=== PATIENT | female | born 1955 | race Caucasian/White ===

== ENCOUNTER 2017-02-17 07:06 | Inpatient (IN) | payer OTHER ==
[2017-02-17] VITALS (11 sets, daily range): BP systolic 134–188; BP diastolic 59–81; PULSE 74–90; RESP 16–20; TEMP 98.1–98.6; O2SAT 95–97
[~2017-02-17] VITALS: Ht 167.6 cm; Wt 127.5 kg
[2017-02-17] MEDS ORDERED: ASPIRIN 81 MG CHEW TAB PO ONE (07:30)
[2017-02-17] MEDS ORDERED: SODIUM CHLORIDE 0.9% FLUSH 10 ML FLUSH IVF PRN (07:30)
--- NOTE | 2017-02-17 07:36 | PD ---
HPI Chief Complaint: Cardiac Complaint Time Seen by Provider: 07:29 Travel History International Travel<30 days: No Contact w/Intl Traveler<30days: No Traveled to known affect area: No History of Present Illness HPI This is a 61-year-old female with history of hypertension, hyperlipidemia, who presents today with complaints of exertional related chest tightness and numbness and tingling of her bilateral arms. The patient reports that when she was lifting her 5 gallon water bottle onto the stand, she started experiencing chest tightness. She was seen by her primary care physician, Dr. Shepard on who is in the process of referring her to cardiology. He did state that if she experienced another episode of chest tightness, she should come to the emergency department. The patient reports she's been having these symptoms on and off now for 2-1/2 weeks. The patient is symptom-free at this time. PFSH Past Medical History Autoimmune Disease: No Blood Disorders: No Anxiety: No Depression: No Cancer: No High Cholesterol: Yes Diminished Hearing: No Endocrine: No Genitourinary: No Hypertension: Yes Musculoskeletal: No Neurologic: No Psychiatric: No Tetanus Vaccination: Unknown Influenza Vaccination: Yes ?: Not Menopausal: Yes : 1 Para: 1 Tubal Ligation: Yes Past Surgical History Cholecystectomy: Yes Genitourinary Surgery: Yes (TUBAL,1994) Family History Family Myocardial Infarction: Yes (GRANDFATHER) Social History Alcohol Use: Yes (OCCASIONALLY) Tobacco Use: No Substance Use: No Allergies-Medications (Allergen,Severity, Reaction): Coded Allergies: No Known Allergies (Verified Allergy, Unknown, 04/07/05) Reported Meds & Prescriptions Reported Meds & Active Scripts Active Reported Ranitidine (Ranitidine HCl) 300 Mg Tab 300 Mg PO DAILY Lisinopril 20 Mg Tab 20 Mg PO DAILY Lisinopril-Hctz 20-25 Mg Tab 1 Tab PO DAILY Lovastatin 20 Mg Tab 20 Mg PO DAILY Review of Systems Except as stated in HPI: all other systems reviewed are Neg General / Constitutional: No: Fever, Chills HENT: No: Headaches, Neck Pain Cardiovascular: Positive: Chest Pain or Discomfort, No: Palpitations ( tightness) Respiratory: Positive: Shortness of Breath (with the chest tightness), No: Cough Gastrointestinal: No: Nausea, Abdominal Pain Genitourinary: No: Frequency, Dysuria Musculoskeletal: Positive: Other (tingling of her), No: Weakness, Pain Neurologic: Positive: Other (numbness and tingling of her arms when the tightness is present. This is bilaterally), No: Weakness Physical Exam Narrative GENERAL: Well-developed well-nourished female in no acute respiratory distress. SKIN: Focused skin assessment warm/dry. HEAD: Atraumatic. Normocephalic. EYES: No scleral icterus. No injection or drainage. ENT: No nasal bleeding or discharge. Mucous membranes pink and moist. NECK: Trachea midline. No JVD. CARDIOVASCULAR: Regular rate and rhythm. No murmur appreciated. RESPIRATORY: No accessory muscle use. Clear to auscultation. Breath sounds equal bilaterally. GASTROINTESTINAL: Abdomen soft, non-tender, nondistended. MUSCULOSKELETAL: No obvious deformities. No clubbing. No cyanosis. No edema. NEUROLOGICAL: Awake and alert. No obvious cranial nerve deficits. Motor grossly within normal limits. Normal speech. PSYCHIATRIC: Appropriate mood and affect; insight and judgment normal. Data Data Last Documented VS Vital Signs Date Time Temp Pulse Resp B/P Pulse Ox O2 Delivery O2 Flow Rate FiO2 02/17/17 07:10 98.5 90 20 172/80 97 Room Air Orders Electrocardiogram (02/17/17 ) Electrocardiogram (02/17/17 07:29) Basic Metabolic Panel (Bmp) (02/17/17 07:29) Ckmb (Isoenzyme) Profile (02/17/17 07:29) Complete Blood Count With Diff (02/17/17 07:29) Magnesium (Mg) (02/17/17 07:29) Prothrombin Time / Inr (Pt) (02/17/17 07:29) Act Partial Throm Time (Ptt) (02/17/17 07:29) Troponin I (02/17/17 07:29) Chest, Single Ap (02/17/17 07:29) Ecg Monitoring (02/17/17 07:29) Bilateral Bp Monitoring (02/17/17 07:29) Iv Access Insert/Monitor (02/17/17 07:29) Oximetry (02/17/17 07:29) Oxygen Administration (02/17/17 07:29) Aspirin Chew (Aspirin Chew) (02/17/17 07:30) Sodium Chloride 0.9% Flush (Ns Flush) (02/17/17 07:30) Labs Laboratory Tests Test 02/17/17 07:45 White Blood Count 7.2 TH/MM3 Red Blood Count 4.43 MIL/MM3 Hemoglobin 12.5 GM/DL Hematocrit 36.8 % Mean Corpuscular Volume 83.0 FL Mean Corpuscular Hemoglobin 28.1 PG Mean Corpuscular Hemoglobin 33.8 % Concent Red Cell Distribution Width 14.6 % Platelet Count 172 TH/MM3 Mean Platelet Volume 10.5 FL Neutrophils (%) (Auto) 74.0 % Lymphocytes (%) (Auto) 16.6 % Monocytes (%) (Auto) 6.9 % Eosinophils (%) (Auto) 1.6 % Basophils (%) (Auto) 0.9 % Neutrophils # (Auto) 5.4 TH/MM3 Lymphocytes # (Auto) 1.2 TH/MM3 Monocytes # (Auto) 0.5 TH/MM3 Eosinophils # (Auto) 0.1 TH/MM3 Basophils # (Auto) 0.1 TH/MM3 CBC Comment DIFF FINAL Differential Comment Prothrombin Time 10.6 SEC Prothromb Time International 1.0 RATIO Ratio Activated Partial 30.0 SEC Thromboplast Time Sodium Level 144 MEQ/L Potassium Level 3.8 MEQ/L Chloride Level 108 MEQ/L Carbon Dioxide Level 28.4 MEQ/L Anion Gap 8 MEQ/L Blood Urea Nitrogen 14 MG/DL Creatinine 0.64 MG/DL Estimat Glomerular Filtration 95 ML/MIN Rate Random Glucose 103 MG/DL Calcium Level 9.5 MG/DL Magnesium Level 2.0 MG/DL Total Creatine Kinase 43 U/L Troponin I LESS THAN 0.02 NG/ML MDM Medical Decision Making Medical Screen Exam Complete: Yes Emergency Medical Condition: Yes Differential Diagnosis ACS versus musculoskeletal etiology versus pneumonia versus CHF versus pulmonary embolus Narrative Course 7-year-old female with a history of hyperlipidemia, hypertension, presents today with complaints of exertional chest pressure and shortness of breath. The patient's cardiac enzymes and EKG are within normal limits. The patient was initially given a be admitted to the chest pain center. Dr. Phil Mcdaniels is come in to evaluate the patient and feels as though this is too much like unstable angina and requests we admit to the medicine service with a consult with Dr. Alexis Phan. He spoke with Dr. Phan personally who will likely arrange to take the patient to the Director Of Architecture. There is a call out to the medicine service for admission. Diagnosis Primary Impression: Unstable angina Additional Impressions: Hypertension Hyperlipidemia Admitting Information Admitting Physician Requests: Admit Geremias Nagel MD Feb 17, 2017 07:36
[2017-02-17 07:56] LABS: AUTOMATED NEUTROPHIL # 5.4 TH/MM3 (1.8-7.7); BASOPHIL # 0.1 TH/MM3 (0-0.2); BASOPHIL % 0.9 % (0.0-2.0); EOSINOPHIL # 0.1 TH/MM3 (0-0.4); EOSINOPHIL % 1.6 % (0.0-4.0); HEMATOCRIT 36.8 % (35.0-46.0); HEMO FLAGS DIFF FINAL; LYMPH % 16.6 % (9.0-44.0); LYMPHOCYTE # 1.2 TH/MM3 (1.0-4.8); MEAN CORPUSCULAR HEMOGLOBIN 28.1 PG (27.0-34.0); MEAN CORPUSCULAR HGB CONC 33.8 % (32.0-36.0); MONO % 6.9 % (0.0-8.0); PLATELET COUNT 172 TH/MM3 (150-450); RED BLOOD COUNT 4.43 MIL/MM3 (4.00-5.30); RED CELL DISTRIBUTION WIDTH 14.6 % (11.6-17.2); WHITE BLOOD COUNT 7.2 TH/MM3 (4.0-11.0)
[2017-02-17 08:09] LABS: PROTHROMBIN TIME - PATIENT 10.6 SEC (9.8-11.6)
--- NOTE | 2017-02-17 08:12 | RADRPT ---
EXAM DATE/TIME: 02/17/2017 07:45 [facility] COMPARISON: No previous studies available for comparison. INDICATIONS : Chest pressure, heaviness, and shortness of breath for 2 weeks. MEDICAL HISTORY : Hypertension. SURGICAL HISTORY : None. ENCOUNTER: Initial ACUITY: 2 weeks PAIN SCORE: 0/10 LOCATION: Bilateral chest FINDINGS: The heart is enlarged. The pulmonary vascular pattern is normal. The lungs are clear. Degenerative changes are noted throughout the thoracic spine. CONCLUSION: 1. Cardiomegaly. 2. Degenerative changes throughout the thoracic spine. 3. No acute focal pulmonary infiltrate. Dionisio Houston MD on February 17, 2017 at 8:06 Board Certified Radiologist. This report was verified electronically.
[2017-02-17 08:15] LABS: ANION GAP 8 MEQ/L (5-15); BICARBONATE 28.4 MEQ/L (21.0-32.0); BLOOD UREA NITROGEN 14 MG/DL (7-18); CHLORIDE 108 MEQ/L (98-107); GLOMERULAR FILTRATION RATE 95 ML/MIN (>89); POTASSIUM 3.8 MEQ/L (3.5-5.1); SODIUM (NA) 144 MEQ/L (136-145)
[2017-02-17 08:17] LABS: CREATINE KINASE 43 U/L (26-192)
[2017-02-17] MEDS ORDERED: LOVA20TA PO (08:18)
[2017-02-17] MEDS ORDERED: LISI-515 PO (08:18)
[2017-02-17] MEDS ORDERED: LISI20TA3 PO (08:18)
[2017-02-17] MEDS ORDERED: RANI300T PO (08:18)
[2017-02-17] MEDS ORDERED: NITROGLYCERIN 2% OINT 1 GM PACKET TOPICAL ONE (10:30)
[2017-02-17] MEDS ORDERED: MAGNESIUM HYDROXIDE SUSP 30 ML CUP PO PRN (11:30)
[2017-02-17] MEDS ORDERED: NALOXONE HCL 0.4 MG/ML AMP IV PRN (11:30)
[2017-02-17] MEDS ORDERED: SODIUM CHLORIDE 0.9% FLUSH 10 ML FLUSH IV FLUSH PRN (11:30)
[2017-02-17] MEDS ORDERED: SENNOSIDES 8.6 MG TAB PO PRN (11:30)
[2017-02-17] MEDS ORDERED: ONDANSETRON HCL 4 MG/2 ML VIAL IVP PRN (11:30)
[2017-02-17] MEDS ORDERED: BISACODYL 10 MG SUPP RECTAL PRN (11:30)
[2017-02-17] MEDS ORDERED: LACTULOSE SYRUP 20 GM/30 ML CUP PO PRN (11:30)
--- NOTE | 2017-02-17 11:51 | HHI.HP ---
cc: Himanshu Shepard MD [facility] Service [facility] Primary Care Physician Himanshu Shepard MD Admission Diagnosis Chest pain, htn, hyperlipidemia Diagnoses: Chief Complaint: chest pain Travel History International Travel<30 Days: No Contact w/Intl Traveler <30 Da: No Traveled to Known Affected Are: No History of Present Illness Written by Domi Grover, acting as scribe for Dr. Hobson on 02/17/17 at 11: 58. 61-year-old female with history of hypertension, hyperlipidemia, GERD, presents with a 2 week history of intermittent chest pain. The patient reports this morning she was lifting a 5lbs gallon when she started experiencing acute onset of chest pain. She locates the pain to to the central anterior chest, described as severe tightness and pressure, associated with some numbness of bilateral arms, shortness of breath, but no nausea/vomiting/diaphoresis. Over the past 2 weeks she reports multiple episodes of chest pain with any minimal exertion, just walking from her car into work, or walking around the house. The pain is relieved by rest. She denies any chest pains as long as she's not exerting herself. She recently started taking baby aspirin every day this week secondary to the chest pain. She denies any cardiac history or prior cardiac testing. She saw her PCP Dr. Shepard this week who was in the process of referring her to cardiology as outpatient however told her to come to the ER if she has any more episodes of chest pain. The patient is concerned as her grandfather from [place] at age 55. Review of Systems Except as stated in HPI: all other systems reviewed are Neg Past Family Social History Past Medical History Hypertension Hyperlipidemia GERD Past Surgical History Tubal ligation, 1995 Right Ankle fusion x2 Left Achilles tendon repair Cholecystectomy Reported Medications Ranitidine (Ranitidine HCl) 300 Mg Tab 300 Mg PO DAILY Lisinopril 20 Mg Tab 20 Mg PO DAILY Lisinopril-Hctz 20-25 Mg Tab 1 Tab PO DAILY Lovastatin 20 Mg Tab 20 Mg PO DAILY Aspirin 81mg daily Allergies: Coded Allergies: No Known Allergies (Verified Allergy, Unknown, 04/07/05) Active Ordered Medications Current Medications Medications (Trade) Dose Ordered Sig/Dalila Route Start Time Stop Time Status Last Admin (NS Flush) 2 ml UNSCH PRN IVF 02/17/17 07:30 (NS Flush) 2 ml UNSCH PRN IV FLUSH 02/17/17 11:30 UNV (NS Flush) 2 ml BID IV FLUSH 02/17/17 21:00 UNV (Zofran Inj) 4 mg Q6H PRN IVP 02/17/17 11:30 UNV (Lovenox Inj) 40 mg Q24H SQ 02/17/17 11:30 UNV (Narcan Inj) 0.4 mg UNSCH PRN IV 02/17/17 11:30 UNV (Olga-Colace) 1 tab BID PO 02/17/17 21:00 UNV (Milk Of Magnesia Liq) 30 ml Q12H PRN PO 02/17/17 11:30 UNV (Senokot) 17.2 mg Q12H PRN PO 02/17/17 11:30 UNV (Dulcolax Supp) 10 mg DAILY PRN RECTAL 02/17/17 11:30 UNV (Lactulose Liq) 30 ml DAILY PRN PO 02/17/17 11:30 UNV Family History Grandfather at age 55 with CAD/[place] Mother with diabetes, breast cancer Father with CVA in his 70s Social History Smoked tobacco from age 19 to 23, 1 PPD, no recent tobacco use Occasional alcohol use, approximately once a week Denies any illicit drug use Works at [employer] for 33 years Physical Exam Vital Signs Vital Signs Date Time Temp Pulse Resp B/P Pulse Ox O2 Delivery O2 Flow Rate FiO2 02/17/17 11:33 77 20 188/77 95 Room Air 02/17/17 07:10 98.5 90 20 172/80 97 Room Air Physical Exam GENERAL: Well-nourished, well-developed obese middle aged female patient in NAD. SKIN: Warm and dry. No rash. HEAD: Normocephalic. Atraumatic. EYES: Pupils equal and round. No scleral icterus. No injection or drainage. ENT: No nasal bleeding or discharge. Mucous membranes pink and moist. NECK: Supple. Trachea midline. CARDIOVASCULAR: Regular rate and rhythm. S1, S2 noted. No murmur appreciated. RESPIRATORY: No accessory muscle use. Clear to auscultation. Breath sounds equal bilaterally. GASTROINTESTINAL: Abdomen soft, non-tender, nondistended. Normoactive bowel sounds x4. MUSCULOSKELETAL: No obvious deformities. Extremities without clubbing, cyanosis , or edema. NEUROLOGICAL: Awake and alert. No obvious cranial nerve deficits. Motor grossly within normal limits. 5/5 muscle strength in bilateral upper and lower extremities. Normal speech. PSYCHIATRIC: Appropriate mood and affect; insight and judgment normal. Laboratory Laboratory Tests Test 02/17/17 07:45 White Blood Count 7.2 Red Blood Count 4.43 Hemoglobin 12.5 Hematocrit 36.8 Mean Corpuscular Volume 83.0 Mean Corpuscular Hemoglobin 28.1 Mean Corpuscular Hemoglobin 33.8 Concent Red Cell Distribution Width 14.6 Platelet Count 172 Mean Platelet Volume 10.5 Neutrophils (%) (Auto) 74.0 Lymphocytes (%) (Auto) 16.6 Monocytes (%) (Auto) 6.9 Eosinophils (%) (Auto) 1.6 Basophils (%) (Auto) 0.9 Neutrophils # (Auto) 5.4 Lymphocytes # (Auto) 1.2 Monocytes # (Auto) 0.5 Eosinophils # (Auto) 0.1 Basophils # (Auto) 0.1 CBC Comment DIFF FINAL Differential Comment Prothrombin Time 10.6 Prothromb Time International 1.0 Ratio Activated Partial 30.0 Thromboplast Time Sodium Level 144 Potassium Level 3.8 Chloride Level 108 Carbon Dioxide Level 28.4 Anion Gap 8 Blood Urea Nitrogen 14 Creatinine 0.64 Estimat Glomerular Filtration 95 Rate Random Glucose 103 Calcium Level 9.5 Magnesium Level 2.0 Total Creatine Kinase 43 Troponin I LESS THAN 0.02 Result Diagram: 02/17/17 0745 02/17/1745 Imaging Last Impressions Chest X-Ray 02/17/17 0729 Signed Impressions: Service Date/Time: Friday, February 17, 2017 07:45 - CONCLUSION: 1. Cardiomegaly. 2. Degenerative changes throughout the thoracic spine. 3. No acute focal pulmonary infiltrate. Dionisio Houston MD Assessment and Plan Problem List: (1) Unstable angina ICD Code: I20.0 Status: Acute (2) Hypertension ICD Code: I10 Status: Acute (3) Hyperlipidemia ICD Code: E78.5 Status: Chronic Assessment and Plan 61-year-old female with history of hypertension, hyperlipidemia, GERD, presents with a 2 week history of intermittent chest pain. Unstable Angina: Initially to be admitted to Chest Pain Center however high concern for ACS given her description, [facility] contacted bus driver/monitor chief contract officer who plans to take patient for heart catheterization today. Currently patient is chest-pain free. -S/p aspirin 324mg x1 -initial troponin negative and EKG without acute ischemic changes -continue to monitor serial cardiac enzymes and EKGs -Continue nitro paste, IV morphine prn -Check lipid panel in am, continue statin -Started beta jj -Cardiology consulted, patient going for heart catheterization today -Keep NPO for now Hypertension: with elevated BP in ER, suspect secondary to anxiety vs white coat hypertension, patient reports BP well controlled at home in the 110s-120s on her home meds -continue patient's lisinopril 40mg and HCTZ 25mg -monitor BP, adjust antihypertensives as needed -xanax 0.25mg prn anxiety -clonidine 0.1mg q6h prn SBP > 160, DBP > 90 Hyperlipidemia: chronic -continue patient's statin -check lipid panel in am GERD: chronic -continue patient's zantac DVT Prophylaxis: Lovenox This note was transcribed by scribe [Domi Grover]. I, Dr. Bill Hobson personally performed the history, physical exam, and medical decision making; and confirmed the accuracy of the information in the transcribed note. Authenticated by Dr. Bill Hobson on 02/17/17 at 16:00. Discussed Condition With Patient, ER Physician Certification 2 Midnight Certification Type: Admission for Inpatient Services Order for Inpatient Services The services are ordered in accordance with Medicare regulations or non- Medicare payer requirements, as applicable. In the case of services not specified as inpatient-only, they are appropriately provided as inpatient services in accordance with the 2-midnight benchmark. Estimated LOS (days): 3 days is the estimated time the patient will need to remain in the hospital, assuming treatment plan goals are met and no additional complications. Post-Hospital Plan: Home Domi Grover PA-C Feb 17, 2017 11:51 am Bill Hobson MD Feb 17, 2017 4:01 pm
[2017-02-17] MEDS ORDERED: ENOXAPARIN SODIUM 40 MG/0.4 ML SYRINGE SQ SCH (12:00)
[2017-02-17] MEDS ORDERED: cloNIDine HCL 0.1 MG TAB PO PRN (13:00)
[2017-02-17] MEDS ORDERED: MORPHINE SULFATE 4 MG/ML INJ IV PUSH PRN (13:45)
[2017-02-17] MEDS ORDERED: HEPARIN-NS/PF INJ 500 ML ONE (14:11)
[2017-02-17] MEDS ORDERED: MIDAZOLAM HCL 2 MG/2 ML VIAL ONE (14:12)
[2017-02-17] MEDS ORDERED: VERAPAMIL HCL 5 MG/2 ML VIAL ONE (14:12)
--- NOTE | 2017-02-17 15:27 | CATHPROC ---
AQH HIS Report Study Information Study Number Admission Scheduled Start Study Start [id number] Feb 17 2017 9:31AM 02/17/2017 Feb 17 2017 2:13PM [place] Service Cardiac Catheterization Admit Source Facility Department Emergency department [facility] - [employer] Physician and Clinical Staff Initial MD Narvaez, Alexis Mold Inspectorlester Whitfield RN, Holden Mold InspectorNicole Vasquez RN Recorder Hamida Alvarenga,TEMPORARY DATA ENTRY CLERK TECH2 Recorder Rachel Ledesma,RT(R) Scrub Carley Schafer,MAIL PROCESSING EQUIPMENT MECHANIC TECH2 Procedures Performed Procedure Location (Site) Vessel Name Coronary Angiograms LCA Left Coronary Coronary Angiograms RCA Right Coronary L Heart Cath Wire insertion Radial (right) Radial Art. Equipment Time Chuck Tender Description Size Mfg Part Number Used/Scraped TRANSDUCER, ARA [id number] 14:14 ATKINSON CAPELLAN * Used W/STOCKCOCK *[id number] *[id number] *[id number] *[id number] *[id number] 14:14 [employer] PACK, CCL CUSTOM * Used *[id number] 14:14 [employer] SUPPORT, ARTERIAL ADULT [id number] Used BAND, RADIAL COMPRESSION TR [id number] 15:09 [employer] MEDICAL 29CM Used LARGE 29 *[id number] BAND, RADIAL COMPRESSION TR [id number] 15:09 [employer] MEDICAL 29CM Used LARGE 29 *[id number] 14:14 [employer] WIRE, 3MMJ .035 180CM 180CM Used *[id number] 14:14 NAMIC MANIFOLD, 4 PORT * Used *[id number] 14:14 NYCOMED OMNIPAQUE, 350 MG, 150ML 150ML [id number] Used [id number] 14:14 [facility] BLANKET,WARM AIR CCL * Used *[id number] SHEATH, FR6 TRANSRADIAL 14:14 [employer]ging [employer] FR 6 RM*[id number] Used SLENDER 10CM History: Current Medications Medication Dosage/Unit Route Frequency Last Date/Time Taken LISINOPRIL Statins (any) History: Allergies Allergy Reaction No Known Allergies History: Risk Factors Family History of Hypertension Dyslipidemia Previous ME Previous Heart Failure Premature CAD Yes Yes No No No Prior Valve Prior PCI Prior CABG Surgery No No No Cerebrovascular Peripheral Artery Chronic Lung On Dialysis Diabetes Disease Disease Disease No No No No No History: Symptoms/Diagnosis Selection Items Chest pain SOB History: Stress Tests Stress or Imaging Studies Performed No History: Other Disease Selection Items HTN History: Other Current Smoker No Labs Hgb (g/dl) Hct (%) RBC (MIL/MM3) WBC (l/cumm) Platelets (thousands) 11.60-17.00 35.00-51.00 4.00-5.90 4.00-11.00 150.00-450.00 12.5 36.8 4.4 7.2 172 Glucose (mg/dl) BUN (mg/dl) Creatinine (mg/dl) BUN:Creatinine (1:x) 74.00-106.00 7.00-18.00 0.50-1.30 10.00-20.00 103 14 0.6 23.3 Na (meq/l) K (meq/l) Cl (meq/l) CO2 (mmol/L) Ca (mg/dl) 136.00-145.00 3.50-5.10 98.00-107.00 21.00-32.00 8.50-10.10 144 3.8 108 28.4 9.5 PT (sec) PTT (sec) INR (PTT:PT) 9.80-11.60 24.30-30.10 0.90-1.10 10.6 30 1 Troponin I (ng/ml) CPK (u/l) CPK-MB (ng/ML) 0.02-0.05 26.00-308.00 0.50-3.60 0.02 43 Not Drawn Medication Medication Total Dose (Bolus/Oral) Medication Total Dosage/Unit 1% XYLOCAINE 20 mL FENTANYL 100 mcg RADIAL COCKTAIL 5 mL (Bolus) VERSED 2 mg Medications (Bolus/Oral) Medication Time Given Dosage/Unit Administered By Reason 1% XYLOCAINE 02/17/2017 2:52:54 PM 20 mL Alexis Narvaez Patient arrived on 20 mL 1% XYLOCAINE given by Alexis Narvaez in Right Wrist via Subcutaneous. FENTANYL 02/17/2017 2:53:51 PM 50 mcg Holden Whitfield RN 50 mcg FENTANYL given in lab by Holden Whitfield RN in Right Antecubital via Peripheral IV. VERSED 02/17/2017 2:54:27 PM 2 mg Holden Whitfield RN 2 mg VERSED given in lab by Holden Whitfield RN via Peripheral IV. Ntg 200mcg Verapamil 2.5mg Heparin RADIAL COCKTAIL 02/17/2017 2:55:05 PM 5 mL (Bolus) Alexis Narvaez 2500U Patient arrived on 5 mL (Bolus) RADIAL COCKTAIL given by Alexis Narvaez in Right Radial via Radial . Using [Solution Name]. Reason: Ntg 200mcg Verapamil 2.5mg Heparin 2500U. FENTANYL 02/17/2017 3:05:49 PM 50 mcg Holden Whitfield RN 50 mcg FENTANYL given in lab by Holden Whitfield RN via Peripheral IV. Medication (Drip) Medication Time Given Dosage/Unit Concentration/Unit Diluent (ml) Solution IV Solutions 02/17/2017 2:14:20 PM 0 mL (IV) 500 NaCl .9 Patient arrived on IV Solutions in Left Forearm via Peripheral IV. Pump/Drip Flow = 20 ml/hr using Na Cl .9. Initial Case Assessment Cardiovascular HR Rhythm NIBP Chest Pain 91 sr 159/87 0 Circulatory - Right Pulses Dorsalis Pedis Femoral Radial 2 2 2 Scale (0,1,2,3,4,d) Scale (0,1,2,3,4,d) Neurological State Oriented to time-place- Alert Moves all extremities person Respiration - General Respiration Rate SpO2 (%) (B/min) 20 95 Chronological Log Time Study Chronological Log 14:10:04 Patient arrived via Bed. 14:10:05 Patient Name, D.O.B, / Armband Verified By R.N. 14:13:06 Consent signed by the physician and the patient and verified by the [employer] staff. 14:13:06 Pre-op and post- op instructions given; patient acknowledges understanding of instruction s. 14:13:08 Verbal Stimulation=2 Physical Stimulation=2 Airway=2 Respiration=2 TOTAL=8. (0=absent, 1= limited, 2=present) 14:14:10 Presedation assessment performed by [employer] RN. 14:14:12 Patient has been NPO for More than 6Hrs. 14:14:13 Skin Breakdown-none 14:14:16 Epifanio Prominences Protected 14:14:19 A # 20 IV was noted in the Forearm (left). Grade = patent 14:14:20 Patient arrived on IV Solutions in Left Forearm via Peripheral IV. Pump/Drip Flow = 20 ml/h r using NaCl .9. 14:14:21 History and physical on the chart or being dictated. Vitals capture started with the following parameters, Patient=Adult, Interval=5 min, Initial Pr akvwwm=581 mmHg, 14:17:55 Deflation Rate=5 mmHg 14:18:34 HR=91 bpm, LPLK=594/87 mmhg, Resp=20 B/min, Pain=0, Alpesh=10, Baugh=2 Assessment: Initial Case, HR=91 BPM, Rhythm=sr, UPXA=614/87 mmhg, Chest Pain=0 Right Pulses: Eddie Ped=2, Femoral=2, Radial=2 14:18:35 Neurological: State=Alert, Ox3, ROTHMAN Respiration: Resp=20 B/min, SpO2=95 % 14:19:13 Reference ECG taken 14:20:35 HR=91 bpm, JWGE=004/79 mmhg, SpO2=95 %, Resp=17 B/min, Pain=0, Alpesh=10, Baugh=2 14:22:31 HR=87 bpm, DSLU=217/91 mmhg, SpO2=96 %, Resp=21 B/min, Pain=0, Alpesh=10, Baugh=2 14:24:36 HR=91 bpm, OKVX=681/80 mmhg, SpO2=95.0 %, Resp=10 B/min, Pain=0, Alpesh=10, Baugh=2 14:25:16 Right wrist and right groin prepped with 2% chlorhexidine, and with a 3 min. waiting time. 14:26:33 HR=86 bpm, IXRU=618/103 mmhg, SpO2=94.0 %, Resp=20 B/min, Pain=0, Alpesh=10, Baugh=2 14:28:36 HR=93 bpm, LUNF=316/94 mmhg, SpO2=95.0 %, Resp=16 B/min, Pain=0, Alpesh=10, Baugh=2 14:30:37 HR=86 bpm, CHLJ=928/78 mmhg, SpO2=94.0 %, Resp=11 B/min, Pain=0, Baugh=2 14:30:49 Pressure channel 1 zeroed. 14:30:51 MD paged 14:32:40 HR=85 bpm, OHQQ=912/79 mmhg, SpO2=95 %, Resp=18 B/min, Pain=0, Alpesh=10, Baugh=3 14:34:36 HR=88 bpm, SMNW=528/85 mmhg, SpO2=94.0 %, Resp=14 B/min, Pain=0, Alpesh=10, Baugh=3 14:36:33 HR=87 bpm, HRIY=534/89 mmhg, SpO2=93.0 %, Resp=15 B/min, Pain=0, Alpesh=10, Baugh=3 14:38:34 HR=92 bpm, YWKQ=717/89 mmhg, SpO2=95.0 %, Resp=13 B/min, Pain=0, Alpesh=10, Baugh=3 14:40:31 HR=86 bpm, IZIS=943/89 mmhg, SpO2=93.0 %, Resp=13 B/min, Pain=0, Alpesh=10, Baugh=3 14:42:36 HR=87 bpm, ACQK=117/87 mmhg, SpO2=93.0 %, Resp=18 B/min, Pain=0, Alpesh=10, Baugh=3 14:44:35 HR=93 bpm, MQPG=870/83 mmhg, SpO2=93.0 %, Resp=14 B/min, Pain=0, Alpesh=10, Baugh=3 14:46:37 HR=89 bpm, AZZJ=843/81 mmhg, SpO2=92.0 %, Resp=15 B/min, Pain=0, Alpesh=10, Baugh=3 14:48:38 HR=91 bpm, UEEW=187/78 mmhg, SpO2=93.0 %, Resp=17 B/min, Pain=0, Alpesh=10, Baugh=3 14:50:39 HR=89 bpm, KUBI=813/84 mmhg, SpO2=93.0 %, Resp=15 B/min, Pain=0, Alpesh=10, Baugh=3 14:51:08 MD arrived. 14:52:30 Case Start Time Out. Correct patient, correct procedure,correct physician, ,power injector not loaded with contrast with surgical 14:52:36 team present. Time Out Concurred by MD, individual staff and COOK ICE CREAM in procedure 14:52:38 HR=95 bpm, IPCR=020/84 mmhg, SpO2=95.0 %, Resp=16 B/min, Pain=0, Alpesh=10, Baugh=3 14:52:54 Patient arrived on 20 mL 1% XYLOCAINE given by Alexis Narvaez in Right Wrist via Subcuta neous. 14:53:51 50 mcg FENTANYL given in lab by Holden Whitfield RN in Right Antecubital via Peripheral IV. 14:54:05 Access site was Radial Artery.RIGHT 14:54:18 A wire was inserted via Radial (right). 14:54:27 2 mg VERSED given in lab by Holden Whitfield RN via Peripheral IV. 14:54:37 HR=94 bpm, CCBO=834/87 mmhg, SpO2=91.0 %, Resp=26 B/min, Pain=0, Alpesh=10, Baugh=3 A SHEATH, FR6 TRANSRADIAL SLENDER 10CM FR 6 was advanced into the Radial (right) using the Perc utaneous 14:54:44 technique. Patient arrived on 5 mL (Bolus) RADIAL COCKTAIL given by Alexis Narvaez in Right Radial via Radial. Using 14:55:05 [Solution Name]. Reason: Ntg 200mcg Verapamil 2.5mg Heparin 2500U. A JR 4.0 INFINITI CATHETER FR 5 was advanced over a wire. OMNIPAQUE, 350 MG, 150ML 150ML was us ed for 14:55:42 injections. Recorded Pressure: LV, OH=229, Condition=Condition 1 14:56:02 (Left Ventricle) LV 175/7/13 Recorded Pressure: LV, Ao, UI=283, Condition=Condition 1 14:56:57 (Left Ventricle) LV 165/12/16, (Aorta) Ao 156/62/113 14:57:12 HR=98 bpm, WKNL=750/76 mmhg, SpO2=88.0 %, Resp=20 B/min, Pain=0, Alpesh=10, Baugh=3 14:57:44 The RCA was injected and visualized at various angles. OMNIPAQUE, 350 MG, 150ML 150ML used . Recorded Pressure: Ao, HR=96, Condition=Condition 1 14:58:03 (Aorta) Ao 112/36/69 14:58:27 Catheter was removed A JL 4.0 INFINITI CATHETER FR 5 was advanced over a wire. OMNIPAQUE, 350 MG, 150ML 150ML was us ed for 14:58:29 injections. 14:58:36 HR=97 bpm, HSKZ=921/81 mmhg, SpO2=89.0 %, Resp=17 B/min, Pain=0, Alpesh=10, Baugh=3 Recorded Pressure: Ao, HR=94, Condition=Condition 1 15:00:16 (Aorta) Ao 160/82/117 15:00:37 HR=94 bpm, TFHD=890/84 mmhg, SpO2=91.0 %, Resp=18 B/min, Pain=0, Alpesh=10, Baugh=3 A JL 4.0 INFINITI CATHETER FR 4 was advanced over a wire. OMNIPAQUE, 350 MG, 150ML 150ML was us ed for 15:01:08 injections. 15:02:38 HR=92 bpm, LHQR=353/91 mmhg, SpO2=91.0 %, Resp=19 B/min, Pain=0, Alpesh=10, Baugh=3 15:03:19 The LCA was injected and visualized at various angles. OMNIPAQUE, 350 MG, 150ML 150ML used . 15:04:39 HR=97 bpm, GVBY=776/93 mmhg, SpO2=92.0 %, Resp=70 B/min, Pain=0, Alpesh=10, Baugh=3 15:05:49 50 mcg FENTANYL given in lab by Holden Whitfield RN via Peripheral IV. 15:05:50 Catheter was removed 15:06:41 Case End 15:07:21 BV=916 bpm, TKQH=793/91 mmhg, SpO2=94.0 %, Resp=16 B/min, Pain=0, Alpesh=10, Baugh=3 15:08:43 HR=98 bpm, VWZJ=659/94 mmhg, SpO2=90.0 %, Resp=14 B/min, Pain=0, Alpesh=10, Baugh=3 15:10:41 ZY=015 bpm, ZRWF=898/87 mmhg, Resp=17 B/min, Pain=0, Alpesh=10, Baugh=3 15:12:02 BAND, RADIAL COMPRESSION TR LARGE 29 29CM placement in the Radial (right) 15:12:16 No case complications noted. 15:12:19 12 CC OF AIR PLACED IN TR BAND WITH A 96% SATURATION 15:12:40 HR=97 bpm, CYEG=938/92 mmhg, Pain=0, Alpesh=10, Baugh=3 15:13:13 Sterile dressing applied to site 15:13:14 No case complications noted. 15:13:14 Cine recording checked. 15:13:18 Bedside Report will be given. 15:13:19 Contrast Scanned 15:13:21 A Left Heart Cath was performed. 15:13:26 Clinical correlaton risk stratification. 15:15:37 DR MERCADO CONSULTED FOR CABG End Study - Contrast Media Used In Study Contrast Total Opened (mL) Total Used (mL) Total Wasted (mL) Omnipaque 30 30 0 End Study - Maximum Contrast Load Max Contrast Load (mL) 1000.0 End Study - Radiation Exposure Fluoro Time (minutes) 4.7 End Study - Patient Disposition Complications Transferred To Interventional Outcome No Regular Bed No attempt made
[2017-02-17] MEDS ORDERED: IOHEXOL 350 MG/ML 50 ML BTL (for Cath Lab) OTHER ONE (16:41)
[2017-02-17] MEDS: NITROGLYCERIN 2% OINT 1 GM PACKET TOPICAL SCH ×2 (18:00→23:47)
--- NOTE | 2017-02-17 18:15 | MA ---
cc: NEVESMOJGAN CORDOVA DATE OF 1955 DATE 02/17/2017 PROCEDURE PERFORMED 1. Left heart catheterization. 2. Selective right and left coronary angiography. 3. Left ventriculogram. INDICATION Unstable angina. DESCRIPTION OF PROCEDURE Consent signed. The patient was taken to the cardiac laborer general in a fasting state. The right groin and wrist were prepped and draped in sterile fashion. Using 1% lidocaine for local anesthesia and a micropuncture kit a 6-Lebanese sheath was inserted into the right radial artery. Antispasmodic cocktail given. Then selective right and left coronary angiography was performed with a JR-4 and JL-3.5 diagnostic catheters. Angiography was taken in multiple views. The JR-4 diagnostic catheter was introduced over a wire into the ventricle. This was followed by pressure recordings, left ventriculography and pullback. Of note the patient had severe ostial stenosis in the right coronary artery as well as the ostial left main with damping on engagement of both vessels. The catheter had to be downsized in the left main to a JL-4 4-Lebanese to be able to take the pictures. The right access site was closed with a TR band. RESULTS The left ventricular pressure was 165/12 and LVEDP of 16. The aortic pressure was 160/82 with a mean of 117. The left ventriculogram revealed a symmetrically river ventricle with an estimated ejection fraction of 60%. There was no gradient upon pullback from the left ventricle to the aorta. ANGIOGRAPHIC RESULTS 1. Right coronary artery. The right coronary artery is a dominant vessel. It is giving off the PDA. It has a significant ostial 99% lesion which on engagement there was significant damping of the pressures. 2. Left main is short and has a significant 80% lesion proximally. The was significant damping of the catheter when engaging at this artery as well. 3. The LAD is a transapical vessel, has minimal luminal irregularities, however , no significant obstructive coronary artery disease. It has a main diagonal vessel which bifurcates which is open with MARIAH III flow and nonobstructive coronary artery disease. 4. Left circumflex artery has an ostial 60% lesion. It is a big vessel. The rest of the vessel has no significant obstructive coronary artery disease. The vessel is composed of three OM branches. The third one being the biggest of them all. They are all patent with MARIAH III flow and nonobstructive coronary artery disease. CONCLUSION 1. Significant left main and ostial right coronary artery stenosis. 2. Preserved LV systolic function. RECOMMENDATIONS The patient will be admitted to the hospital. She will be consulted to CT surgery for CABG. In the meantime we will continue aggressive medical management for ACS/unstable angina. Start Heparin drip. Get 2 D-Echocardiogram MD GERRY Sanchez/JOCELYN /3:21 PM /6:08 PM MTDMartha
--- NOTE | 2017-02-17 19:00 | RADRPT ---
EXAM DATE/TIME: 02/16/2017 18:02 [place] COMPARISON: No previous studies available for comparison. INDICATIONS : Syncope. MEDICAL HISTORY : Hypercholesterolemia. Hypertension. Liver disease. SURGICAL HISTORY : Cholecystectomy. Tubal ligation. Achilles tendon surgery. ENCOUNTER: Initial ACUITY: 3 weeks PAIN SCORE: 0/10 LOCATION: Bilateral neck PEAK SYSTOLIC VELOCITIES (cm/sec): ICA/CCA RATIO: Right: 1.4 Left: 1.0 ICA: Right: 127.9 Left: 122.9 CCA: Right: 88.5 Left: 119.4 ECA: Right: 167.0 Left: 141.7 VERTEBRAL: Right: 102.3 antegrade Left: 71.1 antegrade Elevated flow velocities and ICA/CCA ratios have been found to correlate with increased degrees of vessel stenosis, calculated as percentage of diameter relative to a normal segment of distal ICA/CCA FINDINGS: RIGHT CAROTID: No significant stenosis is visualized. Minimal plaque is present. The waveforms are within normal marks its. LEFT CAROTID: No significant stenosis is visualized. Minimal plaque is present. The waveforms are within normal marks its. VERTEBRAL ARTERIES: Antegrade flow is seen in both vertebral arteries. MISCELLANEOUS: None. CONCLUSION: Minimal plaque with no evidence of significant stenosis. Bhavesh Alicia MD on February 17, 2017 at 18:56 Board Certified Radiologist. This report was verified electronically.
[2017-02-17] MEDS: METOPROLOL TARTRATE 25 MG TAB PO SCH (20:24)
[2017-02-17] MEDS: FAMOTIDINE 20 MG TAB PO SCH (20:25)
[2017-02-17] MEDS: SODIUM CHLORIDE 0.9% FLUSH 10 ML FLUSH IV FLUSH SCH (20:25)
[2017-02-17] MEDS: DOCUSATE SODIUM 50 MG/SENNA 8.6 MG TAB PO SCH (20:25)
--- NOTE | 2017-02-17 22:59 | EKG ---
Date Performed: 02/17/2017 Time Performed: 07:31:27 PTAGE: 61 years EKG: Sinus rhythm INFERIOR MYOCARDIAL INFARCTION ABNORMAL ECG NO PREVIOUS TRACING DOCTOR: Caterina Dos Santos Interpretating Date/Time 02/17/2017 22:58:01
[2017-02-18] VITALS (29 sets, daily range): BP systolic 145–168; BP diastolic 66–88; PULSE 66–99; RESP 16–20; TEMP 98–99.2; O2SAT 93–97
[2017-02-18] MEDS ORDERED: HEPARIN SODIUM - IV 10,000 UNITS/10 ML VIAL IV PRN (01:30)
[2017-02-18] MEDS ORDERED: HEPARIN SODIUM - IV 10,000 UNITS/10 ML VIAL IV PUSH ONE (01:30)
[2017-02-18] MEDS: HEPARIN 25,000 UNITS-D5W 250 ML - PREMIX IV SCH ×2 (01:46→19:22)
[2017-02-18] MEDS: ALPRAZolam 0.25 MG TAB PO PRN ×2 (01:46→22:58)
--- NOTE | 2017-02-18 04:20 | PD.CARD.PN ---
Subjective Subjective Remarks no CV complaints No Overnight events Objective Medications Current Medications Medications (Trade) Dose Ordered Sig/Dalila Route Start Time Stop Time Status Last Admin (NS Flush) 2 ml UNSCH PRN IV FLUSH 02/17/17 11:30 (NS Flush) 2 ml BID IV FLUSH 02/17/17 21:00 02/17/17 20:25 (Zofran Inj) 4 mg Q6H PRN IVP 02/17/17 11:30 (Narcan Inj) 0.4 mg UNSCH PRN IV 02/17/17 11:30 (Olga-Colace) 1 tab BID PO 02/17/17 21:00 (Milk Of Magnesia Liq) 30 ml Q12H PRN PO 02/17/17 11:30 (Senokot) 17.2 mg Q12H PRN PO 02/17/17 11:30 (Dulcolax Supp) 10 mg DAILY PRN RECTAL 02/17/17 11:30 (Lactulose Liq) 30 ml DAILY PRN PO 02/17/17 11:30 (Xanax) 0.25 mg Q6HR PRN PO 02/17/17 13:00 02/18/17 01:46 (Catapres) 0.1 mg Q6H PRN PO 02/17/17 13:00 (Lopressor) 25 mg Q12HR PO 02/17/17 13:45 02/17/17 20:24 (Morphine Inj) 2 mg Q3H PRN IV PUSH 02/17/17 13:45 (Pravachol) 20 mg DAILY PO 02/18/17 09:00 (Pepcid) 20 mg BID PO 02/17/17 21:00 02/17/17 20:25 (Prinivil) 40 mg DAILY PO 02/18/17 09:00 (Hydrodiuril) 25 mg DAILY PO 02/18/17 09:00 Nitroglycerin 1 inch 1 inch Q6HR TOPICAL 02/17/17 18:00 02/17/17 23:47 (Heparin-D5W Inj) 250 ml @ 0 mls/hr TITRATE IV 02/18/17 01:30 02/18/17 01:46 (Heparin Inj) 5,000 units UNSCH PRN IV 02/18/17 01:30 (Heparin Inj) 2,500 units UNSCH PRN IV 02/18/17 01:30 Vital Signs / I&O Vital Signs Date Time Temp Pulse Resp B/P Pulse Ox O2 Delivery O2 Flow Rate FiO2 02/18/17 03:04 73 02/18/17 02:00 74 02/18/17 01:04 71 02/18/17 00:18 72 02/17/17 23:18 74 02/17/17 23:00 98.1 76 16 154/76 95 02/17/17 22:00 74 02/17/17 21:00 78 02/17/17 20:00 82 02/17/17 19:20 98.6 82 18 164/81 96 02/17/17 19:19 88 02/17/17 15:32 94 Room Air 02/17/17 12:18 79 18 137/61 02/17/17 12:16 74 16 134/59 97 Room Air 02/17/17 11:33 77 20 188/77 95 Room Air 02/17/17 07:10 98.5 90 20 172/80 97 Room Air Physical Exam GENERAL: Well-nourished, well-developed patient. SKIN: Warm and dry. HEAD: Normocephalic. EYES: No scleral icterus. No injection or drainage. NECK: Supple, trachea midline. No JVD or lymphadenopathy. CARDIOVASCULAR: Regular rate and rhythm without murmurs, gallops, or rubs. RESPIRATORY: Breath sounds equal bilaterally. No accessory muscle use. GASTROINTESTINAL: Abdomen soft, non-tender, nondistended. EXTREMITIES: No cyanosis, or edema. NEUROLOGICAL: Awake, alert, and oriented x 3. Non-focal. Laboratory Laboratory Tests Test 02/17/17 02/17/17 02/17/17 07:45 12:55 19:46 White Blood Count 7.2 TH/MM3 Red Blood Count 4.43 MIL/MM3 Hemoglobin 12.5 GM/DL Hematocrit 36.8 % Mean Corpuscular Volume 83.0 FL Mean Corpuscular Hemoglobin 28.1 PG Mean Corpuscular Hemoglobin 33.8 % Concent Red Cell Distribution Width 14.6 % Platelet Count 172 TH/MM3 Mean Platelet Volume 10.5 FL Neutrophils (%) (Auto) 74.0 % Lymphocytes (%) (Auto) 16.6 % Monocytes (%) (Auto) 6.9 % Eosinophils (%) (Auto) 1.6 % Basophils (%) (Auto) 0.9 % Neutrophils # (Auto) 5.4 TH/MM3 Lymphocytes # (Auto) 1.2 TH/MM3 Monocytes # (Auto) 0.5 TH/MM3 Eosinophils # (Auto) 0.1 TH/MM3 Basophils # (Auto) 0.1 TH/MM3 CBC Comment DIFF FINAL Differential Comment Prothrombin Time 10.6 SEC Prothromb Time International 1.0 RATIO Ratio Activated Partial 30.0 SEC Thromboplast Time Sodium Level 144 MEQ/L Potassium Level 3.8 MEQ/L Chloride Level 108 MEQ/L Carbon Dioxide Level 28.4 MEQ/L Anion Gap 8 MEQ/L Blood Urea Nitrogen 14 MG/DL Creatinine 0.64 MG/DL Estimat Glomerular Filtration 95 ML/MIN Rate Random Glucose 103 MG/DL Calcium Level 9.5 MG/DL Magnesium Level 2.0 MG/DL Total Creatine Kinase 43 U/L Troponin I LESS THAN 0.02 LESS THAN 0.02 0.04 NG/ML NG/ML NG/ML Imaging Last Impressions Chest X-Ray 02/17/17 0729 Signed Impressions: Service Date/Time: Friday, February 17, 2017 07:45 - CONCLUSION: 1. Cardiomegaly. 2. Degenerative changes throughout the thoracic spine. 3. No acute focal pulmonary infiltrate. Dionisio Houston MD Carotid Artery Ultrasound 02/17/17 0000 Signed Impressions: Service Date/Time: Thursday, February 16, 2017 18:02 - CONCLUSION: Minimal plaque with no evidence of significant stenosis. Bhavesh Alicia MD Assessment and Plan Problem List: (1) Unstable angina Assessment and Plan: significant LM and RCA disease, awaiting CT surgery evaluation for CABG Recommendations: 1. ASA, BB, ACEi and statins 2. Cont Heparin drip 3. Awaiting CT surgery for CABG (2) Hyperlipidemia (3) Hypertension Alexis Narvaez MD Feb 18, 2017 04:20
[2017-02-18] MEDS: NITROGLYCERIN 2% OINT 1 GM PACKET TOPICAL SCH ×4 (06:08→23:05)
[2017-02-18 08:01] LABS: AUTOMATED NEUTROPHIL # 4.8 TH/MM3 (1.8-7.7); BASOPHIL # 0.1 TH/MM3 (0-0.2); BASOPHIL % 0.9 % (0.0-2.0); EOSINOPHIL # 0.1 TH/MM3 (0-0.4); EOSINOPHIL % 1.7 % (0.0-4.0); HEMATOCRIT 37.4 % (35.0-46.0); HEMO FLAGS DIFF FINAL; LYMPH % 21.5 % (9.0-44.0); LYMPHOCYTE # 1.5 TH/MM3 (1.0-4.8); MEAN CELL VOLUME 84.2 FL (80.0-100.0); MEAN CORPUSCULAR HEMOGLOBIN 27.6 PG (27.0-34.0); MEAN CORPUSCULAR HGB CONC 32.7 % (32.0-36.0); MONO % 7.3 % (0.0-8.0); NEUT % 68.6 % (16.0-70.0); PLATELET COUNT 169 TH/MM3 (150-450); RED BLOOD COUNT 4.44 MIL/MM3 (4.00-5.30); RED CELL DISTRIBUTION WIDTH 14.9 % (11.6-17.2)
[2017-02-18 08:27] LABS: POTASSIUM 3.5 MEQ/L (3.5-5.1)
[2017-02-18] MEDS: FAMOTIDINE 20 MG TAB PO SCH ×2 (08:29→20:43)
[2017-02-18] MEDS: PRAVASTATIN SOD 20 MG TAB PO SCH (08:29)
[2017-02-18] MEDS: DOCUSATE SODIUM 50 MG/SENNA 8.6 MG TAB PO SCH ×2 (08:29→20:44)
[2017-02-18 08:30] LABS: HDL CHOLESTEROL 40.4 MG/DL (40.0-60.0)
[2017-02-18] MEDS: SODIUM CHLORIDE 0.9% FLUSH 10 ML FLUSH IV FLUSH SCH ×3 (08:30→20:44)
[2017-02-18] MEDS: METOPROLOL TARTRATE 25 MG TAB PO SCH ×2 (08:30→20:43)
[2017-02-18 08:54] LABS: APTT (PATIENT) 36.3 SEC (24.3-30.1)
[2017-02-18] MEDS ORDERED: NON-FORMULARY DRUG (Lisinopril-Hctz 1 TAB) PO SCH (09:00)
[2017-02-18] MEDS ORDERED: HYDROCHLOROTHIAZIDE 25 MG TAB PO SCH (09:00)
[2017-02-18] MEDS ORDERED: LISINOPRIL 20 MG TAB PO SCH ×2 (09:00)
[2017-02-18] MEDS: HEPARIN SODIUM - IV 10,000 UNITS/10 ML VIAL IV PRN ×2 (10:24→17:22)
--- NOTE | 2017-02-18 10:48 | HHI.PR ---
Subjective Remarks Doing okay overnight. No complaint of chest pain or shortness of breath. Objective Vitals Vital Signs Date Time Temp Pulse Resp B/P Pulse Ox O2 Delivery O2 Flow Rate FiO2 02/18/17 06:41 72 02/18/17 05:02 71 02/18/17 04:25 82 02/18/17 03:04 73 02/18/17 03:00 98.0 76 16 153/66 96 02/18/17 02:00 74 02/18/17 01:04 71 02/18/17 00:18 72 02/17/17 23:18 74 02/17/17 23:00 98.1 76 16 154/76 95 02/17/17 22:00 74 02/17/17 21:00 78 02/17/17 20:00 82 02/17/17 19:20 98.6 82 18 164/81 96 02/17/17 19:19 88 02/17/17 15:32 94 Room Air 02/17/17 12:18 79 18 137/61 02/17/17 12:16 74 16 134/59 97 Room Air 02/17/17 11:33 77 20 188/77 95 Room Air I/O 02/17/17 02/17/17 02/17/17 02/18/17 02/18/17 02/18/17 07:00 15:00 23:00 07:00 15:00 23:00 Intake Total 1104 ml Output Total 900 ml Balance 204 ml Intake Oral 720 ml IV Total 384 ml Output Urine Total 900 ml Result Diagram: 02/18/17 0712 02/18/17 0712 Other Results LDL 98 Imaging Last Impressions Chest X-Ray 02/17/17 0729 Signed Impressions: Service Date/Time: Friday, February 17, 2017 07:45 - CONCLUSION: 1. Cardiomegaly. 2. Degenerative changes throughout the thoracic spine. 3. No acute focal pulmonary infiltrate. Dionisio Houston MD Carotid Artery Ultrasound 02/17/17 0000 Signed Impressions: Service Date/Time: Thursday, February 16, 2017 18:02 - CONCLUSION: Minimal plaque with no evidence of significant stenosis. Bhavesh Alicia MD Objective Remarks GENERAL: This is a well-nourished, obese, well-developed patient, in no apparent distress. CARDIOVASCULAR: Regular rate and rhythm RESPIRATORY: Clear to auscultation. Breath sounds equal bilaterally. No wheezes , rales, or rhonchi. GASTROINTESTINAL: Abdomen soft, non-tender, nondistended. Normal active bowel sounds MUSCULOSKELETAL: Extremities without clubbing, cyanosis, trace edema. NEURO: Alert & Oriented x4 to person, place, time, situation. Moves all ext x4 Procedures cardiac catheterization A/P Problem List: (1) Unstable angina ICD Code: I20.0 Status: Acute (2) Hypertension ICD Code: I10 Status: Acute (3) Hyperlipidemia ICD Code: E78.5 Status: Chronic Assessment and Plan 61-year-old female with history of hypertension, hyperlipidemia, GERD, presents with a 2 week history of intermittent chest pain. Unstable Angina: Status post heart catheterization with significant findings of heart disease with left main and an RCA per Dr. Phan. Cardiac enzymes are negative, continue with aspirin, statin, beta jj, heparin infusion. Cardiology is recommending a cardiovascular surgery consultation. Hypertension, essential: Overall fair control. -continue patient's lisinopril 40mg and HCTZ 25mg -monitor BP, adjust antihypertensives as needed Morbid obesity with a BMI greater than 40weight loss counseling Hyperlipidemia: chronic -continue patient's statin LDL 98 GERD: chronicPepcid. DVT Prophylaxis: Lovenox Discharge Planning Pending cardiothoracic surgery evaluation. Problem Qualifiers (1) Hypertension: Qualified Code: I10 - Essential hypertension Bonnie Bear MD Feb 18, 2017 10:48
[2017-02-18] MEDS ORDERED: POTASSIUM CHLORIDE 20 MEQ CONTROLLED RELEASE TAB PO ONE (11:00)
[2017-02-18] MEDS ORDERED: METOPROLOL TARTRATE 25 MG TAB PO SCH (13:00)
[2017-02-18] MEDS ORDERED: CEFAZOLIN INJ 3,000 MG in SODIUM CHLORIDE 0.9% INJ 100 ML IV SCH (13:00)
[2017-02-18] MEDS: MUPIROCIN 2% OINT 1 APPLIC/GM SYR EACH NARE SCH ×2 (13:00→20:42)
[2017-02-18] MEDS ORDERED: PAPAVERINE INJ 60 MG, NITROGLYCERIN INJ 100 MCG, DILTIAZEM INJ 100 MG in SODIUM CHLORID... IRRIGATION SCH (13:00)
[2017-02-18] MEDS ORDERED: INSULIN REGULAR (IV INFUSION) 100 UNITS in SODIUM CHLORIDE 0.9% INJ 100 ML IV SCH (13:00)
[2017-02-18] MEDS ORDERED: CEFAZOLIN INJ 500 MG in SODIUM CHLORIDE 0.9% IRR BTL 500 ML IRRIGATION SCH (13:00)
[2017-02-18] MEDS ORDERED: CHLORHEXIDINE GLUCONATE 4% SOLN 120 ML BTL TOPICAL SCH (13:00)
--- NOTE | 2017-02-18 13:03 | PD.CONS ---
History of Present Illness Service CT Surgery Consult Requested By Dr. Phan Reason for Consult Left main and 3 vessel CAD, unstable angina Primary Care Physician Himanshu Shepard MD Diagnoses: (1) Unstable angina (2) CAD (coronary artery disease) History of Present Illness 61 y/o female presents with crescendo angina with minimal exertion. This has become worse over the past several weeks and she was being referred to cardiology as an outpatient by her PCP. Unfortunately, she experienced severe chest tightness radiating to both arms yesterday and presented to the ED. She ruled-out for CT, but underwent LHC due to her symptoms and presentation. She was found to have left main and ostial RCA disease. She is being considered for CABG. Review of Systems Constitutional: COMPLAINS OF: Diaphoretic episodes, Fatigue, DENIES: Fever, Weight gain, Weight loss, Chills, Dizziness, Change in appetite, Night Sweats Endocrine: DENIES: Abnorml menstrual pattern, Heat/cold intolerance, Polydipsia , Polyuria, Polyphagia Eyes: DENIES: Blurred vision, Diplopia, Eye inflammation, Eye pain, Vision loss , Photosensitivity, Double Vision Ears, nose, mouth, throat: DENIES: Tinnitus, Hearing loss, Vertigo, Nasal discharge, Oral lesions, Throat pain, Hoarseness, Ear Pain, Running Nose, Epistaxis, Sinus Pain, Toothache, Odynophagia Respiratory: DENIES: Apneas, Cough, Snoring, Wheezing, Hemoptysis, Sputum production, Shortness of breath Cardiovascular: COMPLAINS OF: Chest pain, Dyspnea on Exertion, DENIES: Palpitations, Syncope, PND, Lower Extremity Edema, Orthopnea, Claudication Gastrointestinal: DENIES: Abdominal pain, Black stools, Bloody stools, Constipation, Diarrhea, Nausea, Vomiting, Difficulty Swallowing, Anorexia Genitourinary: DENIES: Abnormal vaginal bleeding, Dysmenorrhea, Dyspareunia, Sexual dysfunction, Urinary frequency, Urinary incontinence, Urgency, Hematuria , Dysuria, Nocturia, Vaginal discharge Musculoskeletal: COMPLAINS OF: Muscle aches, DENIES: Joint pain, Stiffness, Joint Swelling, Back pain, Neck pain Integumentary: DENIES: Abnormal pigmentation, Pruritus, Rash, Nail changes, Breast masses, Breast skin changes, Nipple discharge Hematologic/lymphatic: DENIES: Bruising, Lymphadenopathy Immunologic/allergic: DENIES: Eczema, Urticaria Neurologic: DENIES: Abnormal gait, Headache, Localized weakness, Paresthesias, Seizures, Speech Problems, Tremor, Poor Balance Psychiatric: DENIES: Anxiety, Confusion, Mood changes, Depression, Hallucinations, Agitation, Suicidal Ideation, Homicidal Ideation, Delusions Past Family Social History Allergies: Coded Allergies: No Known Allergies (Verified Allergy, Unknown, 04/07/05) Past Medical History Past Medical History Hypertension Hyperlipidemia GERD Past Surgical History Tubal ligation, 1995 Right Ankle fusion x2 Left Achilles tendon repair Cholecystectomy Reported Medications Ranitidine (Ranitidine HCl) 300 Mg Tab 300 Mg PO DAILY Lisinopril 20 Mg Tab 20 Mg PO DAILY Lisinopril-Hctz 20-25 Mg Tab 1 Tab PO DAILY Lovastatin 20 Mg Tab 20 Mg PO DAILY Aspirin 81mg daily Active Ordered Medications Current Medications Medications (Trade) Dose Ordered Sig/Dalila Route Start Time Stop Time Status Last Admin (NS Flush) 2 ml UNSCH PRN IV FLUSH 02/17/17 11:30 (NS Flush) 2 ml BID IV FLUSH 02/17/17 21:00 02/17/17 20:25 (Zofran Inj) 4 mg Q6H PRN IVP 02/17/17 11:30 (Narcan Inj) 0.4 mg UNSCH PRN IV 02/17/17 11:30 (Olga-Colace) 1 tab BID PO 02/17/17 21:00 02/18/17 08:29 (Milk Of Magnesia Liq) 30 ml Q12H PRN PO 02/17/17 11:30 (Senokot) 17.2 mg Q12H PRN PO 02/17/17 11:30 (Dulcolax Supp) 10 mg DAILY PRN RECTAL 02/17/17 11:30 (Lactulose Liq) 30 ml DAILY PRN PO 02/17/17 11:30 (Xanax) 0.25 mg Q6HR PRN PO 02/17/17 13:00 02/18/17 01:46 (Catapres) 0.1 mg Q6H PRN PO 02/17/17 13:00 (Lopressor) 25 mg Q12HR PO 02/17/17 13:45 02/18/17 08:30 (Morphine Inj) 2 mg Q3H PRN IV PUSH 02/17/17 13:45 (Pravachol) 20 mg DAILY PO 02/18/17 09:00 02/18/17 08:29 (Pepcid) 20 mg BID PO 02/17/17 21:00 02/18/17 08:29 (Prinivil) 40 mg DAILY PO 02/18/17 09:00 02/18/17 08:29 (Hydrodiuril) 25 mg DAILY PO 02/18/17 09:00 02/18/17 08:29 Nitroglycerin 1 inch 1 inch Q6HR TOPICAL 02/17/17 18:00 02/18/17 11:36 (Heparin-D5W Inj) 250 ml @ 0 mls/hr TITRATE IV 02/18/17 01:30 02/18/17 01:46 (Heparin Inj) 5,000 units UNSCH PRN IV 02/18/17 01:30 (Heparin Inj) 2,500 units UNSCH PRN IV 02/18/17 01:30 02/18/17 10:24 (Pneumovax-23 Inj) 25 mcg ONCE ONCE IM 02/19/17 09:00 02/19/17 09:01 Family History Grandfather at age [address] Denies DM, cancer Social History Works at [employer] x 33 yrs Remote smoking history Denies ETOH Lives by herself in [place] Physical Exam Vital Signs Vital Signs Date Time Temp Pulse Resp B/P Pulse Ox O2 Delivery O2 Flow Rate FiO2 02/18/17 12:00 82 02/18/17 11:30 98.3 71 18 149/82 97 02/18/17 11:00 73 02/18/17 10:00 66 02/18/17 09:00 74 02/18/17 08:00 74 02/18/17 07:30 98.4 72 19 168/88 96 02/18/17 07:00 73 02/18/17 06:41 72 02/18/17 05:02 71 02/18/17 04:25 82 02/18/17 03:04 73 02/18/17 03:00 98.0 76 16 153/66 96 02/18/17 02:00 74 02/18/17 01:04 71 02/18/17 00:18 72 02/17/17 23:18 74 02/17/17 23:00 98.1 76 16 154/76 95 02/17/17 22:00 74 02/17/17 21:00 78 02/17/17 20:00 82 02/17/17 19:20 98.6 82 18 164/81 96 02/17/17 19:19 88 02/17/17 15:32 94 Room Air Physical Exam GENERAL: This is a obese, well-developed patient, in no apparent distress. SKIN: No rashes, ecchymoses or lesions. Cool and dry. HEAD: Atraumatic. Normocephalic. No temporal or scalp tenderness. EYES: Pupils equal round and reactive. Extraocular motions intact. No scleral icterus. No injection or drainage. ENT: Nose without bleeding, purulent drainage or septal hematoma. Throat without erythema, tonsillar hypertrophy or exudate. Uvula midline. Airway patent. NECK: Trachea midline. No JVD or lymphadenopathy. Supple, nontender, no meningeal signs. CARDIOVASCULAR: Regular rate and rhythm without murmurs, gallops, or rubs. RESPIRATORY: Clear to auscultation. Breath sounds equal bilaterally. No wheezes , rales, or rhonchi. GASTROINTESTINAL: Abdomen soft, non-tender, nondistended. No hepato-splenomegaly , or palpable masses. No guarding. MUSCULOSKELETAL: Extremities without clubbing, cyanosis, or edema. No joint tenderness, effusion, or edema noted. No calf tenderness. Negative Homans sign bilaterally. NEUROLOGICAL: Awake and alert. Cranial nerves II through XII intact. Motor and sensory grossly within normal limits. Five out of 5 muscle strength in all muscle groups. Normal speech. Laboratory Laboratory Tests Test 02/17/17 02/17/17 02/18/17 02/18/17 12:55 19:46 07:12 08:03 Troponin I LESS THAN 0.02 0.04 White Blood Count 7.0 Red Blood Count 4.44 Hemoglobin 12.2 Hematocrit 37.4 Mean Corpuscular Volume 84.2 Mean Corpuscular Hemoglobin 27.6 Mean Corpuscular Hemoglobin 32.7 Concent Red Cell Distribution Width 14.9 Platelet Count 169 Mean Platelet Volume 10.5 Neutrophils (%) (Auto) 68.6 Lymphocytes (%) (Auto) 21.5 Monocytes (%) (Auto) 7.3 Eosinophils (%) (Auto) 1.7 Basophils (%) (Auto) 0.9 Neutrophils # (Auto) 4.8 Lymphocytes # (Auto) 1.5 Monocytes # (Auto) 0.5 Eosinophils # (Auto) 0.1 Basophils # (Auto) 0.1 CBC Comment DIFF FINAL Differential Comment Sodium Level 140 Potassium Level 3.5 Chloride Level 106 Carbon Dioxide Level 26.0 Anion Gap 8 Blood Urea Nitrogen 12 Creatinine 0.56 Estimat Glomerular Filtration 110 Rate Random Glucose 99 Calcium Level 9.3 Triglycerides Level 195 Cholesterol Level 177 LDL Cholesterol 98 HDL Cholesterol 40.4 Cholesterol/HDL Ratio 4.38 Activated Partial 36.3 Thromboplast Time Result Diagram: 02/18/1712 02/18/17711 Imaging Last Impressions Chest X-Ray 02/17/17728 Signed Impressions: Service Date/Time: Friday, February 17, 2017 07:45 - CONCLUSION: 1. Cardiomegaly. 2. Degenerative changes throughout the thoracic spine. 3. No acute focal pulmonary infiltrate. Dionisio Houston MD Carotid Artery Ultrasound 02/17/17 0000 Signed Impressions: Service Date/Time: Thursday, February 16, 2017 18:02 - CONCLUSION: Minimal plaque with no evidence of significant stenosis. Bhavesh Alicia MD Course Denies chest pain since admission. Assessment and Plan Problem List: (1) Unstable angina Status: Acute (2) Hyperlipidemia Status: Chronic Plan: chronic statin tx (3) Hypertension Status: Acute (4) CAD (coronary artery disease) Status: Acute Assessment and Plan CABG recommended. Risks and benefits discussed and she agrees to proceed. STS follows: Version 2.81 RISK SCORES About the STS Risk Calculator Procedure: CAB Only Risk of Mortality: 0.806% Morbidity or Mortality: 9.382% Long Length of Stay: 3.097% Short Length of Stay: 52.419% Permanent Stroke: 0.684% Prolonged Ventilation: 6.674% DSW Infection: 0.477% Renal Failure: 2.175% Reoperation: 2.956% Problem Qualifiers (1) CAD (coronary artery disease): Qualified Code: I25.110 - Coronary artery disease involving [place] coronary artery of [place] heart with unstable angina pectoris (2) Hyperlipidemia: Qualified Code: E78.2 - Mixed hyperlipidemia (3) Hypertension: Qualified Code: I10 - Essential hypertension Kavya Luna MD Feb 18, 2017 13:02
[2017-02-18 14:02] LABS: BACTERIA, URINE RARE /hpf; BLOOD, URINE NEG (NEG); GLUCOSE,URINE NEG (NEG); KETONE, URINE NEG (NEG); NITRITE,URINE NEG (NEG); PH, URINE 6.5 (5.0-8.5); SQUAMOUS EPITHELIAL CELL URINE <1 /hpf (0-5); URINE COLOR LIGHT-YELLOW (YELLW/STRAW)
[2017-02-18 14:04] LABS: COMMENT (UR) CULT NOT INDICATED; CULTURE IF INDICATED CULT NOT INDICATED
--- NOTE | 2017-02-18 15:11 | RADRPT ---
EXAM DATE/TIME: 02/18/2017 13:29 [facility] COMPARISON: No previous studies available for comparison. INDICATIONS : Pre cardiac surgery. MEDICAL HISTORY : Hypercholesterolemia. Hypertension. Liver disease. SURGICAL HISTORY : Cholecystectomy. Tubal ligation. Achilles tendon surgery. ENCOUNTER: Initial ACUITY: 2 day PAIN SCORE: 0/10 LOCATION: Bilateral legs. TECHNIQUE: Venous ultrasound of the left and right leg was performed from the inguinal ligament to the proximal calf. Real-time, color Doppler and spectral tracing, compression and augmentation techniques were us ed. FINDINGS: RIGHT LEG: There is normal compressibility of the deep venous system from the inguinal region to the proximal ca lf. No echogenic clot is seen in the lumen of the common femoral, femoral, popliteal, and posterior tibial veins. There is a normal response of the venous system to proximal and distal augmentation an d respiration. LEFT LEG: There is normal compressibility of the deep venous system from the inguinal region to the proximal ca lf. No echogenic clot is seen in the lumen of the common femoral, femoral, popliteal, and posterior tibial veins. There is a normal response of the venous system to proximal and distal augmentation an d respiration. CONCLUSION: No evidence of DVT. Barron Barraza MD on February 18, 2017 at 15:08 Board Certified Radiologist. This report was verified electronically.
[2017-02-18 16:37] LABS: APTT (PATIENT) 31.1 SEC (24.3-30.1); PROTHROMBIN TIME - PATIENT 10.9 SEC (9.8-11.6)
[2017-02-18 16:39] LABS: ALKALINE PHOSPHATASE 93 U/L (45-117); TOTAL BILIRUBIN ADULT 0.4 MG/DL (0.2-1.0)
[2017-02-18 16:41] LABS: AUTOMATED NEUTROPHIL # 7.9 TH/MM3 (1.8-7.7); BASOPHIL # 0.1 TH/MM3 (0-0.2); BASOPHIL % 0.7 % (0.0-2.0); EOSINOPHIL # 0.1 TH/MM3 (0-0.4); EOSINOPHIL % 1.2 % (0.0-4.0); HEMATOCRIT 40.3 % (35.0-46.0); LYMPH % 17.2 % (9.0-44.0); LYMPHOCYTE # 1.8 TH/MM3 (1.0-4.8); MEAN CELL VOLUME 85.3 FL (80.0-100.0); MEAN CORPUSCULAR HEMOGLOBIN 27.7 PG (27.0-34.0); MEAN CORPUSCULAR HGB CONC 32.5 % (32.0-36.0); MONO % 4.7 % (0.0-8.0); NEUT % 76.2 % (16.0-70.0); PLATELET COUNT 207 TH/MM3 (150-450); RED BLOOD COUNT 4.72 MIL/MM3 (4.00-5.30); RED CELL DISTRIBUTION WIDTH 14.8 % (11.6-17.2); WHITE BLOOD COUNT 10.4 TH/MM3 (4.0-11.0)
[2017-02-18 16:42] LABS: HEMO FLAGS AUTO DIFF
[2017-02-18 16:46] LABS: ALT (GPT) 36 U/L (10-53); ANION GAP 7 MEQ/L (5-15); AST (GOT) 20 U/L (15-37); BICARBONATE 26.8 MEQ/L (21.0-32.0); BLOOD UREA NITROGEN 12 MG/DL (7-18); CHLORIDE 108 MEQ/L (98-107); GLOMERULAR FILTRATION RATE 73 ML/MIN (>89); POTASSIUM 3.8 MEQ/L (3.5-5.1); SODIUM (NA) 142 MEQ/L (136-145)
--- NOTE | 2017-02-18 16:57 | RADRPT ---
EXAM DATE/TIME: 02/18/2017 13:51 [facility] COMPARISON: No previous studies available for comparison. INDICATIONS : Pre cardiac surgery. MEDICAL HISTORY : Hypercholesterolemia. Hypertension. Liver disease. SURGICAL HISTORY : Cholecystectomy. Tubal ligation. Achilles tendon surgery. ENCOUNTER: Initial ACUITY: 2 day PAIN SCORE: 0/10 LOCATION: Bilateral legs. GREATER SAPHENOUS VEIN THIGH: PROXIMAL: Right 6 mm Left 5 mm MID: Right 4 mm Left 3 mm DISTAL: Right 3 mm Left 2 mm CALF: PROXIMAL: Right 2 mm Left 3 mm MID: Right 2 mm Left 2 mm DISTAL: Right 1 mm Left 2 mm FINDINGS: The venous system of the lower extremities are patent by color Doppler imaging. Measurements of the leg veins (in mm) are listed above. CONCLUSION: Patent superficial venous structures as above Willard Zapata MD on February 18, 2017 at 16:50 Board Certified Radiologist. This report was verified electronically.
[2017-02-18 17:30] LABS: PLATELET ESTIMATE SMEAR NORMAL (NORMAL); PLATELET MORPHOLOGY NORMAL (NORMAL); SCAN/DIFF AUTO DIFF CONFIRMED
[2017-02-18 18:23] LABS: HEMOGLOBIN A1a 1.6 %; HEMOGLOBIN A1b 0.8 %; HEMOGLOBIN Ao 86.4 %; HEMOGLOBIN F 0.7 %; HEMOGLOBIN LA1C 1.6 %; HEMOGLOBIN P3 3.4 %
[2017-02-18 23:41] LABS: APTT (PATIENT) 34.9 SEC (24.3-30.1)
[2017-02-19] VITALS (20 sets, daily range): BP systolic 93–193; BP diastolic 44–68; PULSE 64–112; RESP 16–21; TEMP 97.4–99.1; O2SAT 90–98
[2017-02-19] MEDS: HEPARIN SODIUM - IV 10,000 UNITS/10 ML VIAL IV PRN (00:16)
[2017-02-19] MEDS: NITROGLYCERIN 2% OINT 1 GM PACKET TOPICAL SCH (06:17)
[2017-02-19] MEDS ORDERED: ceFAZolin 2 GM PREMIX 50 ML ONE (06:36)
[2017-02-19] MEDS ORDERED: VANCOMYCIN HCL 1000 MG VIAL ONE (06:36)
[2017-02-19] MEDS ORDERED: methylPREDNISolone SOD SUCC 125 MG/2 ML VIAL ONE (06:37)
[2017-02-19] MEDS ORDERED: HEPARIN SODIUM - SQ 10,000 UNITS/ML VIAL ONE (06:37)
[2017-02-19] MEDS ORDERED: POTASSIUM CHLORIDE 40 MEQ/20 ML VIAL ONE (06:46)
[2017-02-19] MEDS ORDERED: MANNITOL INJ 50 ML ONE (06:46)
[2017-02-19] MEDS ORDERED: CARDIOPLEGIC IRR 1,000 ML ONE (06:46)
[2017-02-19] MEDS ORDERED: ALBUMIN HUMAN 25% 12.5 GM/50 ML BAGP IV ONE (06:47)
[2017-02-19] MEDS ORDERED: HEPARIN SODIUM - IV 10,000 UNITS/10 ML VIAL ONE (06:47)
[2017-02-19] MEDS ORDERED: ceFAZolin INJ 1,000 MG VIAL ONE (07:09)
[2017-02-19] MEDS ORDERED: PNEUMOCOCCAL POLYVALENT INJ 25 MCG/0.5 ML SYR IM ONE (09:00)
[2017-02-19] MEDS: PRAVASTATIN SOD 20 MG TAB PO SCH (09:00)
[2017-02-19] MEDS: DOCUSATE SODIUM 50 MG/SENNA 8.6 MG TAB PO SCH ×2 (09:00→20:26)
[2017-02-19] MEDS: MUPIROCIN 2% OINT 1 APPLIC/GM SYR EACH NARE SCH ×2 (09:00→20:28)
[2017-02-19] MEDS ORDERED: ACETAMINOPHEN 1000 MG/100 ML VIAL IV ONE (10:16)
[2017-02-19] MEDS ORDERED: DEXMEDETOMIDINE HCL 200 MCG/2 ML VIAL ONE (10:16)
[2017-02-19] MEDS ORDERED: POTASSIUM CHLOR 40 MEQ PREMIX 100 ML ONE (10:51)
[2017-02-19] MEDS ORDERED: LACTATED RINGER'S 1000 ML INJ 500 ML IV PRN (10:59)
[2017-02-19] MEDS ORDERED: RESP: ALBUTEROL 2.5 MG/IPRATROPIUM 0.5 MG NEB (PRN) NEB (11:00)
[2017-02-19] MEDS ORDERED: POTASSIUM CHLOR 20 MEQ PREMIX 100 ML IV PRN ×2 (11:00)
[2017-02-19] MEDS ORDERED: SODIUM CHLORIDE 0.9% FLUSH 10 ML FLUSH IV FLUSH PRN (11:00)
[2017-02-19] MEDS ORDERED: ONDANSETRON HCL 4 MG/2 ML VIAL IV PUSH PRN (11:00)
[2017-02-19] MEDS ORDERED: INSULIN REGULAR (IV INFUSION) 100 UNITS in SODIUM CHLORIDE 0.9% INJ 99 ML IV SCH (11:00)
[2017-02-19] MEDS ORDERED: CLEVIDIPINE INJ 50 ML IV SCH (11:00)
[2017-02-19] MEDS ORDERED: DEXTROSE 50% IN WATER 50 ML VIAL(D50) IV PUSH PRN (11:00)
[2017-02-19] MEDS ORDERED: ACETAMINOPHEN 325 MG TAB PO PRN (11:00)
[2017-02-19] MEDS ORDERED: CALCIUM CHLORIDE 10% 1 GRAM/10 ML VIAL IV PRN (11:00)
[2017-02-19] MEDS ORDERED: MAGNESIUM SULFATE INJ 2 GM in SODIUM CHLORIDE 0.9% INJ 100 ML IV PRN ×4 (11:00)
[2017-02-19] MEDS ORDERED: ACETAMINOPHEN 650 MG SUPP RECTAL PRN (11:00)
[2017-02-19] MEDS ORDERED: hydrALAZINE HCL 20 MG/ML VIAL IV PRN (11:00)
[2017-02-19] MEDS ORDERED: RESP: RACEPINEPHRINE 2.25% 0.5 ML NEB NEB PRN ×2 (11:00→14:15)
--- NOTE | 2017-02-19 11:16 | PD.OP ---
cc: Alexis Narvaez MD; Kavya Luna MD Operative Report Date of Surgery: Feb 19, 2017 Preoperative Diagnosis: (1) Unstable angina (2) CAD (coronary artery disease) (3) Morbid obesity Postoperative Diagnosis: same Procedure: CABG x 3 SORENSON to LAD - good SVG to OM - goog SVG to RCA - good EVH Anesthesia: Dr. Maria Surgeon: Kavya Luna Grape Cutter(s): RAQUEL Poon Operation and Findings: The risks, benefits, complications, treatment options, and expected outcomes were discussed with the patient. The possibilities of reaction to medication, pulmonary aspiration, perforation of viscus, bleeding, recurrent infection, the need for additional procedures, failure to diagnose a condition, and creating a complication requiring transfusion or operation were discussed with the patient. The patient concurred with the proposed plan, giving informed consent. The site of surgery properly noted/marked. The patient was taken to Operating Room, identified as Marci Sam and the procedure verified as CABG, EVH. A Time Out was held and the above information confirmed. Standard monitoring lines and Bobo catheter were placed. General anesthesia was induced. The patient was prepped and draped in a sterile fashion. A median sternotomy was performed and electrocautery was used to obtain hemostasis. The left internal mammary artery was procured as a pedicle from the 7th rib to the 1st rib in the usual manner. Simultaneously left greater saphenous vein was procured from the left leg using a minimally invasive endoscopic technique. The vein was prepared for anastomosis and the leg wound was irrigated and closed in 2 layers. The pericardium was opened and a pericardial sling was created using interrupted 0 silk sutures. The patient was heparinized for cardiopulmonary bypass and the distal mammary pedicle was instrumented for anastomosis. The heart was instrumented for cardiopulmonary bypass in the usual manner. Antegrade blood cardioplegia was employed. The patient was placed on cardiopulmonary bypass. An aortic cross-clamp was applied and the heart was arrested using cold blood cardioplegia. Antegrade cardioplegia was administered after he each anastomosis. After adequate arrest, the distal right coronary circulation was investigated and the distal RCA was opened with a [employer] blade and found to be a 1.5 millimeter good target. Saphenous vein was approximated to the RCA artery using a running 7 0 Prolene suture. The graft was measured for length and orientation and the proximal anastomosis was constructed to the ascending aorta using a running 5 0 Prolene suture after creating an aortotomy with a 5 millimeter punch. The circumflex marginal artery was then opened with a [employer] blade and found to be a 1.5 millimeter good target. Saphenous vein was approximated to the OM artery using a running 7 0 Prolene suture. The graft was measured for length and orientation and was suspended from the pericardium. The distal LAD was opened with a [employer] blade and found to be a 1.5 millimeter good target. The left internal mammary artery was approximated to the LAD using a running 7 0 Prolene suture. The pedicle was attached to the epicardium using interrupted 5 0 silk suture. The patient was systemically rewarmed and received a hotshot dose of warm blood cardioplegia. The aorta was vented and the proximal anastomosis to the OM graft was accomplished using a running 5 0 Prolene suture after creating an aortotomy was a 5 millimeter punch. The cross -clamp was removed and all proximal and distal anastomoses were examined for hemostasis. The patient was weaned from cardiopulmonary bypass. Protamine was given. There was no adverse reaction. Decannulation was carried out without incident. Wound was checked for hemostasis which was obtained using electrocautery. A 36 Romanian mediastinal and 32 Romanian left pleural chest was were placed and secured to the skin with 0 silk suture. The sternum was closed with stainless steel wire. The fascia was closed with 1. PDS. The subcutaneous tissue was closed using a running 2-0 Vicryl suture. The skin was closed with 4- 0 Monocryl. Sterile dressings were placed. At the end of the operation, all sponge, instruments, and needle counts were correct. The patient was transferred to the CVICU in stable condition. Findings: Difficult case secondary to morbid obesity. XC: 51 min CPB: 60 min Drains: mediastinal x 1 pleural x 1 Complications: none Disposition: to CVICU in stable condition Kavya Luna MD Feb 19, 2017 11:16
[2017-02-19] MEDS ORDERED: Post-op Orders (for Pharmacy) MISC OTHER ONE (11:50)
--- NOTE | 2017-02-19 12:27 | RADRPT ---
EXAM DATE/TIME: 02/19/2017 12:09 [facility] COMPARISON: CHEST SINGLE AP, February 17, 2017, 7:45. INDICATIONS : S/P Coronary artery bypass graft. MEDICAL HISTORY : Hypercholesterolemia. Hypertension. Liver disease. SURGICAL HISTORY : Cholecystectomy. ENCOUNTER: Initial ACUITY: 1 day PAIN SCORE: Non-responsive. LOCATION: Bilateral chest FINDINGS: ET tube nasogastric tube and left chest tube in good position. Sternal wires are evident. Minimal p arenchymal changes are present about the left heart border. There is no pneumothorax. CONCLUSION: Postop chest as described above without pneumothorax. Pepe Fitzpatrick MD FACR on February 19, 2017 at 12:24 Board Certified Radiologist. This report was verified electronically.
[2017-02-19] MEDS ORDERED: NEOSTIGMINE 3 MG/3 ML SYR IV ONE (12:48)
[2017-02-19] MEDS ORDERED: AMINOCAPROIC ACID INJ 250 MG/ML 20 ML VIAL IV ONE (12:48)
[2017-02-19] MEDS: CALCIUM CHLORIDE INJ 1 GM in SODIUM CHLORIDE 0.9% INJ 100 ML IV PRN ×2 (12:49→16:20)
[2017-02-19] MEDS ORDERED: PROTAMINE SULFATE 250 MG/25 ML VIAL IV ONE (12:49)
[2017-02-19] MEDS ORDERED: NITROGLYCERIN 50 MG/DEXTROSE 5% SOLN 250 ML BTL IV ONE (12:49)
[2017-02-19] MEDS ORDERED: SODIUM CHLORIDE 0.9% INJ 100 ML IV ONE (12:50)
[2017-02-19] MEDS ORDERED: ONDANSETRON HCL 4 MG/2 ML VIAL IV PUSH ONE (12:50)
[2017-02-19] MEDS ORDERED: VECURONIUM BROMIDE 20 MG VIAL IV ONE (12:50)
[2017-02-19] MEDS ORDERED: LACTATED RINGER'S 1000 ML INJ 1,000 ML IV ONE (12:50)
[2017-02-19] MEDS ORDERED: SODIUM CHLOR 0.9% 250 ML INJ 750 ML IV ONE (12:51)
[2017-02-19] MEDS ORDERED: NORMOSOL R INJ 2,000 ML IV ONE (12:51)
[2017-02-19] MEDS ORDERED: MIDAZOLAM HCL 5 MG/5 ML VIAL ONE (12:52)
[2017-02-19] MEDS ORDERED: fentaNYL CITRATE 1000 MCG/20 ML VIAL ONE (12:53)
[2017-02-19] MEDS ORDERED: POTASSIUM CHLORIDE 20 MEQ CONTROLLED RELEASE TAB PO PRN ×2 (13:00)
--- NOTE | 2017-02-19 15:24 | HHI.PR ---
Subjective Remarks Seen after surgery in cardiac ACU. Patient intubated, opens eye, and trying to talk. No pain. Respiratory at bedside, plan for extubation later today. Family at bedside. Objective Vitals Vital Signs Date Time Temp Pulse Resp B/P Pulse Ox O2 Delivery O2 Flow Rate FiO2 02/19/17 14:19 98.6 02/19/17 14:18 50 02/19/17 12:02 98.6 02/19/17 12:00 93 60 02/19/17 11:55 97.4 112 18 111/56 90 107/44 02/19/17 11:55 70 02/19/17 06:38 71 02/19/17 05:28 67 02/19/17 04:28 75 02/19/17 03:41 73 02/19/17 03:20 98.3 76 16 149/68 97 02/19/17 02:25 75 02/19/17 01:00 70 02/19/17 00:00 72 02/18/17 23:15 98.6 75 16 145/72 97 02/18/17 23:00 78 02/18/17 22:00 70 02/18/17 21:00 80 02/18/17 20:37 77 02/18/17 19:37 99 02/18/17 19:37 99.2 90 18 154/69 93 02/18/17 18:24 86 02/18/17 17:03 87 02/18/17 16:00 90 02/18/17 15:55 98.6 92 20 148/70 97 I/O 02/18/17 02/18/17 02/18/17 02/19/17 02/19/17 02/19/17 07:00 15:00 23:00 07:00 15:00 23:00 Intake Total 1104 ml 1090 ml 607 ml Output Total 900 ml 2250 ml 850 ml Balance 204 ml -1160 ml -243 ml Intake Oral 720 ml 960 ml 480 ml IV Total 384 ml 130 ml 127 ml Output Urine Total 900 ml 2250 ml 850 ml # Bowel Movements 0 Result Diagram: 02/18/17 1608 02/18/17 1608 Imaging Last Impressions Chest X-Ray 02/19/17 0000 Signed Impressions: Service Date/Time: Sunday, February 19, 2017 12:09 - CONCLUSION: Postop chest as described above without pneumothorax. Pepe Fitzpatrick MD FACR Lower Extremity Ultrasound 02/18/17 0000 Signed Impressions: Service Date/Time: January 13:51 - CONCLUSION: Patent superficial venous structures as above Willard Zapata MD Carotid Artery Ultrasound 02/17/17 0000 Signed Impressions: Service Date/Time: Thursday, February 16, 2017 18:02 - CONCLUSION: Minimal plaque with no evidence of significant stenosis. Bhavesh Alicia MD Objective Remarks GENERAL: This is a well-nourished, obese, well-developed patient, in no apparent distress. Intubated CARDIOVASCULAR: Regular rate and rhythm. S/p CT surgery , chest tube in place with drainage. Foam dressing midchest c/d/i. RESPIRATORY: Intubated. Clear to auscultation. Breath sounds equal bilaterally. No wheezes, rales, or rhonchi. GASTROINTESTINAL: Abdomen soft, non-tender, nondistended. Normal active bowel sounds MUSCULOSKELETAL: Extremities without clubbing, cyanosis, trace edema. NEURO: Alert & Oriented. Moves all ext x4. Follows commands. Procedures cardiac catheterization A/P Problem List: (1) Unstable angina ICD Code: I20.0 Status: Acute (2) Hypertension ICD Code: I10 Status: Acute (3) Hyperlipidemia ICD Code: E78.5 Status: Chronic Assessment and Plan 61-year-old female with history of hypertension, hyperlipidemia, GERD, presents with a 2 week history of intermittent chest pain. Unstable Angina: Status post heart catheterization with significant findings of heart disease with left main and an RCA per Dr. Phan. Cardiac enzymes are negative, continue with aspirin, statin, beta jj, heparin infusion. Cardiology is recommending a cardiovascular surgery consultation. -S/P cardiac surgery by Dr Torres CTS on 02/19/17 Hypertension, essential: Overall fair control. -continue patient's lisinopril 40mg and HCTZ 25mg -monitor BP, adjust antihypertensives as needed Morbid obesity with a BMI greater than 40weight loss counseling Hyperlipidemia: chronic -continue patient's statin LDL 98 GERD: chronicPepcid. DVT Prophylaxis: Lovenox Discharge Planning Pending improvement. Problem Qualifiers (1) Hypertension: Qualified Code: I10 - Essential hypertension (2) Hyperlipidemia: Qualified Code: E78.2 - Mixed hyperlipidemia Tamica Kearney MD Feb 19, 2017 15:24
[2017-02-19] MEDS: ACETAMINOPHEN 1000 MG/100 ML VIAL IV SCH ×2 (16:56→23:00)
[2017-02-19] MEDS: SODIUM CHLORIDE 0.9% FLUSH 10 ML FLUSH IV FLUSH SCH ×2 (17:57→20:28)
[2017-02-19] MEDS: RESP: ALBUTEROL 2.5 MG/IPRATROPIUM 0.5 MG NEB (SCH) NEB ×2 (18:33→20:15)
[2017-02-19] MEDS: oxyCODONE/ACETAMINOPHEN 5 MG/325 MG TAB PO PRN ×2 (19:34→22:34)
[2017-02-19] MEDS: AMIODARONE 200 MG TAB PO SCH (20:26)
[2017-02-19] MEDS: ceFAZolin 2 GM PREMIX 50 ML IV SCH (20:28)
[2017-02-19] MEDS: METOPROLOL TARTRATE 5 MG/5 ML VIAL IV PUSH PRN ×2 (21:31→22:33)
[2017-02-19] MEDS: POTASSIUM CHLOR 20 MEQ PREMIX 100 ML IV PRN (21:37)
[2017-02-20] VITALS (14 sets, daily range): BP systolic 132–186; BP diastolic 54–73; PULSE 10–112; RESP 16–20; TEMP 97.5–99.4; O2SAT 91–98
[2017-02-20] MEDS: oxyCODONE/ACETAMINOPHEN 5 MG/325 MG TAB PO PRN ×5 (02:05→21:53)
[2017-02-20] MEDS: RESP: ALBUTEROL 2.5 MG/IPRATROPIUM 0.5 MG NEB (SCH) NEB ×4 (03:02→21:47)
[2017-02-20] MEDS: ceFAZolin 2 GM PREMIX 50 ML IV SCH ×3 (03:58→21:52)
[2017-02-20 04:49] LABS: HEMATOCRIT 34.5 % (35.0-46.0); MEAN CELL VOLUME 83.3 FL (80.0-100.0); MEAN CORPUSCULAR HEMOGLOBIN 27.4 PG (27.0-34.0); MEAN CORPUSCULAR HGB CONC 32.8 % (32.0-36.0); PLATELET COUNT 245 TH/MM3 (150-450); RED BLOOD COUNT 4.14 MIL/MM3 (4.00-5.30); RED CELL DISTRIBUTION WIDTH 14.7 % (11.6-17.2); REVIEW FLAG FINAL
[2017-02-20] MEDS: ACETAMINOPHEN 1000 MG/100 ML VIAL IV SCH ×2 (05:00→11:42)
--- NOTE | 2017-02-20 05:04 | RADRPT ---
EXAM DATE/TIME: 02/20/2017 03:49 [facility] COMPARISON: CHEST SINGLE AP, February 19, 2017, 12:09. INDICATIONS : Shortness of breath, possible pulmonary disease. MEDICAL HISTORY : Hypertension. Gastroesophageal reflux disease. Hypercholesterolemia. SURGICAL HISTORY : CABG. Tubal ligation. Cholecystectomy. ENCOUNTER: Subsequent ACUITY: 2 days PAIN SCORE: Non-responsive. LOCATION: Bilateral chest FINDINGS: A single view of the chest demonstrates the left-sided chest tube is in good position. The endotrache al tube and nasogastric tube have been removed. There are stem and intact sternal wires. Left subclav shelia [id number]-Argp in good position. Mild basilar atelectasis right lung base.. The cardiomediastinal contours are unremarkable. Osseous structures are intact. CONCLUSION: Mild bibasilar atelectasis is stable. Left chest tube in good position. Upper lungs are clear. Charles Mcnulty MD on February 20, 2017 at 5:02 Board Certified Radiologist. This report was verified electronically.
[2017-02-20 05:16] LABS: BICARBONATE 24.6 MEQ/L (21.0-32.0); MAGNESIUM 1.9 MG/DL (1.5-2.5); POTASSIUM 3.9 MEQ/L (3.5-5.1)
[2017-02-20] MEDS: PANTOPRAZOLE SOD 40 MG DELAYED RELEASE TAB PO SCH (05:31)
[2017-02-20] MEDS: POTASSIUM CHLOR 20 MEQ PREMIX 100 ML IV PRN (05:32)
--- NOTE | 2017-02-20 07:45 | HHI.PR ---
Subjective Remarks Patient is in the chair. Chest tube was just removed. She is breathing well, currently on room air. Coughing using pillow for chest support. Encouraged IS. No fever or chills./ No n/v/d/c. Eating well. Objective Vitals Vital Signs Date Time Temp Pulse Resp B/P Pulse Ox O2 Delivery O2 Flow Rate FiO2 02/20/17 07:00 96 Room Air 02/20/17 03:00 95 02/20/17 03:00 98.7 100 20 140/65 96 151/54 02/19/17 23:00 97 02/19/17 23:00 99.1 97 16 106/51 95 121/56 02/19/17 22:00 162/56 02/19/17 21:30 193/62 02/19/17 20:15 97 Nasal Cannula 3.00 02/19/17 19:00 99.0 93 16 118/54 97 121/56 02/19/17 19:00 96 Nasal Cannula 4.00 02/19/17 19:00 102 02/19/17 18:36 97 Nasal Cannula 4.00 02/19/17 17:26 18 02/19/17 16:15 98 Nasal Cannula 6 02/19/17 16:15 97 Nasal Cannula 4.00 02/19/17 16:15 98 Nasal Cannula 5.00 02/19/17 16:00 40 02/19/17 15:00 97.6 64 21 93/45 96 112/56 02/19/17 15:00 64 02/19/17 14:19 98.6 02/19/17 14:18 50 02/19/17 12:02 98.6 02/19/17 12:00 93 60 02/19/17 12:00 77 02/19/17 11:55 97.4 112 18 111/56 90 107/44 02/19/17 11:55 70 I/O 02/19/17 02/19/17 02/19/17 02/20/17 02/20/17 02/20/17 07:00 15:00 23:00 07:00 15:00 23:00 Intake Total 607 ml 2434 ml 2289 ml Output Total 850 ml 1025 ml 585 ml Balance -243 ml 1409 ml 1704 ml Intake Oral 480 ml 0 ml 1320 ml IV Total 127 ml 2434 ml 969 ml Output Urine Total 850 ml 695 ml 475 ml Gastric Drainage Total 100 ml Chest Tube Drainage Total 230 ml 110 ml # Bowel Movements 0 0 Result Diagram: 02/20/170 02/20/17 0420 Imaging Last Impressions Chest X-Ray 02/20/17 0500 Signed Impressions: Service Date/Time: Monday, February 20, 2017 03:49 - CONCLUSION: Mild bibasilar atelectasis is stable. Left chest tube in good position. Upper lungs are clear. Charles Mcnulty MD Lower Extremity Ultrasound 02/18/17 0000 Signed Impressions: Service Date/Time: January 13:51 - CONCLUSION: Patent superficial venous structures as above Willard Zapata MD Carotid Artery Ultrasound 02/17/17 0000 Signed Impressions: Service Date/Time: Thursday, February 16, 2017 18:02 - CONCLUSION: Minimal plaque with no evidence of significant stenosis. Bhavesh Alicia MD Objective Remarks GENERAL: This is a well-nourished, obese, well-developed patient, in no apparent distress, in the chair, satting well on room air. CARDIOVASCULAR: Regular rate and rhythm. S/p CT surgery , chest tube removed. Foam dressing midchest c/d/i. RESPIRATORY: Clear to auscultation. Breath sounds equal bilaterally. No wheezes , rales, or rhonchi. GASTROINTESTINAL: Abdomen soft, non-tender, nondistended. Normal active bowel sounds MUSCULOSKELETAL: Extremities without clubbing, cyanosis, trace edema. NEURO: Alert & Oriented. Moves all ext x4. Follows commands. Procedures cardiac catheterization February [address] Witt CTS CABG x 3 SORENSON to LAD SVG to OM SVG to RCA EVH A/P Problem List: (1) Unstable angina ICD Code: I20.0 Status: Acute (2) Hypertension ICD Code: I10 Status: Acute (3) Hyperlipidemia ICD Code: E78.5 Status: Chronic Assessment and Plan 61-year-old female with history of hypertension, hyperlipidemia, GERD, presents with a 2 week history of intermittent chest pain. Unstable Angina: Status post heart catheterization with significant findings of heart disease with left main and an RCA per Dr. Phan. Cardiac enzymes are negative, continue with aspirin, statin, beta jj, heparin infusion. Cardiology is recommending a cardiovascular surgery consultation. -S/P CABG x 3, SORENSON to LAD,SVG to OM, SVG to RCA, EVH by Dr Torres CTS on 02/19/17 Chest tube removed 02/20/17 Hypertension, essential: Overall fair control. -continue patient's lisinopril 40mg and HCTZ 25mg -monitor BP, adjust antihypertensives as needed Morbid obesity with a BMI greater than 40weight loss counseling Hyperlipidemia: chronic -continue patient's statin LDL 98 GERD: chronicPepcid. DVT Prophylaxis: Lovenox Discharge Planning Pending improvement and clearance by consultants. Problem Qualifiers (1) Hypertension: Qualified Code: I10 - Essential hypertension (2) Hyperlipidemia: Qualified Code: E78.2 - Mixed hyperlipidemia Tamica Kearney MD Feb 20, 2017 07:45
[2017-02-20] MEDS: DOCUSATE SODIUM 50 MG/SENNA 8.6 MG TAB PO SCH ×2 (09:00→21:00)
[2017-02-20] MEDS: MUPIROCIN 2% OINT 1 APPLIC/GM SYR EACH NARE SCH ×2 (09:00→21:00)
[2017-02-20] MEDS: PRAVASTATIN SOD 20 MG TAB PO SCH (09:06)
[2017-02-20] MEDS: ASPIRIN 81 MG CHEW TAB PO SCH (09:06)
[2017-02-20] MEDS: SODIUM CHLORIDE 0.9% FLUSH 10 ML FLUSH IV FLUSH SCH ×2 (09:06→21:00)
[2017-02-20] MEDS: AMIODARONE 200 MG TAB PO SCH ×2 (09:06→21:53)
--- NOTE | 2017-02-20 09:36 | EKG ---
Date Performed: 02/20/2017 Time Performed: 05:12:10 PTAGE: 61 years EKG: Sinus tachycardia Inferior infarct - age undetermined Possible anterior infarct - age undet ermined Low QRS voltages in precordial leads Abnormal ECG Compared to prior electrocardiogram, anteri or infarct pattern is present. Clinical correlation is suggested as this could be due to erroneous l ead placement. PREVIOUS TRACING : 02/17/2017 07.31 DOCTOR: Juan Catalan Interpretating Date/Time 02/20/2017 09:36:04
--- NOTE | 2017-02-20 11:10 | PD.CAR.PN ---
CVT Progress Note CVT: POD #: 1 Subjective/Hospital Course: No complaints. doing well. Objective: Vital Signs Date Time Temp Pulse Resp B/P Pulse Ox O2 Delivery O2 Flow Rate FiO2 02/20/17 09:21 92 21 02/20/17 09:12 16 02/20/17 07:00 98.0 10 16 134/56 96 150/54 02/20/17 07:00 96 Room Air 02/20/17 07:00 105 02/20/17 03:00 95 02/20/17 03:00 98.7 100 20 140/65 96 151/54 02/19/17 23:00 97 02/19/17 23:00 99.1 97 16 106/51 95 121/56 02/19/17 22:00 162/56 02/19/17 21:30 193/62 02/19/17 20:15 97 Nasal Cannula 3.00 02/19/17 19:00 99.0 93 16 118/54 97 121/56 02/19/17 19:00 96 Nasal Cannula 4.00 02/19/17 19:00 102 02/19/17 18:36 97 Nasal Cannula 4.00 02/19/17 17:26 18 02/19/17 16:15 98 Nasal Cannula 6 02/19/17 16:15 97 Nasal Cannula 4.00 02/19/17 16:15 98 Nasal Cannula 5.00 02/19/17 16:00 40 02/19/17 15:00 97.6 64 21 93/45 96 112/56 02/19/17 15:00 64 02/19/17 14:19 98.6 02/19/17 14:18 50 02/19/17 12:02 98.6 02/19/17 12:00 93 60 02/19/17 12:00 77 02/19/17 11:55 97.4 112 18 111/56 90 107/44 02/19/17 11:55 70 Labs: Laboratory Tests Test 02/20/17 04:20 White Blood Count 19.0 TH/MM3 (4.0-11.0) Red Blood Count 4.14 MIL/MM3 (4.00-5.30) Hemoglobin 11.3 GM/DL (11.6-15.3) Hematocrit 34.5 % (35.0-46.0) Mean Corpuscular Volume 83.3 FL (80.0-100.0) Mean Corpuscular Hemoglobin 27.4 PG (27.0-34.0) Mean Corpuscular Hemoglobin 32.8 % Concent (32.0-36.0) Red Cell Distribution Width 14.7 % (11.6-17.2) Platelet Count 245 TH/MM3 (150-450) Mean Platelet Volume 11.0 FL (7.0-11.0) Sodium Level 142 MEQ/L (136-145) Potassium Level 3.9 MEQ/L (3.5-5.1) Chloride Level 110 MEQ/L (98-107) Carbon Dioxide Level 24.6 MEQ/L (21.0-32.0) Anion Gap 7 MEQ/L (5-15) Blood Urea Nitrogen 13 MG/DL (7-18) Creatinine 0.61 MG/DL (0.50-1.00) Estimat Glomerular Filtration 100 ML/MIN Rate (>89) Random Glucose 133 MG/DL (74-106) Calcium Level 8.5 MG/DL (8.5-10.1) Magnesium Level 1.9 MG/DL (1.5-2.5) Result Diagram: 02/20/1741902/20/17419 Imaging: Last 24 hours Impressions Chest X-Ray 02/20/17 0500 Signed Impressions: Service Date/Time: Monday, February 20, 2017 03:49 - CONCLUSION: Mild bibasilar atelectasis is stable. Left chest tube in good position. Upper lungs are clear. Charles Mcnulty MD Cardiovascular: RRR, tachy Telemetry: ST Pulmonary: Decreased BS bilat GI/: NABS Incision: dry and intact CT: min output Plan: transfer to stepdown Advance diet Encourage ambulation, up to chair Beta jj Insulin and sliding scale diurese remove monzon (1) Unstable angina Plan: significant LM and RCA disease, awaiting CT surgery evaluation for CABG Recommendations: 1. ASA, BB, ACEi and statins 2. Cont Heparin drip 3. Awaiting CT surgery for CABG (2) Hyperlipidemia (3) Hypertension Problem Qualifiers (1) Hyperlipidemia: Qualified Code: E78.2 - Mixed hyperlipidemia (2) Hypertension: Qualified Code: I10 - Essential hypertension Kavya Luna MD Feb 20, 2017 11:10
[2017-02-20] MEDS ORDERED: INSULIN DETEMIR 100 UNITS/ML VIAL SQ ONE (11:15)
[2017-02-20] MEDS ORDERED: SOD PHOSPHATE/SOD BIPHOSPHATE (ADULT) ENEMA 133ML RECTAL PRN (11:15)
[2017-02-20] MEDS ORDERED: GLUCAGON 1 MG/ML VIAL OTHER PRN (11:15)
[2017-02-20] MEDS: DOCUSATE SODIUM 100 MG CAP PO SCH ×2 (11:15→21:52)
[2017-02-20] MEDS ORDERED: BISACODYL 10 MG SUPP RECTAL PRN (11:15)
[2017-02-20] MEDS ORDERED: DEXTROSE 50% IN WATER 50 ML VIAL(D50) IV PRN (11:15)
[2017-02-20] MEDS ORDERED: PILL SPLITTER OTHER PRN (11:30)
[2017-02-20] MEDS: MULTIVITAMINS/MINERALS THERAPEUTIC TAB PO SCH (11:41)
[2017-02-20] MEDS: FUROSEMIDE 40 MG/4 ML VIAL IV PUSH SCH (11:41)
[2017-02-20] MEDS: MAGNESIUM HYDROXIDE SUSP 30 ML CUP PO SCH (11:41)
[2017-02-20] MEDS: METOPROLOL TARTRATE 25 MG TAB PO SCH ×2 (11:42→21:52)
[2017-02-20] MEDS: POTASSIUM CHLORIDE 10 MEQ CONTROLLED RELEASE TAB PO SCH (11:43)
[2017-02-20] MEDS: INSULIN ASPART SUPPLEMENTAL SCALE SQ SCH ×3 (14:50→21:54)
[2017-02-20] MEDS: SENNOSIDES 8.6 MG TAB PO SCH (21:53)
[2017-02-21] VITALS (25 sets, daily range): BP systolic 123–145; BP diastolic 56–64; PULSE 83–107; RESP 16–18; TEMP 97.8–98.9; O2SAT 91–94
[2017-02-21] MEDS: INSULIN ASPART SUPPLEMENTAL SCALE SQ SCH ×5 (03:35→21:30)
[2017-02-21] MEDS: ceFAZolin 2 GM PREMIX 50 ML IV SCH (03:36)
[2017-02-21] MEDS: oxyCODONE/ACETAMINOPHEN 5 MG/325 MG TAB PO PRN ×3 (03:36→18:24)
[2017-02-21 05:13] LABS: AUTOMATED NEUTROPHIL # 11.1 TH/MM3 (1.8-7.7); BASOPHIL # 0.1 TH/MM3 (0-0.2); BASOPHIL % 0.5 % (0.0-2.0); EOSINOPHIL % 0.3 % (0.0-4.0); HEMATOCRIT 28.6 % (35.0-46.0); HEMO FLAGS DIFF FINAL; LYMPH % 11.2 % (9.0-44.0); LYMPHOCYTE # 1.6 TH/MM3 (1.0-4.8); MEAN CELL VOLUME 84.4 FL (80.0-100.0); MEAN CORPUSCULAR HEMOGLOBIN 27.4 PG (27.0-34.0); MEAN CORPUSCULAR HGB CONC 32.5 % (32.0-36.0); MONO % 9.9 % (0.0-8.0); NEUT % 78.1 % (16.0-70.0); PLATELET COUNT 186 TH/MM3 (150-450); RED BLOOD COUNT 3.39 MIL/MM3 (4.00-5.30); RED CELL DISTRIBUTION WIDTH 15.1 % (11.6-17.2); WHITE BLOOD COUNT 14.3 TH/MM3 (4.0-11.0)
[2017-02-21 05:37] LABS: BICARBONATE 28.4 MEQ/L (21.0-32.0); MAGNESIUM 1.9 MG/DL (1.5-2.5)
[2017-02-21] MEDS: PANTOPRAZOLE SOD 40 MG DELAYED RELEASE TAB PO SCH (06:16)
[2017-02-21] MEDS: RESP: ALBUTEROL 2.5 MG/IPRATROPIUM 0.5 MG NEB (SCH) NEB ×3 (07:14→20:12)
[2017-02-21] MEDS: MUPIROCIN 2% OINT 1 APPLIC/GM SYR EACH NARE SCH ×2 (07:15→21:00)
[2017-02-21] MEDS: POLYETHYLENE GLYCOL 17 GM PKG PO SCH (08:37)
[2017-02-21] MEDS: MAGNESIUM HYDROXIDE SUSP 30 ML CUP PO SCH (08:37)
[2017-02-21] MEDS: MULTIVITAMINS/MINERALS THERAPEUTIC TAB PO SCH (08:38)
[2017-02-21] MEDS: POTASSIUM CHLORIDE 10 MEQ CONTROLLED RELEASE TAB PO SCH (08:39)
[2017-02-21] MEDS: PRAVASTATIN SOD 20 MG TAB PO SCH (08:39)
[2017-02-21] MEDS: ASPIRIN 81 MG CHEW TAB PO SCH (08:39)
[2017-02-21] MEDS: METOPROLOL TARTRATE 25 MG TAB PO SCH ×2 (08:39→21:25)
[2017-02-21] MEDS: AMIODARONE 200 MG TAB PO SCH ×2 (08:39→21:25)
[2017-02-21] MEDS: DOCUSATE SODIUM 100 MG CAP PO SCH ×2 (08:39→21:00)
[2017-02-21] MEDS: FUROSEMIDE 40 MG/4 ML VIAL IV PUSH SCH (08:39)
[2017-02-21] MEDS: SODIUM CHLORIDE 0.9% FLUSH 10 ML FLUSH IV FLUSH SCH ×2 (08:40→21:25)
[2017-02-21] MEDS: DOCUSATE SODIUM 50 MG/SENNA 8.6 MG TAB PO SCH (08:41)
--- NOTE | 2017-02-21 08:47 | HHI.PR ---
Subjective Remarks In the chair, awaiting to walk with PT. Patient says she feels improving. No chest pain. Has pain when she is coughing. No sputum, fever or chills. Eating well. No n/v/d. Complaints of constipation. Objective Vitals Vital Signs Date Time Temp Pulse Resp B/P Pulse Ox O2 Delivery O2 Flow Rate FiO2 02/21/17 07:23 91 Nasal Cannula 2.50 02/21/17 06:00 99 02/21/17 05:00 98 02/21/17 04:00 93 02/21/17 03:00 98.5 101 16 140/62 93 02/21/17 03:00 92 02/21/17 02:00 95 02/21/17 01:00 92 02/21/17 00:00 98 02/20/17 23:20 99.3 99 16 153/73 94 02/20/17 23:20 94 Nasal Cannula 2.00 02/20/17 23:00 99 02/20/17 22:00 98 02/20/17 21:54 Nasal Cannula 2.00 02/20/17 21:00 102 02/20/17 20:05 94 Nasal Cannula 2.00 02/20/17 20:00 99.4 105 16 186/73 91 02/20/17 20:00 96 02/20/17 20:00 91 Room Air 02/20/17 19:00 93 02/20/17 18:00 97 02/20/17 17:00 99 02/20/17 16:00 98 02/20/17 15:00 92 02/20/17 15:00 98.1 94 16 132/54 98 Arterial Line 02/20/17 11:32 16 02/20/17 11:00 112 02/20/17 11:00 97.5 112 18 132/67 94 152/65 02/20/17 09:21 92 21 02/20/17 09:12 16 I/O 02/20/17 02/20/17 02/20/17 02/21/17 02/21/17 02/21/17 07:00 15:00 23:00 07:00 15:00 23:00 Intake Total 2289 ml 974 ml 400 ml Output Total 585 ml 625 ml 500 ml Balance 1704 ml 349 ml -100 ml Intake Oral 1320 ml 720 ml 300 ml IV Total 969 ml 254 ml 100 ml Output Urine Total 475 ml 575 ml 500 ml Chest Tube Drainage Total 110 ml 50 ml # Bowel Movements 0 0 0 Result Diagram: 02/21/17 0450 02/21/17 0450 Imaging Last Impressions Chest X-Ray 02/20/17 0500 Signed Impressions: Service Date/Time: Monday, February 20, 2017 03:49 - CONCLUSION: Mild bibasilar atelectasis is stable. Left chest tube in good position. Upper lungs are clear. Charles Mcnulty MD Lower Extremity Ultrasound 02/18/17 0000 Signed Impressions: Service Date/Time: January 13:51 - CONCLUSION: Patent superficial venous structures as above Willard Zapata MD Carotid Artery Ultrasound 02/17/17 0000 Signed Impressions: Service Date/Time: Thursday, February 16, 2017 18:02 - CONCLUSION: Minimal plaque with no evidence of significant stenosis. Bhavesh Alicia MD Objective Remarks GENERAL: This is a well-nourished, obese, well-developed patient, in no apparent distress, in the chair, satting well on room air. CARDIOVASCULAR: Regular rate and rhythm. S/p CT surgery , chest tube removed. Foam dressing midchest c/d/i. RESPIRATORY: Clear to auscultation. Breath sounds equal bilaterally. No wheezes , rales, or rhonchi. GASTROINTESTINAL: Abdomen soft, non-tender, nondistended. Normal active bowel sounds MUSCULOSKELETAL: Extremities without clubbing, cyanosis, trace edema. NEURO: Alert & Oriented. Moves all ext x4. Follows commands. Procedures cardiac catheterization February [address] Witt CTS CABG x 3 SORENSON to LAD SVG to OM SVG to RCA EVH A/P Problem List: (1) Unstable angina ICD Code: I20.0 Status: Acute (2) Hypertension ICD Code: I10 Status: Acute (3) Hyperlipidemia ICD Code: E78.5 Status: Chronic Assessment and Plan 61-year-old female with history of hypertension, hyperlipidemia, GERD, presents with a 2 week history of intermittent chest pain. Unstable Angina: Status post heart catheterization with significant findings of heart disease with left main and an RCA per Dr. Phan. Cardiac enzymes are negative, continue with aspirin, statin, beta jj, heparin infusion. Cardiology is recommending a cardiovascular surgery consultation. -S/P CABG x 3, SORENSON to LAD,SVG to OM, SVG to RCA, EVH by Dr Torres CTS on 02/19/17 Chest tube removed 02/20/17 Hypertension, essential: Overall fair control. -continue patient's lisinopril 40mg and HCTZ 25mg -monitor BP, adjust antihypertensives as needed Morbid obesity with a BMI greater than 40weight loss counseling Hyperlipidemia: chronic -continue patient's statin LDL 98 Constipation: Stool softeners, laxatives as need. GERD: chronicPepcid. DVT Prophylaxis: Lovenox Discharge Planning Pending improvement and clearance by consultants. Discussed with the patient, nurse. Problem Qualifiers (1) Hypertension: Qualified Code: I10 - Essential hypertension (2) Hyperlipidemia: Qualified Code: E78.2 - Mixed hyperlipidemia Tamica Kearney MD Feb 21, 2017 08:47
--- NOTE | 2017-02-21 11:53 | PD.CAR.PN ---
CVT Progress Note CVT: POD #: 2 Subjective/Hospital Course: No complaints. doing well. 02/21/17 No complaints today - doing well. Objective: Vital Signs Date Time Temp Pulse Resp B/P Pulse Ox O2 Delivery O2 Flow Rate FiO2 02/21/17 10:14 92 02/21/17 09:53 94 02/21/17 08:30 94 Nasal Cannula 2.00 02/21/17 08:30 98 02/21/17 08:30 98.0 107 18 145/64 94 02/21/17 07:23 91 Nasal Cannula 2.50 02/21/17 06:00 99 02/21/17 05:00 98 02/21/17 04:00 93 02/21/17 03:00 98.5 101 16 140/62 93 02/21/17 03:00 92 02/21/17 02:00 95 02/21/17 01:00 92 02/21/17 00:00 98 02/20/17 23:20 99.3 99 16 153/73 94 02/20/17 23:20 94 Nasal Cannula 2.00 02/20/17 23:00 99 02/20/17 22:00 98 02/20/17 21:54 Nasal Cannula 2.00 02/20/17 21:00 102 02/20/17 20:05 94 Nasal Cannula 2.00 02/20/17 20:00 99.4 105 16 186/73 91 02/20/17 20:00 96 02/20/17 20:00 91 Room Air 02/20/17 19:00 93 02/20/17 18:00 97 02/20/17 17:00 99 02/20/17 16:00 98 02/20/17 15:00 92 02/20/17 15:00 98.1 94 16 132/54 98 Arterial Line Labs: Laboratory Tests Test 02/21/17 04:50 White Blood Count 14.3 TH/MM3 (4.0-11.0) Red Blood Count 3.39 MIL/MM3 (4.00-5.30) Hemoglobin 9.3 GM/DL (11.6-15.3) Hematocrit 28.6 % (35.0-46.0) Mean Corpuscular Volume 84.4 FL (80.0-100.0) Mean Corpuscular Hemoglobin 27.4 PG (27.0-34.0) Mean Corpuscular Hemoglobin 32.5 % Concent (32.0-36.0) Red Cell Distribution Width 15.1 % (11.6-17.2) Platelet Count 186 TH/MM3 (150-450) Mean Platelet Volume 10.3 FL (7.0-11.0) Neutrophils (%) (Auto) 78.1 % (16.0-70.0) Lymphocytes (%) (Auto) 11.2 % (9.0-44.0) Monocytes (%) (Auto) 9.9 % (0.0-8.0) Eosinophils (%) (Auto) 0.3 % (0.0-4.0) Basophils (%) (Auto) 0.5 % (0.0-2.0) Neutrophils # (Auto) 11.1 TH/MM3 (1.8-7.7) Lymphocytes # (Auto) 1.6 TH/MM3 (1.0-4.8) Monocytes # (Auto) 1.4 TH/MM3 (0-0.9) Eosinophils # (Auto) 0.0 TH/MM3 (0-0.4) Basophils # (Auto) 0.1 TH/MM3 (0-0.2) CBC Comment DIFF FINAL Differential Comment Sodium Level 139 MEQ/L (136-145) Potassium Level 4.0 MEQ/L (3.5-5.1) Chloride Level 105 MEQ/L (98-107) Carbon Dioxide Level 28.4 MEQ/L (21.0-32.0) Anion Gap 6 MEQ/L (5-15) Blood Urea Nitrogen 14 MG/DL (7-18) Creatinine 0.57 MG/DL (0.50-1.00) Estimat Glomerular Filtration 108 ML/MIN Rate (>89) Random Glucose 124 MG/DL (74-106) Calcium Level 7.9 MG/DL (8.5-10.1) Magnesium Level 1.9 MG/DL (1.5-2.5) Result Diagram: 02/21/1744902/21/17449 Cardiovascular: RRR Telemetry: NSR Pulmonary: CTA GI/: NABS, NT Incision: dry and intact Plan: Stim BM Diurese Encourage ambulation Increase beta jj dose Probable d/c tomorrow (1) Unstable angina Plan: significant LM and RCA disease, awaiting CT surgery evaluation for CABG Recommendations: 1. ASA, BB, ACEi and statins 2. Cont Heparin drip 3. Awaiting CT surgery for CABG (2) Hyperlipidemia (3) Hypertension Problem Qualifiers (1) Hyperlipidemia: Qualified Code: E78.2 - Mixed hyperlipidemia (2) Hypertension: Qualified Code: I10 - Essential hypertension Kavya Luna MD Feb 21, 2017 11:53
[2017-02-21] MEDS: SENNOSIDES 8.6 MG TAB PO SCH (21:00)
[2017-02-22] VITALS (19 sets, daily range): BP systolic 125–175; BP diastolic 64–70; PULSE 81–103; RESP 16–20; TEMP 98.2–99; O2SAT 92–100
[2017-02-22] MEDS: oxyCODONE/ACETAMINOPHEN 5 MG/325 MG TAB PO PRN ×3 (03:53→13:12)
[2017-02-22] MEDS: INSULIN ASPART SUPPLEMENTAL SCALE SQ SCH (05:57)
[2017-02-22] MEDS: PANTOPRAZOLE SOD 40 MG DELAYED RELEASE TAB PO SCH (05:58)
[2017-02-22] MEDS: RESP: ALBUTEROL 2.5 MG/IPRATROPIUM 0.5 MG NEB (SCH) NEB (07:25)
[2017-02-22] MEDS ORDERED: METO25TA3 PO ×2 (08:08→14:04)
[2017-02-22] MEDS ORDERED: ASPI81CH25 PO ×2 (08:08→14:04)
--- NOTE | 2017-02-22 08:09 | HHI.DS ---
Discharge Summary Admission Date Feb 17, 2017 at 11:29 Admitting Diagnosis Chest pain, htn, hyperlipidemia (1) Unstable angina ICD Code: I20.0 (2) Hypertension ICD Code: I10 (3) Hyperlipidemia ICD Code: E78.5 Procedures cardiac catheterization February [address] Witt CTS CABG x 3 SORENSON to LAD SVG to OM SVG to RCA EVH Brief History - From Admission Written by Domi Grover, acting as scribe for Dr. Hobson on 02/17/17 at 11: 58. 61-year-old female with history of hypertension, hyperlipidemia, GERD, presents with a 2 week history of intermittent chest pain. The patient reports this morning she was lifting a 5lbs gallon when she started experiencing acute onset of chest pain. She locates the pain to to the central anterior chest, described as severe tightness and pressure, associated with some numbness of bilateral arms, shortness of breath, but no nausea/vomiting/diaphoresis. Over the past 2 weeks she reports multiple episodes of chest pain with any minimal exertion, just walking from her car into work, or walking around the house. The pain is relieved by rest. She denies any chest pains as long as she's not exerting herself. She recently started taking baby aspirin every day this week secondary to the chest pain. She denies any cardiac history or prior cardiac testing. She saw her PCP Dr. Shepard this week who was in the process of referring her to cardiology as outpatient however told her to come to the ER if she has any more episodes of chest pain. The patient is concerned as her grandfather from [place] at age 55. CBC/BMP: 02/21/17 0450 02/21/17 0450 Significant Findings Laboratory Tests Test 02/20/17 02/21/17 04:20 04:50 White Blood Count 19.0 TH/MM3 14.3 TH/MM3 (4.0-11.0) (4.0-11.0) Hemoglobin 11.3 GM/DL 9.3 GM/DL (11.6-15.3) (11.6-15.3) Hematocrit 34.5 % 28.6 % (35.0-46.0) (35.0-46.0) Chloride Level 110 MEQ/L (98-107) Random Glucose 133 MG/DL 124 MG/DL (74-106) (74-106) Red Blood Count 3.39 MIL/MM3 (4.00-5.30) Neutrophils (%) (Auto) 78.1 % (16.0-70.0) Monocytes (%) (Auto) 9.9 % (0.0-8.0) Neutrophils # (Auto) 11.1 TH/MM3 (1.8-7.7) Monocytes # (Auto) 1.4 TH/MM3 (0-0.9) Calcium Level 7.9 MG/DL (8.5-10.1) PE at Discharge GENERAL: This is a well-nourished, obese, well-developed patient, in no apparent distress, in the chair, satting well on room air. CARDIOVASCULAR: Regular rate and rhythm. S/p CT surgery , chest tube removed. Foam dressing midchest c/d/i. RESPIRATORY: Clear to auscultation. Breath sounds equal bilaterally. No wheezes , rales, or rhonchi. GASTROINTESTINAL: Abdomen soft, non-tender, nondistended. Normal active bowel sounds MUSCULOSKELETAL: Extremities without clubbing, cyanosis, trace edema. NEURO: Alert & Oriented. Moves all ext x4. Follows commands. Pt Condition on Discharge: Stable Discharge Disposition: Disch w/ Home Health Serv Discharge Instructions DIET: Follow Instructions for: Heart Healthy Diet Activities you can perform: Regular-No Restrictions Other Activity Instructions: See surgeon indications Additional Information PREVENA Single Use Negative Wound Therapy System Caregiver Instruction Sheet 1. A Prevena dressing system was applied to the chest incision during surgery , to promote wound healing. It works via a suction device (negative pressure wound therapy) to remove low to moderate levels of exudate (drainage) and infectious materials. We recommend that the device stay in place for up to seven days, from day of surgery. 2. Day of Surgery_02/19/17 Day of Removal ____/03/08 3. The dressing should only be removed by a health manager critical care. Please arrange removal of device to coincide with Home Health visit and or with Nursing staff at Rehab 4. If skin reddening or irritation of skin occurs, or excessive drainage, please notify the Cardiovascular Surgeons office at [phone]. 5. Light showering is permissible; however the pump should be disconnected and placed in safe location, where it will not get wet. The dressing should not be exposed to direct spray or submerged in water. No bath tub / shower only. Ensure the end of the tubing attached to the dressing is facing down so that water does not enter the top of the tube. 6. To remove Prevena dressing: press purple button to turn off device / remove the suction. Then disconnect the tubing from the pump. The fixation strips should be stretched away from the skin and the dressing lifted at one corner and peeled back until it has been fully removed. 7. After removal, it is ok to shower daily using liquid dial soap and clean wash cloth, rinse and pat dry, and leave incision open to air dry. For any concerns regarding Prevena dressing, and or wounds, please contact Nikole Taylor, patient navigator at [phone] or notify the Cardiovascular Surgeons office at [phone]. Incentive spirometry Q1 hr x 10, while awake, also use acapella device hourly whole awake Sternal Breast Bone Precautions: NO pushing or pulling, ( pt must use sternal pillow to support chest with all activities and with coughing ( takes up to 3 months breast bone to heal ) All females to wear sternal bra , launder as needed Daily incision care: ok to shower daily, no tub bath. Wash all incisions with liquid dial soap, clean wash cloth to each site, rinse and pat dry. Observe for any signs of infection, such as drainage which is dark yellow, bain, green or foul smelling. Immediately report to the surgeon any drainage from the chest incision, or legs, and for any abnormal drainage from the chest tube sites. Notify surgeon if any temp >101.5 degrees F. When specialty dressing removed/ or if you do not have one, continue to shower daily as above, then rinse and pat incision dry and paint with betadine daily x 5 days. Allow steri strips to fall off if you have any. Avoid lotions, creams, salves, oils, etc. for the first month Please see attached forms for additional instructions regarding post Open Heart specialty wound vacuum dressings. CHADD or Prevena , Dressing to be removed by Nursing staff on _02/26/[address] Luna patients , please obtain CBC, BMP, PA & Lat CXR in 2 weeks, results to Dr. Luna ( prescription will be given) ( ) (Tele: [phone]) , F/U appointment: as per DC instructions: PCP in 2 weeks, CV surgeon 2 weeks, Trainmaster 3-4 weeks For any questions regarding incisions/ dressing / meds / post op care or above Symptoms, Wednesday 8am-5pm Heart & Vascular Surgery Office ( Dr. Olivia & Dr. Luna), After Hours / Nights (5pm -8am) Weekends and Holidays Please call [facility] ([facility]) Charge Nurse Tamica Kearney MD Feb 22, 2017 08:09 Melissa Hightower Feb 22, 2017 10:52
[2017-02-22] MEDS: SODIUM CHLORIDE 0.9% FLUSH 10 ML FLUSH IV FLUSH SCH (08:42)
[2017-02-22] MEDS: FUROSEMIDE 40 MG/4 ML VIAL IV PUSH SCH (08:43)
[2017-02-22] MEDS: ASPIRIN 81 MG CHEW TAB PO SCH (08:43)
[2017-02-22] MEDS: METOPROLOL TARTRATE 25 MG TAB PO SCH (08:44)
[2017-02-22] MEDS: POTASSIUM CHLORIDE 10 MEQ CONTROLLED RELEASE TAB PO SCH (08:44)
[2017-02-22] MEDS: AMIODARONE 200 MG TAB PO SCH (08:44)
[2017-02-22] MEDS: MULTIVITAMINS/MINERALS THERAPEUTIC TAB PO SCH (08:46)
[2017-02-22] MEDS: PRAVASTATIN SOD 20 MG TAB PO SCH (08:46)
[2017-02-22] MEDS: DOCUSATE SODIUM 100 MG CAP PO SCH (08:50)
[2017-02-22] MEDS: MUPIROCIN 2% OINT 1 APPLIC/GM SYR EACH NARE SCH (08:50)
[2017-02-22] MEDS: MAGNESIUM HYDROXIDE SUSP 30 ML CUP PO SCH (08:51)
[2017-02-22] MEDS: POLYETHYLENE GLYCOL 17 GM PKG PO SCH (08:51)
--- NOTE | 2017-02-22 09:59 | RADRPT ---
EXAM DATE/TIME: 02/22/2017 08:24 [facility] COMPARISON: CHEST SINGLE AP, February 20, 2017, 3:49. INDICATIONS : Post chest tube removal. MEDICAL HISTORY : Hypertension. Gastroesophageal reflux disease. Hypercholesterolemia SURGICAL HISTORY : CABG. Tubal ligation. Cholecystectomy ENCOUNTER: Subsequent ACUITY: 3 days PAIN SCORE: 0/10 LOCATION: Bilateral chest FINDINGS: Sternal wires from previous bypass are noted. Moderate bibasilar consolidative changes are noted wit h mild interstitial edema present. Probably trace pleural effusion evident on the left. CONCLUSION: 1. There is no pneumothorax. 2. Under aerated with cardiomegaly and moderate interstitial edema. Pepe Fitzpatrick MD FACR on February 22, 2017 at 9:05 Board Certified Radiologist. This report was verified electronically.
--- NOTE | 2017-02-22 10:50 | PD.CAR.PN ---
CVT Progress Note Subjective/Hospital Course: No complaints. doing well. 02/21/17 No complaints today - doing well. 02/22 doing well + BM pain controlled, will need to continue lasix daily x 2 weeks also BB, amiodarone and statin ok to dc home today with [facility] Objective: GENERAL: SKIN: Warm and dry.prevena to chest, incision intact to leg HEAD: Normocephalic. EYES: No scleral icterus. No injection or drainage. NECK: Supple, trachea midline. No JVD or lymphadenopathy. CARDIOVASCULAR: Regular rate and rhythm without murmurs, gallops, or rubs. RESPIRATORY: Breath sounds equal bilaterally. No accessory muscle use. GASTROINTESTINAL: Abdomen soft, non-tender, nondistended. MUSCULOSKELETAL: No cyanosis, or edema. BACK: Nontender without obvious deformity. No CVA tenderness. Vital Signs Date Time Temp Pulse Resp B/P Pulse Ox O2 Delivery O2 Flow Rate FiO2 02/22/17 08:51 98.2 87 18 175/70 100 02/22/17 07:25 93 02/22/17 06:00 81 02/22/17 05:00 87 02/22/17 04:00 87 02/22/17 03:30 99.0 92 16 157/68 92 02/22/17 03:00 91 02/22/17 02:00 89 02/22/17 01:00 103 02/22/17 00:00 87 02/21/17 23:00 83 02/21/17 23:00 98.7 83 16 123/57 91 02/21/17 22:00 96 02/21/17 21:00 102 02/21/17 20:16 94 02/21/17 20:00 98 02/21/17 19:45 93 Room Air 02/21/17 19:45 97.8 102 16 144/58 93 02/21/17 19:00 104 02/21/17 18:07 98 02/21/17 17:31 101 02/21/17 16:10 103 02/21/17 15:29 101 02/21/17 15:29 98.7 100 18 131/56 91 02/21/17 14:18 18 02/21/17 14:11 100 02/21/17 13:38 101 02/21/17 12:07 92 02/21/17 12:07 98.9 91 18 140/63 94 Labs: Last Impressions Chest X-Ray 02/20/17 0500 Signed Impressions: Service Date/Time: Monday, February 20, 2017 03:49 - CONCLUSION: Mild bibasilar atelectasis is stable. Left chest tube in good position. Upper lungs are clear. Charles Mcnulty MD Lower Extremity Ultrasound 02/18/17 0000 Signed Impressions: Service Date/Time: January 13:51 - CONCLUSION: Patent superficial venous structures as above Willard Zapata MD Carotid Artery Ultrasound 02/17/17 0000 Signed Impressions: Service Date/Time: Thursday, February 16, 2017 18:02 - CONCLUSION: Minimal plaque with no evidence of significant stenosis. Bhavesh Alicia MD Result Diagram: 02/21/17 04502/21/17 045 Telemetry: NSR (1) Unstable angina Plan: significant LM and RCA disease, Recommendations: 1. ASA, BB, ACEi and statins ok for dc from CVS standpoint (2) Hyperlipidemia (3) Hypertension Problem Qualifiers (1) Hyperlipidemia: Qualified Code: E78.2 - Mixed hyperlipidemia (2) Hypertension: Qualified Code: I10 - Essential hypertension Melissa Hightower Feb 22, 2017 10:50
[2017-02-22] MEDS ORDERED: THERM PO (10:55)
[2017-02-22] MEDS ORDERED: FURO1TAB60 PO (10:55)
[2017-02-22] MEDS ORDERED: OXYC1TAB63 PO (10:55)
[2017-02-22] MEDS ORDERED: AMIO200T PO (10:55)
[2017-02-22] MEDS ORDERED: POTA-163 PO (10:55)
[2017-02-22] MEDS ORDERED: DOCU1CAP39 PO (10:55)
--- NOTE | 2017-02-22 10:58 | HHI.FF ---
Face to Face Verification Diagnosis: (1) Unstable angina (2) Hypertension (3) Hyperlipidemia (4) CAD (coronary artery disease) (5) Morbid obesity (6) S/P CABG x 3 Home Health Nursing Order: Signs/symptoms of disease process Wound care and dressing changes Nursing assessment with vital signs Instructions: Heart and Vascular Surgery patients *Special attention to sternal dressing Mandatory frequency Assess and evaluation, 4 days in a row The next week 3X week 2 times a week for 4 weeks 1 time a week for 5 weeks Schedule Heart and Vascular patients for full 60 day certification period Initial visit Review Open Heart Surgery Discharge Instructions (Sternal precautions, Activity, Elastic hose, Incision care, Driving, Incentive spirometry, Smoking, [place], Work and other) Need Betadine to paint incision Medication reconciliation Importance of follow up care/ check on appointments Make calendar record temperature daily When to call [facility] nurse, review instructions, phone list Incentive Spirometry, demonstration Visit 1- Begin discharge instruction for patient family and/ or caregiver using teach back method- Signs and symptoms of infection Disease characteristics Medicines and side effects Foods and nutrition/ appetite Infection control/ hand washing/ hygiene Visit 2- Continue teaching Discharge instructions- include additional information on smoking cessation , sternal dressing (sternal vac) Visit 3- Continue teaching- Cough and deep breathing, incision monitoring. Choose my plate Visit 4- Continue teaching- Discuss limitations Discuss how they are feeling Discuss progress toward goals Remaining visits- continue teaching and monitoring PREVENA Single Use Negative Wound Therapy System Caregiver Instruction Sheet 1. A Prevena dressing system was applied to the chest incision during surgery , to promote wound healing. It works via a suction device (negative pressure wound therapy) to remove low to moderate levels of exudate (drainage) and infectious materials. We recommend that the device stay in place for up to seven days, from day of surgery. 2. Day of Surgery__02/19/17 Day of Removal ____02/26/17 3. The dressing should only be removed by a health healthcare architect. Please arrange removal of device to coincide with Home Health visit and or with Nursing staff at Rehab 4. If skin reddening or irritation of skin occurs, or excessive drainage, please notify the Cardiovascular Surgeons office at [phone]. 5. Light showering is permissible; however the pump should be disconnected and placed in safe location, where it will not get wet. The dressing should not be exposed to direct spray or submerged in water. No bath tub / shower only. Ensure the end of the tubing attached to the dressing is facing down so that water does not enter the top of the tube. 6. To remove Prevena dressing: press purple button to turn off device / remove the suction. Then disconnect the tubing from the pump. The fixation strips should be stretched away from the skin and the dressing lifted at one corner and peeled back until it has been fully removed. 7. After removal, it is ok to shower daily using liquid dial soap and clean wash cloth, rinse and pat dry, and leave incision open to air dry. For any concerns regarding Prevena dressing, and or wounds, please contact Nikole Taylor, patient navigator at [phone] or notify the Cardiovascular Surgeons office at [phone]. Incentive spirometry Q1 hr x 10, while awake, also use acapella device hourly whole awake Sternal Breast Bone Precautions: NO pushing or pulling, ( pt must use sternal pillow to support chest with all activities and with coughing ( takes up to 3 months breast bone to heal ) All females to wear sternal bra , launder as needed Daily incision care: ok to shower daily, no tub bath. Wash all incisions with liquid dial soap, clean wash cloth to each site, rinse and pat dry. Observe for any signs of infection, such as drainage which is dark yellow, bain, green or foul smelling. Immediately report to the surgeon any drainage from the chest incision, or legs, and for any abnormal drainage from the chest tube sites. Notify surgeon if any temp >101.5 degrees F. When specialty dressing removed/ or if you do not have one, continue to shower daily as above, then rinse and pat incision dry and paint with betadine daily x 5 days. Allow steri strips to fall off if you have any. Avoid lotions, creams, salves, oils, etc. for the first month Please see attached forms for additional instructions regarding post Open Heart specialty wound vacuum dressings. CHADD or Prevena , Dressing to be removed by Nursing staff on ___02/26/17____ For Dr. Luna patients , please obtain CBC, BMP, PA & Lat CXR in 2 weeks, results to Dr. Luan ( prescription will be given) ( ) (Tele: [phone]) , F/U appointment: as per [place] instructions: PCP in 2 weeks, CV surgeon 2 weeks, Technical Sales Manager 3-4 weeks For any questions regarding incisions/ dressing / meds / post op care or above Symptoms, Wednesday 8am-5pm Heart & Vascular Surgery Office ( Dr. Olivia & Dr. Luna), After Hours / Nights (5pm -8am) Weekends and Holidays Please call [facility] Cardiac [facility] ([facility]) Charge Nurse I have seen patient Marci Sam on 02/22/17. My clinical findings support the need for the requested home health care services because: Deconditioned w/ increased weakness I certify that my clinical findings support that this patient is homebound because: Post-op weakness Melissa Hightower Feb 22, 2017 10:57
--- NOTE | 2017-02-22 11:02 | HHI.DS ---
Sarath Hightowerqueline GiulianaRoman FARRAR 02/22/17 1101: Discharge Summary Admission Date Feb 17, 2017 at 11:29 Admitting Diagnosis Chest pain, htn, hyperlipidemia (1) Unstable angina (2) Hypertension Diagnosis: Principal (3) Hyperlipidemia (4) S/P CABG x 3 Diagnosis: Secondary Procedures CABG x 3 02/19/17 SORENSON to LAD - good SVG to OM - goog SVG to RCA - good [facility] Brief History 61-year-old female with history of hypertension, hyperlipidemia, GERD, presents with a 2 week history of intermittent chest pain. The patient reports this morning she was lifting a 5lbs gallon when she started experiencing acute onset of chest pain. She locates the pain to to the central anterior chest, described as severe tightness and pressure, associated with some numbness of bilateral arms, shortness of breath, but no nausea/vomiting/diaphoresis. Over the past 2 weeks she reports multiple episodes of chest pain with any minimal exertion, just walking from her car into work, or walking around the house. The pain is relieved by rest. She denies any chest pains as long as she's not exerting herself. She recently started taking baby aspirin every day this week secondary to the chest pain. She denies any cardiac history or prior cardiac testing. She saw her PCP Dr. Shepard this week who was in the process of referring her to cardiology as outpatient however told her to come to the ER if she has any more episodes of chest pain. The patient is concerned as her grandfather from [place] at age 56. underwent cardiac cath by dr Phan left main disease and RCA stenosis CBC/BMP: 02/21/17 0450 02/21/17 0450 Significant Findings Laboratory Tests Test 02/20/17 02/21/17 04:20 04:50 White Blood Count 19.0 TH/MM3 14.3 TH/MM3 (4.0-11.0) (4.0-11.0) Hemoglobin 11.3 GM/DL 9.3 GM/DL (11.6-15.3) (11.6-15.3) Hematocrit 34.5 % 28.6 % (35.0-46.0) (35.0-46.0) Chloride Level 110 MEQ/L (98-107) Random Glucose 133 MG/DL 124 MG/DL (74-106) (74-106) Red Blood Count 3.39 MIL/MM3 (4.00-5.30) Neutrophils (%) (Auto) 78.1 % (16.0-70.0) Monocytes (%) (Auto) 9.9 % (0.0-8.0) Neutrophils # (Auto) 11.1 TH/MM3 (1.8-7.7) Monocytes # (Auto) 1.4 TH/MM3 (0-0.9) Calcium Level 7.9 MG/DL (8.5-10.1) Imaging Last Impressions Chest X-Ray 02/20/17 0500 Signed Impressions: Service Date/Time: Monday, February 20, 2017 03:49 - CONCLUSION: Mild bibasilar atelectasis is stable. Left chest tube in good position. Upper lungs are clear. Charles Mcnulty MD Lower Extremity Ultrasound 02/18/17 0000 Signed Impressions: Service Date/Time: January 13:51 - CONCLUSION: Patent superficial venous structures as above Willard Zapata MD Carotid Artery Ultrasound 02/17/17 0000 Signed Impressions: Service Date/Time: Thursday, February 16, 2017 18:02 - CONCLUSION: Minimal plaque with no evidence of significant stenosis. Bhavesh Alicia MD PE at Discharge GENERAL: SKIN: Warm and dry. prevena dressing to chest / incision intact to leg HEAD: Normocephalic. EYES: No scleral icterus. No injection or drainage. NECK: Supple, trachea midline. No JVD or lymphadenopathy. CARDIOVASCULAR: Regular rate and rhythm without murmurs, gallops, or rubs. + 1 edema lower ext RESPIRATORY: Breath sounds equal bilaterally. No accessory muscle use. GASTROINTESTINAL: Abdomen soft, non-tender, nondistended. MUSCULOSKELETAL: No cyanosis, or edema. BACK: Nontender without obvious deformity. No CVA tenderness. Hospital Course CVT: POD #: 2 Subjective/Hospital Course: No complaints. doing well. 02/21/17 No complaints today - doing well. 7/3 had BM, pain controlled, +1 edema lower ext, will dc with lasix ok to dc home Pt Condition on Discharge: Stable Discharge Disposition: Disch w/ Home Health Serv Discharge Instructions DIET: Follow Instructions for: Heart Healthy Diet Activities you can perform: Regular-No Restrictions Additional Activity Instructio: See surgeon indications Follow up Referrals: Appointment for Follow Up Appointment for Follow Up PCP Follow-up Tamica Kearney MD 02/22/17 1203: Discharge Summary CBC/BMP: 02/21/17 0450 02/21/17 0450 Discharge Instructions Follow up Referrals: Appointment for Follow Up Appointment for Follow Up PCP Follow-up Melissa Hightower Feb 22, 2017 11:01 Tamica Kearney MD Feb 22, 2017 12:03
--- NOTE | 2017-02-22 11:04 | HHI.DS ---
Discharge Summary Admission Date Feb 17, 2017 at 11:29 Admitting Diagnosis Chest pain, htn, hyperlipidemia (1) Unstable angina (2) Hypertension Diagnosis: Principal (3) Hyperlipidemia (4) S/P CABG x 3 Diagnosis: Secondary Procedures CABG x 3 02/19/17 SORENSON to LAD - good SVG to OM - goog SVG to RCA - good [facility] Brief History 61-year-old female with history of hypertension, hyperlipidemia, GERD, presents with a 2 week history of intermittent chest pain. The patient reports this morning she was lifting a 5lbs gallon when she started experiencing acute onset of chest pain. She locates the pain to to the central anterior chest, described as severe tightness and pressure, associated with some numbness of bilateral arms, shortness of breath, but no nausea/vomiting/diaphoresis. Over the past 2 weeks she reports multiple episodes of chest pain with any minimal exertion, just walking from her car into work, or walking around the house. The pain is relieved by rest. She denies any chest pains as long as she's not exerting herself. She recently started taking baby aspirin every day this week secondary to the chest pain. She denies any cardiac history or prior cardiac testing. She saw her PCP Dr. Shepard this week who was in the process of referring her to cardiology as outpatient however told her to come to the ER if she has any more episodes of chest pain. The patient is concerned as her grandfather from [place] at age 56. underwent cardiac cath by dr Phan left main disease and RCA stenosis CBC/BMP: 02/21/17 0450 02/21/17 0450 Significant Findings Laboratory Tests Test 02/20/17 02/21/17 04:20 04:50 White Blood Count 19.0 TH/MM3 14.3 TH/MM3 (4.0-11.0) (4.0-11.0) Hemoglobin 11.3 GM/DL 9.3 GM/DL (11.6-15.3) (11.6-15.3) Hematocrit 34.5 % 28.6 % (35.0-46.0) (35.0-46.0) Chloride Level 110 MEQ/L (98-107) Random Glucose 133 MG/DL 124 MG/DL (74-106) (74-106) Red Blood Count 3.39 MIL/MM3 (4.00-5.30) Neutrophils (%) (Auto) 78.1 % (16.0-70.0) Monocytes (%) (Auto) 9.9 % (0.0-8.0) Neutrophils # (Auto) 11.1 TH/MM3 (1.8-7.7) Monocytes # (Auto) 1.4 TH/MM3 (0-0.9) Calcium Level 7.9 MG/DL (8.5-10.1) PE at Discharge GENERAL: SKIN: Warm and dry. prevena dressing to chest / incision intact to leg HEAD: Normocephalic. EYES: No scleral icterus. No injection or drainage. NECK: Supple, trachea midline. No JVD or lymphadenopathy. CARDIOVASCULAR: Regular rate and rhythm without murmurs, gallops, or rubs. + 1 edema lower ext RESPIRATORY: Breath sounds equal bilaterally. No accessory muscle use. GASTROINTESTINAL: Abdomen soft, non-tender, nondistended. MUSCULOSKELETAL: No cyanosis, or edema. BACK: Nontender without obvious deformity. No CVA tenderness. Pt Condition on Discharge: Stable Discharge Disposition: Disch w/ Home Health Serv Discharge Instructions DIET: Follow Instructions for: Heart Healthy Diet Activities you can perform: Regular-No Restrictions Additional Activity Instructio: See surgeon indications Follow up Referrals: Appointment for Follow Up Appointment for Follow Up PCP Follow-up New Orders: BASIC METABOLIC PROF - 2 Weeks CBC NO DIFF - 2 Weeks X-RAY CHEST PA & LAT - 2 Weeks New Medications: Furosemide (Lasix) 40 Mg Tab 40 MG PO DAILY edema #30 Ref 0 TAB Potassium Chloride ER (Potassium Chloride ER) 20 Meq Tab 20 MEQ PO DAILY Electrolyte Replacement #30 Ref 0 TAB Amiodarone (Amiodarone) 200 Mg Tab 200 MG PO Q12HR heart rhythm #28 Ref 0 TAB Aspirin (Aspirin Low Strength) 81 Mg Chew 81 MG PO DAILY Blood Clot Prevention #30 EA Docusate Sodium (Dok) 100 Mg Cap 100 MG PO BID Constipation #60 Ref 0 CAP Metoprolol Tartrate (Metoprolol Tartrate) 25 Mg Tab 25 MG PO BID Blood Pressure Management #60 TAB Multiple Vitamins W/ Minerals (Thera M Plus) 1 Tab 1 TAB PO DAILY multi vitamin #30 Ref 2 TAB Oxycodone-Acetaminophen (Oxycodone-Acetaminophen) 5-325 mg Tab 1 TAB PO Q3H PRN PAIN SCALE 1 TO 5 #40 TAB Continued Medications: Lisinopril (Lisinopril) 20 Mg Tab 20 MG PO DAILY #30 Ref 0 TAB Lovastatin (Lovastatin) 20 Mg Tab 20 MG PO DAILY Cholesterol Management #30 Ref 0 TAB Ranitidine (Ranitidine) 300 Mg Tab 300 MG PO DAILY Heartburn Management #30 Ref 0 TAB Melissa Hightower Feb 22, 2017 11:04
[2017-02-22 11:25] LABS: HEMATOCRIT 30.5 % (35.0-46.0); MEAN CELL VOLUME 84.7 FL (80.0-100.0); MEAN CORPUSCULAR HEMOGLOBIN 27.6 PG (27.0-34.0); MEAN CORPUSCULAR HGB CONC 32.6 % (32.0-36.0); PLATELET COUNT 206 TH/MM3 (150-450); RED CELL DISTRIBUTION WIDTH 15.3 % (11.6-17.2); REVIEW FLAG FINAL; WHITE BLOOD COUNT 12.6 TH/MM3 (4.0-11.0)
[2017-02-22 11:45] LABS: BICARBONATE 29.1 MEQ/L (21.0-32.0); MAGNESIUM 2.2 MG/DL (1.5-2.5)
--- NOTE | 2017-02-22 12:05 | HHI.PR ---
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 She is in the chair. Denies chest pain, sob, n/v/d/c. Has some cough and chest pain when she is coughing. Feels comfortable to go home today. Objective Vitals Vital Signs Date Time Temp Pulse Resp B/P Pulse Ox O2 Delivery O2 Flow Rate FiO2 02/22/17 09:00 87 02/22/17 08:51 98.2 87 18 175/70 100 02/22/17 07:25 93 02/22/17 07:00 88 02/22/17 07:00 83 02/22/17 06:00 81 02/22/17 05:00 87 02/22/17 04:00 87 02/22/17 03:30 99.0 92 16 157/68 92 02/22/17 03:00 91 02/22/17 02:00 89 02/22/17 01:00 103 02/22/17 00:00 87 02/21/17 23:00 83 02/21/17 23:00 98.7 83 16 123/57 91 02/21/17 22:00 96 02/21/17 21:00 102 02/21/17 20:16 94 02/21/17 20:00 98 02/21/17 19:45 93 Room Air 02/21/17 19:45 97.8 102 16 144/58 93 02/21/17 19:00 104 02/21/17 18:07 98 02/21/17 17:31 101 02/21/17 16:10 103 02/21/17 15:29 101 02/21/17 15:29 98.7 100 18 131/56 91 02/21/17 14:18 18 02/21/17 14:11 100 02/21/17 13:38 101 02/21/17 12:07 92 02/21/17 12:07 98.9 91 18 140/63 94 I/O 02/21/17 02/21/17 02/21/17 02/22/17 02/22/17 02/22/17 07:00 15:00 23:00 07:00 15:00 23:00 Intake Total 400 ml 730 ml 350 ml Output Total 500 ml 800 ml 400 ml Balance -100 ml -70 ml -50 ml Intake Oral 300 ml 600 ml 350 ml IV Total 100 ml 130 ml 0 ml Output Urine Total 500 ml 800 ml 400 ml # Voids 4 # Bowel Movements 0 0 4 Result Diagram: 02/22/17 1107 02/22/17 1107 Imaging Last Impressions Chest X-Ray 02/20/17 0500 Signed Impressions: Service Date/Time: Monday, February 20, 2017 03:49 - CONCLUSION: Mild bibasilar atelectasis is stable. Left chest tube in good position. Upper lungs are clear. Charles Mcnulty MD Lower Extremity Ultrasound 02/18/17 0000 Signed Impressions: Service Date/Time: January 13:51 - CONCLUSION: Patent superficial venous structures as above Willard Zapata MD Carotid Artery Ultrasound 02/17/17 0000 Signed Impressions: Service Date/Time: Thursday, February 16, 2017 18:02 - CONCLUSION: Minimal plaque with no evidence of significant stenosis. Bhavesh Alicia MD Objective Remarks GENERAL: This is a well-nourished, obese, well-developed patient, in no apparent distress, in the chair, satting well on room air. CARDIOVASCULAR: Regular rate and rhythm. S/p CT surgery , chest tube removed. Foam dressing midchest c/d/i. RESPIRATORY: Clear to auscultation. Breath sounds equal bilaterally. No wheezes , rales, or rhonchi. GASTROINTESTINAL: Abdomen soft, non-tender, nondistended. Normal active bowel sounds MUSCULOSKELETAL: Extremities without clubbing, cyanosis, trace edema. NEURO: Alert & Oriented. Moves all ext x4. Follows commands. Procedures cardiac catheterization February [address] Witt CTS CABG x 3 SORENSON to LAD SVG to OM SVG to RCA EVH A/P Problem List: (1) Unstable angina ICD Code: I20.0 Status: Acute (2) Hypertension ICD Code: I10 Status: Acute (3) Hyperlipidemia ICD Code: E78.5 Status: Chronic (4) S/P CABG x 3 ICD Code: Z95.1 Status: Acute Assessment and Plan 61-year-old female with history of hypertension, hyperlipidemia, GERD, presents with a 2 week history of intermittent chest pain. Unstable Angina: Status post heart catheterization with significant findings of heart disease with left main and an RCA per Dr. Phan. Cardiac enzymes are negative, continue with aspirin, statin, beta jj, heparin infusion. Cardiology is recommending a cardiovascular surgery consultation. -S/P CABG x 3, SORENSON to LAD,SVG to OM, SVG to RCA, EVH by Dr Torres CTS on 02/19/17 Chest tube removed 02/20/17 Hypertension, essential: Overall fair control. -continue patient's lisinopril 40mg and HCTZ 25mg -monitor BP, adjust antihypertensives as needed Morbid obesity with a BMI greater than 40weight loss counseling Hyperlipidemia: chronic -continue patient's statin LDL 98 Constipation: Stool softeners, laxatives as need. GERD: chronicPepcid. DVT Prophylaxis: Lovenox Discharge Planning Plan to DC home today Discussed with the patient, nurse, CTS team. Problem Qualifiers (1) Hypertension: Qualified Code: I10 - Essential hypertension (2) Hyperlipidemia: Qualified Code: E78.2 - Mixed hyperlipidemia Tamica Kearney MD Feb 22, 2017 12:05
== END 2017-02-22 14:32 | disposition home health service (06) | DRG 234 ==
LOC: NEPC 07:06 → NEDA 09:31 → OBSVTOIN 11:29 → HCIS 17:55 → HCVR 02-19 11:55 → HCIN 02-20 15:45
PROVIDERS: ADMIT Thoracic Surgery (Cardiothoracic Vascular Surgery); ATTEND Thoracic Surgery (Cardiothoracic Vascular Surgery)
PROC: 4A023N7 Measurement of Cardiac Sampling and Pressure, Left Heart, Percutaneous Approach (ICD-10-PCS; 2017-02-17)
PROC: B2111ZZ Fluoroscopy of Multiple Coronary Arteries using Low Osmolar Contrast (ICD-10-PCS; 2017-02-17)
PROC: B2151ZZ Fluoroscopy of Left Heart using Low Osmolar Contrast (ICD-10-PCS; 2017-02-17)
PROC: 02100Z9 Bypass Coronary Artery, One Artery from Left Internal Mammary, Open Approach (ICD-10-PCS; 2017-02-19)
PROC: 06BQ4ZZ Excision of Left Saphenous Vein, Percutaneous Endoscopic Approach (ICD-10-PCS; 2017-02-19)
PROC: 5A1221Z Performance of Cardiac Output, Continuous (ICD-10-PCS; 2017-02-19)
PROC: 021109W Bypass Coronary Artery, Two Arteries from Aorta with Autologous Venous Tissue, Open Approach (ICD-10-PCS; principal; 2017-02-19 06:56)
DX: I25.110 Atherosclerotic heart disease of native coronary artery with unstable angina pectoris (principal); Z68.42 Body mass index [BMI] 45.0-49.9, adult; I11.9 Hypertensive heart disease without heart failure; E78.2 Mixed hyperlipidemia; K21.9 Gastro-esophageal reflux disease without esophagitis; E66.01 Morbid (severe) obesity due to excess calories; K59.00 Constipation, unspecified; Z82.49 Family history of ischemic heart disease and other diseases of the circulatory system; Z87.891 Personal history of nicotine dependence
CPT/HCPCS: 71010; 76937; 80048; 80053; 80061; 81001; 82550; 82948; 83036; 83735; 84484; 85025; 85027; 85610; 85730; 86850; 86900; 86901; 86920; 87641; 93005; 93318; 93458; 93880; 93970; 93998; 94002; 94010; 94150; 94640; 94664; 94667; 94668; 99285; C1769; C1893; J0131; J0360; J0690; J1644; J1815; J1817; J1940; J2150; J2250; J2405; J2440; J2710; J2720; J2930; J3010; J3370; J3475; J3480; J7050; J7120; P9047; Q9967

== ENCOUNTER 2017-05-13 09:44 | Emergency (ER) | payer OTHER ==
[~2017-05-13] VITALS: Ht 167.6 cm; Wt 120.0 kg
[2017-05-13] VITALS (9 sets, daily range): BP systolic 173–240; BP diastolic 77–112; PULSE 71–104; RESP 16–18; TEMP 98.2; O2SAT 92–98
[~2017-05-13 09:44] MED LIST: AMIO200T PO; ASPI81CH25 PO; DOCU1CAP39 PO; FURO1TAB60 PO; LISI-515 PO; LISI20TA3 PO; LOVA20TA PO; METO25TA3 PO; OXYC1TAB63 PO; POTA-163 PO; RANI300T PO; THERM PO
[2017-05-13] MEDS ORDERED: IOHEXOL 350 MG/ML 10 ML VIAL (for RAD DIAG) IVCONTRAST ONE (09:45)
--- NOTE | 2017-05-13 10:01 | PD ---
HPI Chief Complaint: Chest Pain Time Seen by Provider: 10:00 Travel History International Travel<30 days: No Contact w/Intl Traveler<30days: No Traveled to known affect area: No History of Present Illness HPI 61-year-old female came to the emergency room with history of chest pressure for past 1 week worse when she is walking. She says the pressure goes across her chest and across the back. She has to hold her breast together and prevented from hurting worse. Currently she is not in any pain but since it was worsening she decided to come to the emergency room. Patient had a CABG 12 weeks ago and this institution. She says the pain was different at that time. She is not on any blood thinners. She did not take any medication for this pain. Patient was hypertensive upon arrival. She says she did not take any of her medications this morning. No associated symptoms of shortness of breath or syncopal episode. PFSH Past Medical History Narrative Medical List of her past medical, surgical, social and family history is reviewed from the nursing note. Autoimmune Disease: No Blood Disorders: No Anxiety: No Depression: No Cancer: No Cardiovascular Problems: Yes (triple bypass 12 weeks ago) High Cholesterol: Yes Chest Pain: Yes Diminished Hearing: No Endocrine: No Genitourinary: No Hypertension: Yes Musculoskeletal: No Neurologic: No Psychiatric: No Immunizations Current: Yes Tetanus Vaccination: Unknown Influenza Vaccination: Yes ?: Not Menopausal: Yes : 1 Para: 1 Tubal Ligation: Yes Past Surgical History Cardiac Surgery: Yes (HEART CATH, triple bypass ) Cholecystectomy: Yes Genitourinary Surgery: Yes (TUBAL,1994) Social History Alcohol Use: Yes (OCCASIONALLY) Tobacco Use: No (4 pack years) Substance Use: No Allergies-Medications (Allergen,Severity, Reaction): Coded Allergies: No Known Allergies (Verified Allergy, Unknown, 04/07/05) Comments No known drug allergies. Reported Meds & Prescriptions Reported Meds & Active Scripts Active Metoprolol Tartrate 25 Mg Tab 25 Mg PO BID Aspirin Low Strength (Aspirin) 81 Mg Chew 81 Mg PO DAILY Thera M Plus (Multivitamins/Minerals Therapeutic) 1 Tab 1 Tab PO DAILY Reported Lisinopril 20 Mg Tab 20 Mg PO DAILY Lovastatin 20 Mg Tab 60 Mg PO DAILY Narrative Medication List of his home medications reviewed from the nursing note. Review of Systems Except as stated in HPI: all other systems reviewed are Neg Physical Exam Narrative GENERAL: Awake, alert, anxious, morbidly obese SKIN: Focused skin assessment warm/dry. Incision on the chest seems to have healed well. There is some scarring. HEAD: Atraumatic. Normocephalic. EYES: Pupils equal and round. No scleral icterus. No injection or drainage. ENT: No nasal bleeding or discharge. Mucous membranes pink and moist. NECK: Trachea midline. No JVD. CARDIOVASCULAR: Regular rate and rhythm. No murmur appreciated. RESPIRATORY: No accessory muscle use. Clear to auscultation. Breath sounds equal bilaterally. No chest tenderness upon palpation GASTROINTESTINAL: Abdomen soft, non-tender, nondistended. Hepatic and splenic margins not palpable. MUSCULOSKELETAL: No obvious deformities. No clubbing. No cyanosis. No edema. NEUROLOGICAL: Awake and alert. No obvious cranial nerve deficits. Motor grossly within normal limits. Normal speech. PSYCHIATRIC: Appropriate mood and affect; insight and judgment normal. Data Data Last Documented VS Vital Signs Date Time Temp Pulse Resp B/P (MAP) Pulse Ox O2 Delivery O2 Flow Rate FiO2 05/13/17 16:34 05/13/17 15:00 76 16 96 Room Air 05/13/17 09:47 98.2 Orders Orders Electrocardiogram (05/13/17 10:03) Basic Metabolic Panel (Bmp) (05/13/17 10:03) Ckmb (Isoenzyme) Profile (05/13/17 10:03) Complete Blood Count With Diff (05/13/17 10:03) Magnesium (Mg) (05/13/17 10:03) Prothrombin Time / Inr (Pt) (05/13/17 10:03) Act Partial Throm Time (Ptt) (05/13/17 10:03) Troponin I (05/13/17 10:03) Chest, Single Ap (05/13/17 10:03) Ecg Monitoring (05/13/17 10:03) Bilateral Bp Monitoring (05/13/17 10:03) Iv Access Insert/Monitor (05/13/17 10:03) Oximetry (05/13/17 10:03) Oxygen Administration (05/13/17 10:03) Sodium Chloride 0.9% Flush (Ns Flush) (05/13/17 10:15) Ct Pulmonary Angiogram (05/13/17 ) Metoprolol Tartrate (Lopressor) (05/13/17 12:00) Lisinopril (Prinivil) (05/13/17 12:00) Iohexol 350 Inj (Omnipaque 350 Inj) (05/13/17 09:45) Ct Abd/Pel W/O Iv Contrast (05/13/17 ) Clonidine (Catapres) (05/13/17 13:30) Labs Laboratory Tests Test 05/13/17 10:00 05/13/17 10:45 White Blood Count 7.5 TH/MM3 Red Blood Count 4.92 MIL/MM3 Hemoglobin 12.2 GM/DL Hematocrit 38.2 % Mean Corpuscular Volume 77.7 FL Mean Corpuscular Hemoglobin 24.8 PG Mean Corpuscular Hemoglobin Concent 31.9 % Red Cell Distribution Width 17.9 % Platelet Count 189 TH/MM3 Mean Platelet Volume 10.4 FL Neutrophils (%) (Auto) 71.4 % Lymphocytes (%) (Auto) 16.4 % Monocytes (%) (Auto) 8.6 % Eosinophils (%) (Auto) 2.4 % Basophils (%) (Auto) 1.2 % Neutrophils # (Auto) 5.3 TH/MM3 Lymphocytes # (Auto) 1.2 TH/MM3 Monocytes # (Auto) 0.6 TH/MM3 Eosinophils # (Auto) 0.2 TH/MM3 Basophils # (Auto) 0.1 TH/MM3 CBC Comment DIFF FINAL Differential Comment Prothrombin Time 10.9 SEC Prothromb Time International Ratio 1.0 RATIO Activated Partial Thromboplast Time 27.7 SEC Blood Urea Nitrogen 14 MG/DL Creatinine 0.67 MG/DL Random Glucose 88 MG/DL Calcium Level 9.2 MG/DL Magnesium Level 2.3 MG/DL Sodium Level 142 MEQ/L Potassium Level 3.8 MEQ/L Chloride Level 108 MEQ/L Carbon Dioxide Level 25.5 MEQ/L Anion Gap 9 MEQ/L Estimat Glomerular Filtration Rate 90 ML/MIN Total Creatine Kinase 34 U/L Troponin I LESS THAN 0.02 NG/ML MDM Medical Decision Making Medical Screen Exam Complete: Yes Emergency Medical Condition: Yes Medical Record Reviewed: Yes Interpretation(s) Twelve-lead EKG was reviewed by me. Normal sinus rhythm, normal axis, nonspecific ST-T wave changes. Heart rate of 96 bpm. Differential Diagnosis Nonspecific chest pain, PE, aortic dissection Narrative Course 11:47 AM CBC is back and within acceptable limits. Chest x-ray shows a small left-sided pleural effusion which could be a postoperative change secondary to the recent CABG. Awaiting for the chemistry and CT pulmonary angiogram. Patient will be getting her daily dose of lisinopril and Lopressor. Patient does not recall any of the names of her medications and the med reconciliation list has to be updated. 1:14 PM blood test results of back and within acceptable limits. CT pulmonary angiogram was negative for PE. However as per the radiologist there are multiple hilar lymphadenopathy and splenomegaly. He is recommending a CT of the abdomen and pelvis to rule out malignancy especially like lymphoma. 3:[address] abdomen and pelvis is within normal limit. At this point I will discharge the patient home. I had discussed earlier with Dr. Olivia about this patient and he was okay with the management so far and as per him if everything was negative patient in follow-up with Dr. Torres as an outpatient. 3:30 PM I discussed the case with Dr. Marin from oncology. He said he would be happy to follow up with the patient in his office. He wanted her face sheet faxed to him which was done. The office would call the patient with an appointment. I mentioned this to the patient so she is aware of it as well. Procedures EKG Prior to Arrival: No Physician Communication Physician Communication Dr. Olivia Diagnosis Primary Impression: Chest pain Qualified Codes: R07.9 - Chest pain, unspecified Additional Impressions: Hilar lymphadenopathy Hypertension Qualified Codes: I10 - Essential (primary) hypertension Referrals: Kavya Luna MD 1 week Primary Care Physician Additional Instructions: Please follow-up with your primary care. Follow-up with Dr. Torres as well. Return to the ER if the condition worsens or any other new concerns. Med/Other Pt SpecificInfo: No Change to Meds Disposition: 01 DISCHARGE HOME Condition: Stable Sarah Kam MD May 13, 2017 10:01
[2017-05-13] MEDS ORDERED: SODIUM CHLORIDE 0.9% FLUSH 10 ML FLUSH IVF PRN (10:15)
[2017-05-13 10:20] LABS: AUTOMATED NEUTROPHIL # 5.3 TH/MM3 (1.8-7.7); BASOPHIL # 0.1 TH/MM3 (0-0.2); BASOPHIL % 1.2 % (0.0-2.0); EOSINOPHIL # 0.2 TH/MM3 (0-0.4); EOSINOPHIL % 2.4 % (0.0-4.0); HEMATOCRIT 38.2 % (35.0-46.0); HEMO FLAGS DIFF FINAL; LYMPH % 16.4 % (9.0-44.0); LYMPHOCYTE # 1.2 TH/MM3 (1.0-4.8); MEAN CELL VOLUME 77.7 FL (80.0-100.0); MEAN CORPUSCULAR HEMOGLOBIN 24.8 PG (27.0-34.0); MEAN CORPUSCULAR HGB CONC 31.9 % (32.0-36.0); MONO % 8.6 % (0.0-8.0); NEUT % 71.4 % (16.0-70.0); PLATELET COUNT 189 TH/MM3 (150-450); RED BLOOD COUNT 4.92 MIL/MM3 (4.00-5.30); RED CELL DISTRIBUTION WIDTH 17.9 % (11.6-17.2); WHITE BLOOD COUNT 7.5 TH/MM3 (4.0-11.0)
--- NOTE | 2017-05-13 10:24 | RADRPT ---
EXAM DATE/TIME: 05/13/2017 10:13 [facility] COMPARISON: CHEST SINGLE AP, February 22, 2017, 8:24. INDICATIONS : Chest pain MEDICAL HISTORY : Hypertension. Gastroesophageal reflux disease. Hypercholesterolemia SURGICAL HISTORY : CABG. CABG. Tubal ligation. Cholecystectomy ENCOUNTER: Initial ACUITY: 1 week PAIN SCORE: 0/10 LOCATION: chest FINDINGS: A single view of the chest demonstrates the lungs to be symmetrically aerated with some minimal linea r atelectasis or scarring laterally in the left mid chest. Findings of failure seen previously have r esolved. There may be a small left-sided effusion with some blunting of left costophrenic angle. Hear t size is prominent but well compensated. Median sternotomy wires are intact. Degenerative spurring o f the dorsal spine. Osseous structures are otherwise intact. CONCLUSION: 1. Compensated cardiomegaly. 2. Possible small left-sided pleural effusion with minimal linear atelectasis/scarring laterally in t he left mid chest. 3. Lungs are otherwise clear. Hay Winters MD on May 13, 2017 at 10:18 Board Certified Radiologist. This report was verified electronically.
[2017-05-13 10:28] LABS: APTT (PATIENT) 27.7 SEC (24.3-30.1); PROTHROMBIN TIME - PATIENT 10.9 SEC (9.8-11.6)
[2017-05-13 11:39] LABS: ANION GAP 9 MEQ/L (5-15); BICARBONATE 25.5 MEQ/L (21.0-32.0); BLOOD UREA NITROGEN 14 MG/DL (7-18); CHLORIDE 108 MEQ/L (98-107); MAGNESIUM 2.3 MG/DL (1.5-2.5); POTASSIUM 3.8 MEQ/L (3.5-5.1); SODIUM (NA) 142 MEQ/L (136-145)
[2017-05-13 11:45] LABS: GLOMERULAR FILTRATION RATE 90 ML/MIN (>89)
[2017-05-13 11:46] LABS: CREATINE KINASE 34 U/L (26-192)
[2017-05-13] MEDS ORDERED: LISINOPRIL 20 MG TAB PO ONE (12:00)
[2017-05-13] MEDS ORDERED: METOPROLOL TARTRATE 25 MG TAB PO ONE (12:00)
--- NOTE | 2017-05-13 12:40 | RADRPT ---
EXAM DATE/TIME: 05/13/2017 12:03 [facility] COMPARISON: No previous studies available for comparison. INDICATIONS : Chest pain across back IV CONTRAST: 50 cc Omnipaque 350 (iohexol) IV RADIATION DOSE: 9.08 CTDIvol (mGy) MEDICAL HISTORY : Hypertension. Cardiovascular disease SURGICAL HISTORY : CABG Tubal ligation. ENCOUNTER: Initial ACUITY: 1 week PAIN SCALE: 4/10 LOCATION: chest TECHNIQUE: Volumetric scanning of the chest was performed using a pulmonary embolism protocol MIP images were re constructed. Using automated exposure control and adjustment of the mA and/or kV according to patien t size, radiation dose was kept as low as reasonably achievable to obtain optimal diagnostic quality images. DICOM format image data is available electronically for review and comparison. Follow-up recommendations for detected pulmonary nodules are based at a minimum on nodule size and pa tient risk factors according to Fleischner Society Guidelines. FINDINGS: PULMONARY ARTERIES: No filling defects are seen in the pulmonary arteries through the segmental level. LUNGS: There is no consolidation or pneumothorax . No concerning pulmonary nodule is visualized. PLEURAE: Left-sided pleural effusion. MEDIASTINUM: Prominent lymph nodes in the AP window, subcarinal, right paratracheal and bihilar distribution measu ring up with a 3 cm in diameter. Atherosclerotic calcification of the coronary arteries. MUSCULOSKELETAL: Within normal limits for patient age. MISCELLANEOUS: The visualized upper abdominal organs demonstrate no acute abnormality. Patient does have a small hia leticia hernia. Spleen is prominent at 14.4 cm in greatest AP dimension. Focal area of diminished attenua tion measuring 1 cm in diameter near the falciform ligament may represent focal fatty infiltration. S tatus post cholecystectomy. CONCLUSION: 1. Small left pleural effusion. 2. Prominent hilar and mediastinal lymph nodes as above. Both inflammatory and neoplastic processes s hould be considered. Skin of the abdomen and pelvis is recommended to evaluate for additional areas o f enlarged lymph nodes. 3. No acute infiltrate or pulmonary embolus. 4. Splenomegaly. In combination with the prominent hilar and mediastinal lymph nodes, which consider entities such as lymphoma. 5. Atherosclerotic calcification of the coronary arteries. Hay Winters MD on May 13, 2017 at 12:27 Board Certified Radiologist. This report was verified electronically.
[2017-05-13] MEDS ORDERED: cloNIDine HCL 0.1 MG TAB PO ONE (13:30)
--- NOTE | 2017-05-13 13:56 | EKG ---
Date Performed: 05/13/2017 Time Performed: 09:59:11 PTAGE: 61 years EKG: Sinus rhythm NONSPECIFIC T-WAVE ABNORMALITY ABNORMAL ECG PREVIOUS TRACING : 02/20/2017 05.12 Compared to the previous tracing, low voltage precorial no longer noted DOCTOR: Tuan Silva Interpretating Date/Time 05/13/2017 13:55:30
--- NOTE | 2017-05-13 15:12 | RADRPT ---
EXAM DATE/TIME: 05/13/2017 14:26 [facility] COMPARISON: No previous studies available for comparison. INDICATIONS : Evaluate lymph nodes, abnormality on chest scan ORAL CONTRAST: No oral contrast ingested. RADIATION DOSE: 17.71 CTDIvol (mGy) MEDICAL HISTORY : Cardiovascular disease. Hypertension. SURGICAL HISTORY : Cholecystectomy. CABG ENCOUNTER: Initial ACUITY: 1 day PAIN SCALE: 0/10 LOCATION: abdomen TECHNIQUE: Volumetric scanning of the abdomen and pelvis was performed. Using automated exposure control and ad justment of the mA and/or kV according to patient size, radiation dose was kept as low as reasonably achievable to obtain optimal diagnostic quality images. DICOM format image data is available electro nically for review and comparison. FINDINGS: There is a small left-sided pleural effusion. Minimal basilar atelectasis. Small hiatal hernia. No acute findings in the liver, spleen, adrenals, kidneys or pancreas. Spleen mildly enlarged at 13.4 cm. No pathologically enlarged lymph nodes identified within the abdomen and pelvis. Previous cholec ystectomy. No bowel obstruction. No free air or free fluid. No adenopathy. CONCLUSION: 1. No acute findings. No pathologically enlarged lymph nodes in the abdomen and pelvis. 2. Previous cholecystectomy. Small left effusion. Small hiatal hernia. 3. Minimal anasarca. Spleen measures 13.4 cm in length. Lucas Phan MD on May 13, 2017 at 15:06 Board Certified Radiologist. This report was verified electronically.
== END 2017-05-13 16:34 | disposition home or self-care (01) ==
LOC: NEPE 09:44
DX: R07.9 Chest pain, unspecified (principal); R59.0 Localized enlarged lymph nodes; I10 Essential (primary) hypertension; J90 Pleural effusion, not elsewhere classified; R94.31 Abnormal electrocardiogram [ECG] [EKG]; E78.00 Pure hypercholesterolemia, unspecified; Z79.899 Other long term (current) drug therapy; Z98.890 Other specified postprocedural states; Z95.1 Presence of aortocoronary bypass graft; Z86.79 Personal history of other diseases of the circulatory system
CPT/HCPCS: 71010; 71275; 74176; 80048; 82550; 83735; 84484; 85025; 85610; 85730; 93005; 99285; Q9967

== ENCOUNTER 2017-06-22 09:48 | Day surgery (SDC) | payer OTHER ==
[~2017-06-22] VITALS: Ht 167.6 cm; Wt 118.7 kg
[~2017-06-22 09:48] MED LIST changes: -AMIO200T PO; -DOCU1CAP39 PO; -FURO1TAB60 PO; -LISI20TA3 PO; -OXYC1TAB63 PO; -POTA-163 PO; -RANI300T PO
[2017-06-22] MEDS ORDERED: IOHEXOL 350 MG/ML 100 ML BTL (for Cath Lab) OTHER ONE (09:49)
[2017-06-22 10:29] VITALS: BP 188/87; PULSE 66; RESP 16; TEMP 99; O2SAT 96
[2017-06-22] MEDS ORDERED: FURO1TAB62 PO (10:29)
[2017-06-22] MEDS ORDERED: ISOS30TA3 PO (10:29)
[2017-06-22] MEDS ORDERED: RANI300T PO (10:29)
[2017-06-22] MEDS ORDERED: PLAV75TA29 PO (10:29)
[2017-06-22] MEDS ORDERED: METO50TA PO (10:30)
[2017-06-22] MEDS ORDERED: diphenhydrAMINE HCL 50 MG CAP PO SCH (10:45)
[2017-06-22] MEDS ORDERED: NS 1000P @30 MLS/HR (KVO) IV SCH (10:45)
[2017-06-22 10:58] LABS: AUTOMATED NEUTROPHIL # 5.7 TH/MM3 (1.8-7.7); BASOPHIL # 0.1 TH/MM3 (0-0.2); BASOPHIL % 1.2 % (0.0-2.0); EOSINOPHIL # 0.1 TH/MM3 (0-0.4); EOSINOPHIL % 1.9 % (0.0-4.0); HEMATOCRIT 37.7 % (35.0-46.0); HEMOGLOBIN 12.1 GM/DL (11.6-15.3); LYMPH % 17.2 % (9.0-44.0); LYMPHOCYTE # 1.4 TH/MM3 (1.0-4.8); MEAN CELL VOLUME 77.4 FL (80.0-100.0); MEAN CORPUSCULAR HEMOGLOBIN 24.9 PG (27.0-34.0); MEAN CORPUSCULAR HGB CONC 32.1 % (32.0-36.0); MEAN PLATELET VOLUME 10.9 FL (7.0-11.0); MONO % 8.2 % (0.0-8.0); MONOCYTE # 0.7 TH/MM3 (0-0.9); NEUT % 71.5 % (16.0-70.0); PLATELET COUNT 181 TH/MM3 (150-450); RED BLOOD COUNT 4.87 MIL/MM3 (4.00-5.30)
[2017-06-22 11:11] LABS: PROTHROMBIN TIME - PATIENT 10.7 SEC (9.8-11.6)
[2017-06-22 11:22] LABS: CALCIUM 8.7 MG/DL (8.5-10.1); CREATININE 0.69 MG/DL (0.50-1.00)
[2017-06-22] MEDS ORDERED: HEPARIN-NS/PF INJ 500 ML ONE (13:46)
[2017-06-22] MEDS ORDERED: MIDAZOLAM HCL 2 MG/2 ML VIAL ONE ×3 (13:57→14:59)
[2017-06-22] MEDS ORDERED: HEPARIN SODIUM - IV 10,000 UNITS/10 ML VIAL ONE (14:34)
[2017-06-22] MEDS ORDERED: NITROGLYCERIN INJ 5 ML ONE (14:39)
[2017-06-22] MEDS ORDERED: PROTAMINE SULFATE 50 MG/5 ML VIAL ONE (15:13)
[2017-06-22] MEDS ORDERED: CLOPIDOGREL 300 MG TAB ONE (15:15)
[2017-06-22] MEDS ORDERED: SODIUM CHLOR 0.9% 1000 ML INJ 1,000 ML IV SCH (15:23)
[2017-06-22] MEDS ORDERED: ACETAMINOPHEN 325 MG TAB PO PRN (15:30)
[2017-06-22] MEDS ORDERED: ONDANSETRON HCL 4 MG/2 ML VIAL IV PUSH PRN (15:30)
[2017-06-22] MEDS ORDERED: MISC INFORMATION XX ONE (15:30)
[2017-06-22] MEDS ORDERED: ATROPINE SULFATE 1 MG/ML VIAL IV PUSH PRN (15:30)
--- NOTE | 2017-06-22 15:45 | CATHPROC ---
[facility] HIS Report Study Information Study Number Admission Scheduled Start Study Start [id number] Jun 22 2017 9:48AM 06/22/2017 Jun 22 2017 1:35PM [place] Service Cardiac Catheterization Admit Source Facility Department Other [facility] - Forensic Sergeant Physician and Clinical Staff Initial Alexis Law Geochemistry Teacher Francisca Winn BSN Geochemistry Teacher Enedelia Robert,YAN Recorder Hamida Alvarenga RCIS TECH2 Scrub Reggie Bentley RCIS(BS) Procedures Performed Procedure Location (Site) Vessel Name Coronary Angiograms LCA Left Coronary Coronary Angiograms RCA Right Coronary Coronary Angiograms SORENSON-LAD Left Coronary Coronary Angiograms SVG-OM CIRC Coronary Angiograms SVG-RCA Right Coronary Drug Eluting Inflatio SVG-OM CIRC Drug Eluting Inflatio RCA Ost Right Coronary LV Gram-hand inj. LV LV Ventricle PTCA SVG-OM CIRC PTCA RCA Ost Right Coronary Wire insertion Fem Art (right) Femoral Art Equipment Time Surveying Or Spatial Science Technician Description Size Mfg Part Number Used/Scraped COPILOT VALVE, BLEEDBACK [id number] 14:37 [employer] Used CONTROL *[id number] PERCLOSE, PRO GLIDE CLOSER 15:10 [employer] FR 6 [id number] *[id number] Used DEVICE WIRE, BALANCE MIDDLEWEIGHT [id number] 14:39 [employer] 190CM Used 190CM (MORIAH) *[id number] TRANSDUCER, TRUWAVE [id number] 13:37 ATKINSON CAPELLAN * Used W/STOCKCOCK *[id number] INTRODUCER SET, 13:37 [employer] FR 5 [id number] *[id number] Used MICROPUNCTURE, STIFFENED [id number] *[id number] [id number] *[id number] [id number] *[id number] 13:37 Sajan [employer] PACK, CCL CUSTOM * Used *[id number] [id number] 14:54 MEDTRONIC BALLOON, 2.5 X 12MM EUPHORA 12MM Used *[id number] BALLOON, 4.0 X 12MM NC [id number] 14:48 [employer]TR[employer]IC 12MM Used EUPHORA *[id number] 14:58 [employer]IC STENT, 2.75 15MM DOMO 2.75 15MM Used *9065081 [id number] 14:43 [employer]TR[employer]IC STENT, 3.5 18MM DOMO 3.5 18MM Used *4302903 [id number] 14:45 [employer]ight MEDICAL 30 JAH INDEFLATOR Used *[id number] [id number] 13:37 [employer] WIRE, 3MMJ .035 180CM 180CM Used *[id number] 13:37 NAMIC MANIFOLD, 4 PORT * Used *[id number] 13:37 NYCOMED OMNIPAQUE, 350 MG, 150ML 150ML [id number] Used 15:07 NYCOMED OMNIPAQUE, 350 MG, 150ML 150ML [id number] Used [id number] 13:37 [employer],WARM AIR CCL * Used *5081349 [id number] 13:37 TERUMO MEDICAL SHEATH, FR5 TERUMO (10CM) FR 5 Used *[id number] 14:34 [employer]UM[employer] MEDICAL SHEATH, FR6 TERUMO (25CM) FR 6 Used *[id number] Equipment Model, Serial, Lot Number and Expiration Data Description Model Number Serial Number Lot Number Expiration Date STENT, 2.75 15MM DOMO [id number] 11-25-2018 STENT, 3.5 18MM DOMO [id number] 02-24-2019 History: Allergies Allergy Reaction No Known Allergies History: Risk Factors Family History of Hypertension Dyslipidemia Previous [place] Previous Heart Failure Premature CAD Yes Yes Yes No No Prior Valve Prior PCI Prior CABG Prior CABGDate Surgery No No Yes 02/19/2017 Cerebrovascular Peripheral Artery Chronic Lung On Dialysis Diabetes Disease Disease Disease No No No No No History: Symptoms/Diagnosis Selection Items Chest pain History: Stress Tests Stress or Imaging Studies Performed No History: [place]/CV Data Previous CABG Date 02/19/2017 History: Other Current Smoker Method Quit Packs a Day Years Used Pack Years No Cigarettes 38 Years Ago 1 4 4 Labs Hgb (g/dl) Hct (%) WBC (l/cumm) Platelets (thousands) 11.60-17.00 35.00-51.00 4.00-11.00 150.00-450.00 12.1 37.7 8 181 Glucose (mg/dl) BUN (mg/dl) Creatinine (mg/dl) BUN:Creatinine (1:x) 74.00-106.00 7.00-18.00 0.50-1.30 10.00-20.00 90 14 0.6 23.3 Na (meq/l) K (meq/l) 136.00-145.00 3.50-5.10 140 3.8 PT (sec) INR (PTT:PT) 9.80-11.60 0.90-1.10 10.7 1 CPK-MB (ng/ML) 0.50-3.60 Not Drawn Medication Medication Total Dose (Bolus/Oral) Medication Total Dosage/Unit 1% XYLOCAINE 20 mL FENTANYL 125 mcg HEPARIN 7000 units NTG (IC) 100 mcg OXYGEN 2 l/min PLAVIX 300 mg PROTAMINE 30 mg VERSED 4 mg Medications (Bolus/Oral) Medication Time Given Dosage/Unit Administered By Reason 1% XYLOCAINE 06/22/2017 2:20:06 PM 20 mL Alexis Narvaez 20 mL 1% XYLOCAINE given in lab by Alexis Narvaez in Right Groin via Subcutaneous. VERSED 06/22/2017 2:20:17 PM 2 mg Francisca Winn 2 mg VERSED given in lab by Francisca Winn BSN in Left Hand via Peripheral IV. Ordered by Alexis Solomon. FENTANYL 06/22/2017 2:21:08 PM 50 mcg Francisca Winn 50 mcg FENTANYL given in lab by Francisca Winn BSN in Left Hand via Peripheral IV. Ordered by Alexis Narayan. HEPARIN 06/22/2017 2:39:13 PM 5000 units Francisca Winn 5000 units HEPARIN given in lab by Francisca Winn BSN in Left Hand via Peripheral IV. Ordered b y Alexis Narvaez. NTG (IC) 06/22/2017 2:41:57 PM 100 mcg Alexis Narvaez 100 mcg NTG (IC) given in lab by Alexis Narvaez via Intra-coronary. Ordered by Alexis Narvaez. FENTANYL 06/22/2017 2:44:38 PM 25 mcg Tatum Francisca 25 mcg FENTANYL given in lab by Francisca Winn BSN in Left Hand via Peripheral IV. Ordered by Alexis Narayan. VERSED 06/22/2017 2:45:07 PM 1 mg Matuszczak, Francisca 1 mg VERSED given in lab by Francisca Winn BSN in Left Hand via Peripheral IV. Ordered by Alexis Solomon. FENTANYL 06/22/2017 2:52:09 PM 25 mcg Matuszczak, Francisca 25 mcg FENTANYL given in lab by Francisca Winn BSN in Left Hand via Peripheral IV. Ordered by Alexis Narayan. VERSED 06/22/2017 2:53:10 PM 1 mg Matuszczak, Francisca 1 mg VERSED given in lab by Francisca Winn BSN in Left Hand via Peripheral IV. Ordered by Alexis Solomon. HEPARIN 06/22/2017 2:56:16 PM 2000 units Enedelia Robert 2000 units HEPARIN given in lab by Enedelia Robert RN in Left Hand via Peripheral IV. Ordered by Alexis Denis. OXYGEN 06/22/2017 3:05:25 PM 2 l/min Enedelia Robert 2 l/min OXYGEN given in lab by Enedelia Robert RN via Nasal. Ordered by Alexis Narvaez. FENTANYL 06/22/2017 3:11:04 PM 25 mcg Enedelia Robert 25 mcg FENTANYL given in lab by Enedelia Robert RN in Left Hand via Peripheral IV. Ordered by Alexis Myers. PROTAMINE 06/22/2017 3:16:41 PM 30 mg Enedelia Robert 30 mg PROTAMINE given in lab by Enedelia Robert RN in Left Hand via Peripheral IV. Ordered by Alexis Myers. PLAVIX 06/22/2017 3:18:08 PM 300 mg Liamuszshareeak Francisca 300 mg PLAVIX given in lab by Francisca Winn BSN via Oral. Ordered by Alexis Narvaez. Medication (Drip) Medication Time Given Dosage/Unit Concentration/Unit Diluent (ml) Solution IV Solutions 06/22/2017 1:55:15 PM 0 mL (IV) 500 NaCl .9 Patient arrived on IV Solutions in Left Hand via Peripheral IV. Pump/Drip Flow = 20 ml/hr using NaCl .9. Initial Case Assessment Cardiovascular HR Rhythm NIBP Chest Pain 97 sr 167/106 0 Circulatory - Right Pulses Dorsalis Pedis Femoral 1 1 Scale (0,1,2,3,4,d) Circulatory - Left Pulses Dorsalis Pedis Femoral 1 1 Scale (0,1,2,3,4,d) Neurological State Oriented to time-place- Alert Moves all extremities person Respiration - General Respiration Rate SpO2 (%) (B/min) 15 98 Final Case Assessment Cardiovascular HR Rhythm NIBP Chest Pain 79 sr 165/90 0 Circulatory - Right Pulses Dorsalis Pedis Femoral 1 1 Scale (0,1,2,3,4,d) Circulatory - Left Pulses Dorsalis Pedis Femoral 1 1 Scale (0,1,2,3,4,d) Neurological State Oriented to time-place- Alert Moves all extremities person Respiration - General Respiration Rate SpO2 (%) (B/min) 15 94 Chronological Log Time Study Chronological Log 13:48:33 Patient arrived via Bed. 13:48:34 Patient Name, D.O.B, / Armband Verified By R.N. 13:51:47 Pre-op and post- op instructions given; patient acknowledges understanding of instructions. 13:51:50 Verbal Stimulation=2 Physical Stimulation=2 Airway=2 Respiration=2 TOTAL=8. (0=absent, 1=li mited, 2=present) 13:52:21 Presedation assessment performed by Forensic Sergeant RN. Vitals capture started with the following parameters, Patient=Adult, Interval=5 min, Initial Pr lxwgry=042 mmHg, 13:52:23 Deflation Rate=5 mmHg, Cuff placed on Right Arm 13:52:32 MD arrived. 13:53:29 MU=798 bpm, NPTQ=150/106 mmhg, SpO2=97.0 %, Resp=14 B/min, Pain=0, Baugh=2 13:53:35 Consent signed by the physician and the patient and verified by the Forensic Sergeant staff. 13:54:55 Patient has been NPO for More than 6Hrs. 13:54:56 Skin Breakdown-none 13:54:57 Epifanio Prominences Protected 13:55:00 A # 20 IV was noted in the Hand (left). Grade = patent 13:55:15 Patient arrived on IV Solutions in Left Hand via Peripheral IV. Pump/Drip Flow = 20 ml/hr u sing NaCl .9. 13:55:36 History and physical on the chart or being dictated. Assessment: Initial Case, HR=97 BPM, Rhythm=sr, YWKI=593/106 mmhg, Chest Pain=0 Right Pulses: Eddie Ped=1, Femoral=1 13:55:38 Left Pulses: Eddie Ped=1, Femoral=1 Neurological: State=Alert, Ox3, ROTHMAN Respiration: Resp=15 B/min, SpO2=98 % 13:56:11 Bilateral groins prepped with 2% chlorhexidine, and draped after a 3 minute waiting time. 13:58:53 HR=86 bpm, OGBV=411/85 mmhg, SpO2=97.0 %, Resp=18 B/min, Pain=0, Baugh=2 14:03:25 HR=86 bpm, AMOK=266/89 mmhg, SpO2=97.0 %, Resp=17 B/min 14:03:53 Pressure channel 1 zeroed. 14:04:08 Reference ECG taken 14:08:30 HR=86 bpm, KYJC=103/83 mmhg, SpO2=96.0 %, Resp=16 B/min, Pain=0, Baugh=2 14:17:41 MD arrived. Time Out. Correct patient, correct procedure, correct physician, power injector loaded, or not loaded with contrast with 14:19:59 surgical team present. Time Out Concurred by MD and individual staff in procedure. 14:20:05 Case Start 14:20:06 20 mL 1% XYLOCAINE given in lab by Alexis Narvaez in Right Groin via Subcutaneous. 14:20:17 2 mg VERSED given in lab by Francisca Winn BSN in Left Hand via Peripheral IV. Ordere d by Alexis Narvaez. 50 mcg FENTANYL given in lab by Francisca Winn BSN in Left Hand via Peripheral IV. Ordere d by Brice, 14:21:08 Alexis. Vitals capture started with the following parameters, Patient=Adult, Interval=5 min, Initial Pr cjnlwr=869 mmHg, 14:22:53 Deflation Rate=5 mmHg, Cuff placed on Right Arm 14:24:12 HR=93 bpm, PPRT=438/99 mmhg, SpO2=91.0 %, Resp=25 B/min 14:24:39 Access site was Right Femoral Artery. A INTRODUCER SET, MICROPUNCTURE, STIFFENED FR 5 was advanced into the Fem Art (right) using the 14:24:50 Percutaneous technique. A SHEATH, FR5 TERUMO (10CM) FR 5 was exchanged in the Fem Art (right). This was necessary in or alberto to 14:25:00 accomodate a larger catheter. 14:25:43 An injection in the Fem Art (right) was made through the SHEATH, FR5 TERUMO (10CM) FR 5. A JR 4.0 INFINITI CATHETER FR 5 was advanced over a wire. OMNIPAQUE, 350 MG, 150ML 150ML was us ed for 14:27:28 injections. Recorded Pressure: LV, HR=94, Condition=Condition 1 14:27:51 (Left Ventricle) LV 196/5/16 14:28:04 The LV was manually injected with 10 cc's and visualized. OMNIPAQUE, 350 MG, 150ML 150ML us ed. Recorded Pressure: LV, Ao, HR=94, Condition=Condition 1 14:28:17 (Left Ventricle) LV 199/13/20, (Aorta) Ao 200/93/140 14:28:37 HR=95 bpm, WPBS=701/106 mmhg, SpO2=90.0 %, Resp=36 B/min 14:29:05 The RCA was injected and visualized at various angles. OMNIPAQUE, 350 MG, 150ML 150ML used . 14:29:16 The SVG-OM was injected and visualized at various angles. OMNIPAQUE, 350 MG, 150ML 150ML us ed. 14:30:48 The SVG-RCA was injected and visualized at various angles. OMNIPAQUE, 350 MG, 150ML 150ML u sed. 14:32:04 The SORENSON-LAD was injected and visualized at various angles. OMNIPAQUE, 350 MG, 150ML 150ML used. 14:33:38 HR=94 bpm, QISX=727/96 mmhg, SpO2=91.0 %, Resp=34 B/min After removing the current catheter a JL 4.0 INFINITI CATHETER FR 5 was advanced over a WIRE, 3 MMJ .035 180CM 14:33:42 180CM. 14:34:35 The LCA was injected and visualized at various angles. OMNIPAQUE, 350 MG, 150ML 150ML used . 14:35:39 Catheter was removed 14:38:41 HR=93 bpm, ZMSM=964/105 mmhg, SpO2=91.0 %, Resp=20 B/min A SHEATH, FR6 TERUMO (25CM) FR 6 was exchanged in the Fem Art (right). This was necessary in or alberto to 14:38:54 accomodate a larger catheter. 5000 units HEPARIN given in lab by Francisca Winn BSN in Left Hand via Peripheral IV. Ord ered by Brice, 14:39:13 Alexis. A JR 4.0 GUIDE CATHETER FR 6 was advanced over a wire. OMNIPAQUE, 350 MG, 150ML 150ML was used for 14:40:37 injections. 14:41:36 The RCA was injected and visualized at various angles. OMNIPAQUE, 350 MG, 150ML 150ML used . 14:41:57 100 mcg NTG (IC) given in lab by Alexis Narvaez via Intra-coronary. Ordered by Alexis Rodriguez. 14:42:43 A WIRE, BALANCE MIDDLEWEIGHT 190CM (MORIAH) 190CM was inserted via Fem Art (right). 14:43:40 HR=94 bpm, BEVJ=234/99 mmhg, SpO2=91.0 %, Resp=25 B/min A STENT, 3.5 18MM DOMO 3.5 18MM was advanced through a JR 4.0 GUIDE CATHETER FR 6 over a WIRE, BALANCE 14:44:06 MIDDLEWEIGHT 190CM (MORIAH) 190CM. 25 mcg FENTANYL given in lab by Francisca Winn BSN in Left Hand via Peripheral IV. Ordere d by Brice, 14:44:38 Alexis. A STENT, 3.5 18MM DOMO 3.5 18MM was deployed using a 30 JAH INDEFLATOR at 16 atmospheres for 20 seconds in 14:44:41 the RCA Ost. 14:45:07 1 mg VERSED given in lab by Francisca Winn BSN in Left Hand via Peripheral IV. Ordere d by Alexis Narvaez. 14:46:05 Re-inflated the stent balloon in the RCA Ost to 18 JAH for 10 seconds. 14:46:42 Delivery device removed A BALLOON, 4.0 X 12MM NC EUPHORA 12MM was inserted over WIRE, BALANCE MIDDLEWEIGHT 190CM (MORIAH) 14:48:14 190CM via the RCA. A BALLOON, 4.0 X 12MM NC EUPHORA 12MM over a WIRE, BALANCE MIDDLEWEIGHT 190CM (MORIAH) 190CM in t he 14:48:35 RCA Ost was inflated using a 30 JAH INDEFLATOR at 16 jah for 15 sec. 14:48:37 HR=91 bpm, WLIS=697/97 mmhg, SpO2=89 %, Resp=23 B/min 14:50:29 Balloon Removed. 14:50:41 Wire removed 14:50:57 Activated Clotting Time Drawn 25 mcg FENTANYL given in lab by Francisca Winn BSN in Left Hand via Peripheral IV. Ordere d by Brice 14:52:09 Alexis. 14:53:10 1 mg VERSED given in lab by Francisca Winn BSN in Left Hand via Peripheral IV. Ordere d by Alexis Narvaez. 14:53:40 HR=90 bpm, WGFU=925/93 mmhg, SpO2=89.0 %, Resp=19 B/min 14:54:27 The SVG-OM was injected and visualized at various angles. OMNIPAQUE, 350 MG, 150ML 150ML us ed. 14:54:41 A WIRE, BALANCE MIDDLEWEIGHT 190CM (MORIAH) 190CM was inserted via Fem Art (right). A BALLOON, 2.5 X 12MM EUPHORA 12MM was inserted over WIRE, BALANCE MIDDLEWEIGHT 190CM (MORIAH) 19 0CM 14:54:52 via the SVG-OM. A BALLOON, 2.5 X 12MM EUPHORA 12MM over a WIRE, BALANCE MIDDLEWEIGHT 190CM (MORIAH) 190CM in the SVG- 14:55:15 OM was inflated using a 30 JAH INDEFLATOR at 8 jah for 20 sec. 14:55:43 Balloon Removed. 14:55:53 ACT (Normal Range 90-180) = 282 14:56:16 2000 units HEPARIN given in lab by Enedelia Robert, RN in Left Hand via Peripheral IV. Orde red by Alexis Narvaez. A STENT, 2.75 15MM DOMO 2.75 15MM was advanced through a JR 4.0 GUIDE CATHETER FR 6 over a WIRE , BALANCE 14:56:49 MIDDLEWEIGHT 190CM (MORIAH) 190CM. A STENT, 2.75 15MM DOMO 2.75 15MM was deployed using a 30 JAH INDEFLATOR at 12 atmospheres for 15 seconds 14:57:53 in the SVG-OM. 14:58:25 Delivery device removed 14:58:43 HR=90 bpm, NQYU=393/91 mmhg, SpO2=86.0 %, Resp=20 B/min 14:58:46 Wire removed 14:59:33 Catheter was removed 15:02:12 Activated Clotting Time Drawn 15:03:40 HR=91 bpm, TCLA=543/88 mmhg, SpO2=87.0 %, Resp=20 B/min 15:05:25 2 l/min OXYGEN given in lab by Enedelia Robert, YAN via Nasal. Ordered by Alexis Narvaez. 15:08:41 HR=89 bpm, DPWJ=863/85 mmhg, SpO2=95 %, Resp=14 B/min 15:09:30 ACT (Normal Range 90-180) = 267 15:11:04 25 mcg FENTANYL given in lab by Enedelia Robert RN in Left Hand via Peripheral IV. Ordered by Alexis Narvaez. 15:12:57 PERCLOSE, PRO GLIDE CLOSER DEVICE FR 6 placement in the Fem Art (right) 15:13:36 HR=84 bpm, PFXD=753/94 mmhg, SpO2=94.0 %, Resp=14 B/min 15:15:22 Case End 15:16:41 30 mg PROTAMINE given in lab by Enedelia Robert, YAN in Left Hand via Peripheral IV. Ordered by Alexis Narvaez. 15:18:08 300 mg PLAVIX given in lab by Francisca Winn BSN via Oral. Ordered by rGetchen Narvaez 15:18:39 HR=85 bpm, HUIE=678/92 mmhg, SpO2=93.0 %, Resp=10 B/min 15:23:36 HR=79 bpm, CMPO=802/90 mmhg, SpO2=94.0 %, Resp=15 B/min, Pain=0, Baugh=2 15:27:27 Hemostasis obtained. 15:28:37 RGGZ=935/90 mmhg 15:28:42 Vitals capture stopped. 15:28:53 Sterile dressing applied to site 15:30:13 No case complications noted. 15:30:14 Cine recording checked. 15:30:15 Bedside Report will be given. 15:30:16 Implantable Device card placed in patient's chart. Assessment: Final Case, HR=79 BPM, Rhythm=sr, KZDC=715/90 mmhg, Chest Pain=0 Right Pulses: Eddie Ped=1, Femoral=1 15:30:19 Left Pulses: Eddie Ped=1, Femoral=1 Neurological: State=Alert, Ox3, ROTHMAN Respiration: Resp=15 B/min, SpO2=94 % 15:31:28 Patient moved to bed 15:33:30 Patient transported to DOCU End Study - Contrast Media Used In Study Contrast Total Opened (mL) Total Used (mL) Total Wasted (mL) Omnipaque 175 175 0 End Study - Maximum Contrast Load Max Contrast Load (mL) 989.0 End Study - Radiation Exposure Fluoro Time (minutes) 14.1 End Study - Sheaths Sheaths Pulled By Sheath Hold Time (min) Alexsi Narvaez End Study - Patient Disposition Complications Transferred To Interventional Outcome No Telemetry Bed successful
--- NOTE | 2017-06-22 15:45 | CATHPROC ---
[employer] HIS Report Study Information Study Number Admission Scheduled Start Study Start [id number] Jun 22 2017 9:48AM 06/22/2017 Jun 22 2017 1:35PM Volin Service Cardiac Catheterization Admit Source Facility Department Other [facility] - Customs And Immigration Officer Physician and Clinical Staff Initial Alexis Law Tank Tender Francisca Winn BSN Tank Tender Enedelia Robert,YAN Recorder Hamida Alvarenga RCIS TECH2 Scrub Reggie Bentley RCIS(BS) Procedures Performed Procedure Location (Site) Vessel Name Coronary Angiograms LCA Left Coronary Coronary Angiograms RCA Right Coronary Coronary Angiograms SORENSON-LAD Left Coronary Coronary Angiograms SVG-OM CIRC Coronary Angiograms SVG-RCA Right Coronary Drug Eluting Inflatio SVG-OM CIRC Drug Eluting Inflatio RCA Ost Right Coronary LV Gram-hand inj. LV LV Ventricle PTCA SVG-OM CIRC PTCA RCA Ost Right Coronary Wire insertion Fem Art (right) Femoral Art Equipment Time Candy Cooker Helper Description Size Mfg Part Number Used/Scraped COPILOT VALVE, BLEEDBACK [id number] 14:37 [employer] Used CONTROL *[id number] PERCLOSE, PRO GLIDE CLOSER 15:10 [employer] FR 6 [id number] *[id number] Used DEVICE WIRE, BALANCE MIDDLEWEIGHT [id number] 14:39 [employer] 190CM Used 190CM (MORIAH) *[id number] TRANSDUCER, TRUWAVE [id number] 13:37 ATKINSON CAPELLAN * Used W/STOCKCOCK *[id number] INTRODUCER SET, 13:37 [employer] FR 5 [id number] *[id number] Used MICROPUNCTURE, STIFFENED [id number] *[id number] *[id number] *[id number] 13:37 [employer] INDUSTRIES PACK, CCL CUSTOM * Used *[id number] 14:54 [employer]TR[employer] BALLOON, 2.5 X 12MM EUPHORA 12MM Used *[id number] BALLOON, 4.0 X 12MM NC [id number] 14:48 [employer] 12MM Used EUPHORA *[id number] 14:58 [employer] STENT, 2.75 15MM DOMO 2.75 15MM Used *[id number] 14:43 [employer] STENT, 3.5 18MM DOMO 3.5 18MM Used *[id number] 14:45 [employer] MEDICAL 30 JAH INDEFLATOR Used *[id number] 13:37 [employer] WIRE, 3MMJ .035 180CM 180CM Used *[id number] 13:37 NAMIC MANIFOLD, 4 PORT * Used *[id number] 13:37 [employer]COMED OMNIPAQUE, 350 MG, 150ML 150ML [id number] Used 15:07 [employer]ED OMNIPAQUE, 350 MG, 150ML 150ML [id number] Used [id number] 13:37 [employer],WARM AIR CCL * Used *[id number] [id number] 13:37 TERUMO MEDICAL SHEATH, FR5 TERUMO (10CM) FR 5 Used *[id number] [id number] 14:34 [employer] MED[employer] SHEATH, FR6 TERUMO (25CM) FR 6 Used *[id number] Equipment Model, Serial, Lot Number and Expiration Data Description Model Number Serial Number Lot Number Expiration Date STENT, 2.75 15MM DOMO [id number] 11-25-2018 STENT, 3.5 18MM DOMO [id number] 02-24-2019 History: Allergies Allergy Reaction No Known Allergies History: Risk Factors Family History of Hypertension Dyslipidemia Previous MN Previous Heart Failure Premature CAD Yes Yes Yes No No Prior Valve Prior PCI Prior CABG Prior CABGDate Surgery No No Yes 02/19/2017 Cerebrovascular Peripheral Artery Chronic Lung On Dialysis Diabetes Disease Disease Disease No No No No No History: Symptoms/Diagnosis Selection Items Chest pain History: Stress Tests Stress or Imaging Studies Performed No History: MN/CV Data Previous CABG Date 02/19/2017 History: Other Current Smoker Method Quit Packs a Day Years Used Pack Years No Cigarettes 38 Years Ago 1 4 4 Labs Hgb (g/dl) Hct (%) WBC (l/cumm) Platelets (thousands) 11.60-17.00 35.00-51.00 4.00-11.00 150.00-450.00 12.1 37.7 8 181 Glucose (mg/dl) BUN (mg/dl) Creatinine (mg/dl) BUN:Creatinine (1:x) 74.00-106.00 7.00-18.00 0.50-1.30 10.00-20.00 90 14 0.6 23.3 Na (meq/l) K (meq/l) 136.00-145.00 3.50-5.10 140 3.8 PT (sec) INR (PTT:PT) 9.80-11.60 0.90-1.10 10.7 1 CPK-MB (ng/ML) 0.50-3.60 Not Drawn Medication Medication Total Dose (Bolus/Oral) Medication Total Dosage/Unit 1% XYLOCAINE 20 mL FENTANYL 125 mcg HEPARIN 7000 units NTG (IC) 100 mcg OXYGEN 2 l/min PLAVIX 300 mg PROTAMINE 30 mg VERSED 4 mg Medications (Bolus/Oral) Medication Time Given Dosage/Unit Administered By Reason 1% XYLOCAINE 06/22/2017 2:20:06 PM 20 mL Alexis Narvaez 20 mL 1% XYLOCAINE given in lab by Alexis Narvaez in Right Groin via Subcutaneous. VERSED 06/22/2017 2:20:17 PM 2 mg Francisca Winn 2 mg VERSED given in lab by Francisca Winn BSN in Left Hand via Peripheral IV. Ordered by Alexis Solomon. FENTANYL 06/22/2017 2:21:08 PM 50 mcg Francisca Winn 50 mcg FENTANYL given in lab by Francisca Winn BSN in Left Hand via Peripheral IV. Ordered by Alexis Narayan. HEPARIN 06/22/2017 2:39:13 PM 5000 units Francisca Winn 5000 units HEPARIN given in lab by Francisca Winn BSN in Left Hand via Peripheral IV. Ordered b y Alexis Narvaez. NTG (IC) 06/22/2017 2:41:57 PM 100 mcg Alexis Narvaez 100 mcg NTG (IC) given in lab by Alexis Narvaez via Intra-coronary. Ordered by Alexis Narvaez. FENTANYL 06/22/2017 2:44:38 PM 25 mcg Tatum Francisca 25 mcg FENTANYL given in lab by Francisca Winn BSN in Left Hand via Peripheral IV. Ordered by Alexis Narayan. VERSED 06/22/2017 2:45:07 PM 1 mg Matuszczak, Francisca 1 mg VERSED given in lab by Francisca Winn BSN in Left Hand via Peripheral IV. Ordered by Alexis Solomon. FENTANYL 06/22/2017 2:52:09 PM 25 mcg Matuszczak, Francisca 25 mcg FENTANYL given in lab by Francisca Winn BSN in Left Hand via Peripheral IV. Ordered by Alexis Narayan. VERSED 06/22/2017 2:53:10 PM 1 mg Matuszczak, Francisca 1 mg VERSED given in lab by Francisca Winn BSN in Left Hand via Peripheral IV. Ordered by Alexis Solomon. HEPARIN 06/22/2017 2:56:16 PM 2000 units Enedelia Robert 2000 units HEPARIN given in lab by Enedelia Robert RN in Left Hand via Peripheral IV. Ordered by Alexis Denis. OXYGEN 06/22/2017 3:05:25 PM 2 l/min Enedelia Robert 2 l/min OXYGEN given in lab by Enedelia Robert RN via Nasal. Ordered by Alexis Narvaez. FENTANYL 06/22/2017 3:11:04 PM 25 mcg Enedelia Robert 25 mcg FENTANYL given in lab by Enedelia Robert RN in Left Hand via Peripheral IV. Ordered by Alexis Myers. PROTAMINE 06/22/2017 3:16:41 PM 30 mg Enedelia Robert 30 mg PROTAMINE given in lab by Enedelia Robert RN in Left Hand via Peripheral IV. Ordered by Alexis Myers. PLAVIX 06/22/2017 3:18:08 PM 300 mg Liamuszshareeak Francisca 300 mg PLAVIX given in lab by Francisca Winn BSN via Oral. Ordered by Alexis Narvaez. Medication (Drip) Medication Time Given Dosage/Unit Concentration/Unit Diluent (ml) Solution IV Solutions 06/22/2017 1:55:15 PM 0 mL (IV) 500 NaCl .9 Patient arrived on IV Solutions in Left Hand via Peripheral IV. Pump/Drip Flow = 20 ml/hr using NaCl .9. Initial Case Assessment Cardiovascular HR Rhythm NIBP Chest Pain 97 sr 167/106 0 Circulatory - Right Pulses Dorsalis Pedis Femoral 1 1 Scale (0,1,2,3,4,d) Circulatory - Left Pulses Dorsalis Pedis Femoral 1 1 Scale (0,1,2,3,4,d) Neurological State Oriented to time-place- Alert Moves all extremities person Respiration - General Respiration Rate SpO2 (%) (B/min) 15 98 Final Case Assessment Cardiovascular HR Rhythm NIBP Chest Pain 79 sr 165/90 0 Circulatory - Right Pulses Dorsalis Pedis Femoral 1 1 Scale (0,1,2,3,4,d) Circulatory - Left Pulses Dorsalis Pedis Femoral 1 1 Scale (0,1,2,3,4,d) Neurological State Oriented to time-place- Alert Moves all extremities person Respiration - General Respiration Rate SpO2 (%) (B/min) 15 94 Chronological Log Time Study Chronological Log 13:48:33 Patient arrived via Bed. 13:48:34 Patient Name, D.O.B, / Armband Verified By R.N. 13:51:47 Pre-op and post- op instructions given; patient acknowledges understanding of instructions. 13:51:50 Verbal Stimulation=2 Physical Stimulation=2 Airway=2 Respiration=2 TOTAL=8. (0=absent, 1=li mited, 2=present) 13:52:21 Presedation assessment performed by Customs And Immigration Officer RN. Vitals capture started with the following parameters, Patient=Adult, Interval=5 min, Initial Pr ifaxyw=113 mmHg, 13:52:23 Deflation Rate=5 mmHg, Cuff placed on Right Arm 13:52:32 MD arrived. 13:53:29 TC=987 bpm, TGIX=672/106 mmhg, SpO2=97.0 %, Resp=14 B/min, Pain=0, Baugh=2 13:53:35 Consent signed by the physician and the patient and verified by the Customs And Immigration Officer staff. 13:54:55 Patient has been NPO for More than 6Hrs. 13:54:56 Skin Breakdown-none 13:54:57 Epifanio Prominences Protected 13:55:00 A # 20 IV was noted in the Hand (left). Grade = patent 13:55:15 Patient arrived on IV Solutions in Left Hand via Peripheral IV. Pump/Drip Flow = 20 ml/hr u sing NaCl .9. 13:55:36 History and physical on the chart or being dictated. Assessment: Initial Case, HR=97 BPM, Rhythm=sr, QHJQ=426/106 mmhg, Chest Pain=0 Right Pulses: Eddie Ped=1, Femoral=1 13:55:38 Left Pulses: Eddie Ped=1, Femoral=1 Neurological: State=Alert, Ox3, ROTHMAN Respiration: Resp=15 B/min, SpO2=98 % 13:56:11 Bilateral groins prepped with 2% chlorhexidine, and draped after a 3 minute waiting time. 13:58:53 HR=86 bpm, TSZQ=362/85 mmhg, SpO2=97.0 %, Resp=18 B/min, Pain=0, Baugh=2 14:03:25 HR=86 bpm, BOYM=963/89 mmhg, SpO2=97.0 %, Resp=17 B/min 14:03:53 Pressure channel 1 zeroed. 14:04:08 Reference ECG taken 14:08:30 HR=86 bpm, CSXY=736/83 mmhg, SpO2=96.0 %, Resp=16 B/min, Pain=0, Baugh=2 14:17:41 MD arrived. Time Out. Correct patient, correct procedure, correct physician, power injector loaded, or not loaded with contrast with 14:19:59 surgical team present. Time Out Concurred by MD and individual staff in procedure. 14:20:05 Case Start 14:20:06 20 mL 1% XYLOCAINE given in lab by Alexis Narvaez in Right Groin via Subcutaneous. 14:20:17 2 mg VERSED given in lab by Francisca Winn BSN in Left Hand via Peripheral IV. Ordere d by Alexis Narvaez. 50 mcg FENTANYL given in lab by Francisca Winn BSN in Left Hand via Peripheral IV. Ordere d by Brice, 14:21:08 Alexis. Vitals capture started with the following parameters, Patient=Adult, Interval=5 min, Initial Pr xzplin=573 mmHg, 14:22:53 Deflation Rate=5 mmHg, Cuff placed on Right Arm 14:24:12 HR=93 bpm, HJAJ=852/99 mmhg, SpO2=91.0 %, Resp=25 B/min 14:24:39 Access site was Right Femoral Artery. A INTRODUCER SET, MICROPUNCTURE, STIFFENED FR 5 was advanced into the Fem Art (right) using the 14:24:50 Percutaneous technique. A SHEATH, FR5 TERUMO (10CM) FR 5 was exchanged in the Fem Art (right). This was necessary in or alberto to 14:25:00 accomodate a larger catheter. 14:25:43 An injection in the Fem Art (right) was made through the SHEATH, FR5 TERUMO (10CM) FR 5. A JR 4.0 INFINITI CATHETER FR 5 was advanced over a wire. OMNIPAQUE, 350 MG, 150ML 150ML was us ed for 14:27:28 injections. Recorded Pressure: LV, HR=94, Condition=Condition 1 14:27:51 (Left Ventricle) LV 196/5/16 14:28:04 The LV was manually injected with 10 cc's and visualized. OMNIPAQUE, 350 MG, 150ML 150ML us ed. Recorded Pressure: LV, Ao, HR=94, Condition=Condition 1 14:28:17 (Left Ventricle) LV 199/13/20, (Aorta) Ao 200/93/140 14:28:37 HR=95 bpm, GHKF=554/106 mmhg, SpO2=90.0 %, Resp=36 B/min 14:29:05 The RCA was injected and visualized at various angles. OMNIPAQUE, 350 MG, 150ML 150ML used . 14:29:16 The SVG-OM was injected and visualized at various angles. OMNIPAQUE, 350 MG, 150ML 150ML us ed. 14:30:48 The SVG-RCA was injected and visualized at various angles. OMNIPAQUE, 350 MG, 150ML 150ML u sed. 14:32:04 The SORENSON-LAD was injected and visualized at various angles. OMNIPAQUE, 350 MG, 150ML 150ML used. 14:33:38 HR=94 bpm, IMMA=007/96 mmhg, SpO2=91.0 %, Resp=34 B/min After removing the current catheter a JL 4.0 INFINITI CATHETER FR 5 was advanced over a WIRE, 3 MMJ .035 180CM 14:33:42 180CM. 14:34:35 The LCA was injected and visualized at various angles. OMNIPAQUE, 350 MG, 150ML 150ML used . 14:35:39 Catheter was removed 14:38:41 HR=93 bpm, UEVW=569/105 mmhg, SpO2=91.0 %, Resp=20 B/min A SHEATH, FR6 TERUMO (25CM) FR 6 was exchanged in the Fem Art (right). This was necessary in or alberto to 14:38:54 accomodate a larger catheter. 5000 units HEPARIN given in lab by Francisca Winn BSN in Left Hand via Peripheral IV. Ord ered by Brice, 14:39:13 Alexis. A JR 4.0 GUIDE CATHETER FR 6 was advanced over a wire. OMNIPAQUE, 350 MG, 150ML 150ML was used for 14:40:37 injections. 14:41:36 The RCA was injected and visualized at various angles. OMNIPAQUE, 350 MG, 150ML 150ML used . 14:41:57 100 mcg NTG (IC) given in lab by Alexis Narvaez via Intra-coronary. Ordered by Alexis Rodriguez. 14:42:43 A WIRE, BALANCE MIDDLEWEIGHT 190CM (MORIAH) 190CM was inserted via Fem Art (right). 14:43:40 HR=94 bpm, AAGU=696/99 mmhg, SpO2=91.0 %, Resp=25 B/min A STENT, 3.5 18MM DOMO 3.5 18MM was advanced through a JR 4.0 GUIDE CATHETER FR 6 over a WIRE, BALANCE 14:44:06 MIDDLEWEIGHT 190CM (MORIAH) 190CM. 25 mcg FENTANYL given in lab by Francisca Winn BSN in Left Hand via Peripheral IV. Ordere d by Brice, 14:44:38 Alexis. A STENT, 3.5 18MM DOMO 3.5 18MM was deployed using a 30 JAH INDEFLATOR at 16 atmospheres for 20 seconds in 14:44:41 the RCA Ost. 14:45:07 1 mg VERSED given in lab by Francisca Winn BSN in Left Hand via Peripheral IV. Ordere d by Alexis Narvaez. 14:46:05 Re-inflated the stent balloon in the RCA Ost to 18 JAH for 10 seconds. 14:46:42 Delivery device removed A BALLOON, 4.0 X 12MM NC EUPHORA 12MM was inserted over WIRE, BALANCE MIDDLEWEIGHT 190CM (MORIAH) 14:48:14 190CM via the RCA. A BALLOON, 4.0 X 12MM NC EUPHORA 12MM over a WIRE, BALANCE MIDDLEWEIGHT 190CM (MORIAH) 190CM in t he 14:48:35 RCA Ost was inflated using a 30 JAH INDEFLATOR at 16 jah for 15 sec. 14:48:37 HR=91 bpm, VSDU=808/97 mmhg, SpO2=89 %, Resp=23 B/min 14:50:29 Balloon Removed. 14:50:41 Wire removed 14:50:57 Activated Clotting Time Drawn 25 mcg FENTANYL given in lab by Francisca Winn BSN in Left Hand via Peripheral IV. Ordere d by Brice 14:52:09 Alexis. 14:53:10 1 mg VERSED given in lab by Francisca Winn BSN in Left Hand via Peripheral IV. Ordere d by Alexis Narvaez. 14:53:40 HR=90 bpm, PIBQ=912/93 mmhg, SpO2=89.0 %, Resp=19 B/min 14:54:27 The SVG-OM was injected and visualized at various angles. OMNIPAQUE, 350 MG, 150ML 150ML us ed. 14:54:41 A WIRE, BALANCE MIDDLEWEIGHT 190CM (MORIAH) 190CM was inserted via Fem Art (right). A BALLOON, 2.5 X 12MM EUPHORA 12MM was inserted over WIRE, BALANCE MIDDLEWEIGHT 190CM (MORIAH) 19 0CM 14:54:52 via the SVG-OM. A BALLOON, 2.5 X 12MM EUPHORA 12MM over a WIRE, BALANCE MIDDLEWEIGHT 190CM (MORIAH) 190CM in the SVG- 14:55:15 OM was inflated using a 30 JAH INDEFLATOR at 8 jah for 20 sec. 14:55:43 Balloon Removed. 14:55:53 ACT (Normal Range 90-180) = 282 14:56:16 2000 units HEPARIN given in lab by Enedelia Robert, RN in Left Hand via Peripheral IV. Orde red by Alexis Narvaez. A STENT, 2.75 15MM DOMO 2.75 15MM was advanced through a JR 4.0 GUIDE CATHETER FR 6 over a WIRE , BALANCE 14:56:49 MIDDLEWEIGHT 190CM (MORIAH) 190CM. A STENT, 2.75 15MM DOMO 2.75 15MM was deployed using a 30 JAH INDEFLATOR at 12 atmospheres for 15 seconds 14:57:53 in the SVG-OM. 14:58:25 Delivery device removed 14:58:43 HR=90 bpm, NHOX=925/91 mmhg, SpO2=86.0 %, Resp=20 B/min 14:58:46 Wire removed 14:59:33 Catheter was removed 15:02:12 Activated Clotting Time Drawn 15:03:40 HR=91 bpm, HOJH=105/88 mmhg, SpO2=87.0 %, Resp=20 B/min 15:05:25 2 l/min OXYGEN given in lab by Enedelia Robert, YAN via Nasal. Ordered by Alexis Narvaez. 15:08:41 HR=89 bpm, VUJU=706/85 mmhg, SpO2=95 %, Resp=14 B/min 15:09:30 ACT (Normal Range 90-180) = 267 15:11:04 25 mcg FENTANYL given in lab by Enedelia Robert RN in Left Hand via Peripheral IV. Ordered by Alexis Narvaez. 15:12:57 PERCLOSE, PRO GLIDE CLOSER DEVICE FR 6 placement in the Fem Art (right) 15:13:36 HR=84 bpm, WFBQ=000/94 mmhg, SpO2=94.0 %, Resp=14 B/min 15:15:22 Case End 15:16:41 30 mg PROTAMINE given in lab by Enedelia Robert, YAN in Left Hand via Peripheral IV. Ordered by Alexis Narvaez. 15:18:08 300 mg PLAVIX given in lab by Francisca Winn BSN via Oral. Ordered by Gretchen Narvaez 15:18:39 HR=85 bpm, JIRL=941/92 mmhg, SpO2=93.0 %, Resp=10 B/min 15:23:36 HR=79 bpm, GHDV=546/90 mmhg, SpO2=94.0 %, Resp=15 B/min, Pain=0, Baugh=2 15:27:27 Hemostasis obtained. 15:28:37 CPPC=181/90 mmhg 15:28:42 Vitals capture stopped. 15:28:53 Sterile dressing applied to site 15:30:13 No case complications noted. 15:30:14 Cine recording checked. 15:30:15 Bedside Report will be given. 15:30:16 Implantable Device card placed in patient's chart. Assessment: Final Case, HR=79 BPM, Rhythm=sr, BQTY=492/90 mmhg, Chest Pain=0 Right Pulses: Eddie Ped=1, Femoral=1 15:30:19 Left Pulses: Eddie Ped=1, Femoral=1 Neurological: State=Alert, Ox3, ROTHMAN Respiration: Resp=15 B/min, SpO2=94 % 15:31:28 Patient moved to bed 15:33:30 Patient transported to DOCU End Study - Contrast Media Used In Study Contrast Total Opened (mL) Total Used (mL) Total Wasted (mL) Omnipaque 175 175 0 End Study - Maximum Contrast Load Max Contrast Load (mL) 989.0 End Study - Radiation Exposure Fluoro Time (minutes) 14.1 End Study - Sheaths Sheaths Pulled By Sheath Hold Time (min) Alexis Narvaez End Study - Patient Disposition Complications Transferred To Interventional Outcome No Telemetry Bed successful
--- NOTE | 2017-06-22 15:45 | CATHPROC ---
[employer] HIS Report Study Information Study Number Admission Scheduled Start Study Start [id number] Jun 22 2017 9:48AM 06/22/2017 Jun 22 2017 1:35PM [place] [facility] Cardiac Catheterization Admit Source Facility Department Other [facility] - [facility] Physician and Clinical Staff Initial Alexis Law Diamond Cleaner Francisca Winn BSN Diamond Cleaner Enedelia Robert,YAN Recorder Hamida Alvarenga RCIS TECH2 Scrub Reggie Bentley RCIS(BS) Procedures Performed Procedure Location (Site) Vessel Name Coronary Angiograms LCA Left Coronary Coronary Angiograms RCA Right Coronary Coronary Angiograms SORENSON-LAD Left Coronary Coronary Angiograms SVG-OM CIRC Coronary Angiograms SVG-RCA Right Coronary Drug Eluting Inflatio SVG-OM CIRC Drug Eluting Inflatio RCA Ost Right Coronary LV Gram-hand inj. LV LV Ventricle PTCA SVG-OM CIRC PTCA RCA Ost Right Coronary Wire insertion Fem Art (right) Femoral Art Equipment Time Parts Lister Description Size Mfg Part Number Used/Scraped COPILOT VALVE, BLEEDBACK [id number] 14:37 [employer] Used CONTROL *[id number] PERCLOSE, PRO GLIDE CLOSER 15:10 [employer] FR 6 [id number] *[id number] Used DEVICE WIRE, BALANCE MIDDLEWEIGHT [id number] 14:39 [employer] 190CM Used 190CM (MORIAH) *[id number] TRANSDUCER, TRUWAVE [id number] 13:37 ATKINSON CAPELLAN * Used W/STOCKCOCK *[id number] INTRODUCER SET, 13:37 [employer] FR 5 [id number] *[id number] Used MICROPUNCTURE, STIFFENED [id number] *[id number] *[id number] [id number] *[id number] 13:37 [employer] INDUSTRIES PACK, CCL CUSTOM * Used *[id number] 14:54 MEDTRONIC BALLOON, 2.5 X 12MM EUPHORA 12MM Used *[id number] BALLOON, 4.0 X 12MM NC [id number] 14:48 MEDTRONIC 12MM Used EUPHORA *[id number] [id number] 14:58 MEDTRONIC STENT, 2.75 15MM DOMO 2.75 15MM Used *5379428 [id number] 14:43 MEDTRONIC STENT, 3.5 18MM DOMO 3.5 18MM Used *[id number] 14:45 [employer]ICAL 30 JAH INDEFLATOR Used *[id number] 13:37 AnSyn WIRE, 3MMJ .035 180CM 180CM Used *[id number] [id number] 13:37 NAMIC MANIFOLD, 4 PORT * Used *[id number] 13:37 NYCOMED OMNIPAQUE, 350 MG, 150ML 150ML [id number] Used 15:07 NYCOMED OMNIPAQUE, 350 MG, 150ML 150ML [id number] Used [id number] 13:37 [employer] BLANKET,WARM AIR CCL * Used *[id number] 13:37 TERUMO MEDICAL SHEATH, FR5 TERUMO (10CM) FR 5 Used *[id number] 14:34 TERUMO MEDICAL SHEATH, FR6 TERUMO (25CM) FR 6 Used *[id number] Equipment Model, Serial, Lot Number and Expiration Data Description Model Number Serial Number Lot Number Expiration Date STENT, 2.75 15MM DOMO [id number] 11-25-2018 STENT, 3.5 18MM DOMO [id number] 02-24-2019 History: Allergies Allergy Reaction No Known Allergies History: Risk Factors Family History of Hypertension Dyslipidemia Previous MO Previous Heart Failure Premature CAD Yes Yes Yes No No Prior Valve Prior PCI Prior CABG Prior CABGDate Surgery No No Yes 02/19/2017 Cerebrovascular Peripheral Artery Chronic Lung On Dialysis Diabetes Disease Disease Disease No No No No No History: Symptoms/Diagnosis Selection Items Chest pain History: Stress Tests Stress or Imaging Studies Performed No History: MO/CV Data Previous CABG Date 02/19/2017 History: Other Current Smoker Method Quit Packs a Day Years Used Pack Years No Cigarettes 38 Years Ago 1 4 4 Labs Hgb (g/dl) Hct (%) WBC (l/cumm) Platelets (thousands) 11.60-17.00 35.00-51.00 4.00-11.00 150.00-450.00 12.1 37.7 8 181 Glucose (mg/dl) BUN (mg/dl) Creatinine (mg/dl) BUN:Creatinine (1:x) 74.00-106.00 7.00-18.00 0.50-1.30 10.00-20.00 90 14 0.6 23.3 Na (meq/l) K (meq/l) 136.00-145.00 3.50-5.10 140 3.8 PT (sec) INR (PTT:PT) 9.80-11.60 0.90-1.10 10.7 1 CPK-MB (ng/ML) 0.50-3.60 Not Drawn Medication Medication Total Dose (Bolus/Oral) Medication Total Dosage/Unit 1% XYLOCAINE 20 mL FENTANYL 125 mcg HEPARIN 7000 units NTG (IC) 100 mcg OXYGEN 2 l/min PLAVIX 300 mg PROTAMINE 30 mg VERSED 4 mg Medications (Bolus/Oral) Medication Time Given Dosage/Unit Administered By Reason 1% XYLOCAINE 06/22/2017 2:20:06 PM 20 mL Alexis Narvaez 20 mL 1% XYLOCAINE given in lab by Alexis Narvaez in Right Groin via Subcutaneous. VERSED 06/22/2017 2:20:17 PM 2 mg Francisca Winn 2 mg VERSED given in lab by Francisca Winn BSN in Left Hand via Peripheral IV. Ordered by Alexis Solomon. FENTANYL 06/22/2017 2:21:08 PM 50 mcg Francisca Winn 50 mcg FENTANYL given in lab by Francisca Winn BSN in Left Hand via Peripheral IV. Ordered by Alexis Narayan. HEPARIN 06/22/2017 2:39:13 PM 5000 units Francisca Winn 5000 units HEPARIN given in lab by Francisca Winn BSN in Left Hand via Peripheral IV. Ordered b y Alexis Narvaez. NTG (IC) 06/22/2017 2:41:57 PM 100 mcg Alexis Narvaez 100 mcg NTG (IC) given in lab by Alexis Narvaez via Intra-coronary. Ordered by Alexis Narvaez. FENTANYL 06/22/2017 2:44:38 PM 25 mcg aTtum Francisca 25 mcg FENTANYL given in lab by Francisca Winn BSN in Left Hand via Peripheral IV. Ordered by Alexis Narayan. VERSED 06/22/2017 2:45:07 PM 1 mg Matuszczak, Francisca 1 mg VERSED given in lab by Francisca Winn BSN in Left Hand via Peripheral IV. Ordered by Alexis Solomon. FENTANYL 06/22/2017 2:52:09 PM 25 mcg Matuszczak, Francisca 25 mcg FENTANYL given in lab by Francisca Winn BSN in Left Hand via Peripheral IV. Ordered by Alexis Narayan. VERSED 06/22/2017 2:53:10 PM 1 mg Matuszczak, Francisca 1 mg VERSED given in lab by Francisca Winn BSN in Left Hand via Peripheral IV. Ordered by Alexis Solomon. HEPARIN 06/22/2017 2:56:16 PM 2000 units Enedelia Robert 2000 units HEPARIN given in lab by Enedelia Robert RN in Left Hand via Peripheral IV. Ordered by Alexis Denis. OXYGEN 06/22/2017 3:05:25 PM 2 l/min Enedelia Robert 2 l/min OXYGEN given in lab by Enedelia Robert RN via Nasal. Ordered by Alexis Narvaez. FENTANYL 06/22/2017 3:11:04 PM 25 mcg Enedelia Robert 25 mcg FENTANYL given in lab by Enedelia Robert RN in Left Hand via Peripheral IV. Ordered by Alexis Myers. PROTAMINE 06/22/2017 3:16:41 PM 30 mg Enedelia Robert 30 mg PROTAMINE given in lab by Enedelia Robert RN in Left Hand via Peripheral IV. Ordered by Alexis Myers. PLAVIX 06/22/2017 3:18:08 PM 300 mg Liamuszshareeak Francisca 300 mg PLAVIX given in lab by Francisca Winn BSN via Oral. Ordered by Alexis Narvaez. Medication (Drip) Medication Time Given Dosage/Unit Concentration/Unit Diluent (ml) Solution IV Solutions 06/22/2017 1:55:15 PM 0 mL (IV) 500 NaCl .9 Patient arrived on IV Solutions in Left Hand via Peripheral IV. Pump/Drip Flow = 20 ml/hr using NaCl .9. Initial Case Assessment Cardiovascular HR Rhythm NIBP Chest Pain 97 sr 167/106 0 Circulatory - Right Pulses Dorsalis Pedis Femoral 1 1 Scale (0,1,2,3,4,d) Circulatory - Left Pulses Dorsalis Pedis Femoral 1 1 Scale (0,1,2,3,4,d) Neurological State Oriented to time-place- Alert Moves all extremities person Respiration - General Respiration Rate SpO2 (%) (B/min) 15 98 Final Case Assessment Cardiovascular HR Rhythm NIBP Chest Pain 79 sr 165/90 0 Circulatory - Right Pulses Dorsalis Pedis Femoral 1 1 Scale (0,1,2,3,4,d) Circulatory - Left Pulses Dorsalis Pedis Femoral 1 1 Scale (0,1,2,3,4,d) Neurological State Oriented to time-place- Alert Moves all extremities person Respiration - General Respiration Rate SpO2 (%) (B/min) 15 94 Chronological Log Time Study Chronological Log 13:48:33 Patient arrived via Bed. 13:48:34 Patient Name, D.O.B, / Armband Verified By R.N. 13:51:47 Pre-op and post- op instructions given; patient acknowledges understanding of instructions. 13:51:50 Verbal Stimulation=2 Physical Stimulation=2 Airway=2 Respiration=2 TOTAL=8. (0=absent, 1=li mited, 2=present) 13:52:21 Presedation assessment performed by [facility] RN. Vitals capture started with the following parameters, Patient=Adult, Interval=5 min, Initial Pr fqavrz=477 mmHg, 13:52:23 Deflation Rate=5 mmHg, Cuff placed on Right Arm 13:52:32 MD arrived. 13:53:29 HF=109 bpm, QUBO=078/106 mmhg, SpO2=97.0 %, Resp=14 B/min, Pain=0, Baugh=2 13:53:35 Consent signed by the physician and the patient and verified by the [facility] staff. 13:54:55 Patient has been NPO for More than 6Hrs. 13:54:56 Skin Breakdown-none 13:54:57 Epifanio Prominences Protected 13:55:00 A # 20 IV was noted in the Hand (left). Grade = patent 13:55:15 Patient arrived on IV Solutions in Left Hand via Peripheral IV. Pump/Drip Flow = 20 ml/hr u sing NaCl .9. 13:55:36 History and physical on the chart or being dictated. Assessment: Initial Case, HR=97 BPM, Rhythm=sr, GDMO=766/106 mmhg, Chest Pain=0 Right Pulses: Eddie Ped=1, Femoral=1 13:55:38 Left Pulses: Eddie Ped=1, Femoral=1 Neurological: State=Alert, Ox3, ROTHMAN Respiration: Resp=15 B/min, SpO2=98 % 13:56:11 Bilateral groins prepped with 2% chlorhexidine, and draped after a 3 minute waiting time. 13:58:53 HR=86 bpm, QMAZ=756/85 mmhg, SpO2=97.0 %, Resp=18 B/min, Pain=0, Baugh=2 14:03:25 HR=86 bpm, AMCM=030/89 mmhg, SpO2=97.0 %, Resp=17 B/min 14:03:53 Pressure channel 1 zeroed. 14:04:08 Reference ECG taken 14:08:30 HR=86 bpm, HSGE=685/83 mmhg, SpO2=96.0 %, Resp=16 B/min, Pain=0, Baugh=2 14:17:41 MD arrived. Time Out. Correct patient, correct procedure, correct physician, power injector loaded, or not loaded with contrast with 14:19:59 surgical team present. Time Out Concurred by MD and individual staff in procedure. 14:20:05 Case Start 14:20:06 20 mL 1% XYLOCAINE given in lab by Alexis Narvaez in Right Groin via Subcutaneous. 14:20:17 2 mg VERSED given in lab by Francisca Winn BSN in Left Hand via Peripheral IV. Ordere d by Alexis Narvaez. 50 mcg FENTANYL given in lab by Francisca Winn BSN in Left Hand via Peripheral IV. Ordere d by Brice, 14:21:08 Alexis. Vitals capture started with the following parameters, Patient=Adult, Interval=5 min, Initial Pr qhppsb=424 mmHg, 14:22:53 Deflation Rate=5 mmHg, Cuff placed on Right Arm 14:24:12 HR=93 bpm, CYVD=792/99 mmhg, SpO2=91.0 %, Resp=25 B/min 14:24:39 Access site was Right Femoral Artery. A INTRODUCER SET, MICROPUNCTURE, STIFFENED FR 5 was advanced into the Fem Art (right) using the 14:24:50 Percutaneous technique. A SHEATH, FR5 TERUMO (10CM) FR 5 was exchanged in the Fem Art (right). This was necessary in or alberto to 14:25:00 accomodate a larger catheter. 14:25:43 An injection in the Fem Art (right) was made through the SHEATH, FR5 TERUMO (10CM) FR 5. A JR 4.0 INFINITI CATHETER FR 5 was advanced over a wire. OMNIPAQUE, 350 MG, 150ML 150ML was us ed for 14:27:28 injections. Recorded Pressure: LV, HR=94, Condition=Condition 1 14:27:51 (Left Ventricle) LV 196/5/16 14:28:04 The LV was manually injected with 10 cc's and visualized. OMNIPAQUE, 350 MG, 150ML 150ML us ed. Recorded Pressure: LV, Ao, HR=94, Condition=Condition 1 14:28:17 (Left Ventricle) LV 199/13/20, (Aorta) Ao 200/93/140 14:28:37 HR=95 bpm, SOSR=386/106 mmhg, SpO2=90.0 %, Resp=36 B/min 14:29:05 The RCA was injected and visualized at various angles. OMNIPAQUE, 350 MG, 150ML 150ML used . 14:29:16 The SVG-OM was injected and visualized at various angles. OMNIPAQUE, 350 MG, 150ML 150ML us ed. 14:30:48 The SVG-RCA was injected and visualized at various angles. OMNIPAQUE, 350 MG, 150ML 150ML u sed. 14:32:04 The SORENSON-LAD was injected and visualized at various angles. OMNIPAQUE, 350 MG, 150ML 150ML used. 14:33:38 HR=94 bpm, OCBO=090/96 mmhg, SpO2=91.0 %, Resp=34 B/min After removing the current catheter a JL 4.0 INFINITI CATHETER FR 5 was advanced over a WIRE, 3 MMJ .035 180CM 14:33:42 180CM. 14:34:35 The LCA was injected and visualized at various angles. OMNIPAQUE, 350 MG, 150ML 150ML used . 14:35:39 Catheter was removed 14:38:41 HR=93 bpm, LCAE=083/105 mmhg, SpO2=91.0 %, Resp=20 B/min A SHEATH, FR6 TERUMO (25CM) FR 6 was exchanged in the Fem Art (right). This was necessary in or alberto to 14:38:54 accomodate a larger catheter. 5000 units HEPARIN given in lab by Francisca Winn BSN in Left Hand via Peripheral IV. Ord ered by Brice, 14:39:13 Alexis. A JR 4.0 GUIDE CATHETER FR 6 was advanced over a wire. OMNIPAQUE, 350 MG, 150ML 150ML was used for 14:40:37 injections. 14:41:36 The RCA was injected and visualized at various angles. OMNIPAQUE, 350 MG, 150ML 150ML used . 14:41:57 100 mcg NTG (IC) given in lab by Alexis Narvaez via Intra-coronary. Ordered by Alexis Rodriguez. 14:42:43 A WIRE, BALANCE MIDDLEWEIGHT 190CM (MORIAH) 190CM was inserted via Fem Art (right). 14:43:40 HR=94 bpm, AEAN=017/99 mmhg, SpO2=91.0 %, Resp=25 B/min A STENT, 3.5 18MM DOMO 3.5 18MM was advanced through a JR 4.0 GUIDE CATHETER FR 6 over a WIRE, BALANCE 14:44:06 MIDDLEWEIGHT 190CM (MORIAH) 190CM. 25 mcg FENTANYL given in lab by Francisca Winn BSN in Left Hand via Peripheral IV. Ordere d by Brice, 14:44:38 Alexis. A STENT, 3.5 18MM DOMO 3.5 18MM was deployed using a 30 JAH INDEFLATOR at 16 atmospheres for 20 seconds in 14:44:41 the RCA Ost. 14:45:07 1 mg VERSED given in lab by Francisca Winn BSN in Left Hand via Peripheral IV. Ordere d by Alexis Narvaez. 14:46:05 Re-inflated the stent balloon in the RCA Ost to 18 JAH for 10 seconds. 14:46:42 Delivery device removed A BALLOON, 4.0 X 12MM NC EUPHORA 12MM was inserted over WIRE, BALANCE MIDDLEWEIGHT 190CM (MORIAH) 14:48:14 190CM via the RCA. A BALLOON, 4.0 X 12MM NC EUPHORA 12MM over a WIRE, BALANCE MIDDLEWEIGHT 190CM (MORIAH) 190CM in t he 14:48:35 RCA Ost was inflated using a 30 JAH INDEFLATOR at 16 jah for 15 sec. 14:48:37 HR=91 bpm, RYIV=104/97 mmhg, SpO2=89 %, Resp=23 B/min 14:50:29 Balloon Removed. 14:50:41 Wire removed 14:50:57 Activated Clotting Time Drawn 25 mcg FENTANYL given in lab by Francisca Winn BSN in Left Hand via Peripheral IV. Ordere d by Brice 14:52:09 Alexis. 14:53:10 1 mg VERSED given in lab by Francisca Winn BSN in Left Hand via Peripheral IV. Ordere d by Alexis Narvaez. 14:53:40 HR=90 bpm, VTTC=191/93 mmhg, SpO2=89.0 %, Resp=19 B/min 14:54:27 The SVG-OM was injected and visualized at various angles. OMNIPAQUE, 350 MG, 150ML 150ML us ed. 14:54:41 A WIRE, BALANCE MIDDLEWEIGHT 190CM (MORIAH) 190CM was inserted via Fem Art (right). A BALLOON, 2.5 X 12MM EUPHORA 12MM was inserted over WIRE, BALANCE MIDDLEWEIGHT 190CM (MORIAH) 19 0CM 14:54:52 via the SVG-OM. A BALLOON, 2.5 X 12MM EUPHORA 12MM over a WIRE, BALANCE MIDDLEWEIGHT 190CM (MORIAH) 190CM in the SVG- 14:55:15 OM was inflated using a 30 JAH INDEFLATOR at 8 jah for 20 sec. 14:55:43 Balloon Removed. 14:55:53 ACT (Normal Range 90-180) = 282 14:56:16 2000 units HEPARIN given in lab by Enedelia Robert, RN in Left Hand via Peripheral IV. Orde red by Alexis Narvaez. A STENT, 2.75 15MM DOMO 2.75 15MM was advanced through a JR 4.0 GUIDE CATHETER FR 6 over a WIRE , BALANCE 14:56:49 MIDDLEWEIGHT 190CM (MORIAH) 190CM. A STENT, 2.75 15MM DOMO 2.75 15MM was deployed using a 30 JAH INDEFLATOR at 12 atmospheres for 15 seconds 14:57:53 in the SVG-OM. 14:58:25 Delivery device removed 14:58:43 HR=90 bpm, KRDV=642/91 mmhg, SpO2=86.0 %, Resp=20 B/min 14:58:46 Wire removed 14:59:33 Catheter was removed 15:02:12 Activated Clotting Time Drawn 15:03:40 HR=91 bpm, BTAZ=846/88 mmhg, SpO2=87.0 %, Resp=20 B/min 15:05:25 2 l/min OXYGEN given in lab by Enedelia Robert, YAN via Nasal. Ordered by Alexis Narvaez. 15:08:41 HR=89 bpm, BIMM=285/85 mmhg, SpO2=95 %, Resp=14 B/min 15:09:30 ACT (Normal Range 90-180) = 267 15:11:04 25 mcg FENTANYL given in lab by Enedelia Robert RN in Left Hand via Peripheral IV. Ordered by Alexis Narvaez. 15:12:57 PERCLOSE, PRO GLIDE CLOSER DEVICE FR 6 placement in the Fem Art (right) 15:13:36 HR=84 bpm, GTZM=216/94 mmhg, SpO2=94.0 %, Resp=14 B/min 15:15:22 Case End 15:16:41 30 mg PROTAMINE given in lab by Enedelia Robert, YAN in Left Hand via Peripheral IV. Ordered by Alexis Narvaez. 15:18:08 300 mg PLAVIX given in lab by Francisca Winn BSN via Oral. Ordered by Gretchen Narvaez 15:18:39 HR=85 bpm, TRSH=966/92 mmhg, SpO2=93.0 %, Resp=10 B/min 15:23:36 HR=79 bpm, OQRT=461/90 mmhg, SpO2=94.0 %, Resp=15 B/min, Pain=0, Baugh=2 15:27:27 Hemostasis obtained. 15:28:37 RQTE=290/90 mmhg 15:28:42 Vitals capture stopped. 15:28:53 Sterile dressing applied to site 15:30:13 No case complications noted. 15:30:14 Cine recording checked. 15:30:15 Bedside Report will be given. 15:30:16 Implantable Device card placed in patient's chart. Assessment: Final Case, HR=79 BPM, Rhythm=sr, JPIF=593/90 mmhg, Chest Pain=0 Right Pulses: Eddie Ped=1, Femoral=1 15:30:19 Left Pulses: Eddie Ped=1, Femoral=1 Neurological: State=Alert, Ox3, ROTHMAN Respiration: Resp=15 B/min, SpO2=94 % 15:31:28 Patient moved to bed 15:33:30 Patient transported to DOCU End Study - Contrast Media Used In Study Contrast Total Opened (mL) Total Used (mL) Total Wasted (mL) Omnipaque 175 175 0 End Study - Maximum Contrast Load Max Contrast Load (mL) 989.0 End Study - Radiation Exposure Fluoro Time (minutes) 14.1 End Study - Sheaths Sheaths Pulled By Sheath Hold Time (min) Alexis Narvaez End Study - Patient Disposition Complications Transferred To Interventional Outcome No Telemetry Bed successful
--- NOTE | 2017-06-22 21:20 | EKG ---
Date Performed: 06/22/2017 Time Performed: 10:38:48 PTAGE: 61 years EKG: Sinus rhythm . Possible inferior infarct - age undetermined Anteroseptal T wave changes are nonspecific Abnormal E CG PREVIOUS TRACING : 05/13/2017 09.59 Compared to the previous tracing rate slower DOCTOR: Caterina Dos Santos Interpretating Date/Time 06/22/2017 21:20:10
[2017-06-23] MEDS ORDERED: ASPIRIN 81 MG CHEW TAB PO SCH (09:00)
[2017-06-23] MEDS ORDERED: CLOPIDOGREL 75 MG TAB PO SCH (09:00)
--- NOTE | 2017-06-23 09:52 | MA ---
cc: MOJGAN CHAVEZ DATE: 06/22/2017 DATE OF 1955 PROCEDURE PERFORMED 1. Left heart catheterization. 2. Selective right and left coronary angiography. 3. Selective saphenous vein graft SORENSON to the LAD angiography. 4. Left ventriculogram. 5. Successful PCI/MINE to ostial right coronary artery. 6. Successful PCI/MINE to SVG to OM. 7. Selective right common femoral artery angiography. INDICATION Unstable angina. APPROACH Right transfemoral SEDATION Moderate sedation Versed and fentanyl 45 minutes. DESCRIPTION OF PROCEDURE Consent signed. The patient was brought into the cardiac cath lab radiology technician in fasting state. The right groin was prepped and draped in sterile fashion using 1% lidocaine for local anesthesia and a micropuncture kit. A 5-Micronesian sheath was inserted into the right common femoral artery. Right common femoral artery angiography was performed to confirm the position of the sheath then selective right and left coronary angiography was performed with a JR-4 and JL-4 diagnostic catheter. Angiography was taken in multiple views. The JR-4 diagnostic catheter was introduced to the ventricle over a wire followed by pressure recordings, left ventriculogram and pullback. The saphenous vein graft and the LELA graft where angiography was performed with a JR-4 and also angiography was performed in multiple views. We identified two significant lesions, one in the ostial right coronary artery which the graft going to the right coronary artery was 100% occluded and the other lesion that was inside the distal anastomosis of the SVG going to the OM. Both lesions amendable to percutaneous intervention. For this the 5-Micronesian sheath was exchanged for a long 6-Micronesian sheath. IV heparin was given for anticoagulation. Then the right coronary artery was engaged with a JR-4 guide. This was followed by wiring the vessel with a BMW wire which was anchored distally in the PDA. Then the lesion was direct stented with a 3.5 x 18 drug-eluting stent and was postdilated with a noncompliant 4.0 15 balloon to high atmospheres. Final angiographic views revealed good stent apposition and expansion with MARIAH III flow. There are no signs of dissection or perforations. Then we proceeded to fix the saphenous vein graft lesion to the OM. For this we engaged the saphenous vein graft with a JR-4 guide. We wired the vessel with a BMW wire. We anchored the wire distally in the OM and then we predilated the lesion with 2.5 x12mm balloon followed by insertion and deployment at 2.75 x 16 drug-eluting stent which was postdilated with a stent balloon. Final angiographic views revealed good stent apposition and expansion with MARIAH III flow. The patient tolerated the procedure without complications. Estimated blood loss less than 30 mL. Total contrast used 100 mL. The right groin access site was closed with Perclose. The patient should continue aspirin and Plavix. ANGIOGRAPHIC RESULTS Left ventricle. The left ventricular pressure was 199/13 with an LVEDP of 20, aortic pressure was 200/93 with a mean pressure of 140. There was no gradient upon pullback to the left ventricle to aorta. Left ventriculogram revealed a symmetrically river ventricle with an estimated ejection fraction of 60%. ANGIOGRAPHIC RESULTS 1. Right coronary artery. The right coronary artery is a dominant vessel, it is giving off the PDA. It has an ostial 99% lesion which is unchanged from previous catheterizations. 2.The left main is significantly stenosed with a 99% lesion in its distal portion. It is giving off the LAD, a ramus and the left circumflex artery. 3.The LAD has a 99% lesion ostially and it has been filling through collateral flow going from the SORENSON. The SORENSON is closed with 100% occluded proximally and it is being filled by the . The left circumflex artery has an 80% lesion ostially. It is giving off three OM branches which are patent with MARIAH III flow and nonobstructive coronary artery disease. Graft angiography: SVG to RCA is occluded. SVG to OM has a 99% lesion at its anastomosis. SORENSON to the LAD is patent. It is anastomosed in the SORENSON in its mid segment and is giving flow secondary to two diagonals. CONCLUSION 1. Successful PCI to ostial right coronary artery with a drug-eluting stent. 2. Successful PCI to SVG to OM with a drug-eluting stent. 3. Preserved systolic function. 4. Elevated LVEDP. RECOMMENDATIONS Continue dual antiplatelet agent with aspirin and Plavix as well as aggressive medical management for coronary artery risk factors. The patient should continue with JEF inhibitors, diet and long acting nitrates. She should follow with cardiology upon discharge. Lifestyle modification highly encouraged. MD GERRY Sanchez/JOCELYN /3:27 PM /9:35 AM [facility]
--- NOTE | 2017-06-23 09:52 | MA ---
cc: MOJGAN CHAVEZ DATE: 06/22/2017 DATE OF 1955 PROCEDURE PERFORMED 1. Left heart catheterization. 2. Selective right and left coronary angiography. 3. Selective saphenous vein graft SORENSON to the LAD angiography. 4. Left ventriculogram. 5. Successful PCI/MINE to ostial right coronary artery. 6. Successful PCI/MINE to SVG to OM. 7. Selective right common femoral artery angiography. INDICATION Unstable angina. APPROACH Right transfemoral SEDATION Moderate sedation Versed and fentanyl 45 minutes. DESCRIPTION OF PROCEDURE Consent signed. The patient was brought into the cardiac bottle labeler in fasting state. The right groin was prepped and draped in sterile fashion using 1% lidocaine for local anesthesia and a micropuncture kit. A 5-[place] sheath was inserted into the right common femoral artery. Right common femoral artery angiography was performed to confirm the position of the sheath then selective right and left coronary angiography was performed with a JR-4 and JL-4 diagnostic catheter. Angiography was taken in multiple views. The JR-4 diagnostic catheter was introduced to the ventricle over a wire followed by pressure recordings, left ventriculogram and pullback. The saphenous vein graft and the LELA graft where angiography was performed with a JR-4 and also angiography was performed in multiple views. We identified two significant lesions, one in the ostial right coronary artery which the graft going to the right coronary artery was 100% occluded and the other lesion that was inside the distal anastomosis of the SVG going to the OM. Both lesions amendable to percutaneous intervention. For this the 5-[place] Citizen sheath was exchanged for a long 6-[place] Citizen sheath. IV heparin was given for anticoagulation. Then the right coronary artery was engaged with a JR-4 guide. This was followed by wiring the vessel with a BMW wire which was anchored distally in the PDA. Then the lesion was direct stented with a 3.5 x 18 drug-eluting stent and was postdilated with a noncompliant 4.0 15 balloon to high atmospheres. Final angiographic views revealed good stent apposition and expansion with MARIAH III flow. There are no signs of dissection or perforations. Then we proceeded to fix the saphenous vein graft lesion to the OM. For this we engaged the saphenous vein graft with a JR-4 guide. We wired the vessel with a BMW wire. We anchored the wire distally in the OM and then we predilated the lesion with 2.5 x12mm balloon followed by insertion and deployment at 2.75 x 16 drug-eluting stent which was postdilated with a stent balloon. Final angiographic views revealed good stent apposition and expansion with MARIAH III flow. The patient tolerated the procedure without complications. Estimated blood loss less than 30 mL. Total contrast used 100 mL. The right groin access site was closed with Perclose. The patient should continue aspirin and Plavix. ANGIOGRAPHIC RESULTS Left ventricle. The left ventricular pressure was 199/13 with an LVEDP of 20, aortic pressure was 200/93 with a mean pressure of 140. There was no gradient upon pullback to the left ventricle to aorta. Left ventriculogram revealed a symmetrically river ventricle with an estimated ejection fraction of 60%. ANGIOGRAPHIC RESULTS 1. Right coronary artery. The right coronary artery is a dominant vessel, it is giving off the PDA. It has an ostial 99% lesion which is unchanged from previous catheterizations. 2.The left main is significantly stenosed with a 99% lesion in its distal portion. It is giving off the LAD, a ramus and the left circumflex artery. 3.The LAD has a 99% lesion ostially and it has been filling through collateral flow going from the SORENSON. The SORENSON is closed with 100% occluded proximally and it is being filled by the . The left circumflex artery has an 80% lesion ostially. It is giving off three OM branches which are patent with MARIAH III flow and nonobstructive coronary artery disease. Graft angiography: SVG to RCA is occluded. SVG to OM has a 99% lesion at its anastomosis. SORENSON to the LAD is patent. It is anastomosed in the SORENSON in its mid segment and is giving flow secondary to two diagonals. CONCLUSION 1. Successful PCI to ostial right coronary artery with a drug-eluting stent. 2. Successful PCI to SVG to OM with a drug-eluting stent. 3. Preserved systolic function. 4. Elevated LVEDP. RECOMMENDATIONS Continue dual antiplatelet agent with aspirin and Plavix as well as aggressive medical management for coronary artery risk factors. The patient should continue with JEF inhibitors, diet and long acting nitrates. She should follow with cardiology upon discharge. Lifestyle modification highly encouraged. MD GERRY Sanchez/JOCELYN /3:27 PM /9:35 AM [facility]
--- NOTE | 2017-06-23 09:52 | MA ---
cc: MOJGAN CHAVEZ DATE: 06/22/2017 DATE OF 1955 PROCEDURE PERFORMED 1. Left heart catheterization. 2. Selective right and left coronary angiography. 3. Selective saphenous vein graft SORENSON to the LAD angiography. 4. Left ventriculogram. 5. Successful PCI/MINE to ostial right coronary artery. 6. Successful PCI/MINE to SVG to OM. 7. Selective right common femoral artery angiography. INDICATION Unstable angina. APPROACH Right transfemoral SEDATION Moderate sedation Versed and fentanyl 45 minutes. DESCRIPTION OF PROCEDURE Consent signed. The patient was brought into the cardiac wharf laborer in fasting state. The right groin was prepped and draped in sterile fashion using 1% lidocaine for local anesthesia and a micropuncture kit. A 5-Citizen Of [place] sheath was inserted into the right common femoral artery. Right common femoral artery angiography was performed to confirm the position of the sheath then selective right and left coronary angiography was performed with a JR-4 and JL-4 diagnostic catheter. Angiography was taken in multiple views. The JR-4 diagnostic catheter was introduced to the ventricle over a wire followed by pressure recordings, left ventriculogram and pullback. The saphenous vein graft and the LELA graft where angiography was performed with a JR-4 and also angiography was performed in multiple views. We identified two significant lesions, one in the ostial right coronary artery which the graft going to the right coronary artery was 100% occluded and the other lesion that was inside the distal anastomosis of the SVG going to the OM. Both lesions amendable to percutaneous intervention. For this the 5-Citizen Of [place] sheath was exchanged for a long 6-Citizen [place] sheath. IV heparin was given for anticoagulation. Then the right coronary artery was engaged with a JR-4 guide. This was followed by wiring the vessel with a BMW wire which was anchored distally in the PDA. Then the lesion was direct stented with a 3.5 x 18 drug-eluting stent and was postdilated with a noncompliant 4.0 15 balloon to high atmospheres. Final angiographic views revealed good stent apposition and expansion with MARIAH III flow. There are no signs of dissection or perforations. Then we proceeded to fix the saphenous vein graft lesion to the OM. For this we engaged the saphenous vein graft with a JR-4 guide. We wired the vessel with a BMW wire. We anchored the wire distally in the OM and then we predilated the lesion with 2.5 x12mm balloon followed by insertion and deployment at 2.75 x 16 drug-eluting stent which was postdilated with a stent balloon. Final angiographic views revealed good stent apposition and expansion with MARIAH III flow. The patient tolerated the procedure without complications. Estimated blood loss less than 30 mL. Total contrast used 100 mL. The right groin access site was closed with Perclose. The patient should continue aspirin and Plavix. ANGIOGRAPHIC RESULTS Left ventricle. The left ventricular pressure was 199/13 with an LVEDP of 20, aortic pressure was 200/93 with a mean pressure of 140. There was no gradient upon pullback to the left ventricle to aorta. Left ventriculogram revealed a symmetrically river ventricle with an estimated ejection fraction of 60%. ANGIOGRAPHIC RESULTS 1. Right coronary artery. The right coronary artery is a dominant vessel, it is giving off the PDA. It has an ostial 99% lesion which is unchanged from previous catheterizations. 2.The left main is significantly stenosed with a 99% lesion in its distal portion. It is giving off the LAD, a ramus and the left circumflex artery. 3.The LAD has a 99% lesion ostially and it has been filling through collateral flow going from the SORENSON. The SORENSON is closed with 100% occluded proximally and it is being filled by the . The left circumflex artery has an 80% lesion ostially. It is giving off three OM branches which are patent with MARIAH III flow and nonobstructive coronary artery disease. Graft angiography: SVG to RCA is occluded. SVG to OM has a 99% lesion at its anastomosis. SORENSON to the LAD is patent. It is anastomosed in the SORENSON in its mid segment and is giving flow secondary to two diagonals. CONCLUSION 1. Successful PCI to ostial right coronary artery with a drug-eluting stent. 2. Successful PCI to SVG to OM with a drug-eluting stent. 3. Preserved systolic function. 4. Elevated LVEDP. RECOMMENDATIONS Continue dual antiplatelet agent with aspirin and Plavix as well as aggressive medical management for coronary artery risk factors. The patient should continue with JEF inhibitors, diet and long acting nitrates. She should follow with cardiology upon discharge. Lifestyle modification highly encouraged. MD GERRY Sanchez/JOCELYN /3:27 PM /9:35 AM [facility]
== END 2017-06-22 18:55 | disposition home or self-care (01) ==
LOC: HDIC 09:48 → HCAT 09:48
PROVIDERS: ATTEND Radiology Vascular & Interventional Radiology
DX: I25.110 Atherosclerotic heart disease of native coronary artery with unstable angina pectoris (principal); I11.9 Hypertensive heart disease without heart failure; E78.5 Hyperlipidemia, unspecified; K21.9 Gastro-esophageal reflux disease without esophagitis; Z95.1 Presence of aortocoronary bypass graft
CPT/HCPCS: 80048; 85002; 85025; 85610; 85730; 92928; 92929; 93005; 93459; 99152; 99153; C1725; C1760; C1769; C1874; C1887; C1893; G0269; J1644; J2250; J2720; J3010; Q0163; Q9967

== ENCOUNTER 2017-09-06 11:58 | Inpatient (IN) | payer OTHER ==
[~2017-09-06] VITALS: Ht 167.6 cm; Wt 120.2 kg
[~2017-09-06 11:58] MED LIST changes: +FURO1TAB62 PO; +ISOS30TA3 PO; -METO25TA3 PO; +METO50TA PO; +PLAV75TA29 PO; +RANI300T PO; -THERM PO
[2017-09-06 12:02] VITALS: BP 211/93; PULSE 68; RESP 16; TEMP 98.3; O2SAT 96
--- NOTE | 2017-09-06 12:32 | PD ---
HPI Chief Complaint: Chest Pain Time Seen by Provider: 12:11 Travel History International Travel<30 days: No Contact w/Intl Traveler<30days: No Traveled to known affect area: No History of Present Illness HPI 62-year-old female with a history of CABG and heart cath (2016) on Plavix presents to emergency department complaining of anterior chest pain that has been constant since Wednesday. Patient states that the pain does not radiate and is aching, mild. Patient states that ibuprofen seems to decrease her pain. Patient states that she has also been sleeping in a recliner more as this is more comfortable for her. She denies shortness of breath, cough, nausea, vomiting, diarrhea, abdominal pain, urinary symptoms. Also denies leg pain. States compliance with medications. She called her clarity developer, Dr. Phan, who recommended she come to the emergency department for evaluation. Says she had a CABG in January 2017 and a follow-up catheter in May 2017 which revealed ' clogged and blocked vessels'. PFSH Past Medical History Hx Anticoagulant Therapy: Yes (plavix) Autoimmune Disease: No Blood Disorders: No Anxiety: No Depression: No Cancer: No Cardiovascular Problems: Yes (CABG, cardiac stents, HTN, hyperlipidemia) High Cholesterol: Yes Chest Pain: Yes Diminished Hearing: No Endocrine: No Gastrointestinal Disorders: Yes (gerd) Genitourinary: No Hypertension: Yes Musculoskeletal: No Neurologic: No Psychiatric: No Immunizations Current: Yes Menopausal: Yes : 1 Para: 1 Tubal Ligation: Yes Past Surgical History Cardiac Surgery: Yes (HEART CATH, triple bypass ) Cholecystectomy: Yes Genitourinary Surgery: Yes (TUBAL,1994) Social History Alcohol Use: Yes (OCCASIONALLY) Tobacco Use: No (4 pack years) Substance Use: No Allergies-Medications (Allergen,Severity, Reaction): Coded Allergies: No Known Allergies (Verified Allergy, Unknown, 04/07/05) Reported Meds & Prescriptions Reported Meds & Active Scripts Active Aspirin Low Strength (Aspirin) 81 Mg Chew 81 Mg PO DAILY Reported Ranitidine (Ranitidine HCl) 300 Mg Tab 300 Mg PO HS Plavix (Clopidogrel Bisulfate) 75 Mg Tab 75 Mg PO DAILY Lasix (Furosemide) 20 Mg Tab 20 Mg PO DAILY Lovastatin 20 Mg Tab 60 Mg PO DAILY Review of Systems Except as stated in HPI: all other systems reviewed are Neg Physical Exam Narrative GENERAL: well-nourished in no apparent distress SKIN: Focused skin assessment warm/dry. Nondiaphoretic HEAD: Atraumatic. Normocephalic. EYES: Pupils equal and round. No scleral icterus. No injection or drainage. ENT: No nasal bleeding or discharge. Mucous membranes pink and moist. NECK: Trachea midline. No JVD. No lymphadenopathy CARDIOVASCULAR: Regular rate and rhythm. No murmur appreciated. RESPIRATORY: No accessory muscle use. Clear to auscultation. Breath sounds equal bilaterally. Chest wall nontender to palpation GASTROINTESTINAL: Abdomen soft, non-tender, nondistended. Hepatic and splenic margins not palpable. MUSCULOSKELETAL: No obvious deformities. No clubbing. No cyanosis. No edema. NEUROLOGICAL: Awake and alert. No obvious cranial nerve deficits. Motor grossly within normal limits. Normal speech. PSYCHIATRIC: Appropriate mood and affect; insight and judgment normal. Data Data Last Documented VS Vital Signs Date Time Temp Pulse Resp B/P (MAP) Pulse Ox O2 Delivery O2 Flow Rate FiO2 09/06/17 15:00 123 16 208/95 (132) 97 09/06/17 12:28 Room Air 09/06/17 12:02 98.3 Orders Orders Electrocardiogram (09/06/17 12:07) Basic Metabolic Panel (Bmp) (09/06/17 12:07) Ckmb (Isoenzyme) Profile (09/06/17 12:07) Complete Blood Count With Diff (09/06/17 12:07) Magnesium (Mg) (09/06/17 12:07) Prothrombin Time / Inr (Pt) (09/06/17 12:07) Act Partial Throm Time (Ptt) (09/06/17 12:07) Troponin I (09/06/17 12:07) Chest, Single Ap (09/06/17 ) Nitroglycerin 2% Oint (Nitroglycerin 2% (09/06/17 13:45) Aspirin Chew (Aspirin Chew) (09/07/17 09:00) Clopidogrel (Plavix) (09/07/17 09:00) Furosemide (Lasix) (09/07/17 09:00) Isosorbide Mononitrate (Imdur) (09/07/17 07:00) Lisinopril (Prinivil) (09/07/17 09:00) Pravastatin (Pravachol) (09/07/17 09:00) Metoprolol Tartrate (Lopressor) (09/06/17 21:00) Famotidine (Pepcid) (09/06/17 21:00) Admit Order (Ed Use Only) (09/06/17 16:12) Consult Cardiology (09/06/17 ) Labs Laboratory Tests Test 09/06/17 12:30 White Blood Count 7.9 TH/MM3 Red Blood Count 4.61 MIL/MM3 Hemoglobin 12.7 GM/DL Hematocrit 37.6 % Mean Corpuscular Volume 81.5 FL Mean Corpuscular Hemoglobin 27.6 PG Mean Corpuscular Hemoglobin Concent 33.8 % Red Cell Distribution Width 15.9 % Platelet Count 205 TH/MM3 Mean Platelet Volume 11.4 FL Neutrophils (%) (Auto) 69.4 % Lymphocytes (%) (Auto) 18.8 % Monocytes (%) (Auto) 9.0 % Eosinophils (%) (Auto) 1.5 % Basophils (%) (Auto) 1.3 % Neutrophils # (Auto) 5.5 TH/MM3 Lymphocytes # (Auto) 1.5 TH/MM3 Monocytes # (Auto) 0.7 TH/MM3 Eosinophils # (Auto) 0.1 TH/MM3 Basophils # (Auto) 0.1 TH/MM3 CBC Comment DIFF FINAL Differential Comment Prothrombin Time 10.1 SEC Prothromb Time International Ratio 1.0 RATIO Activated Partial Thromboplast Time 27.4 SEC Blood Urea Nitrogen 19 MG/DL Creatinine 0.66 MG/DL Random Glucose 99 MG/DL Calcium Level 8.9 MG/DL Magnesium Level 2.2 MG/DL Sodium Level 141 MEQ/L Potassium Level 4.1 MEQ/L Chloride Level 109 MEQ/L Carbon Dioxide Level 22.3 MEQ/L Anion Gap 10 MEQ/L Estimat Glomerular Filtration Rate 91 ML/MIN Total Creatine Kinase 98 U/L Troponin I 0.73 NG/ML MDM Medical Decision Making Medical Screen Exam Complete: Yes Emergency Medical Condition: Yes Differential Diagnosis Atypical chest pain, and STEMI, STEMI, angina, pericarditis Narrative Course 62-year-old female with a history of CABG and heart cath (2016) on Plavix presents to emergency department complaining of anterior chest pain that has been constant since Wednesday. Patient states that the pain does not radiate and is aching, mild (2/10). Patient states that ibuprofen seems to decrease her pain. Patient states that she has also been sleeping in a recliner more as this is more comfortable for her. She denies shortness of breath, cough, nausea , vomiting, diarrhea, abdominal pain, urinary symptoms. Also denies leg pain. States compliance with medications. She called her clarity developer, Dr. Phan, who recommended she come to the emergency department for evaluation. Says she had a CABG in January 2017 and a follow-up catheter in May 2017 which revealed ' clogged and blocked vessels'. Patient states she took 2 baby aspirins today along with 400 mg ibuprofen for her pain. Her primary care physician is Dr. Kellogg. Vital signs stable. Laboratory Tests Test 09/06/17 12:30 White Blood Count 7.9 TH/MM3 Red Blood Count 4.61 MIL/MM3 Hemoglobin 12.7 GM/DL Hematocrit 37.6 % Mean Corpuscular Volume 81.5 FL Mean Corpuscular Hemoglobin 27.6 PG Mean Corpuscular Hemoglobin Concent 33.8 % Red Cell Distribution Width 15.9 % Platelet Count 205 TH/MM3 Mean Platelet Volume 11.4 FL Neutrophils (%) (Auto) 69.4 % Lymphocytes (%) (Auto) 18.8 % Monocytes (%) (Auto) 9.0 % Eosinophils (%) (Auto) 1.5 % Basophils (%) (Auto) 1.3 % Neutrophils # (Auto) 5.5 TH/MM3 Lymphocytes # (Auto) 1.5 TH/MM3 Monocytes # (Auto) 0.7 TH/MM3 Eosinophils # (Auto) 0.1 TH/MM3 Basophils # (Auto) 0.1 TH/MM3 CBC Comment DIFF FINAL Differential Comment Prothrombin Time 10.1 SEC Prothromb Time International Ratio 1.0 RATIO Activated Partial Thromboplast Time 27.4 SEC Blood Urea Nitrogen 19 MG/DL Creatinine 0.66 MG/DL Random Glucose 99 MG/DL Calcium Level 8.9 MG/DL Magnesium Level 2.2 MG/DL Sodium Level 141 MEQ/L Potassium Level 4.1 MEQ/L Chloride Level 109 MEQ/L Carbon Dioxide Level 22.3 MEQ/L Anion Gap 10 MEQ/L Estimat Glomerular Filtration Rate 91 ML/MIN Total Creatine Kinase 98 U/L Troponin I 0.73 NG/ML Troponin elevated at 0.73. Review of the EMR shows last cardiac cath June 23 2017. 2 stents were placed. EF 60%. A call was placed to Dr. Phan for recommendations as he familiar with this patient. He does not recommend any further heparinizing agents. Patient will be admitted. Consult will be placed to Dr. Phan. Please see my attending's note as well for further information regarding this patient. Physician Communication Physician Communication Spoke with Dr. Phan, her clarity developer, who did not recommend heparin or any other recommendations. Diagnosis Primary Impression: Hypertension Qualified Codes: I10 - Essential (primary) hypertension Additional Impression: NSTEMI (non-ST elevated myocardial infarction) Admitting Information Admitting Physician Requests: Admit Scripts Lisinopril (Lisinopril) 20 Mg Tab 40 MG PO DAILY for Hypertension, #30 TAB 0 Refills Prov: Peter Lynch MD 09/07/17 Metoprolol Tartrate (Lopressor) 100 Mg Tab 100 MG PO BID for CAD, #60 TAB 0 Refills Prov: Peter Lynch MD 09/07/17 Nitroglycerin SL (Nitrostat SL) 0.4 Mg Subl 0.4 MG SL Q5M Y for ANGINA, #20 TAB 0 Refills in case of chest pain take one tablet sublingual every five minutes up to three Tablets. if no improvement call PCP, or go to Emergency Room. Prov: Peter Lynch MD 09/07/17 Isosorbide Mononitrate ER (Isosorbide Mononitrate ER) 60 Mg Tab 60 MG PO DAILY@0700 for CAD, #30 TAB 0 Refills Prov: Peter Lynch MD 09/07/17 Condition: Stable Nicole Tsai Sep 06, 2017 12:32
[2017-09-06 12:51] LABS: AUTOMATED NEUTROPHIL # 5.5 TH/MM3 (1.8-7.7); BASOPHIL # 0.1 TH/MM3 (0-0.2); BASOPHIL % 1.3 % (0.0-2.0); EOSINOPHIL # 0.1 TH/MM3 (0-0.4); EOSINOPHIL % 1.5 % (0.0-4.0); HEMATOCRIT 37.6 % (35.0-46.0); HEMOGLOBIN 12.7 GM/DL (11.6-15.3); LYMPH % 18.8 % (9.0-44.0); LYMPHOCYTE # 1.5 TH/MM3 (1.0-4.8); MEAN CELL VOLUME 81.5 FL (80.0-100.0); MEAN CORPUSCULAR HEMOGLOBIN 27.6 PG (27.0-34.0); MEAN CORPUSCULAR HGB CONC 33.8 % (32.0-36.0); MEAN PLATELET VOLUME 11.4 FL (7.0-11.0); MONOCYTE # 0.7 TH/MM3 (0-0.9); NEUT % 69.4 % (16.0-70.0); PLATELET COUNT 205 TH/MM3 (150-450); RED BLOOD COUNT 4.61 MIL/MM3 (4.00-5.30); RED CELL DISTRIBUTION WIDTH 15.9 % (11.6-17.2); WHITE BLOOD COUNT 7.9 TH/MM3 (4.0-11.0)
[2017-09-06 13:01] LABS: PROTHROMBIN TIME - PATIENT 10.1 SEC (9.8-11.6)
[2017-09-06 13:10] LABS: BICARBONATE 22.3 MEQ/L (21.0-32.0); CALCIUM 8.9 MG/DL (8.5-10.1); CREATININE 0.66 MG/DL (0.50-1.00); MAGNESIUM 2.2 MG/DL (1.5-2.5)
[2017-09-06 13:21] LABS: TROPONIN I 0.73 NG/ML (0.02-0.05)
--- NOTE | 2017-09-06 13:40 | PD ---
Physical Exam Date Seen by Provider: Sep 06, 2017 Time Seen by Provider: 13:36 Narrative The patient is a 62 year-old female was initially evaluated by the mid-level provider. Please refer to the initial history, physical, diagnostic evaluation , and treatment modality plan. Data Data Last Documented VS Vital Signs Date Time Temp Pulse Resp B/P (MAP) Pulse Ox O2 Delivery O2 Flow Rate FiO2 09/06/17 12:28 61 18 98 Room Air 09/06/17 12:02 98.3 211/93 (132) Orders Orders Electrocardiogram (09/06/17 12:07) Basic Metabolic Panel (Bmp) (09/06/17 12:07) Ckmb (Isoenzyme) Profile (09/06/17 12:07) Complete Blood Count With Diff (09/06/17 12:07) Magnesium (Mg) (09/06/17 12:07) Prothrombin Time / Inr (Pt) (09/06/17 12:07) Act Partial Throm Time (Ptt) (09/06/17 12:07) Troponin I (09/06/17 12:07) Chest, Single Ap (09/06/17 ) Nitroglycerin 2% Oint (Nitroglycerin 2% (09/06/17 13:45) Labs Laboratory Tests Test 09/06/17 12:30 White Blood Count 7.9 TH/MM3 Red Blood Count 4.61 MIL/MM3 Hemoglobin 12.7 GM/DL Hematocrit 37.6 % Mean Corpuscular Volume 81.5 FL Mean Corpuscular Hemoglobin 27.6 PG Mean Corpuscular Hemoglobin Concent 33.8 % Red Cell Distribution Width 15.9 % Platelet Count 205 TH/MM3 Mean Platelet Volume 11.4 FL Neutrophils (%) (Auto) 69.4 % Lymphocytes (%) (Auto) 18.8 % Monocytes (%) (Auto) 9.0 % Eosinophils (%) (Auto) 1.5 % Basophils (%) (Auto) 1.3 % Neutrophils # (Auto) 5.5 TH/MM3 Lymphocytes # (Auto) 1.5 TH/MM3 Monocytes # (Auto) 0.7 TH/MM3 Eosinophils # (Auto) 0.1 TH/MM3 Basophils # (Auto) 0.1 TH/MM3 CBC Comment DIFF FINAL Differential Comment Prothrombin Time 10.1 SEC Prothromb Time International Ratio 1.0 RATIO Activated Partial Thromboplast Time 27.4 SEC Blood Urea Nitrogen 19 MG/DL Creatinine 0.66 MG/DL Random Glucose 99 MG/DL Calcium Level 8.9 MG/DL Magnesium Level 2.2 MG/DL Sodium Level 141 MEQ/L Potassium Level 4.1 MEQ/L Chloride Level 109 MEQ/L Carbon Dioxide Level 22.3 MEQ/L Anion Gap 10 MEQ/L Estimat Glomerular Filtration Rate 91 ML/MIN Total Creatine Kinase 98 U/L Troponin I 0.73 NG/ML [facility] Medical Record Reviewed: Yes Supervised Visit with RAFFY: Yes Interpretation(s) EKG reveals normal sinus rhythm with a rate of 65. Q wave in lead 3 and aVF. Laboratory Tests Test 09/06/17 12:30 White Blood Count 7.9 TH/MM3 Red Blood Count 4.61 MIL/MM3 Hemoglobin 12.7 GM/DL Hematocrit 37.6 % Mean Corpuscular Volume 81.5 FL Mean Corpuscular Hemoglobin 27.6 PG Mean Corpuscular Hemoglobin Concent 33.8 % Red Cell Distribution Width 15.9 % Platelet Count 205 TH/MM3 Mean Platelet Volume 11.4 FL Neutrophils (%) (Auto) 69.4 % Lymphocytes (%) (Auto) 18.8 % Monocytes (%) (Auto) 9.0 % Eosinophils (%) (Auto) 1.5 % Basophils (%) (Auto) 1.3 % Neutrophils # (Auto) 5.5 TH/MM3 Lymphocytes # (Auto) 1.5 TH/MM3 Monocytes # (Auto) 0.7 TH/MM3 Eosinophils # (Auto) 0.1 TH/MM3 Basophils # (Auto) 0.1 TH/MM3 CBC Comment DIFF FINAL Differential Comment Prothrombin Time 10.1 SEC Prothromb Time International Ratio 1.0 RATIO Activated Partial Thromboplast Time 27.4 SEC Blood Urea Nitrogen 19 MG/DL Creatinine 0.66 MG/DL Random Glucose 99 MG/DL Calcium Level 8.9 MG/DL Magnesium Level 2.2 MG/DL Sodium Level 141 MEQ/L Potassium Level 4.1 MEQ/L Chloride Level 109 MEQ/L Carbon Dioxide Level 22.3 MEQ/L Anion Gap 10 MEQ/L Estimat Glomerular Filtration Rate 91 ML/MIN Total Creatine Kinase 98 U/L Troponin I 0.73 NG/ML Differential Diagnosis Differential diagnosis includes vasospasm, acute coronary syndrome, costochondritis, Lupe syndrome, pleural effusion, GERD, esophageal spasm. Narrative Course I, Dr. Kamara, have reviewed the advance practice practitioner's documentation and am in agreement, met with the patient face to face, made the diagnosis, and the medical decision making was done by me. *My assessment and Findings: The patient is a 62-year-old female was initially evaluated by the mid-level provider. Please refer to the initial history, physical, diagnostic evaluation, treatment modality plan. The patient has a history of CAD with previous CABG, three-vessel, and recent cardiac catheterization by her senior clinical study manager, Dr. Phan, with stent placement. The patient takes aspirin, Plavix, and Imdur daily. The patient took 2 full strength aspirin this morning prior to arrival. She complains of a 3 day history of substernal chest pain that is nonradiating, present at rest and activity. The patient states the pain has the same quality as previous chest pain, however, her previous chest pain was always exertional. She does state that taken ibuprofen helps the pain initially, however, the pain will return. The patient's initial troponin was positive at 0.73, the pain was reevaluated at 1:30 PM and was 2/10. Therefore, the patient was placed on Nitropaste and a call was placed the patient's senior clinical study manager, Dr. Phan. Physician Communication Physician Communication A call was placed to the patient's senior clinical study manager, Dr. Phan. Diagnosis Primary Impression: Hypertension Qualified Codes: I10 - Essential (primary) hypertension Additional Impression: NSTEMI (non-ST elevated myocardial infarction) Condition: Stable Jean-Paul Kamara MD Sep 06, 2017 13:40
[2017-09-06] MEDS ORDERED: NITROGLYCERIN 2% OINT 1 GM PACKET TOPICAL ONE (13:45)
--- NOTE | 2017-09-06 14:12 | RADRPT ---
EXAM DATE/TIME: 09/06/2017 12:50 [place] COMPARISON: CHEST SINGLE AP, May 13, 2017, 10:13. INDICATIONS : Patient states that she is having chest pain and has a history of CABG in january,. MEDICAL HISTORY : Hypercholesterolemia. Hypertension. Cardiovascular disease SURGICAL HISTORY : Tubal ligation. CABG. Cholecystectomy. ENCOUNTER: Initial ACUITY: 1 day PAIN SCORE: 8/10 LOCATION: mid chest FINDINGS: Examination is unchanged with evidence of prior median sternotomy cardiac surgery and compensated lef t ventricular cardiomegaly. CONCLUSION: No acute disease. No significant change has occurred. Gideon Harrison MD on September 06, 2017 at 14:08 Board Certified Radiologist. This report was verified electronically.
[2017-09-06 15:00] VITALS: BP 208/95; PULSE 123; RESP 16; O2SAT 97
[2017-09-06] MEDS ORDERED: IOHEXOL 350 MG/ML 50 ML BTL (for Cath Lab) OTHER ONE (15:52)
[2017-09-06] MEDS ORDERED: IOHEXOL 350 MG/ML 100 ML BTL (for Cath Lab) OTHER ONE (15:52)
[2017-09-06] MEDS ORDERED: SODIUM CHLORIDE 0.9% FLUSH 10 ML FLUSH IV FLUSH PRN (16:15)
[2017-09-06] MEDS ORDERED: NITROGLYCERIN 0.4 MG SL 25 TABS/BTL SL PRN (16:15)
--- NOTE | 2017-09-06 16:25 | HHI.HP ---
[facility] Service [facility] Primary Care Physician Himanshu Shepard MD Admission Diagnosis atypical chest pain, elevated troponin Diagnoses: (1) Unstable angina Diagnosis: Principal (2) CAD (coronary artery disease) Diagnosis: Principal Chief Complaint: Chest pain Travel History International Travel<30 Days: No Contact w/Intl Traveler <30 Da: No Traveled to Known Affected Are: No History of Present Illness Written by Bryan Castro, acting as scribe for Dr. Julian] on 09/06/17 at 16: 25. 62-year-old female who presents to the ED due to ongoing chest pain which originally began or Wednesday of last week. Patient has a past medical history which is significant for CAD s/p CABG, cardiac catheter 2, HTN , HLD, and GERD. Patient reports that pain began so she called her cargo mate 's office would been monitoring her for several days. Today she reports that chest pain did not resolve despite taking [id number] analgesics. She states chest pain was centrally located with no radiation, rates pain 5/10. She endorses some shortness of breath with activity and reports that for the past several days had also been sleeping in a recliner. She denies any swelling of legs or productive cough. She denies chills, fevers, nausea, vomiting, diarrhea. She reports that she is experiences pain in the past however this time pain was not resolving. She was advised by her cargo mate to come to the ED for further workup. At the moment she is resting comfortably in ED stretcher and does not appear to be in any acute distress. She reports some shortness of breath earlier today when she was walking to the bathroom, none at rest. Patient states that her cargo mate Dr. Phan has already stopped by while she has been in the ED holding area and his plans to do a cardiac catheterization either today or tomorrow. Patient will be admitted with plans of cardiac catheter by Dr. Phan. Review of Systems Respiratory: COMPLAINS OF: Shortness of breath Cardiovascular: COMPLAINS OF: Chest pain Except as stated in HPI: all other systems reviewed are Neg Past Family Social History Past Medical History CAD with CABG on 02/19/17 HTN HLD GERD Past Surgical History CABG 02/19/17 Tubal ligation, 1995 Right Ankle fusion x2 Left Achilles tendon repair Cholecystectomy Reported Medications Reported Meds & Active Scripts Active Aspirin Low Strength (Aspirin) 81 Mg Chew 81 Mg PO DAILY Reported Metoprolol Tartrate 50 Mg Tab 50 Mg PO BID Ranitidine (Ranitidine HCl) 300 Mg Tab 300 Mg PO HS Plavix (Clopidogrel Bisulfate) 75 Mg Tab 75 Mg PO DAILY Lasix (Furosemide) 20 Mg Tab 20 Mg PO DAILY Isosorbide Mononitrate ER (Isosorbide Mononitrate) 30 Mg Camille 30 Mg PO DAILY Lisinopril 20 Mg Tab 20 Mg PO DAILY Lovastatin 20 Mg Tab 60 Mg PO DAILY Allergies: Coded Allergies: No Known Allergies (Verified Allergy, Unknown, 04/07/05) Active Ordered Medications Current Medications Medications (Trade) Dose Ordered Sig/Dalila Route Start Time Stop Time Status Last Admin (Aspirin Chew) 81 mg DAILY PO 09/07/17 09:00 (Plavix) 75 mg DAILY PO 09/07/17 09:00 (Lasix) 20 mg DAILY PO 09/07/17 09:00 (Imdur) 30 mg DAILY@0700 PO 09/07/17 07:00 (Prinivil) 20 mg DAILY PO 09/07/17 09:00 (Pravachol) 60 mg DAILY PO 09/07/17 09:00 (Lopressor) 50 mg BID PO 09/06/17 21:00 (Pepcid) 20 mg BID PO 09/06/17 21:00 (NS Flush) 2 ml BID IV FLUSH 09/06/17 21:00 (NS Flush) 2 ml UNSCH PRN IV FLUSH 09/06/17 16:15 (Nitrostat Sl) 0.4 mg Q5M PRN SL 09/06/17 16:15 (Vasotec Inj) 2.5 mg Q6H PRN IV PUSH 09/06/17 16:45 (Duoneb Neb) 1 ampule Q2HR NEB PRN NEB 09/06/17 16:45 Family History Mother: Breast cancer, diabetes Grandfather: [place] Social History Tobacco: Denies Alcohol: Denies Illicit drug use: Denies Physical Exam Vital Signs Vital Signs Date Time Temp Pulse Resp B/P (MAP) Pulse Ox O2 Delivery O2 Flow Rate FiO2 09/06/17 15:00 123 16 208/95 (132) 97 09/06/17 12:28 61 18 98 Room Air 09/06/17 12:02 98.3 68 16 211/93 (132) 96 Physical Exam GENERAL: This is a well-nourished, well-developed patient, in no apparent distress. SKIN: No rashes, ecchymoses or lesions. Cool and dry. HEAD: Atraumatic. Normocephalic. No temporal or scalp tenderness. EYES: Pupils equal round and reactive. Extraocular motions intact. No scleral icterus. No injection or drainage. ENT: Nose without bleeding, purulent drainage or septal hematoma. Airway patent. NECK: Trachea midline. No JVD or lymphadenopathy. Supple, nontender. CARDIOVASCULAR: Regular rate and rhythm without murmurs, gallops, or rubs. RESPIRATORY: Clear to auscultation. Breath sounds equal bilaterally. No wheezes , rales, or rhonchi. GASTROINTESTINAL: Abdomen soft, non-tender, nondistended. No palpable masses. No guarding. MUSCULOSKELETAL: Extremities without clubbing, cyanosis, or edema. No joint tenderness, effusion, or edema noted. No calf tenderness. NEUROLOGICAL: Awake and alert. Cranial nerves II through XII intact. Motor and sensory grossly within normal limits. Five out of 5 muscle strength in all muscle groups. Normal speech, facial droop. Laboratory Laboratory Tests Test 09/06/17 12:30 White Blood Count 7.9 Red Blood Count 4.61 Hemoglobin 12.7 Hematocrit 37.6 Mean Corpuscular Volume 81.5 Mean Corpuscular Hemoglobin 27.6 Mean Corpuscular Hemoglobin Concent 33.8 Red Cell Distribution Width 15.9 Platelet Count 205 Mean Platelet Volume 11.4 Neutrophils (%) (Auto) 69.4 Lymphocytes (%) (Auto) 18.8 Monocytes (%) (Auto) 9.0 Eosinophils (%) (Auto) 1.5 Basophils (%) (Auto) 1.3 Neutrophils # (Auto) 5.5 Lymphocytes # (Auto) 1.5 Monocytes # (Auto) 0.7 Eosinophils # (Auto) 0.1 Basophils # (Auto) 0.1 CBC Comment DIFF FINAL Differential Comment Prothrombin Time 10.1 Prothromb Time International Ratio 1.0 Activated Partial Thromboplast Time 27.4 Blood Urea Nitrogen 19 Creatinine 0.66 Random Glucose 99 Calcium Level 8.9 Magnesium Level 2.2 Sodium Level 141 Potassium Level 4.1 Chloride Level 109 Carbon Dioxide Level 22.3 Anion Gap 10 Estimat Glomerular Filtration Rate 91 Total Creatine Kinase 98 Troponin I 0.73 Result Diagram: 09/06/17 1230 09/06/17 1230 Caprini VTE Risk Assessment Caprini VTE Risk Assessment: No/Low Risk (score <= 1) Caprini Risk Assessment Model Point Value = 1 Point Value = 2 Point Value = 3 Point Value = 5 Age 41-60 Minor surgery BMI > 25 kg/m2 Swollen legs Varicose veins or History of unexplained or recurrent spontaneous Oral contraceptives or hormone replacement Sepsis (< 1 month) Serious lung disease, including pneumonia (< 1 month) Abnormal pulmonary function Acute myocardial infarction Congestive heart failure (< 1 month) History of inflammatory bowel disease Medical patient at bed rest Age 61-74 Arthroscopic surgery Major open surgery (> 45 min) Laparoscopic surgery (> 45 min) Malignancy Confined to bed (> 72 hours) Immobilizing plaster cast Central venous access Age >= 75 History of VTE Family history of VTE Factor V Leiden Prothrombin [id number] Lupus anticoagulant Anticardiolipin antibodies Elevated serum homocysteine Heparin-induced thrombocytopenia Other congenital or acquired thrombophilia Stroke (< 1 month) Elective arthroplasty Hip, pelvis, or leg fracture Acute spinal cord injury (< 1 month) Prophylaxis Regimen Total Risk Factor Score Risk Level Prophylaxis Regimen 0-1 Low Early ambulation 2 Moderate Order ONE of the following: *Sequential Compression Device (SCD) *Heparin 5000 units SQ BID 3-4 Higher Order ONE of the following medications: *Heparin 5000 units SQ TID *Enoxaparin/Lovenox 40 mg SQ daily (WT < 150 kg, CrCl > 30 mL/min) *Enoxaparin/Lovenox 30 mg SQ daily (WT < 150 kg, CrCl > 10-29 mL/min) *Enoxaparin/Lovenox 30 mg SQ BID (WT < 150 kg, CrCl > 30 mL/min) AND/OR *Sequential Compression Device (SCD) 5 or more Highest Order ONE of the following medications: *Heparin 5000 units SQ TID (Preferred with Epidurals) *Enoxaparin/Lovenox 40 mg SQ daily (WT < 150 kg, CrCl > 30 mL/min) *Enoxaparin/Lovenox 30 mg SQ daily (WT < 150 kg, CrCl > 10-29 mL/min) *Enoxaparin/Lovenox 30 mg SQ BID (WT < 150 kg, CrCl > 30 mL/min) AND *Sequential Compression Device (SCD) Assessment and Plan Problem List: (1) Unstable angina ICD Code: I20.0 - Unstable angina Status: Acute Assessment and Plan 62-year-old female who presents to the ED due to ongoing chest pain which originally began or Wednesday of last week which has been ongoing and has not resolved. Patient has a past medical history which is significant for CAD s/p CABG, cardiac catheter 2, HTN, HLD, and GERD. Unstable angina - Patient following with her cargo mate who recommended patient come to the ED for further evaluation. - Troponin on presentation elevated at 0.73, EKG reviewed showing sinus rhythm, probable inferior myocardial infarction, heart rate 65 - Patient with a history of the following: Cardiac catheter on 02/17/17 due to unstable angina: Significant left main and ostial right coronary artery stenosis. Preserved LV function estimated EF 60%. CABG x3 on 02/19/[address] Luna Cardiac cath on 06/22/17 due to unstable angina: Successful PCI to ostial right coronary artery with a drug-eluting stent. Successful PCI to SVG to OM with a drug-eluting stent. preserved systolic function, Elevated LVEDP. Estimated EF 60%. - Etiology consult placed to Dr. Phan by ED physician - Continue to trend troponins along with serial EKGs - Resume patient's cardiac meds - Patient will be scheduled for heart catheterization today Hypertension HLD - Blood pressure elevated on presentation to - Will resume patient's Lasix, lisinopril, Imdur, Lopressor - Monitor BP - Resume pravastatin DVT prophylaxis-SCDs This note was transcribed by lenard Castro. I, Dr. Augustin Manzano personally performed the history, physical exam, and medical decision making; and confirmed the accuracy of the information in the transcribed note. Authenticated by Dr. Augustin Manzano on 09/06/17 at 16:25. Code Status Full code Discussed Condition With patient, ED PA Physician Certification 2 Midnight Certification Type: Admission for Inpatient Services Order for Inpatient Services The services are ordered in accordance with Medicare regulations or non- Medicare payer requirements, as applicable. In the case of services not specified as inpatient-only, they are appropriately provided as inpatient services in accordance with the 2-midnight benchmark. Estimated LOS (days): 2 days is the estimated time the patient will need to remain in the hospital, assuming treatment plan goals are met and no additional complications. Post-Hospital Plan: Bryan Taveras Sep 06, 2017 16:25 Augustin Manzano MD Sep 06, 2017 16:26
[2017-09-06] MEDS ORDERED: HEPARIN-NS/PF INJ 500 ML ONE (16:39)
[2017-09-06] MEDS ORDERED: RESP: ALBUTEROL 2.5 MG/IPRATROPIUM 0.5 MG NEB (PRN) NEB (16:45)
[2017-09-06] MEDS ORDERED: ENALAPRILAT 2.5 MG/2 ML VIAL IV PUSH PRN (16:45)
[2017-09-06] MEDS ORDERED: HEPARIN-NS/PF INJ 0 ML ONE (16:51)
[2017-09-06] MEDS ORDERED: HEPARIN SODIUM - IV 10,000 UNITS/10 ML VIAL ONE (16:55)
[2017-09-06] MEDS ORDERED: VERAPAMIL HCL 5 MG/2 ML VIAL ONE (16:55)
[2017-09-06] MEDS ORDERED: MIDAZOLAM HCL 2 MG/2 ML VIAL ONE ×2 (17:04→17:27)
[2017-09-06] MEDS ORDERED: LABETALOL HCL 100 MG/20 ML VIAL ONE (17:08)
[2017-09-06] MEDS ORDERED: hydrALAZINE HCL 20 MG/ML VIAL ONE (17:49)
--- NOTE | 2017-09-06 18:04 | CATHPROC ---
Lexity HIS Report Study Information Study Number Admission Scheduled Start Study Start [id number] Sep 06 2017 4:14PM 09/06/2017 Sep 06 2017 4:17PM Peel Service Cardiac Catheterization Admit Source Facility Department Emergency department [facility] - Sample Wrapper Physician and Clinical Staff Initial Alexis Law F[employer] Special Agent Enedelia Robert,YAN [employer] Special Agent Nacho Jensen RN Recorder Marylu Harrison,RT(R) Scrub Reggie Bentley RCIS(BS) Procedures Performed Procedure Location (Site) Vessel Name Coronary Angiograms RCA Right Coronary Coronary Angiograms SORENSON-LAD Left Coronary Coronary Angiograms SVG-OM CIRC L Heart Cath PTCA SVG-OM CIRC Wire insertion Radial (left) Radial Art. Equipment Time New Accounts Clerk Description Size Mfg Part Number Used/Scraped COPILOT VALVE, BLEEDBACK [id number] 17:30 [employer]ONSO [employer] Used CONTROL *[id number] TRANSDUCER, TRUWAVE [id number] 16:28 ATKINSON CAPELLAN * Used W/Sun AnimaticsCOCK *[id number] *[id number] 16:28 [employer] PACK, CCL CUSTOM * Used *[id number] 16:28 [employer]Time SUPPORT, ARTERIAL ADULT 80096 *[id number] Used BALLOON, 2.25 X 12MM [id number] 17:38 MEDTRONIC 12MM Used EUPHORA *[id number] 17:13 MEDTRONIC JR 4.0 DXTERITY CATHETER FR 5 [id number] Used [id number] 17:39 [email or web address] MEDICAL 30 JAH INDEFLATOR Used *[id number] BAND, RADIAL COMPRESSION TR [id number] 17:49 [email or web address] MEDICAL 29CM Used LARGE 29 *[id number] 16:28 [employer] WIRE, 3MMJ .035 180CM 180CM Used *[id number] 16:28 NAMIC MANIFOLD, 4 PORT * Used *[id number] 16:28 NYCOMED OMNIPAQUE, 350 MG, 150ML 150ML [id number] Used 17:42 NYCOMED OMNIPAQUE, 350 MG, 150ML 150ML [id number] Used 17:42 NYCOMED OMNIPAQUE, 350 MG, 150ML 150ML [id number] Used [id number] 16:28 BROWN [employer] BLANKET,WARM AIR CCL * Used *[id number] SHEATH, FR6 TRANSRADIAL [id number] 16:28 [employer] FR 6 Used SLENDER 10CM *[id number] WIRE, RUNTHROUGH NS FLOPPY [id number] 17:38 [employer] 180CM Used .014 180CM *[id number] Equipment Model, Serial, Lot Number and Expiration Data Description Model Number Serial Number Lot Number Expiration Date JR 4.0 DXTERITY CATHETER [id number] 05-19-2020 History: Current Medications Medication Dosage/Unit Route Frequency Last Date/Time Taken COZAAR PLAVIX LASIX Statins (any) LOPRESSOR LISINOPRIL History: Allergies Allergy Reaction No Known Allergies History: Risk Factors Family History of Hypertension Dyslipidemia Previous PA Previous Heart Failure Premature CAD Yes Yes Yes No No Prior Valve Prior PCI Prior PCIDate Prior CABG Prior CABGDate Surgery No Yes 06/22/2017 Yes 02/19/2017 Cerebrovascular Peripheral Artery Chronic Lung On Dialysis Diabetes Disease Disease Disease No No No No No History: Symptoms/Diagnosis Selection Items Chest pain History: Stress Tests Stress or Imaging Studies Performed No History: PA/CV Data Previous CABG Date 02/19/2017 History: Other Current Smoker Method Quit Packs a Day Years Used Pack Years No Cigarettes 38 Years Ago 1 4 4 Labs Hgb (g/dl) Hct (%) WBC (l/cumm) Platelets (thousands) 11.60-17.00 35.00-51.00 4.00-11.00 150.00-450.00 12.7 37.6 7.9 205 Glucose (mg/dl) BUN (mg/dl) Creatinine (mg/dl) BUN:Creatinine (1:x) 74.00-106.00 7.00-18.00 0.50-1.30 10.00-20.00 99 19 0.6 31.7 Na (meq/l) K (meq/l) 136.00-145.00 3.50-5.10 141 4.1 INR (PTT:PT) 0.90-1.10 1 Troponin I (ng/ml) CPK (u/l) 0.02-0.05 26.00-308.00 0.73 98 Medication Medication Total Dose (Bolus/Oral) Medication Total Dosage/Unit 1% XYLOCAINE 10 mL FENTANYL 150 mcg HEPARIN 5000 units HYDRALAZINE 20 mg LABETOLOL 20 mg OXYGEN 3 l/min RADIAL COCKTAIL 5 mL (Bolus) VERSED 3 mg Medications (Bolus/Oral) Medication Time Given Dosage/Unit Administered By Reason VERSED 09/06/2017 5:08:29 PM 2 mg Enedelia Robert 2 mg VERSED given in lab by Enedelia Robert RN in Left Hand via Peripheral IV. Ordered by Alexis Narvaez. 1% XYLOCAINE 09/06/2017 5:08:44 PM 10 mL Alexis Narvaez 10 mL 1% XYLOCAINE given in lab by Alexis Narvaez in Left Radial via Subcutaneous. Ordered by Alexis Wakefield. FENTANYL 09/06/2017 5:09:43 PM 50 mcg Enedelia Robert 50 mcg FENTANYL given in lab by Enedelia Robert RN in Left Hand via Peripheral IV. Ordered by Alexis Myers. LABETOLOL 09/06/2017 5:11:44 PM 20 mg Enedelia Robert 20 mg LABETOLOL given in lab by Enedelia Robert RN in Left Hand via Peripheral IV. Ordered by Alexis Myers. FENTANYL 09/06/2017 5:12:10 PM 25 mcg Enedelia Robert 25 mcg FENTANYL given in lab by Enedelia Robert RN in Left Hand via Peripheral IV. Ordered by Alexis Myers. Ntg 200mcg Verapamil 2.5mg Heparin RADIAL COCKTAIL 09/06/2017 5:12:25 PM 5 mL (Bolus) Alexis Narvaez 2500U 5 mL (Bolus) RADIAL COCKTAIL given in lab by Alexis Narvaez in Left Radial via Radial. Using [Solu tion Name]. Ordered by Alexis Narvaez. Reason: Ntg 200mcg Verapamil 2.5mg Heparin 2500U. HEPARIN 09/06/2017 5:28:06 PM 5000 units Enedelia Robert 5000 units HEPARIN given in lab by Enedelia Robert RN in Left Hand via Peripheral IV. Ordered by Alexis Denis. VERSED 09/06/2017 5:29:13 PM 1 mg Enedelia Robert 1 mg VERSED given in lab by Enedelia Robert RN in Left Hand via Peripheral IV. Ordered by Alexis Narvaez. FENTANYL 09/06/2017 5:30:02 PM 25 mcg Enedelia Robert 25 mcg FENTANYL given in lab by Enedelia Robert RN in Left Hand via Peripheral IV. Ordered by Alexis Myers. OXYGEN 09/06/2017 5:33:28 PM 3 l/min Enedelia Robert 3 l/min OXYGEN given in lab by Enedelia Robert RN via Nasal. Ordered by Alexis Narvaez. FENTANYL 09/06/2017 5:36:33 PM 25 mcg Enedelia Robert 25 mcg FENTANYL given in lab by Enedelia Robert RN in Left Hand via Peripheral IV. Ordered by Alexis Myers. FENTANYL 09/06/2017 5:47:36 PM 25 mcg Enedelia Robert 25 mcg FENTANYL given in lab by Enedelia Robert RN in Left Hand via Peripheral IV. Ordered by Alexis Myers. HYDRALAZINE 09/06/2017 5:52:24 PM 20 mg Enedelia Robert 20 mg HYDRALAZINE given in lab by Enedelia Robert RN in Left Hand via Peripheral IV. Ordered by Alexis Wakefield. Medication (Drip) Medication Time Given Dosage/Unit Concentration/Unit Diluent (ml) Solution IV Solutions 09/06/2017 4:53:05 PM 0 mL (IV) 90 NaCl .9 Patient arrived on IV Solutions in Left Hand via Peripheral IV. Pump/Drip Flow = 20 ml/hr using NaCl .9 with a concentration of 90 in 90 ml. Initial Case Assessment Cardiovascular HR Rhythm NIBP Chest Pain 84 SR 206/101 1 Circulatory - Right Pulses Dorsalis Pedis Femoral Radial 1 1 1 Scale (0,1,2,3,4,d) Circulatory - Left Pulses Dorsalis Pedis Femoral Radial 1 1 Scale (0,1,2,3,4,d) Neurological State Oriented to time-place- Alert Moves all extremities person Respiration - General Respiration Rate SpO2 (%) (B/min) 8 99 Chronological Log Time Study Chronological Log 16:52:00 Patient arrived via Bed. 16:52:01 Patient Name, D.O.B, / Armband Verified By R.N. 16:52:03 Consent signed by the physician and the patient and verified by the Sample Wrapper staff. 16:52:04 Pre-op and post- op instructions given; patient acknowledges understanding of instruction s. 16:52:05 Verbal Stimulation=2 Physical Stimulation=2 Airway=2 Respiration=2 TOTAL=8. (0=absent, 1= limited, 2=present) 16:52:55 Presedation assessment performed by Sample Wrapper RN. 16:52:57 Patient has been NPO for More than 6Hrs. 16:52:59 Skin Breakdown-NONE 16:53:01 Epifanio Prominences Protected 16:53:04 A # 20 IV was noted in the Hand (left). Grade = PATENT Patient arrived on IV Solutions in Left Hand via Peripheral IV. Pump/Drip Flow = 20 ml/hr usi ng NaCl .9 with a 16:53:05 concentration of 90 in 90 ml. 16:53:06 History and physical on the chart or being dictated. 16:57:54 Allens test performed on the left radial and ulnar artery. Vitals capture started with the following parameters, Patient=Adult, Interval=5 min, Initial Fhlejibl=877 mmHg, 16:58:22 Deflation Rate=5 mmHg, Cuff placed on Left Arm 16:59:37 Reference ECG taken 17:00:23 HR=86 bpm, SMIK=448/101 mmhg, SpO2=98.0 %, Resp=17 B/min, Pain=1, Alpesh=10, Baugh=2 Assessment: Initial Case, HR=84 BPM, Rhythm=SR, QVIF=757/101 mmhg, Chest Pain=1 Right Pulses: Eddie Ped=1, Femoral=1, Radial=1 17:01:53 Left Pulses: Eddie Ped=1, Femoral=1 Neurological: State=Alert, Ox3, ROTHMAN Respiration: Resp=8 B/min, SpO2=99 % 17:03:08 Right groin and left wrist prepped with 2% chlorhexidine, and draped after a 3 min. waiting time. 17:04:15 HR=85 bpm, PWLL=986/98 mmhg, SpO2=97.0 %, Resp=13 B/min 17:05:30 paged 17:07:12 MD arrived. 17:07:22 Pressure channel 1 zeroed. Time Out. Correct patient, correct procedure, correct physician, power injector not loaded with contrast with surgical 17:07:55 team present. Time Out Concurred by MD and individual staff in procedure. 17:08:29 2 mg VERSED given in lab by Enedelia Robert RN in Left Hand via Peripheral IV. Ordered by Alexis Narvaez. 17:08:41 Case Start 10 mL 1% XYLOCAINE given in lab by Alexis Narvaez in Left Radial via Subcutaneous. Ordered b y Brice, 17:08:44 Alexis. 17:09:14 HR=93 bpm, DPNL=048/106 mmhg, SpO2=98.0 %, Resp=21 B/min 17:09:43 50 mcg FENTANYL given in lab by Enedelia Robert, YAN in Left Hand via Peripheral IV. Ordered by Alexis Narvaez. 17:11:15 Access site was Radial Artery. left A SHEATH, FR6 TRANSRADIAL SLENDER 10CM FR 6 was advanced into the Radial (left) using the George araiza 17:11:28 technique. 17:11:44 20 mg LABETOLOL given in lab by Enedelia Robert RN in Left Hand via Peripheral IV. Ordered by Alexis Narvaez. 17:12:10 25 mcg FENTANYL given in lab by Enedelia Robert RN in Left Hand via Peripheral IV. Ordered by Alexis Narvaez. 5 mL (Bolus) RADIAL COCKTAIL given in lab by Alexis Narvaez in Left Radial via Radial. Using [Solution Name]. 17:12:25 Ordered by Alexis Narvaez. Reason: Ntg 200mcg Verapamil 2.5mg Heparin 2500U. A JR 4.0 DXTERITY CATHETER FR 5 was advanced over a wire. OMNIPAQUE, 350 MG, 150ML 150ML was us ed for 17:12:39 injections. 17:14:09 HR=95 bpm, GAPT=848/99 mmhg, SpO2=93.0 %, Resp=17 B/min Recorded Pressure: Ao, HR=92, Condition=Condition 1 17:15:27 (Aorta) Ao 193/94/138 17:16:20 The SORENSON-LAD was injected and visualized at various angles. OMNIPAQUE, 350 MG, 150ML 150ML used. 17:17:21 A WIRE, 3MMJ .035 180CM 180CM was inserted via Radial (left). 17:19:12 HR=92 bpm, GMIT=631/98 mmhg, SpO2=93.0 %, Resp=20 B/min 17:19:33 The RCA was injected and visualized at various angles. OMNIPAQUE, 350 MG, 150ML 150ML used . 17:20:17 The SVG-OM was injected and visualized at various angles. OMNIPAQUE, 350 MG, 150ML 150ML us ed. 17:23:40 Catheter was removed 17:24:15 HR=92 bpm, DFHX=740/101 mmhg, SpO2=93.0 %, Resp=14 B/min A JR 4.0 GUIDE CATHETER FR 6 was advanced over a wire. OMNIPAQUE, 350 MG, 150ML 150ML was used for 17:27:13 injections. 17:28:06 5000 units HEPARIN given in lab by Enedelia Robert RN in Left Hand via Peripheral IV. Orde red by Alexis Narvaez. 17:29:13 1 mg VERSED given in lab by Enedelia Robert RN in Left Hand via Peripheral IV. Ordered by Alexis Narvaez. 17:29:16 HR=89 bpm, GBNB=674/96 mmhg, SpO2=91.0 %, Resp=21 B/min 17:30:02 25 mcg FENTANYL given in lab by Enedelia Robert RN in Left Hand via Peripheral IV. Ordered by Alexis Narvaez. 17:33:28 3 l/min OXYGEN given in lab by Enedelia Robert RN via Nasal. Ordered by Alexis Narvaez. 17:34:13 HR=88 bpm, DRAM=703/103 mmhg, SpO2=93 %, Resp=22 B/min 17:36:33 25 mcg FENTANYL given in lab by Enedelia Robert RN in Left Hand via Peripheral IV. Ordered by Alexis Narvaez. 17:37:30 A WIRE, RUNTHROUGH NS FLOPPY .014 180CM 180CM was inserted via Radial (left). 17:38:52 Interventional wire has crossed the lesion A BALLOON, 2.25 X 12MM EUPHORA 12MM was inserted over WIRE, RUNTHROUGH NS FLOPPY .014 180CM 180 CM 17:38:57 via the SVG-OM. 17:39:14 HR=90 bpm, FUVD=651/101 mmhg, SpO2=93.0 %, Resp=23 B/min A BALLOON, 2.25 X 12MM EUPHORA 12MM over a WIRE, RUNTHROUGH NS FLOPPY .014 180CM 180CM in the S VG- 17:39:18 OM was inflated using a 30 JAH INDEFLATOR at 8 jah for 10 sec. A BALLOON, 2.25 X 12MM EUPHORA 12MM over a WIRE, RUNTHROUGH NS FLOPPY .014 180CM 180CM in the S VG- 17:40:11 OM was inflated using a 30 JAH INDEFLATOR at 8 jah for 15 sec. 17:40:50 Balloon Removed. 17:44:15 HR=88 bpm, HEEV=055/96 mmhg, SpO2=91.0 %, Resp=21 B/min A BALLOON, 2.25 X 12MM EUPHORA 12MM was inserted over WIRE, RUNTHROUGH NS FLOPPY .014 180CM 180 CM 17:45:01 via the Radial (left). A BALLOON, 2.25 X 12MM EUPHORA 12MM over a WIRE, RUNTHROUGH NS FLOPPY .014 180CM 180CM in the S VG- 17:45:16 OM was inflated using a 30 JAH INDEFLATOR at 12 jah for 25 sec. 17:47:14 Balloon Removed. 17:47:22 Wire removed 17:47:36 25 mcg FENTANYL given in lab by Enedelia Robert RN in Left Hand via Peripheral IV. Ordered by Alexis Narvaez. 17:47:38 Catheter was removed 17:49:03 Case End 17:49:16 HR=87 bpm, EWRX=029/91 mmhg, SpO2=94.0 %, Resp=22 B/min Radial Compression Device Used. 12 mLs of air placed in BAND, RADIAL COMPRESSION TR LARGE 29 29 CM. Affected 17:52:13 hand ~O2 SATURATION~ % O2 saturation. 17:52:24 20 mg HYDRALAZINE given in lab by Enedelia Robert RN in Left Hand via Peripheral IV. Order ed by Alexis Narvaez. 17:54:07 No case complications noted. 17:54:08 Cine recording checked. 17:54:09 Bedside Report will be given. 17:54:15 HR=85 bpm, BZCN=020/87 mmhg, SpO2=94.0 %, Resp=18 B/min 17:54:19 Contrast Scanned 17:54:20 A Left Heart Cath was performed. 18:02:30 Patient moved to stretcher 18:02:45 Vitals capture stopped. End Study - Contrast Media Used In Study Contrast Total Opened (mL) Total Used (mL) Total Wasted (mL) Omnipaque 125 125 0 End Study - Maximum Contrast Load Max Contrast Load (mL) 1003.8 End Study - Radiation Exposure Fluoro Time (minutes) 18.5 End Study - Patient Disposition Complications Transferred To Interventional Outcome No Telemetry Bed successful
--- NOTE | 2017-09-06 19:27 | MB ---
cc: MOJGAN CHAVEZ DATE OF CONSULTATION 09/06/2017 DATE OF 1955 REASON FOR CONSULTATION Chest pain, elevated troponins. HISTORY OF THE PRESENT ILLNESS 62-year-old female known to me with history of coronary artery disease status post CABG x3 in January [address] Luna and subsequent PCI to ostial right coronary artery and SVG to OM who presents to the emergency department with complaints of substernal chest pressure for two days. She reports that she has been in her usual state of health until recently when she started developing these chest pains characterized as pressure in the chest, relieved by nitroglycerin similar to prior events of chest discomfort. She denies shortness of breath, cough, nausea, vomiting, diarrhea, noncompliance with medications, fever or chills or bleeding issues. In the emergency department EKG reveals sinus rhythm without any acute ST changes. First troponin 0.73 for which cardiology has been consulted for further management and evaluation. REVIEW OF SYSTEMS Negative except for what is mentioned in HPI. PAST MEDICAL HISTORY 1. Morbid obesity. 2. Hypertension. 3. Hyperlipidemia. 4. Gastroesophageal reflux disease. PAST SURGICAL HISTORY Coronary artery bypass graft times three in 2017. PCI / MINE to SVG to left circumflex artery and ostial right coronary artery. MEDICATIONS Home medications: 1. Aspirin. 2. Plavix. 3. Lasix. 4. Imdur. 5. Lisinopril. 6. Lovastatin. 7. Metoprolol. 8. Ranitidine. FAMILY HISTORY Noncontributory. SOCIAL HISTORY She denies illicit drug use, alcohol abuse or smoking. PHYSICAL EXAMINATION VITAL SIGNS: Temperature 98.3, heart rate 61, respiratory rate 18, blood pressure 211/93. GENERAL: She is awake, alert, oriented x3 in no acute distress. NECK: No JVD, no carotid bruits. CARDIOVASCULAR: Regular rate and rhythm. No murmurs, rubs or gallops. LUNGS: Clear to auscultation bilaterally. EXTREMITIES: No cyanosis. No edema. Pulses throughout. LABORATORY DATA CBC, hemoglobin 12, hematocrit 37, platelet count 205. INR 1.0. Chemistries, sodium 141, potassium 4.1, BUN 19, creatinine 0.66. Troponin 0.73. INR 1.0. EKG no acute cardiopulmonary process. EKG normal sinus rhythm. No acute ST changes. ASSESSMENT/PLAN 62-year-old female with known CAD status post recent coronary artery bypass graft and PCI presenting with chest pains and elevated troponin concerning for acute coronary syndrome, possible instent restenosis. Currently she reports being chest pain free. Denies shortness of breath, PND, leg edema, syncope. I agree with admission to the hospital for further cardiac evaluation. The patient should be started on a heparin drip. Continue aspirin and Plavix as well as home medications for coronary artery disease and schedule for LHC +/- PCI today. Ris benefits including but not limited to bleeding, infection, neurovascular trauma, stroke, and have been explain to patient, she understands risks and is willing to proceed. Start Norvasc 5 mg p.o. daily for better BP control. Thank you for the opportunity to participate in the care of this patient. Further management to be determined. MD GERRY Sanchez/JOCELYN /4:21 PM /7:05 PM MTDMartha
[2017-09-06] MEDS ORDERED: METOPROLOL TARTRATE 50 MG TAB PO SCH (21:00)
[2017-09-06] MEDS: SODIUM CHLORIDE 0.9% FLUSH 10 ML FLUSH IV FLUSH SCH (21:39)
[2017-09-06] MEDS: FAMOTIDINE 20 MG TAB PO SCH (21:39)
--- NOTE | 2017-09-06 21:49 | MA ---
cc: MOJGAN CHAVEZ DATE: 09/06/2017 DATE OF 1955 PROCEDURE PERFORMED 1. Left heart catheterization. 2. Selective SORENSON and graft angiography. INDICATION [id number] [place], chest pain. DESCRIPTION OF PROCEDURE Consent signed. The patient was prepped and draped in sterile fashion. Using 1 % lidocaine for local anesthesia and a micropuncture kit a 6-Spanish sheath was inserted into the left radial artery. Antispasmodic cocktail given. Then selective SORENSON, right coronary artery and SVG to OM angiography was done. Angiography was taken in multiple views. We identified occlusion of the OM graft put in previously. This lesion was amendable to PCI for which we proceeded to intervene. For this the graft was engaged with a JR-4 guide. Heparin was given for IV anticoagulation. The vessel was wired with a run- through wire which was positioned distally at the OM through the saphenous vein graft. Then the previous stent was postdilated with a 2.5 12 stent several times to high atmospheres. Final angiographic views revealed good stent apposition and MARIAH III flow. The patient tolerated the procedure well without complications. Estimated blood loss is less than 10 mL. Total contrast used 125 mL. The right wrist access site was closed with a TR band. ANGIOGRAPHY -Left main is known to be occluded. -LAD is 100% occluded proximally. -Left circumflex is 100% occluded ostially. -Right coronary artery is a dominant vessel giving off the PDA and several PLB branches. It has minimal luminal irregularities throughout and a -patent stent in the ostial segment of the right coronary artery. -The SORENSON to the LAD is patent. It is anastomosed in the mid LAD. The LAD after the anastomosis is a transapical vessel and it is filling retrograde to diagonal artery. Of note there is a kink in the SORENSON which has not changed since previous angiography. -SVG to OM. The SVG to OM-2 is patent. However, after the anastomosis there is a 100% occlusion of the OM and there is MARIAH 0 flow. The SVG graft is filling retrograde to the whole body of the left circumflex artery and the AV groove, circ. CONCLUSION Successful POBA to OM1 through the saphenous vein graft in the setting of stent restenosis. Patent SORENSON to the LAD and SVG to OM artery. Patent stent in the ostial right coronary artery. Severely uncontrolled high blood pressure. RECOMMENDATIONS The patient will go to the [facility] for post cath care. She will be given IV hydration for the next 4 hours. Continue aspirin and Plavix and aggressive medical management for secondary prevention of CAD. The patient's blood pressure should be aggressively managed. MD GERRY Sanchez/JOCELYN /5:52 PM /9:35 PM MTDD
[2017-09-06 23:05] VITALS: BP 144/86; PULSE 79; RESP 18; TEMP 98.5; O2SAT 96
[2017-09-07] VITALS (8 sets, daily range): BP systolic 142–169; BP diastolic 68–86; PULSE 16–77; RESP 16–18; TEMP 97.4–98.6; O2SAT 97
[2017-09-07 01:22] LABS: TROPONIN I 2.67 NG/ML (0.02-0.05)
[2017-09-07 06:42] LABS: BICARBONATE 23.1 MEQ/L (21.0-32.0); CALCIUM 8.5 MG/DL (8.5-10.1); CREATININE 0.47 MG/DL (0.50-1.00)
[2017-09-07 06:43] LABS: AUTOMATED NEUTROPHIL # 4.3 TH/MM3 (1.8-7.7); BASOPHIL # 0.1 TH/MM3 (0-0.2); EOSINOPHIL # 0.1 TH/MM3 (0-0.4); EOSINOPHIL % 1.7 % (0.0-4.0); HEMATOCRIT 35.7 % (35.0-46.0); LYMPH % 18.7 % (9.0-44.0); LYMPHOCYTE # 1.2 TH/MM3 (1.0-4.8); MEAN CELL VOLUME 82.6 FL (80.0-100.0); MEAN CORPUSCULAR HEMOGLOBIN 27.7 PG (27.0-34.0); MEAN CORPUSCULAR HGB CONC 33.5 % (32.0-36.0); MEAN PLATELET VOLUME 10.3 FL (7.0-11.0); MONO % 10.2 % (0.0-8.0); MONOCYTE # 0.6 TH/MM3 (0-0.9); NEUT % 68.4 % (16.0-70.0); PLATELET COUNT 160 TH/MM3 (150-450); RED BLOOD COUNT 4.33 MIL/MM3 (4.00-5.30); WHITE BLOOD COUNT 6.2 TH/MM3 (4.0-11.0)
[2017-09-07] MEDS ORDERED: ISOSORBIDE MONONITRATE 30 MG TAB PO SCH (07:00)
[2017-09-07] MEDS: SODIUM CHLORIDE 0.9% FLUSH 10 ML FLUSH IV FLUSH SCH (09:00)
[2017-09-07] MEDS ORDERED: CLOPIDOGREL 75 MG TAB PO SCH (09:00)
[2017-09-07] MEDS: FAMOTIDINE 20 MG TAB PO SCH (09:00)
[2017-09-07] MEDS ORDERED: FUROSEMIDE 20 MG TAB PO SCH (09:00)
[2017-09-07] MEDS ORDERED: LISINOPRIL 20 MG TAB PO SCH (09:00)
[2017-09-07] MEDS ORDERED: PRAVASTATIN SOD 20 MG TAB PO SCH (09:00)
[2017-09-07] MEDS ORDERED: ASPIRIN 81 MG CHEW TAB PO SCH (09:00)
--- NOTE | 2017-09-07 09:10 | PD.CARD.PN ---
Subjective Subjective Remarks no overnight events chest pain free BP better controlled Objective Medications Current Medications Medications (Trade) Dose Ordered Sig/Dalila Route Start Time Stop Time Status Last Admin (Aspirin Chew) 81 mg DAILY PO 09/07/17 09:00 (Plavix) 75 mg DAILY PO 09/07/17 09:00 (Lasix) 20 mg DAILY PO 09/07/17 09:00 (Imdur) 30 mg DAILY@0700 PO 09/07/17 07:00 09/07/17 06:19 (Prinivil) 20 mg DAILY PO 09/07/17 09:00 (Pravachol) 60 mg DAILY PO 09/07/17 09:00 (Lopressor) 50 mg BID PO 09/06/17 21:00 09/06/17 21:00 (Pepcid) 20 mg BID PO 09/06/17 21:00 (NS Flush) 2 ml BID IV FLUSH 09/06/17 21:00 09/06/17 21:39 (NS Flush) 2 ml UNSCH PRN IV FLUSH 09/06/17 16:15 (Nitrostat Sl) 0.4 mg Q5M PRN SL 09/06/17 16:15 (Vasotec Inj) 2.5 mg Q6H PRN IV PUSH 09/06/17 16:45 (Duoneb Neb) 1 ampule Q2HR NEB PRN NEB 09/06/17 16:45 Vital Signs / I&O Vital Signs Date Time Temp Pulse Resp B/P (MAP) Pulse Ox O2 Delivery O2 Flow Rate FiO2 09/07/17 07:00 97.4 16 16 157/68 (97) 97 09/07/17 07:00 77 09/07/17 06:00 68 09/07/17 05:00 74 09/07/17 04:00 98.3 72 18 169/86 (113) 97 09/07/17 04:00 74 09/07/17 03:00 66 09/07/17 02:00 66 09/07/17 01:00 68 09/07/17 00:00 98.6 67 18 142/72 (95) 97 09/06/17 23:05 98.5 79 18 144/86 (105) 96 09/06/17 18:07 96 4.00 09/06/17 15:00 123 16 208/95 (132) 97 09/06/17 12:28 61 18 98 Room Air 09/06/17 12:02 98.3 68 16 211/93 (132) 96 I/O 09/06/17 09/06/17 09/06/17 09/07/17 09/07/17 09/07/17 07:00 15:00 23:00 07:00 15:00 23:00 Intake Total 480 ml Output Total 1050 ml Balance -570 ml Intake Oral 480 ml Output Urine Total 1050 ml Physical Exam GENERAL: Well-nourished, well-developed patient. SKIN: Warm and dry. HEAD: Normocephalic. EYES: No scleral icterus. No injection or drainage. NECK: Supple, trachea midline. No JVD or lymphadenopathy. CARDIOVASCULAR: Regular rate and rhythm without murmurs, gallops, or rubs. RESPIRATORY: Breath sounds equal bilaterally. No accessory muscle use. GASTROINTESTINAL: Abdomen soft, non-tender, nondistended. EXTREMITIES: No cyanosis, or edema. NEUROLOGICAL: Awake, alert, and oriented x 3. Non-focal. Laboratory Laboratory Tests Test 09/06/17 12:30 09/07/17 00:16 09/07/17 06:11 White Blood Count 7.9 TH/MM3 6.2 TH/MM3 Red Blood Count 4.61 MIL/MM3 4.33 MIL/MM3 Hemoglobin 12.7 GM/DL 12.0 GM/DL Hematocrit 37.6 % 35.7 % Mean Corpuscular Volume 81.5 FL 82.6 FL Mean Corpuscular Hemoglobin 27.6 PG 27.7 PG Mean Corpuscular Hemoglobin Concent 33.8 % 33.5 % Red Cell Distribution Width 15.9 % 16.0 % Platelet Count 205 TH/MM3 160 TH/MM3 Mean Platelet Volume 11.4 FL 10.3 FL Neutrophils (%) (Auto) 69.4 % 68.4 % Lymphocytes (%) (Auto) 18.8 % 18.7 % Monocytes (%) (Auto) 9.0 % 10.2 % Eosinophils (%) (Auto) 1.5 % 1.7 % Basophils (%) (Auto) 1.3 % 1.0 % Neutrophils # (Auto) 5.5 TH/MM3 4.3 TH/MM3 Lymphocytes # (Auto) 1.5 TH/MM3 1.2 TH/MM3 Monocytes # (Auto) 0.7 TH/MM3 0.6 TH/MM3 Eosinophils # (Auto) 0.1 TH/MM3 0.1 TH/MM3 Basophils # (Auto) 0.1 TH/MM3 0.1 TH/MM3 CBC Comment DIFF FINAL DIFF FINAL Differential Comment Prothrombin Time 10.1 SEC Prothromb Time International Ratio 1.0 RATIO Activated Partial Thromboplast Time 27.4 SEC Blood Urea Nitrogen 19 MG/DL 11 MG/DL Creatinine 0.66 MG/DL 0.47 MG/DL Random Glucose 99 MG/DL 96 MG/DL Calcium Level 8.9 MG/DL 8.5 MG/DL Magnesium Level 2.2 MG/DL Sodium Level 141 MEQ/L 141 MEQ/L Potassium Level 4.1 MEQ/L 3.5 MEQ/L Chloride Level 109 MEQ/L 109 MEQ/L Carbon Dioxide Level 22.3 MEQ/L 23.1 MEQ/L Anion Gap 10 MEQ/L 9 MEQ/L Estimat Glomerular Filtration Rate 91 ML/MIN 135 ML/MIN Total Creatine Kinase 98 U/L 106 U/L Troponin I 0.73 NG/ML 2.67 NG/ML Imaging Last Impressions Chest X-Ray 09/06/17 0000 Signed Impressions: Service Date/Time: Wednesday, September 06, 2017 12:50 - CONCLUSION: No acute disease. No significant change has occurred. Gideon Harrison MD Assessment and Plan Problem List: (1) NSTEMI (non-ST elevated myocardial infarction) ICD Codes: I21.4 - Non-ST elevation (NSTEMI) myocardial infarction Status: Acute Plan: s/p POBA to OM in the setting of stent restenosis. Afebrile, chest pain free and hemodynamically stable. BP better controlled. Recommendations: 1. ASA and Plavix 2. Imdur 60mg PO daily 3. Lopressor 100mg PO BID 4. Lisinopril 40mg PO daily 5. Stable from CV standpoint to d/c home today 6. Follow up with Cardiology upon discharge (2) Hyperlipidemia ICD Codes: E78.5 - Hyperlipidemia, unspecified Status: Chronic (3) Morbid obesity ICD Codes: E66.01 - Morbid (severe) obesity due to excess calories Status: Acute (4) Hypertension ICD Codes: I10 - Essential (primary) hypertension Status: Acute (5) CAD (coronary artery disease) ICD Codes: I25.10 - Atherosclerotic heart disease of [place] coronary artery without angina pectoris Status: Acute Problem Qualifiers (1) Hypertension: Qualified Codes: I10 - Essential (primary) hypertension Alexis Narvaez MD Sep 07, 2017 09:10
--- NOTE | 2017-09-07 09:17 | HHI.PR ---
Subjective Remarks This is a pleasant 62 y/o Female with Chest pain, she has CAD s/p CABG, cardiac catheter 2, HTN, HLD, and GERD. Seen by community education specialist Doctor Sylvester status post Cardiac Catheterization successful [place] angioplasty to OM1 through the saphenous vein graft in the setting of stent restenosis, patent SORENSON to the LAD and SVG to OM artery, patent stent in the ostial right coronary artery, Severely uncontrolled high blood pressure to continue Aspirin and Plavix. Today continue with mild uncontrol of blood pressure will adjust blood pressure medicines and will need to be followed by PCP in 2 to 3 days and by community education specialist in one week, as per Doctor Sylvester at this time recommended to continue Aspirin and Plavix and Imdur 60 mg daily Lopressor to 100 mg BID, Lisinopril 40 mg daily. Stable from community education specialist for discharge and follow with Cardiology at discharge, patient asymptomatic left radial area with mild edema. Objective Vital Signs Date Time Temp Pulse Resp B/P (MAP) Pulse Ox O2 Delivery O2 Flow Rate FiO2 09/07/17 07:00 97.4 16 16 157/68 (97) 97 09/07/17 07:00 77 09/07/17 06:00 68 09/07/17 05:00 74 09/07/17 04:00 98.3 72 18 169/86 (113) 97 09/07/17 04:00 74 09/07/17 03:00 66 09/07/17 02:00 66 09/07/17 01:00 68 09/07/17 00:00 98.6 67 18 142/72 (95) 97 09/06/17 23:05 98.5 79 18 144/86 (105) 96 09/06/17 18:07 96 4.00 09/06/17 15:00 123 16 208/95 (132) 97 09/06/17 12:28 61 18 98 Room Air 09/06/17 12:02 98.3 68 16 211/93 (132) 96 I/O 09/06/17 09/06/17 09/06/17 09/07/17 09/07/17 09/07/17 07:00 15:00 23:00 07:00 15:00 23:00 Intake Total 480 ml Output Total 1050 ml Balance -570 ml Intake Oral 480 ml Output Urine Total 1050 ml Result Diagram: 09/07/17 0611 09/07/17 0611 Imaging Last Impressions Chest X-Ray 09/06/17 0000 Signed Impressions: Service Date/Time: Wednesday, September 06, 2017 12:50 - CONCLUSION: No acute disease. No significant change has occurred. Gideon Harrison MD Procedures Status post Cardiac Catheterization successful [place] angioplasty to OM1 through the saphenous vein graft in the setting of stent restenosis, patent SORENSON to the LAD and SVG to OM artery, patent stent in the ostial right coronary artery, Severely uncontrolled high blood pressure to continue Aspirin and Plavix. 09/06/17 Other Results Laboratory Tests Test 09/06/17 12:30 09/07/17 00:16 09/07/17 06:11 Prothrombin Time 10.1 SEC Prothromb Time International Ratio 1.0 RATIO Activated Partial Thromboplast Time 27.4 SEC Blood Urea Nitrogen 19 MG/DL 11 MG/DL Creatinine 0.66 MG/DL 0.47 MG/DL Random Glucose 99 MG/DL 96 MG/DL Calcium Level 8.9 MG/DL 8.5 MG/DL Magnesium Level 2.2 MG/DL Sodium Level 141 MEQ/L 141 MEQ/L Potassium Level 4.1 MEQ/L 3.5 MEQ/L Chloride Level 109 MEQ/L 109 MEQ/L Carbon Dioxide Level 22.3 MEQ/L 23.1 MEQ/L Total Creatine Kinase 106 U/L Troponin I 2.67 NG/ML White Blood Count 6.2 TH/MM3 Red Blood Count 4.33 MIL/MM3 Hemoglobin 12.0 GM/DL Hematocrit 35.7 % Mean Corpuscular Volume 82.6 FL Mean Corpuscular Hemoglobin 27.7 PG Mean Corpuscular Hemoglobin Concent 33.5 % Red Cell Distribution Width 16.0 % Platelet Count 160 TH/MM3 Mean Platelet Volume 10.3 FL Neutrophils (%) (Auto) 68.4 % Lymphocytes (%) (Auto) 18.7 % Monocytes (%) (Auto) 10.2 % Eosinophils (%) (Auto) 1.7 % Basophils (%) (Auto) 1.0 % Neutrophils # (Auto) 4.3 TH/MM3 Lymphocytes # (Auto) 1.2 TH/MM3 Monocytes # (Auto) 0.6 TH/MM3 Eosinophils # (Auto) 0.1 TH/MM3 Basophils # (Auto) 0.1 TH/MM3 CBC Comment DIFF FINAL Differential Comment Anion Gap 9 MEQ/L Estimat Glomerular Filtration Rate 135 ML/MIN Objective Remarks GENERAL: This is a well-nourished, well-developed patient, in no apparent distress. SKIN: No rashes, ecchymoses or lesions. Cool and dry. HEAD: Atraumatic. Normocephalic. No temporal or scalp tenderness. EYES: Pupils equal round and reactive. Extraocular motions intact. No scleral icterus. No injection or drainage. ENT: Nose without bleeding, purulent drainage or septal hematoma. Airway patent. NECK: Trachea midline. No JVD or lymphadenopathy. Supple, nontender. CARDIOVASCULAR: Regular rate and rhythm without murmurs, gallops, or rubs. RESPIRATORY: Clear to auscultation. Breath sounds equal bilaterally. No wheezes , rales, or rhonchi. GASTROINTESTINAL: Abdomen soft, non-tender, nondistended. No palpable masses. No guarding. MUSCULOSKELETAL: Extremities without clubbing, cyanosis, or edema. No joint tenderness, effusion, or edema noted. No calf tenderness. NEUROLOGICAL: Awake and alert. Cranial nerves II through XII intact. Motor and sensory grossly within normal limits. Five out of 5 muscle strength in all muscle groups. Normal speech, facial droop. Medications and IVs Current Medications Medications (Trade) Dose Ordered Sig/Dalila Route Start Time Stop Time Status Last Admin (Aspirin Chew) 81 mg DAILY PO 09/07/17 09:00 (Plavix) 75 mg DAILY PO 09/07/17 09:00 (Lasix) 20 mg DAILY PO 09/07/17 09:00 (Pravachol) 60 mg DAILY PO 09/07/17 09:00 (Pepcid) 20 mg BID PO 09/06/17 21:00 (NS Flush) 2 ml BID IV FLUSH 09/06/17 21:00 09/06/17 21:39 (NS Flush) 2 ml UNSCH PRN IV FLUSH 09/06/17 16:15 (Nitrostat Sl) 0.4 mg Q5M PRN SL 09/06/17 16:15 (Vasotec Inj) 2.5 mg Q6H PRN IV PUSH 09/06/17 16:45 (Duoneb Neb) 1 ampule Q2HR NEB PRN NEB 09/06/17 16:45 (Imdur) 60 mg DAILY@0700 PO 09/08/17 07:00 (Prinivil) 40 mg DAILY PO 09/08/17 09:00 (Lopressor) 100 mg BID PO 09/07/17 21:00 A/P Assessment and Plan 1. Unstable angina - Cardiac catheter on 02/17/17 due to unstable angina: Significant left main and ostial right coronary artery stenosis. Preserved LV function estimated EF 60%. CABG x3 on 02/19/[address] Luna Cardiac cath on 06/22/17 due to unstable angina: Successful PCI to ostial right coronary artery with a drug-eluting stent. Successful PCI to SVG to OM with a drug-eluting stent. preserved systolic function, Elevated LVEDP. Estimated EF 60%. Status post Cardiac Catheterization successful [place] angioplasty to OM1 through the saphenous vein graft in the setting of stent restenosis, patent SORENSON to the LAD and SVG to OM artery, patent stent in the ostial right coronary artery, Severely uncontrolled high blood pressure to continue Aspirin and Plavix. Today continue with mild uncontrol of blood pressure will adjust blood pressure medicines and will need to be followed by PCP in 2 to 3 days and by community education specialist in one week, as per Doctor Sylvester at this time recommended to continue Aspirin and Plavix and Imdur 60 mg daily Lopressor to 100 mg BID, Lisinopril 40 mg daily. Stable from community education specialist for discharge and follow with Cardiology at discharge , patient asymptomatic left radial area with mild edema. 2. Hypertension Mild Uncontrol read #1 3. HLD continue Statins 4. Morbid Obesity strongly recommended diet and exercise, weight loss warranted. DVT prophylaxis-SCDs Code Status Full code Discharge Planning discharge Home today. Peter Lynch MD Sep 07, 2017 09:17
[2017-09-07] MEDS ORDERED: ISOS60TA PO (10:55)
[2017-09-07] MEDS ORDERED: METO-338 PO (10:55)
[2017-09-07] MEDS ORDERED: LISI-515 PO (10:55)
[2017-09-07] MEDS ORDERED: NITR0.4S SL (10:55)
--- NOTE | 2017-09-07 11:02 | HHI.DS ---
Discharge Summary Admission Date Sep 06, 2017 at 16:40 Discharge Date: Sep 07, 2017 Admitting Diagnosis atypical chest pain, elevated troponin (1) Unstable angina ICD Code: I20.0 - Unstable angina Diagnosis: Principal Status: Acute Procedures Status post Cardiac Catheterization successful [place] angioplasty to OM1 through the saphenous vein graft in the setting of stent restenosis, patent SORENSON to the LAD and SVG to OM artery, patent stent in the ostial right coronary artery, Severely uncontrolled high blood pressure to continue Aspirin and Plavix. 09/06/17 Brief History - From Admission Written by Bryan Castro, acting as scribe for Dr. Julian] on 09/06/17 at 16: 25. 62-year-old female who presents to the ED due to ongoing chest pain which originally began or Wednesday of last week. Patient has a past medical history which is significant for CAD s/p CABG, cardiac catheter 2, HTN , HLD, and GERD. Patient reports that pain began so she called her agronomy supervisor 's office would been monitoring her for several days. Today she reports that chest pain did not resolve despite taking [id number] analgesics. She states chest pain was centrally located with no radiation, rates pain 5/10. She endorses some shortness of breath with activity and reports that for the past several days had also been sleeping in a recliner. She denies any swelling of legs or productive cough. She denies chills, fevers, nausea, vomiting, diarrhea. She reports that she is experiences pain in the past however this time pain was not resolving. She was advised by her agronomy supervisor to come to the ED for further workup. At the moment she is resting comfortably in ED stretcher and does not appear to be in any acute distress. She reports some shortness of breath earlier today when she was walking to the bathroom, none at rest. Patient states that her agronomy supervisor Dr. Phan has already stopped by while she has been in the ED holding area and his plans to do a cardiac catheterization either today or tomorrow. Patient will be admitted with plans of cardiac catheter by Dr. Phan. CBC/BMP: 09/07/17 0611 09/07/17 0611 Significant Findings Laboratory Tests Test 09/06/17 12:30 09/07/17 00:16 09/07/17 06:11 Mean Platelet Volume 11.4 FL (7.0-11.0) Monocytes (%) (Auto) 9.0 % (0.0-8.0) 10.2 % (0.0-8.0) Blood Urea Nitrogen 19 MG/DL (7-18) Chloride Level 109 MEQ/L (98-107) 109 MEQ/L (98-107) Troponin I 0.73 NG/ML (0.02-0.05) 2.67 NG/ML (0.02-0.05) Creatinine 0.47 MG/DL (0.50-1.00) Imaging Current Medications Medications (Trade) Dose Ordered Sig/Dalila Route Start Time Stop Time Status Last Admin (Aspirin Chew) 81 mg DAILY PO 09/07/17 09:00 09/07/17 09:00 (Plavix) 75 mg DAILY PO 09/07/17 09:00 09/07/17 09:00 (Lasix) 20 mg DAILY PO 09/07/17 09:00 09/07/17 09:00 (Pravachol) 60 mg DAILY PO 09/07/17 09:00 09/07/17 09:53 (Pepcid) 20 mg BID PO 09/06/17 21:00 09/07/17 09:00 (NS Flush) 2 ml BID IV FLUSH 09/06/17 21:00 09/07/17 09:00 (NS Flush) 2 ml UNSCH PRN IV FLUSH 09/06/17 16:15 (Nitrostat Sl) 0.4 mg Q5M PRN SL 09/06/17 16:15 (Vasotec Inj) 2.5 mg Q6H PRN IV PUSH 09/06/17 16:45 (Duoneb Neb) 1 ampule Q2HR NEB PRN NEB 09/06/17 16:45 (Imdur) 60 mg DAILY@0700 PO 09/08/17 07:00 (Prinivil) 40 mg DAILY PO 09/08/17 09:00 (Lopressor) 100 mg BID PO 09/07/17 21:00 PE at Discharge GENERAL: Obese patient in no acute distress. SKIN: No rashes, ecchymoses or lesions. Cool and dry. HEAD: Atraumatic. Normocephalic. No temporal or scalp tenderness. EYES: Pupils equal round and reactive. Extraocular motions intact. No scleral icterus. No injection or drainage. ENT: Nose without bleeding, purulent drainage or septal hematoma. Airway patent. NECK: Trachea midline. No JVD or lymphadenopathy. Supple, nontender. CARDIOVASCULAR: Regular rate and rhythm without murmurs, gallops, or rubs. RESPIRATORY: Clear to auscultation. Breath sounds equal bilaterally. No wheezes , rales, or rhonchi. GASTROINTESTINAL: Abdomen soft, non-tender, nondistended. No palpable masses. No guarding. MUSCULOSKELETAL: Extremities without clubbing, cyanosis, or edema. No joint tenderness, effusion, or edema noted. No calf tenderness. NEUROLOGICAL: Awake and alert. Cranial nerves II through XII intact. Motor and sensory grossly within normal limits. Five out of 5 muscle strength in all muscle groups. Normal speech, facial droop. Hospital Course This is a pleasant 62 y/o Female with Chest pain, she has CAD s/p CABG, cardiac catheter 2, HTN, HLD, and GERD. Seen by casework specialist Doctor Sylvester status post Cardiac Catheterization successful [place] angioplasty to OM1 through the saphenous vein graft in the setting of stent restenosis, patent SORENSON to the LAD and SVG to OM artery, patent stent in the ostial right coronary artery, Severely uncontrolled high blood pressure to continue Aspirin and Plavix. Today continue with mild uncontrol of blood pressure will adjust blood pressure medicines and will need to be followed by PCP in 2 to 3 days and by casework specialist in one week, as per Doctor Phan at this time recommended to continue Aspirin and Plavix and Imdur 60 mg daily Lopressor to 100 mg BID, Lisinopril 40 mg daily. Stable from casework specialist for discharge and follow with Cardiology at discharge, patient asymptomatic left radial area with mild edema. Assessment and Plan 1. Unstable angina - Cardiac catheter on 02/17/17 due to unstable angina: Significant left main and ostial right coronary artery stenosis. Preserved LV function estimated EF 60%. CABG x3 on 02/19/[address] Luna Cardiac cath on 06/22/17 due to unstable angina: Successful PCI to ostial right coronary artery with a drug-eluting stent. Successful PCI to SVG to OM with a drug-eluting stent. preserved systolic function, Elevated LVEDP. Estimated EF 60%. Status post Cardiac Catheterization successful [place] angioplasty to OM1 through the saphenous vein graft in the setting of stent restenosis, patent SORENSON to the LAD and SVG to OM artery, patent stent in the ostial right coronary artery, Severely uncontrolled high blood pressure to continue Aspirin and Plavix. Today continue with mild uncontrol of blood pressure will adjust blood pressure medicines and will need to be followed by PCP in 2 to 3 days and by casework specialist in one week, as per Doctor Phan at this time recommended to continue Aspirin and Plavix and Imdur 60 mg daily Lopressor to 100 mg BID, Lisinopril 40 mg daily. Stable from casework specialist for discharge and follow with Cardiology at discharge , patient asymptomatic left radial area with mild edema. 2. Hypertension Mild Uncontrol read #1 3. HLD continue Statins 4. Morbid Obesity strongly recommended diet and exercise, weight loss warranted. DVT prophylaxis-SCDs Code Status Full code Discharge Planning discharge Home today. Pt Condition on Discharge: Good Discharge Disposition: Discharge Home Discharge Time: <= 30 minutes Discharge Instructions DIET: Follow Instructions for: Heart Healthy Diet Activities you can perform: Regular-No Restrictions Peter Lynch MD Sep 07, 2017 11:02
--- NOTE | 2017-09-07 15:07 | EKG ---
Date Performed: 09/06/2017 Time Performed: 12:27:46 PTAGE: 62 years EKG: Sinus rhythm POSSIBLE INFERIOR MYOCARDIAL INFARCTION Since previous tracing, no significant change noted ABNORMAL ECG PREVIOUS TRACING : 06/22/2017 10.38 DOCTOR: Yvette Card Interpretating Date/Time 09/07/2017 15:06:50
--- NOTE | 2017-09-07 15:08 | EKG ---
Date Performed: 09/07/2017 Time Performed: 00:42:28 PTAGE: 62 years EKG: Sinus rhythm Inferior infarct - age undetermined Since previous tracing, no significant change noted Abnormal ECG PREVIOUS TRACING : 09/06/2017 12.27 DOCTOR: Yvette Card Interpretating Date/Time 09/07/2017 15:07:12
--- NOTE | 2017-09-07 19:52 | ECHRPT ---
Indication: cp CONCLUSIONS Normal left ventricular size. Estimated ejection fraction 60-65% Mild mitral valve regurgitation. There is mild tricuspid valve regurgitation. BP: / HR: Rhythm: MEASUREMENTS (Male / Female) Normal Values Technical Quality:Very technically difficult study 2D ECHO LV Diastolic Diameter PLAX 4.4 cm 4.2 - 5.9 / 3.9 - 5.3 cm LV Systolic Diameter PLAX 3.2 cm IVS Diastolic Thickness 1.4 cm 0.6 - 1.0 / 0.6 - 0.9 cm LVPW Diastolic Thickness 1.5 cm 0.6 - 1.0 / 0.6 - 0.9 cm LV Relative Wall Thickness 0.7 RV Internal Dim ED PLAX 2.9 cm M-MODE Aortic Root Diameter MM 3.3 cm LA Systolic Diameter MM 4.2 cm LA Ao Ratio MM 1.3 AV Cusp Separation MM 2.2 cm DOPPLER Mitral E Point Velocity 59.2 cm/s Mitral A Point Velocity 74.0 cm/s Mitral E to A Ratio 0.8 LV E' Lateral Velocity 9.1 cm/s Mitral E to LV E' Lateral Ratio 6.5 LV E' Septal Velocity 4.9 cm/s Mitral E to LV E' Septal Ratio 12.2 FINDINGS LEFT VENTRICLE Normal left ventricular size. The left ventricular systolic function is normal with an estimated ejection fraction in the range of 60-65%. RIGHT VENTRICLE Normal right ventricular size and systolic function. LEFT ATRIUM The left atrial size is normal. RIGHT ATRIUM The right atrial size is normal. ATRIAL SEPTUM Normal atrial septal thickness without atrial level shunting by limited color doppler interrogation. AORTA The aortic root and proximal ascending aorta are normal in size on limited imaging. MITRAL VALVE Structurally normal mitral valve. Mild mitral valve regurgitation. AORTIC VALVE The aortic valve is not well visualized. TRICUSPID VALVE Structurally normal tricuspid valve. There is mild tricuspid valve regurgitation. The estimated pulmonary arterial pressure is __ mmHg. PULMONARY VALVE The pulmonary valve is not well visualized. VESSELS The inferior vena cava is normal in size. PERICARDIUM No pericardial effusion. Caterina Dos Santos MD, FACC (Electronically Signed) Final Date:07 September 2017 19:50
[2017-09-07] MEDS ORDERED: METOPROLOL TARTRATE 100 MG TAB PO SCH (21:00)
[2017-09-08] MEDS ORDERED: ISOSORBIDE MONONITRATE 60 MG TAB PO SCH (07:00)
[2017-09-08] MEDS ORDERED: LISINOPRIL 20 MG TAB PO SCH (09:00)
== END 2017-09-07 11:32 | disposition home or self-care (01) | DRG 251 ==
LOC: NEPC 11:58 → NEDA 16:14 → OBSVTOIN 16:40 → HDIC 16:48 → HCIS 22:58
PROVIDERS: ADMIT Internal Medicine; ATTEND Internal Medicine
PROC: 4A023N7 Measurement of Cardiac Sampling and Pressure, Left Heart, Percutaneous Approach (ICD-10-PCS; 2017-09-06)
PROC: B2121ZZ Fluoroscopy of Single Coronary Artery Bypass Graft using Low Osmolar Contrast (ICD-10-PCS; 2017-09-06)
PROC: B2181ZZ Fluoroscopy of Left Internal Mammary Bypass Graft using Low Osmolar Contrast (ICD-10-PCS; 2017-09-06)
PROC: B2111ZZ Fluoroscopy of Multiple Coronary Arteries using Low Osmolar Contrast (ICD-10-PCS; 2017-09-06)
PROC: 02703ZZ Dilation of Coronary Artery, One Artery, Percutaneous Approach (ICD-10-PCS; principal; 2017-09-06 17:15)
DX: T82.855A Stenosis of coronary artery stent, initial encounter (principal); I25.82 Chronic total occlusion of coronary artery; Z68.41 Body mass index [BMI] 40.0-44.9, adult; I25.110 Atherosclerotic heart disease of native coronary artery with unstable angina pectoris; I10 Essential (primary) hypertension; E66.01 Morbid (severe) obesity due to excess calories; E78.5 Hyperlipidemia, unspecified; K21.9 Gastro-esophageal reflux disease without esophagitis; Y83.1 Surgical operation with implant of artificial internal device as the cause of abnormal reaction of the patient, or of later complication, without mention of misadventure at the time of the procedure; Z79.82 Long term (current) use of aspirin; Z79.02 Long term (current) use of antithrombotics/antiplatelets; Z95.5 Presence of coronary angioplasty implant and graft
CPT/HCPCS: 71045; 80048; 82550; 83735; 84484; 85025; 85610; 85730; 92920; 93005; 93306; 93454; 99152; 99153; 99285; C1725; C1769; C1887; C1893; J0360; J1644; J2250; J3010; Q9967

== ENCOUNTER 2017-11-17 10:30 | Inpatient (IN) | payer OTHER ==
[~2017-11-17] VITALS: Ht 167.6 cm; Wt 119.7 kg
[2017-11-17] VITALS (20 sets, daily range): BP systolic 136–224; BP diastolic 60–94; PULSE 52–69; RESP 12–24; TEMP 98.4; O2SAT 95–98
[~2017-11-17 10:30] MED LIST changes: -ISOS30TA3 PO; +ISOS60TA PO; +METO-338 PO; -METO50TA PO; +NITR0.4S SL
--- NOTE | 2017-11-17 10:47 | PD ---
HPI Chief Complaint: Chest Pain Time Seen by Provider: 10:47 Travel History International Travel<30 days: No Contact w/Intl Traveler<30days: No Traveled to known affect area: No History of Present Illness HPI 62-year-old female came to the emergency room with history of exertional chest pain for past 3 days. Patient describes the pain as a pressure in the center of her chest radiating to her left armpit and then in her back. Pain is not there when she is resting. Currently she is pain-free. Patient has significant coronary artery disease history. She had a triple bypass surgery January 2017. Since then she blocked her graft vessels twice that needed to be stented. Each time the chest pain felt same way like it is today. Patient is not a smoker or diabetic. He is on aspirin and Plavix. Her Lasix dose was doubled and she has been compliant with these medications as per her. Patient says she took all her medications this morning but her blood pressure here is 224. His getting ready to go for camping but then because of the pain decided to come here instead. No other associated symptoms. [facility] Past Medical History Narrative Medical List of her past medical, surgical, social and family history is reviewed from the nursing note. Hx Anticoagulant Therapy: Yes (plavix) Autoimmune Disease: No Blood Disorders: No Anxiety: No Depression: No Cancer: No Cardiovascular Problems: Yes High Cholesterol: Yes Chest Pain: Yes Coronary Artery Disease: Yes Diminished Hearing: No Endocrine: No Gastrointestinal Disorders: Yes (gerd) Genitourinary: No Hypertension: Yes Musculoskeletal: No Neurologic: No Psychiatric: No Immunizations Current: Yes Menopausal: Yes : 1 Para: 1 Tubal Ligation: Yes Past Surgical History Cardiac Surgery: Yes (HEART CATH, triple bypass ) Cholecystectomy: Yes Genitourinary Surgery: Yes (TUBAL,1995) Social History Alcohol Use: Yes (OCCASIONALLY) Tobacco Use: No (4 pack years) Substance Use: No Allergies-Medications (Allergen,Severity, Reaction): Coded Allergies: No Known Allergies (Verified Allergy, Unknown, 04/07/05) Comments No known drug allergies. Reported Meds & Prescriptions Reported Meds & Active Scripts Active Nitrostat SL (Nitroglycerin) 0.4 Mg Subl 0.4 Mg SL Q5M PRN in case of chest pain take one tablet sublingual every five minutes up to three Tablets. if no improvement call PCP, or go to Emergency Room. Narrative Medication List of her home medications reviewed from the nursing note. Review of Systems Except as stated in HPI: all other systems reviewed are Neg Cardiovascular: Positive: Chest Pain or Discomfort Physical Exam Narrative GENERAL: Awake, alert, obese, anxious SKIN: Focused skin assessment warm/dry. HEAD: Atraumatic. Normocephalic. EYES: Pupils equal and round. No scleral icterus. No injection or drainage. ENT: No nasal bleeding or discharge. Mucous membranes pink and moist. NECK: Trachea midline. No JVD. CARDIOVASCULAR: Regular rate and rhythm. No murmur appreciated. RESPIRATORY: No accessory muscle use. Clear to auscultation. Breath sounds equal bilaterally. GASTROINTESTINAL: Abdomen soft, non-tender, nondistended. Hepatic and splenic margins not palpable. MUSCULOSKELETAL: No obvious deformities. No clubbing. No cyanosis. No edema. NEUROLOGICAL: Awake and alert. No obvious cranial nerve deficits. Motor grossly within normal limits. Normal speech. PSYCHIATRIC: Appropriate mood and affect; insight and judgment normal. Data Data Last Documented VS Vital Signs Date Time Temp Pulse Resp B/P (MAP) Pulse Ox O2 Delivery O2 Flow Rate FiO2 11/17/17 12:14 55 176/76 11/17/17 12:00 15 98 Room Air 11/17/17 10:56 2.00 11/17/17 10:41 98.4 Orders Orders Electrocardiogram (11/17/17 10:53) Basic Metabolic Panel (Bmp) (11/17/17 10:53) Complete Blood Count With Diff (11/17/17 10:53) Magnesium (Mg) (11/17/17 10:53) Prothrombin Time / Inr (Pt) (11/17/17 10:53) Troponin I (11/17/17 10:53) Ecg Monitoring (11/17/17 10:53) Bilateral Bp Monitoring (11/17/17 10:53) Iv Access Insert/Monitor (11/17/17 10:53) Oximetry (11/17/17 10:53) Oxygen Administration (11/17/17 10:53) Aspirin Chew (Aspirin Chew) (11/17/17 11:00) Sodium Chloride 0.9% Flush (Ns Flush) (11/17/17 11:00) Chest, Pa & Lat (11/17/17 10:53) Nicardipine Inj (Cardene Inj) (11/17/17 11:00) Heparin Inj (Heparin Inj) (11/17/17 12:30) Heparin Inj (Heparin Inj) (11/17/17 18:30) Heparin Inj (Heparin Inj) (11/17/17 18:30) Heparin-D5w 25,000 U/250 Ml (Heparin-D5w (11/17/17 14:00) Act Partial Throm Time (Ptt) (11/17/17 12:28) Cbc No Diff, Includes Plts (11/17/17 12:28) Act Partial Throm Time (Ptt) (11/17/17 19:28) Admit Order (Ed Use Only) (11/17/17 12:48) Labs Laboratory Tests Test 11/17/17 11:40 White Blood Count 7.7 TH/MM3 Red Blood Count 4.80 MIL/MM3 Hemoglobin 13.1 GM/DL Hematocrit 39.6 % Mean Corpuscular Volume 82.4 FL Mean Corpuscular Hemoglobin 27.2 PG Mean Corpuscular Hemoglobin Concent 33.0 % Red Cell Distribution Width 15.8 % Platelet Count 169 TH/MM3 Mean Platelet Volume 10.9 FL Neutrophils (%) (Auto) 67.3 % Lymphocytes (%) (Auto) 20.5 % Monocytes (%) (Auto) 9.2 % Eosinophils (%) (Auto) 1.7 % Basophils (%) (Auto) 1.3 % Neutrophils # (Auto) 5.2 TH/MM3 Lymphocytes # (Auto) 1.6 TH/MM3 Monocytes # (Auto) 0.7 TH/MM3 Eosinophils # (Auto) 0.1 TH/MM3 Basophils # (Auto) 0.1 TH/MM3 CBC Comment DIFF FINAL Differential Comment Prothrombin Time 10.3 SEC Prothromb Time International Ratio 1.0 RATIO Activated Partial Thromboplast Time 27.6 SEC Blood Urea Nitrogen 10 MG/DL Creatinine 0.67 MG/DL Random Glucose 92 MG/DL Calcium Level 9.1 MG/DL Magnesium Level 1.9 MG/DL Sodium Level 143 MEQ/L Potassium Level 4.2 MEQ/L Chloride Level 110 MEQ/L Carbon Dioxide Level 26.4 MEQ/L Anion Gap 7 MEQ/L Estimat Glomerular Filtration Rate 89 ML/MIN Troponin I 0.07 NG/ML MDM Medical Decision Making Medical Screen Exam Complete: Yes Emergency Medical Condition: Yes Medical Record Reviewed: Yes Interpretation(s) Twelve-lead EKG was reviewed by me. Normal sinus rhythm, normal axis, nonspecific ST-T wave changes, bradycardia. Heart rate of 59 bpm. Differential Diagnosis ACS, non-STEMI, nonspecific chest pain Narrative Course 10:58 AM patient is getting 2 baby aspirins and a Cardene drip for her hypertension. Awaiting for the blood test results to come back. 12:29 PM blood test results are back and troponin is mildly elevated. Given her past history of recurrent clotting of her stents I have started her on heparin at this time with bolus and drip ordered. Patient will require admission. Awaiting for the hospitalist to call back. Critical Care Narrative Aggregate critical care time was 45 minutes. Time to perform other separately billable procedures was not included in the critical care time. My time did not include minutes spent treating any other patients simultaneously or on activities that did not directly contribute to the patient's treatment. The services I provided to this patient were to treat and/or prevent clinically significant deterioration that could result in: Non-STEMI, heparin bolus and drip, hypertensive crisis, Cardene drip I provided critical care services requiring my management, as noted below: Chart data review, documentation time, medication orders and management, vital sign assessments/reviewing monitor data, ordering and reviewing lab tests, ordering and interpreting/reviewing x-rays and diagnostic studies, care of the patient and discussion of the patient with the admitting physicians. Procedures EKG Prior to Arrival: No Diagnosis Primary Impression: Non-STEMI (non-ST elevated myocardial infarction) Additional Impression: Hypertensive crisis Admitting Information Admitting Physician Requests: Admit Scripts Nifedipine (Procardia) 10 Mg Cap 10 MG PO Q8HR, #90 CAP Prov: Candace Mcdaniels MD 11/19/17 Lisinopril (Lisinopril) 20 Mg Tab 40 MG PO DAILY for Hypertension, #30 TAB 0 Refills Prov: Candace Mcdaniels MD 11/19/17 Metoprolol Tartrate (Lopressor) 100 Mg Tab 100 MG PO BID for CAD, #60 TAB 0 Refills Prov: Candace Mcdaniels MD 11/19/17 Isosorbide Mononitrate ER (Isosorbide Mononitrate ER) 60 Mg Tab 60 MG PO DAILY@0700 for CAD, #30 TAB 0 Refills Prov: Candace Mcdaniels MD 11/19/17 Ranitidine (Ranitidine) 300 Mg Tab 300 MG PO HS for Heartburn Management, #30 TAB 0 Refills Prov: Candace Mcdaniels MD 11/19/17 Clopidogrel (Plavix) 75 Mg Tab 75 MG PO DAILY for Blood Clot Prevention, #30 TAB 0 Refills Prov: Candace Mcdaniels MD 11/19/17 Furosemide (Lasix) 20 Mg Tab 20 MG PO DAILY, #30 TAB 0 Refills Prov: Candace Mcdaniels MD 11/19/17 Aspirin (Aspirin Low Strength) 81 Mg Chew 81 MG PO DAILY for Blood Clot Prevention, #30 EA 0 Refills Prov: Candace Mcdaniels MD 11/19/17 Lovastatin (Lovastatin) 20 Mg Tab 60 MG PO DAILY for Cholesterol Management, #30 TAB 0 Refills Prov: Candace Mcdaniels MD 11/19/17 Sarah Kam MD Nov 17, 2017 10:47
[2017-11-17] MEDS ORDERED: ASPIRIN 81 MG CHEW TAB PO ONE (11:00)
[2017-11-17] MEDS ORDERED: SODIUM CHLORIDE 0.9% FLUSH 10 ML FLUSH IVF PRN (11:00)
--- NOTE | 2017-11-17 11:31 | RADRPT ---
EXAM DATE/TIME: 11/17/2017 11:15 [facility] COMPARISON: CHEST SINGLE AP, September 06, 2017, 12:50. INDICATIONS : Chest pain. MEDICAL HISTORY : Hypertension. Cardiovascular disease SURGICAL HISTORY : CABG. Tubal ligation. January 2017. ENCOUNTER: Initial ACUITY: 1 day PAIN SCORE: 0/10 LOCATION: Bilateral chest FINDINGS: PA and lateral views of the chest demonstrate the lungs to be symmetrically aerated without evidence of mass, infiltrate or effusion. The heart size is enlarged but stable. There is evidence of previou s cardiothoracic surgery. The bony structures are grossly intact.. CONCLUSION: No acute disease. No significant change has occurred. Alexandre Burrows MD on November 17, 2017 at 11:29 Board Certified Radiologist. This report was verified electronically.
[2017-11-17 11:50] LABS: AUTOMATED NEUTROPHIL # 5.2 TH/MM3 (1.8-7.7); BASOPHIL # 0.1 TH/MM3 (0-0.2); BASOPHIL % 1.3 % (0.0-2.0); EOSINOPHIL # 0.1 TH/MM3 (0-0.4); EOSINOPHIL % 1.7 % (0.0-4.0); HEMATOCRIT 39.6 % (35.0-46.0); HEMOGLOBIN 13.1 GM/DL (11.6-15.3); LYMPH % 20.5 % (9.0-44.0); LYMPHOCYTE # 1.6 TH/MM3 (1.0-4.8); MEAN CELL VOLUME 82.4 FL (80.0-100.0); MEAN CORPUSCULAR HEMOGLOBIN 27.2 PG (27.0-34.0); MEAN PLATELET VOLUME 10.9 FL (7.0-11.0); MONO % 9.2 % (0.0-8.0); MONOCYTE # 0.7 TH/MM3 (0-0.9); NEUT % 67.3 % (16.0-70.0); PLATELET COUNT 169 TH/MM3 (150-450); RED CELL DISTRIBUTION WIDTH 15.8 % (11.6-17.2); WHITE BLOOD COUNT 7.7 TH/MM3 (4.0-11.0)
[2017-11-17 12:02] LABS: PROTHROMBIN TIME - PATIENT 10.3 SEC (9.8-11.6)
[2017-11-17 12:09] LABS: BICARBONATE 26.4 MEQ/L (21.0-32.0); CALCIUM 9.1 MG/DL (8.5-10.1); CREATININE 0.67 MG/DL (0.50-1.00); MAGNESIUM 1.9 MG/DL (1.5-2.5)
[2017-11-17 12:14] LABS: TROPONIN I 0.07 NG/ML (0.02-0.05)
[2017-11-17] MEDS: niCARdipine INJ 25 MG in SODIUM CHLOR 0.9% 250 ML INJ 240 ML IV PRN ×2 (12:14→16:18)
[2017-11-17] MEDS ORDERED: HEPARIN SODIUM - IV 10,000 UNITS/10 ML VIAL IV ONE (12:30)
--- NOTE | 2017-11-17 13:04 | HHI.HP ---
HPI Service Family Medicine Primary Care Physician Himanshu Shepard MD Admission Diagnosis non-STEMI, hypertensive crisis Diagnoses: International Travel<30 Days: No Contact w/Intl Traveler<30days: No Known Affected Area: No History of Present Illness 62 yo F with PMH of CAD s/p CABG in 2017, HLD, HTN, GERD presenting to ED for chest pain. Patient states she has had CP on exertion for 2 days prior to admission. Initially felt like indigestion 2 days prior to admission. Day prior to admission she had discomfort in chest throughout the day then in the evening while packing her vehicle for vacation she experienced chest tightness substernal - pressure to mid back and tingling sensation to both armpits. Lasted 10-15 minutes after rest. No chest discomfort since then. No N/V, fever/ chills, diaphoresis. Denies any illness preceding the past few days. She took her morning meds prior to admission except for her Lasix which she has not taken for 1 week. Of note, per patient she had CABG in January 2017, 10 weeks later had collapse of vessels, clotted artery and required 3 stents, 10 weeks later had clot/ narrowing of one of the stents that required angioplasty. Review of Systems Constitutional: DENIES: Fever, Weight gain, Weight loss, Chills Eyes: DENIES: Blurred vision, Diplopia Ears, nose, mouth, throat: DENIES: Throat pain, Running Nose Respiratory: DENIES: Cough, Wheezing, Shortness of breath Cardiovascular: COMPLAINS OF: Chest pain, DENIES: Palpitations, Syncope, Lower Extremity Edema Gastrointestinal: DENIES: Abdominal pain, Black stools, Bloody stools, Constipation, Diarrhea, Nausea, Vomiting Genitourinary: DENIES: Hematuria, Dysuria Integumentary: DENIES: Pruritus, Rash Hematologic/lymphatic: DENIES: Lymphadenopathy Neurologic: DENIES: Headache, Seizures Psychiatric: DENIES: Confusion Past Family Social History Past Medical History CAD with CABG january 2017 HTN HLD GERD Past Surgical History CABG 02/19/17 Tubal ligation, 1994 Right Ankle fusion x2 Left Achilles tendon repair Cholecystectomy Allergies: Coded Allergies: No Known Allergies (Verified Allergy, Unknown, 04/07/05) Family History Mother: Breast cancer, diabetes Grandfather: [place] Social History Lives at home by herself Works for the [employer] Tobacco: Denies Alcohol: A couple of times per week - last drink was yesterday (8 beers) Illicit drug use: Denies Physical Exam Vital Signs Vital Signs Date Time Temp Pulse Resp B/P (MAP) Pulse Ox O2 Delivery O2 Flow Rate FiO2 11/17/17 12:58 61 24 201/79 (119) 96 Room Air 11/17/17 12:14 55 176/76 11/17/17 11:31 58 18 192/86 (121) 95 Room Air 11/17/17 10:56 59 224/94 (137) 200/88 (125) 11/17/17 10:56 Nasal Cannula 2.00 11/17/17 10:56 98 Room Air 11/17/17 10:51 61 22 224/94 (137) 98 Room Air 11/17/17 10:41 98.4 60 16 192/81 (118) Physical Exam GENERAL: This is a well-nourished, well-developed patient, in no apparent distress. Resting comfortably and speaking in full sentences. SKIN: No rashes, ecchymoses or lesions. Cool and dry. HEAD: Atraumatic. Normocephalic. No temporal or scalp tenderness. EYES: Pupils equal round and reactive. Extraocular motions intact. No scleral icterus. No injection or drainage. ENT: Nose without bleeding, purulent drainage or septal hematoma. Throat without erythema, tonsillar hypertrophy or exudate. Uvula midline. Airway patent. NECK: Trachea midline. No JVD or lymphadenopathy. Supple, nontender, no meningeal signs. CARDIOVASCULAR: Regular rate and rhythm without murmurs, gallops, or rubs. RESPIRATORY: Clear to auscultation. Breath sounds equal bilaterally. No wheezes , rales, or rhonchi. GASTROINTESTINAL: Abdomen soft, non-tender, nondistended. No hepato-splenomegaly , or palpable masses. No guarding. MUSCULOSKELETAL: +1 pitting edema noted to level of mid scanlon. No joint tenderness, effusion, or edema noted. No calf tenderness. Negative Homans sign bilaterally. NEUROLOGICAL: Awake and alert. Cranial nerves II through XII intact. Motor and sensory grossly within normal limits. Five out of 5 muscle strength in all muscle groups. Normal speech. Laboratory Laboratory Tests Test 11/17/17 11:40 White Blood Count 7.7 Red Blood Count 4.80 Hemoglobin 13.1 Hematocrit 39.6 Mean Corpuscular Volume 82.4 Mean Corpuscular Hemoglobin 27.2 Mean Corpuscular Hemoglobin Concent 33.0 Red Cell Distribution Width 15.8 Platelet Count 169 Mean Platelet Volume 10.9 Neutrophils (%) (Auto) 67.3 Lymphocytes (%) (Auto) 20.5 Monocytes (%) (Auto) 9.2 Eosinophils (%) (Auto) 1.7 Basophils (%) (Auto) 1.3 Neutrophils # (Auto) 5.2 Lymphocytes # (Auto) 1.6 Monocytes # (Auto) 0.7 Eosinophils # (Auto) 0.1 Basophils # (Auto) 0.1 CBC Comment DIFF FINAL Differential Comment Prothrombin Time 10.3 Prothromb Time International Ratio 1.0 Blood Urea Nitrogen 10 Creatinine 0.67 Random Glucose 92 Calcium Level 9.1 Magnesium Level 1.9 Sodium Level 143 Potassium Level 4.2 Chloride Level 110 Carbon Dioxide Level 26.4 Anion Gap 7 Estimat Glomerular Filtration Rate 89 Troponin I 0.07 Result Diagram: 11/17/17 1140 11/17/17 1140 Imaging Last 24 hours Impressions Chest X-Ray 11/17/17 1053 Signed Impressions: Service Date/Time: Friday, November 17, 2017 11:15 - CONCLUSION: No acute disease. No significant change has occurred. Alexandre Burrows MD Caprini VTE Risk Assessment Caprini VTE Risk Assessment: Mod/High Risk (score >= 2) Caprini Risk Assessment Model Point Value = 1 Point Value = 2 Point Value = 3 Point Value = 5 Age 41-60 Minor surgery BMI > 25 kg/m2 Swollen legs Varicose veins or History of unexplained or recurrent spontaneous Oral contraceptives or hormone replacement Sepsis (< 1 month) Serious lung disease, including pneumonia (< 1 month) Abnormal pulmonary function Acute myocardial infarction Congestive heart failure (< 1 month) History of inflammatory bowel disease Medical patient at bed rest Age 61-74 Arthroscopic surgery Major open surgery (> 45 min) Laparoscopic surgery (> 45 min) Malignancy Confined to bed (> 72 hours) Immobilizing plaster cast Central venous access Age >= 75 History of VTE Family history of VTE Factor V Leiden Prothrombin [id number] Lupus anticoagulant Anticardiolipin antibodies Elevated serum homocysteine Heparin-induced thrombocytopenia Other congenital or acquired thrombophilia Stroke (< 1 month) Elective arthroplasty Hip, pelvis, or leg fracture Acute spinal cord injury (< 1 month) Prophylaxis Regimen Total Risk Factor Score Risk Level Prophylaxis Regimen 0-1 Low Early ambulation 2 Moderate Order ONE of the following: *Sequential Compression Device (SCD) *Heparin 5000 units SQ BID 3-4 Higher Order ONE of the following medications: *Heparin 5000 units SQ TID *Enoxaparin/Lovenox 40 mg SQ daily (WT < 150 kg, CrCl > 30 mL/min) *Enoxaparin/Lovenox 30 mg SQ daily (WT < 150 kg, CrCl > 10-29 mL/min) *Enoxaparin/Lovenox 30 mg SQ BID (WT < 150 kg, CrCl > 30 mL/min) AND/OR *Sequential Compression Device (SCD) 5 or more Highest Order ONE of the following medications: *Heparin 5000 units SQ TID (Preferred with Epidurals) *Enoxaparin/Lovenox 40 mg SQ daily (WT < 150 kg, CrCl > 30 mL/min) *Enoxaparin/Lovenox 30 mg SQ daily (WT < 150 kg, CrCl > 10-29 mL/min) *Enoxaparin/Lovenox 30 mg SQ BID (WT < 150 kg, CrCl > 30 mL/min) AND *Sequential Compression Device (SCD) Assessment and Plan Assessment and Plan 62 yo F with PMH of CAD s/p CABG in january 2017 that further required stents x2 , HLD, HTN, GERD presenting to ED with 2 day history of CP on exertion. EKG normal in ED but elevated troponin at 0.7. Also Hypertensive to 224/94 on admission. As patient has had complications in the past related to clotting off stents, patient was started on Heparin drip in ED. Also started on Nicardipine drip. Consulting Cardiology. Code Status Full code Problem List: (1) Non-STEMI (non-ST elevated myocardial infarction) ICD Codes: I21.4 - Non-ST elevation (NSTEMI) myocardial infarction Status: Acute Plan: Presenting with CP on exertion, elevated troponin at 0.7, normal EKG with no ST changes Patient had CABG in january 2017 that required stenting x2 following the procedure due to occlusion of the stents Takes Plavix, ASA at home (took morning doses prior to admission) Given ASA 162mg in ED CXR negative Consulting cardiology - previously followed by Dr. Phan but currently by Dr. Silva Trend EKG, troponin Started on Heparin drip Holding Plavix, ASA for now NPO pending possible procedure Telemetry Lipid profile pending (2) Hypertensive urgency ICD Codes: I16.0 - Hypertensive urgency Plan: Hypertensive to 224/94 on admission Takes Lisinopril 40mg daily at home Currently denying CURIEL, CP, Abdominal pain, blurry vision Elevated troponin may be 2/2 to hypertension Started on Nicardipine drip Goal BP will be 140-160's BMP reassuring on admission Vasotec 1.25mg IV PRN for BP >180/100 (3) CAD (coronary artery disease) ICD Codes: I25.10 - Atherosclerotic heart disease of [place] coronary artery without angina pectoris Status: Acute Plan: Cardiac history as above (4) Hypertension ICD Codes: I10 - Essential (primary) hypertension Status: Acute Plan: See hypertensive urgency plan above (5) Hyperlipidemia ICD Codes: E78.5 - Hyperlipidemia, unspecified Status: Chronic Plan: Continue home Pravastatin (6) GERD (gastroesophageal reflux disease) ICD Codes: K21.9 - Gastro-esophageal reflux disease without esophagitis Plan: Continue home Ranitidine (7) FEN Plan: F: no IVF for now E: within normal limits - will replete as needed N: NPO for now On heparin drip for possible NSTEMI CIWA protocol for history of regular alcohol use Physician Certification 2 Midnight Certification Type: Admission for Inpatient Services Order for Inpatient Services The services are ordered in accordance with Medicare regulations or non- Medicare payer requirements, as applicable. In the case of services not specified as inpatient-only, they are appropriately provided as inpatient services in accordance with the 2-midnight benchmark. Estimated LOS (days): 3 days is the estimated time the patient will need to remain in the hospital, assuming treatment plan goals are met and no additional complications. Post-Hospital Plan: Not yet determined Constantino Oconnell MD R1 Nov 17, 2017 13:04
[2017-11-17] MEDS ORDERED: LORazepam 2 MG TAB PO PRN (13:30)
[2017-11-17] MEDS ORDERED: NALOXONE HCL 0.4 MG/ML AMP IV PUSH PRN (13:30)
[2017-11-17] MEDS ORDERED: FLUMAZENIL 0.5 MG/5 ML VIAL IV PUSH PRN (13:30)
[2017-11-17] MEDS ORDERED: BISACODYL 10 MG SUPP RECTAL PRN (13:30)
[2017-11-17] MEDS ORDERED: ONDANSETRON HCL 4 MG/2 ML VIAL IVP PRN (13:30)
[2017-11-17] MEDS ORDERED: LACTULOSE SYRUP 20 GM/30 ML CUP PO PRN (13:30)
[2017-11-17] MEDS ORDERED: LORazepam 2 MG/ML VIAL IV PUSH PRN ×4 (13:30)
[2017-11-17] MEDS ORDERED: SENNOSIDES 8.6 MG TAB PO PRN (13:30)
[2017-11-17] MEDS ORDERED: MAGNESIUM HYDROXIDE SUSP 30 ML CUP PO PRN (13:30)
[2017-11-17] MEDS ORDERED: LORazepam 1 MG TAB PO PRN (13:30)
[2017-11-17] MEDS ORDERED: ENALAPRILAT 1.25 MG/ML VIAL IV PUSH PRN (13:45)
[2017-11-17] MEDS: HEPARIN-D5W 25,000 U/250 ML 250 ML IV PRN ×2 (15:02→15:09)
--- NOTE | 2017-11-17 16:38 | EKG ---
Date Performed: 11/17/2017 Time Performed: 10:53:41 PTAGE: 62 years EKG: SINUS BRADYCARDIA BORDERLINE ECG PREVIOUS TRACING : 09/07/2017 00.42 Since the previous tracing, no significant change noted DOCTOR: Caterina Dos Santos Interpretating Date/Time 11/17/2017 16:37:36
[2017-11-17 16:45] LABS: HEMATOCRIT 38.6 % (35.0-46.0); HEMOGLOBIN 12.8 GM/DL (11.6-15.3); MEAN CELL VOLUME 82.7 FL (80.0-100.0); MEAN CORPUSCULAR HEMOGLOBIN 27.3 PG (27.0-34.0); MEAN PLATELET VOLUME 11.1 FL (7.0-11.0); PLATELET COUNT 152 TH/MM3 (150-450); RED BLOOD COUNT 4.67 MIL/MM3 (4.00-5.30); RED CELL DISTRIBUTION WIDTH 15.9 % (11.6-17.2)
[2017-11-17] MEDS ORDERED: HEPARIN SODIUM - IV 10,000 UNITS/10 ML VIAL IV PRN ×2 (18:30)
[2017-11-17] MEDS ORDERED: niCARdipine INJ 50 MG in SODIUM CHLORID 0.9% 500 ML INJ 480 ML IV PRN (19:15)
[2017-11-17] MEDS: FAMOTIDINE 20 MG TAB PO SCH (20:41)
[2017-11-17] MEDS: DOCUSATE SODIUM 50 MG/SENNA 8.6 MG TAB PO SCH (20:42)
[2017-11-17] MEDS: METOPROLOL TARTRATE 100 MG TAB PO SCH (20:42)
[2017-11-17 22:42] LABS: CHOLESTEROL/ HDL RATIO 3.8 RATIO; HDL CHOLESTEROL 44.2 MG/DL (40.0-60.0); TROPONIN I 0.11 NG/ML (0.02-0.05)
[2017-11-18] VITALS (14 sets, daily range): BP systolic 132–145; BP diastolic 59–78; PULSE 52–68; RESP 16–18; TEMP 97.4–98.5; O2SAT 95–97
[2017-11-18 03:58] LABS: AUTOMATED NEUTROPHIL # 5.4 TH/MM3 (1.8-7.7); BASOPHIL # 0.1 TH/MM3 (0-0.2); BASOPHIL % 0.7 % (0.0-2.0); EOSINOPHIL # 0.1 TH/MM3 (0-0.4); EOSINOPHIL % 1.8 % (0.0-4.0); HEMATOCRIT 40.2 % (35.0-46.0); HEMOGLOBIN 13.5 GM/DL (11.6-15.3); LYMPH % 20.4 % (9.0-44.0); LYMPHOCYTE # 1.6 TH/MM3 (1.0-4.8); MEAN CELL VOLUME 81.8 FL (80.0-100.0); MEAN CORPUSCULAR HEMOGLOBIN 27.4 PG (27.0-34.0); MEAN CORPUSCULAR HGB CONC 33.5 % (32.0-36.0); MEAN PLATELET VOLUME 10.9 FL (7.0-11.0); MONO % 8.4 % (0.0-8.0); MONOCYTE # 0.7 TH/MM3 (0-0.9); NEUT % 68.7 % (16.0-70.0); PLATELET COUNT 165 TH/MM3 (150-450); RED BLOOD COUNT 4.92 MIL/MM3 (4.00-5.30); RED CELL DISTRIBUTION WIDTH 16.4 % (11.6-17.2); WHITE BLOOD COUNT 7.9 TH/MM3 (4.0-11.0)
[2017-11-18 04:10] LABS: ALBUMIN 3.7 GM/DL (3.4-5.0); ALT (GPT) 34 U/L (10-53); AST (GOT) 19 U/L (15-37); BICARBONATE 26.3 MEQ/L (21.0-32.0); BLOOD UREA NITROGEN 13 MG/DL (7-18); CHLORIDE 109 MEQ/L (98-107); GLOMERULAR FILTRATION RATE 85 ML/MIN (>89); GLUCOSE,RANDOM 103 MG/DL (74-106); SODIUM (NA) 144 MEQ/L (136-145)
[2017-11-18 04:13] LABS: ALKALINE PHOSPHATASE 90 U/L (45-117); TOTAL BILIRUBIN ADULT 0.6 MG/DL (0.2-1.0); TOTAL PROTEIN 7.2 GM/DL (6.4-8.2)
--- NOTE | 2017-11-18 09:15 | MB ---
cc: Tuan Silva DO DATE: 11/17/2017 REASON FOR CONSULTATION: Elevated troponin. HISTORY OF PRESENT ILLNESS: Marci Sam is a pleasant 62-year-old female who previously saw my partner, Dr. Phan, and is currently scheduled to see me in the office in the near future. She presented to [facility] Emergency Room on 11/17/2017 due to chest pain with exertion for the past 2 days. Initially it felt like indigestion and then she started noticing that she was having chest pain with any type of exertion. She also states that she has been getting more significantly short of breath with little activity. These pains seem to last 10-15 minutes. In seeing her, she is currently hemodynamically stable, without chest pain. On arrival, she was noted to have a blood pressure of 224/94. She has since been started on a Cardene drip, which has helped to control her blood pressure further. PAST MEDICAL HISTORY: 1. Coronary artery disease. 2. Hypertension. 3. Hyperlipidemia. 4. GERD. 5. Obesity, with a BMI of 43.6. PAST SURGICAL HISTORY: 1. Coronary artery bypass grafting x 3 (01/23/2017), with SORENSON to LAD, SVG to OM, SVG to RCA. 2. Cardiac catheterization (06/22/2017), with stenting of the ostial RCA with a drug-eluting stent (3.5 x 18) and stenting of the saphenous vein graft to the obtuse marginal with a drug-eluting stent (2.75 x 16). 3. Cardiac catheterization (09/06/2017) with balloon angioplasty of the stent in the SVG to the obtuse marginal. 4. Tubal ligation (1994). 5. Right ankle fusion x 2. 6. Left Achilles tendon repair. 7. Cholecystectomy. ALLERGIES: NO KNOWN DRUG ALLERGIES. MEDICATIONS: 1. Aspirin 81 mg daily. 2. Plavix 75 mg daily. 3. Lovastatin 60 mg daily. 4. Imdur 60 mg daily. 5. Nitro sublingual as needed. 6. Lopressor 100 mg b.i.d. 7. Lisinopril 40 mg daily. 8. Lasix 20 mg daily. 9. Ranitidine 300 mg every night. FAMILY HISTORY: Mother had breast cancer and diabetes. Father had a myocardial infarction. SOCIAL HISTORY: The patient denies tobacco abuse. She drinks socially a couple times per week. Denies illicit drug abuse. REVIEW OF SYSTEMS: Fourteen systems were reviewed including osteopathic, pertinent positives and negatives above, otherwise negative. PHYSICAL EXAMINATION: VITAL SIGNS: Temperature 98.4, heart rate 69, blood pressure 156/71, respirations 16, pulse oximetry 97% on room air. GENERAL: The patient appears well, in no acute distress, alert, awake and oriented x 3. HEENT: Extraocular muscles intact. Mucous membranes moist. NECK: Supple. No JVD at 45 degrees. No carotid bruits heard bilaterally. Carotid upstroke is brisk in nature. HEART: Regular rate and rhythm. Positive for and second heart sounds, with no murmurs, gallops or rubs. LUNGS: Clear to auscultation bilaterally. No wheezes, rales or rhonchi. ABDOMEN: Obese, nontender, nondistended, no organomegaly noted. EXTREMITIES: Shows no clubbing, cyanosis or edema. Femoral and distal pulses intact bilaterally. NEUROLOGIC: No focal deficits. SKIN: Warm, dry and intact. OSTEOPATHICALLY: No kyphoscoliosis, lordosis or paraspinal tender points. LABORATORY DATA: Hemoglobin 12.8, hematocrit 38.6, platelets 152, potassium 4.2, BUN 10, creatinine 0.67. Troponin 0.14. ELECTROCARDIOGRAM (11/17/2017 AT 1522): Sinus rhythm, possible inferior myocardial infarction. IMPRESSION: 1. Elevated troponin. 2. Chest pain concerning for coronary insufficiency. 3. Hypertensive urgency. 4. History of coronary artery disease as above. 5. Hypertension. 6. Hyperlipidemia. 7. Obesity, with body mass index of 43. RECOMMENDATIONS: 1. Ms. Sam presented with hypertensive urgency and elevated troponin. 2. She does have chest pain and shortness of breath which may be due to her hypertensive urgency versus changes in her coronary anatomy. 3. We discussed undergoing further ischemic evaluation with either stress testing or cardiac catheterization. Her overall concern is that she has had multiple issues with her coronary artery disease as previously stated, and she is concerned that there has been progression or change in her coronary anatomy and would like to proceed with cardiac catheterization. 4. If no change in her coronary anatomy, this is most likely due to her hypertensive urgency. 5. She will undergo cardiac catheterization in the morning. She will be n.p.o. after midnight. Risks, benefits and alternatives were explained to her and she consented to such. 6. Further recommendations will be made based on the hospital course. Thank you for allowing me to see Marcimary anne Sam. If there are any questions, please do not hesitate to call. DO CHARLEY Irvin/JOSE J , 11:13 PM , 11:42 PM
[2017-11-18] MEDS: LISINOPRIL 20 MG TAB PO SCH (09:53)
[2017-11-18] MEDS: ISOSORBIDE MONONITRATE 60 MG CR TAB (IMDUR) PO SCH (09:53)
[2017-11-18] MEDS: FAMOTIDINE 20 MG TAB PO SCH ×2 (09:53→20:42)
[2017-11-18] MEDS: METOPROLOL TARTRATE 100 MG TAB PO SCH ×2 (09:54→20:42)
[2017-11-18] MEDS: DOCUSATE SODIUM 50 MG/SENNA 8.6 MG TAB PO SCH ×2 (09:54→20:42)
[2017-11-18] MEDS: PRAVASTATIN SOD 20 MG TAB PO SCH (09:55)
[2017-11-18] MEDS: HEPARIN-D5W 25,000 U/250 ML 250 ML IV PRN (13:17)
--- NOTE | 2017-11-18 14:16 | EKG ---
Date Performed: 11/17/2017 Time Performed: 15:22:17 PTAGE: 62 years EKG: Sinus rhythm NONDIAGNOSTIC Q WAVES IN THE INFERIOR LEADS, CANNOT EXCLUDE OLD INFERIOR INFARCT PROBABLE INFERIOR M YOCARDIAL INFARCTION ABNORMAL ECG PREVIOUS TRACING : 11/17/2017 10.53 DOCTOR: Amadeo Lizama Interpretating Date/Time 11/18/2017 14:15:50
--- NOTE | 2017-11-18 14:30 | ECHRPT ---
Indication: NSTEMI CONCLUSIONS Normal left ventricular size and wall thickness. The left ventricular systolic function is normal wi th an estimated ejection fraction in the range of 60-65%. No definite wall motion abnormalities. The tricuspid valve is not well visualized. The aortic valve is not well visualized. BP: 140 / 65 HR: 59 Rhythm: Technical Quality: FINDINGS LEFT VENTRICLE Normal left ventricular size and wall thickness. The left ventricular systolic function is normal wi th an estimated ejection fraction in the range of 60-65%. No definite wall motion abnormalities. RIGHT VENTRICLE Normal right ventricular size and systolic function. LEFT ATRIUM The left atrial size is normal. RIGHT ATRIUM The right atrial size is normal. ATRIAL SEPTUM Normal atrial septal thickness without atrial level shunting by limited color doppler interrogation. AORTA The aortic root and proximal ascending aorta are normal in size on limited imaging. MITRAL VALVE Structurally normal mitral valve. No mitral valve stenosis or regurgitation. AORTIC VALVE The aortic valve is not well visualized. TRICUSPID VALVE The tricuspid valve is not well visualized. PULMONARY VALVE The pulmonary valve is not well visualized. VESSELS The inferior vena cava is normal in size. PERICARDIUM No pericardial effusion. Mane Shen MD (Electronically Signed) Final Date:18 November 2017 14:29
--- NOTE | 2017-11-18 16:30 | HHI.FPPN ---
Subjective Remarks DELAYED DOCUMENTATION. PATIENT SEEN THIS MORNING No acute events overnight. Vital signs unremarkable except for pulse in the 50s. This morning patient reports that she feels well and denies any chest pain , SOB. Patient has no acute concerns this morning. (Lilo Garduno MD, R3) Objective Vitals Vital Signs Date Time Temp Pulse Resp B/P (MAP) Pulse Ox O2 Delivery O2 Flow Rate FiO2 11/18/17 12:05 53 11/18/17 11:38 97.9 52 18 145/75 (98) 96 11/18/17 10:10 97 21 11/18/17 08:30 97.8 61 18 136/59 (84) 96 11/18/17 08:00 61 11/18/17 08:00 61 11/18/17 05:46 98.1 59 18 140/65 (90) 96 11/18/17 04:00 60 11/18/17 02:08 97.4 59 18 132/60 (84) 95 11/18/17 01:58 11/18/17 01:19 55 16 142/78 (99) 97 Room Air 11/17/17 22:17 58 16 136/60 (85) 96 Room Air 11/17/17 21:50 69 16 142/67 (92) 97 Room Air 11/17/17 20:34 69 16 140/64 (89) 97 Room Air 11/17/17 19:37 87 149/67 11/17/17 19:22 63 16 156/71 (99) 97 Room Air 11/17/17 18:30 62 17 164/81 (108) 97 Room Air 11/17/17 18:00 66 19 167/78 (107) 97 Room Air 11/17/17 17:30 60 17 162/84 (110) 98 Room Air 11/17/17 17:00 60 14 163/77 (105) 97 Room Air 11/17/17 16:30 62 20 161/78 (105) 98 Room Air 11/17/17 16:18 58 161/78 I/O 11/17/17 11/17/17 11/17/17 11/18/17 11/18/17 11/18/17 07:00 15:00 23:00 07:00 15:00 23:00 Intake Total 250 ml Balance 250 ml Intake IV Total 250 ml # Voids 1 1 (Lilo Garduno MD, R3) Result Diagram: 11/18/1732611/18/17326 Objective Remarks GEN: Well-developed, well-nourished patient. No acute distress. CV: Regular rate and rhythm without obvious murmurs LUNGS: Clear to auscultation bilaterally. Normal respiratory effort. No wheezes , rales, rhonchi. GI: Soft, nontender, nondistended. No palpable masses. EXT: No edema. No calf tenderness. NEURO/PSYCH: Awake, alert. Appropriate insight and judgment. Normal speech (Lilo Garduno MD, R3) A/P Assessment and Plan 62 yo F with PMH of CAD s/p CABG in january 2017 that further required stents x2 , HLD, HTN, GERD presenting to ED with 2 day history of CP on exertion. EKG normal in ED but elevated troponin at 0.7. Also Hypertensive to 224/94 on admission. As patient has had complications in the past related to clotting off stents, patient was started on Heparin drip in ED. Also started on Nicardipine drip. Cardiology consulted for catheterization. Discharge Planning Likely tomorrow once cleared by cardiology sdw Dr. Mcdaniels, Dr. Collier, and Dr. Oconnell (Lilo Garduno MD, R3) Attending Attestation Table rounds this morning with Dr Laws, Dr Debbie Mcdaniels, Dr Oconnell and Dr Bronson Patients admission and hospital course discussed in detail EMR reviewed Patient interviewed and examined with medical team Agree with contents of above documentation See Orders (Reji Collier MD) Problem List: (1) Non-STEMI (non-ST elevated myocardial infarction) ICD Codes: I21.4 - Non-ST elevation (NSTEMI) myocardial infarction Status: Acute Plan: Presented with chest pain in the setting of hypertensive urgency. Etiology unclear if related to coronary artery disease versus hypertension. However due to elevated troponin and clinical presentation, patient will be managed for NSTEMI. History significant for patient having CABG in january 2017 that required stenting x2 following the procedure due to occlusion of the stents. -CXR unremarkable. -Cardiology consulted: Appreciate recommendations * Etiology of elevated troponin is between coronary artery disease versus elevated blood pressure. Per patient preference, will proceed with cardiac catheterization -Troponin initially increased from 0.07 to 0.14 but then back down to 0.11 -lipid panel unremarkable -echo: EF 60-65% Medications: * Hold home plavix * Heparin Drip * continue home statin, isosorbide, metorpolol, lisinopril * Resume home aspirin after cardiac cath (2) Hypertensive urgency ICD Codes: I16.0 - Hypertensive urgency Status: Resolved Plan: Hypertensive to 224/94 on admission. Elevated troponin may be 2/2 to hypertension -NIcardipine drip discontinued -continue home medications (see above for more detail) -Vasotec 1.25mg IV PRN for BP >180/100 (3) CAD (coronary artery disease) ICD Codes: I25.10 - Atherosclerotic heart disease of [place] coronary artery without angina pectoris Status: Chronic Plan: Cardiac history as above (4) GERD (gastroesophageal reflux disease) ICD Codes: K21.9 - Gastro-esophageal reflux disease without esophagitis Plan: Continue home Ranitidine (5) FEN Plan: F: PO hydration after cardiac cath E: within normal limits - will replete as needed N: NPO for now, heart healthy after cath DVT PPX: current on heparin drip, will need to switch to lovenox once heparin drip has been discontinued [facility] protocol for history of regular alcohol use (Lilo Garduno MD, R3) Lilo Garduno MD, R3 Nov 18, 2017 16:29 Reji Collier MD Nov 18, 2017 19:42
[2017-11-18] MEDS ORDERED: HEPARIN-NS/PF FLUSH BAG 2,000 ML IV FLUSH ONE (16:33)
[2017-11-18] MEDS ORDERED: MIDAZOLAM HCL 2 MG/2 ML VIAL ONE (16:33)
[2017-11-18] MEDS ORDERED: VERAPAMIL HCL 5 MG/2 ML VIAL ONE (16:34)
[2017-11-18] MEDS ORDERED: HEPARIN SODIUM - IV 10,000 UNITS/10 ML VIAL ONE (16:34)
[2017-11-18] MEDS ORDERED: NITROGLYCERIN INJ 5 ML ONE (16:34)
[2017-11-18] MEDS ORDERED: LABETALOL HCL 100 MG/20 ML VIAL ONE (18:04)
[2017-11-18] MEDS ORDERED: MISC INFORMATION XX ONE (18:15)
[2017-11-18] MEDS: CLOPIDOGREL 75 MG TAB PO SCH (18:15)
[2017-11-18] MEDS: ASPIRIN 81 MG CHEW TAB CHEW SCH (18:15)
--- NOTE | 2017-11-18 18:15 | CATHPROC ---
[employer] Made [employer] HIS Report Study Information Study Number Admission Scheduled Start Study Start [id number] Nov 17 2017 12:49PM 11/17/2017 Nov 18 2017 4:44PM [facility] Cardiac Catheterization Admit Source Facility Department Emergency department [facility] - Ceramic Research Engineer Physician and Clinical Staff Initial Tuan Alston Clinical Lab Technologist Rachel Quinn,RN Recorder Chanelle Menezes ,RT(R) Scrub Rachel Ledesma,RT(R) Procedures Performed Procedure Location (Site) Vessel Name Coronary Angiograms LCA Left Coronary Coronary Angiograms RCA Right Coronary Coronary Angiograms SORENSON-LAD Left Coronary Coronary Angiograms SVG-OM CIRC L Heart Cath Equipment Time Supervisor Hairspring Fabrication Description Size Mfg Part Number Used/Scraped TRANSDUCER, TRUWAVE [id number] 16:56 ATKINSON CAPELLAN * Used W/STOCKCOCK *[id number] 16:56 [employer]well PACK, CCL CUSTOM * Used *[id number] 16:56 [employer] SUPPORT, ARTERIAL ADULT [id number] *[id number] Used [id number] 17:47 MEDTRONIC JL 4.0 DXTERITY CATHETER FR 5 Used *[id number] 17:27 MEDTRONIC JR 4.0 DXTERITY CATHETER FR 5 Used *[id number] BAND, RADIAL COMPRESSION TR [id number] 17:55 CoPromote MEDICAL 24CM Used SHORT 24 *[id number] 16:56 [employer]ote MEDICAL WIRE, EXCHANGE 260CM 3MMJ 260CM Used *[id number] 16:56 NAMIC MANIFOLD, 4 PORT * Used *[id number] 16:56 NYCOMED OMNIPAQUE, 350 MG, 150ML 150ML [id number] Used [id number] 16:56 BROWN MEDICAL BLANKET,WARM AIR CCL * Used *[id number] SHEATH, FR6 TRANSRADIAL [id number] 16:56 SparkWords FR 6 Used SLENDER 10CM *[id number] Equipment Model, Serial, Lot Number and Expiration Data Description Model Number Serial Number Lot Number Expiration Richy e BAND, RADIAL COMPRESSION TR [id number] 09-22-2020 SHORT 24 JL 4.0 DXTERITY CATHETER [id number] 09-01-2020 History: Current Medications Medication Dosage/Unit Route Frequency Last Date/Time Taken Statins (any) LOPRESSOR History: Allergies Allergy Reaction No Known Allergies History: Risk Factors Family History of Hypertension Dyslipidemia Previous MO Previous Heart Failure Premature CAD Yes Yes Yes No No Prior Valve Prior PCI Prior PCIDate Prior CABG Prior CABGDate Surgery No Yes 09/06/2017 Yes 02/19/2017 Cerebrovascular Peripheral Artery Chronic Lung On Dialysis Diabetes Disease Disease Disease No No No No No History: Symptoms/Diagnosis Selection Items Chest pain History: Stress Tests Stress or Imaging Studies Performed No History: Other Disease Selection Items HTN History: Other Current Smoker Method Quit Packs a Day Years Used Pack Years No Cigarettes 42 Years Ago 1 3 3 Labs Hgb (g/dl) Hct (%) WBC (l/cumm) Platelets (thousands) 11.60-17.00 35.00-51.00 4.00-11.00 150.00-450.00 13.5 40.2 7.9 165 Glucose (mg/dl) BUN (mg/dl) Creatinine (mg/dl) BUN:Creatinine (1:x) 74.00-106.00 7.00-18.00 0.50-1.30 10.00-20.00 103 13 0.7 18.6 Na (meq/l) K (meq/l) 136.00-145.00 3.50-5.10 144 3.6 INR (PTT:PT) 0.90-1.10 1 Troponin I (ng/ml) CPK-MB (ng/ML) 0.02-0.05 0.50-3.60 0.11 Not Drawn Medication Medication Total Dose (Bolus/Oral) Medication Total Dosage/Unit 1% XYLOCAINE 5 mL FENTANYL 25 mcg LABETOLOL 10 mg RADIAL COCKTAIL 5 mL (Bolus) VERSED 0.5 mg Medications (Bolus/Oral) Medication Time Given Dosage/Unit Administered By Reason VERSED 11/18/2017 5:15:51 PM 0.5 mg Rachel Quinn 0.5 mg VERSED given in lab by Rachel Quinn, RN in Left Antecubital via Peripheral IV. Ordered by Tuan Gonzalez FENTANYL 11/18/2017 5:16:58 PM 25 mcg Rachel Quinn 25 mcg FENTANYL given in lab by Rachel Quinn, RN in Left Antecubital via Peripheral IV. Ordered by Tuan Silva 1% XYLOCAINE 11/18/2017 5:17:06 PM 5 mL Tuan Silva 5 mL 1% XYLOCAINE given in lab by Tuan Silva in Left Radial via Subcutaneous. Ordered by Tuan Shaw Ntg 200mcg Verapamil 2.5mg Heparin RADIAL COCKTAIL 11/18/2017 5:24:34 PM 5 mL (Bolus) Tuan Silva 3000U 5 mL (Bolus) RADIAL COCKTAIL given in lab by Tuan Silva in Left Radial via Radial. Using [So lution Name]. Ordered by Tuan Silva Reason: Ntg 200mcg Verapamil 2.5mg Heparin 4800U. LABETOLOL 11/18/2017 6:06:04 PM 10 mg Rachel Quinn 10 mg LABETOLOL given in lab by Rachel Quinn, RN via Peripheral IV. Ordered by Tuan Silva Medication (Drip) Medication Time Given Dosage/Unit Concentration/Unit Diluent (ml) Solution IV Solutions 11/18/2017 4:52:06 PM 50 mL (IV) NaCl .9 IV Solutions given in lab by Rachel Quinn, RN in Right Antecubital via Peripheral IV. Pump/Drip Alhaji w using NaCl .9. Ordered by Tuan Silva Initial Case Assessment Cardiovascular HR Rhythm NIBP 70 sr 181/94 Edema Present Skin color Skin Mild Normal Warm Dry Circulatory - Right Pulses Dorsalis Pedis 2 Scale (0,1,2,3,4,d) Circulatory - Left Pulses Dorsalis Pedis 3 Scale (0,1,2,3,4,d) Neurological State Oriented to time-place- Alert Moves all extremities person Respiration - General Respiration Rate SpO2 (%) (B/min) 20 98 Final Case Assessment Cardiovascular HR Rhythm NIBP 70 sr 181/94 Edema Present Skin color Skin Mild Normal Warm Dry Circulatory - Right Pulses Dorsalis Pedis 2 Scale (0,1,2,3,4,d) Circulatory - Left Pulses Dorsalis Pedis 3 Scale (0,1,2,3,4,d) Neurological State Oriented to time-place- Alert Moves all extremities person Respiration - General Respiration Rate SpO2 (%) (B/min) 20 98 Chronological Log Time Study Chronological Log 16:46:16 Patient arrived via Bed. 16:46:16 Patient Name, D.O.B, / Armband Verified By R.N. 16:51:47 Consent signed by the physician and the patient and verified by the Ceramic Research Engineer staff. 16:51:48 Pre-op and post- op instructions given; patient acknowledges understanding of instructions. 16:51:50 Verbal Stimulation=2 Physical Stimulation=2 Airway=2 Respiration=2 TOTAL=8. (0=absent, 1=li mited, 2=present) 16:51:54 Allens test performed on the right radial and ulnar artery. 16:51:55 Allens test performed on the left radial and ulnar artery. positive 16:51:59 Patient has been NPO for Less than 6Hrs. 16:51:59 Skin Breakdown- none per patient 16:52:00 Patient Warmer Placed on the Table. 16:52:02 Epifanio Prominences Protected 16:52:05 A # 20 IV was noted in the Antecubital (right). Grade = 0 IV Solutions given in lab by Rachel Quinn, YAN in Right Antecubital via Peripheral IV. Pump/Dr ip Flow using NaCl .9. 16:52:06 Ordered by Tuan Silva 16:52:07 History and physical on the chart or being dictated. Assessment: Initial Case, HR=70 BPM, Rhythm=sr, ACYH=668/94 mmhg, Edema=Mild, Color=Normal, Ski n = Warm, Dry Right Pulses: Eddie Ped=2 16:52:09 Left Pulses: Eddie Ped=3 Neurological: State=Alert, Ox3, ROTHMAN Respiration: Resp=20 B/min, SpO2=98 % Vitals capture started with the following parameters, Patient=Adult, Interval=5 min, Initial Pr ftlbwn=461 mmHg, 16:54:01 Deflation Rate=5 mmHg, Cuff placed on Left Arm Vitals capture started with the following parameters, Patient=Adult, Interval=5 min, Initial Pr wrronj=883 mmHg, 16:55:31 Deflation Rate=5 mmHg, Cuff placed on Left Arm 16:56:15 HR=72 bpm, QTRH=964/94 mmhg, SpO2=98.0 %, Resp=13 B/min, Pain=0, Alepsh=10, Baugh=2 17:00:00 MD arrived. 17:01:12 HR=69 bpm, EKDG=410/108 mmhg, SpO2=97.0 %, Resp=20 B/min, Pain=0, Alpesh=10, Baugh=2 17:06:15 HR=68 bpm, ZUHG=183/82 mmhg, SpO2=98.0 %, Resp=15 B/min, Pain=0, Alpesh=10, Baugh=2 17:11:56 Left radial and groin(s) prepped with 2% chlorhexidine, and draped after a 3 min. waiting t dary. 17:11:57 HR=70 bpm, JJUF=475/87 mmhg, SpO2=97.0 %, Resp=25 B/min, Pain=0, Alpesh=10, Baugh=2 17:12:52 Pressure channel 1 zeroed. 0.5 mg VERSED given in lab by Rachel Quinn, RN in Left Antecubital via Peripheral IV. Ordered by Tuan Silva 17:15:51 G. Time Out. Correct patient, correct procedure, correct physician, power injector not loaded with contrast with surgical 17:15:51 team present. Time Out Concurred by MD and individual staff in procedure. 17:16:06 Case Start 17:16:17 HR=73 bpm, QEFO=073/90 mmhg, SpO2=96.0 %, Resp=25 B/min, Pain=0, Alpesh=10, Baugh=2 25 mcg FENTANYL given in lab by Rachel Quinn, RN in Left Antecubital via Peripheral IV. Order ed by Ricardo 17:16:58 Tuan Narayanan. 5 mL 1% XYLOCAINE given in lab by Tuan Silva in Left Radial via Subcutaneous. Ordered by Tuan Silva 17:17:06 G. 17:18:24 Reference ECG taken 17:21:18 HR=72 bpm, YGTU=515/90 mmhg, SpO2=93.0 %, Resp=25 B/min, Pain=0, Alpesh=10, Baugh=2 17:23:43 Access site was Left Radial Artery. A SHEATH, FR6 TRANSRADIAL SLENDER 10CM FR 6 was advanced into the Radial (left) using the George araiza 17:24:09 technique. 5 mL (Bolus) RADIAL COCKTAIL given in lab by Tuan Silva in Left Radial via Radial. Usi ng [Solution Name]. 17:24:34 Ordered by Tuan Silva. Reason: Ntg 200mcg Verapamil 2.5mg Heparin 4800U. 17:26:17 HR=85 bpm, QRZK=097/87 mmhg, SpO2=95.0 %, Resp=17 B/min, Pain=0, Alpesh=10, Baugh=2 A JR 4.0 DXTERITY CATHETER FR 5 was advanced over a wire. OMNIPAQUE, 350 MG, 150ML 150ML was us ed for 17:26:40 injections. 17:31:14 HR=75 bpm, IWTA=063/90 mmhg, SpO2=91.0 %, Resp=35 B/min, Pain=0, Alpesh=10, Baugh=2 17:32:10 The SORENSON-LAD was injected and visualized at various angles. OMNIPAQUE, 350 MG, 150ML 150ML used. Recorded Pressure: LV, HR=76, Condition=Condition 1 17:34:32 (Left Ventricle) LV 203/11/24 Recorded Pressure: LV, Ao, HR=75, Condition=Condition 1 17:34:43 (Left Ventricle) LV 204/12/25, (Aorta) Ao 215/89/143 17:36:15 HR=77 bpm, BFWB=768/95 mmhg, SpO2=94.0 %, Resp=20 B/min, Pain=0, Alpesh=10, Baugh=2 17:36:23 The RCA was injected and visualized at various angles. OMNIPAQUE, 350 MG, 150ML 150ML used . 17:40:42 The SVG-OM was injected and visualized at various angles. OMNIPAQUE, 350 MG, 150ML 150ML us ed. 17:41:20 HR=76 bpm, HFBC=847/102 mmhg, SpO2=92.0 %, Resp=23 B/min, Pain=0, Alpesh=10, Baugh=2 17:46:22 HR=80 bpm, WJQS=441/98 mmhg, SpO2=93.0 %, Resp=22 B/min, Pain=0, Alpesh=10, Baugh=2 After removing the current catheter a JL 4.0 DXTERITY CATHETER FR 5 was advanced over a WIRE, E XCHANGE 260CM 17:46:36 3MMJ 260CM. 17:51:21 HR=81 bpm, ZHJP=432/98 mmhg, SpO2=92.0 %, Resp=29 B/min, Pain=0, Alpesh=10, Baugh=2 17:51:32 The LCA was injected and visualized at various angles. OMNIPAQUE, 350 MG, 150ML 150ML use d. 17:52:39 Catheter was removed 17:53:36 Case End Assessment: Final Case, HR=70 BPM, Rhythm=sr, TMRP=224/94 mmhg, Edema=Mild, Color=Normal, Skin = Warm, Dry Right Pulses: Eddie Ped=2 17:54:08 Left Pulses: Eddie Ped=3 Neurological: State=Alert, Ox3, ROTHMAN Respiration: Resp=20 B/min, SpO2=98 % Radial Compression Device Used. 20 mLs of air placed in BAND, RADIAL COMPRESSION TR SHORT 24 2 4CM. Affected 17:54:19 hand 93 % O2 saturation. 17:54:30 No case complications noted. 17:54:34 Cine recording checked. 17:54:35 Bedside Report will be given. 17:54:49 A Left Heart Cath was performed. 17:56:24 HR=78 bpm, RDMU=155/100 mmhg, SpO2=93.0 %, Resp=26 B/min, Pain=0, Alpesh=10, Baugh=2 18:01:21 HR=72 bpm, CHJD=506/98 mmhg, Resp=16 B/min, Pain=0, Alpesh=10, Baugh=2 18:02:08 Vitals capture stopped. 18:06:04 10 mg LABETOLOL given in lab by Rachel Quinn, RN via Peripheral IV. Ordered by Tuan Silva Vitals capture started with the following parameters, Patient=Adult, Interval=5 min, Initial P tawbxtk=617 mmHg, 18:08:09 Deflation Rate=5 mmHg, Cuff placed on Left Arm 18:08:57 OJBU=179/72 mmhg, Pain=0, Alpesh=10, Baugh=2 18:09:21 Vitals capture stopped. End Study - Contrast Media Used In Study Contrast Total Opened (mL) Total Used (mL) Total Wasted (mL) Omnipaque 110 110 0 End Study - Maximum Contrast Load Max Contrast Load (mL) 876.6 End Study - Radiation Exposure Fluoro Time (minutes) 10.5 End Study - Sheaths Sheaths Pulled By Sheath Hold Time (min) Rachel Ledesma End Study - Patient Disposition Complications Transferred To Interventional Outcome No Telemetry Bed No attempt made
[2017-11-18] MEDS: NIFEdipine 10 MG CAP PO SCH (20:42)
--- NOTE | 2017-11-18 23:38 | PD.CARD.PN ---
Subjective Subjective Remarks Patient was seen earlier today post-cath Doing well overall, no chest pain/SOB Objective Medications Current Medications Medications (Trade) Dose Ordered Sig/Dalila Route Start Time Stop Time Status Last Admin (NS Flush) 2 ml UNSCH PRN IVF 11/17/17 11:00 (Imdur) 60 mg DAILY@0700 PO 11/18/17 07:00 11/18/17 09:53 (Prinivil) 40 mg DAILY PO 11/18/17 09:00 11/18/17 09:53 (Pravachol) 60 mg DAILY PO 11/18/17 09:00 11/18/17 09:55 (Lopressor) 100 mg BID PO 11/17/17 21:00 11/18/17 20:42 (Pepcid) 20 mg BID PO 11/17/17 21:00 11/18/17 20:42 (Zofran Inj) 4 mg Q6H PRN IVP 11/17/17 13:30 (Narcan Inj) 0.4 mg UNSCH PRN IV PUSH 11/17/17 13:30 (Olga-Colace) 1 tab BID PO 11/17/17 21:00 11/18/17 09:54 (Milk Of Magnesia Liq) 30 ml Q12H PRN PO 11/17/17 13:30 (Senokot) 17.2 mg Q12H PRN PO 11/17/17 13:30 (Dulcolax Supp) 10 mg DAILY PRN RECTAL 11/17/17 13:30 (Lactulose Liq) 30 ml DAILY PRN PO 11/17/17 13:30 (Romazicon Inj) 0.2 mg Q1M PRN IV PUSH 11/17/17 13:30 (Ativan) 1 mg Q4H PRN PO 11/17/17 13:30 (Ativan Inj) 1 mg Q4H PRN IV PUSH 11/17/17 13:30 (Ativan) 2 mg Q2H PRN PO 11/17/17 13:30 (Ativan Inj) 2 mg Q2H PRN IV PUSH 11/17/17 13:30 (Ativan Inj) 2 mg Q1H PRN IV PUSH 11/17/17 13:30 (Ativan Inj) 2 mg Q15M PRN IV PUSH 11/17/17 13:30 (Vasotec Inj) 1.25 mg Q6H PRN IV PUSH 11/17/17 13:45 (Procardia) 10 mg Q8HR PO 11/18/17 22:00 11/18/17 20:42 (Plavix) 75 mg DAILY PO 11/18/17 18:15 (Aspirin Chew) 81 mg DAILY CHEW 11/18/17 18:15 Vital Signs / I&O Vital Signs Date Time Temp Pulse Resp B/P (MAP) Pulse Ox O2 Delivery O2 Flow Rate FiO2 11/18/17 18:15 92 Room Air 11/18/17 12:05 53 11/18/17 11:38 97.9 52 18 145/75 (98) 96 11/18/17 10:10 97 21 11/18/17 08:30 97.8 61 18 136/59 (84) 96 11/18/17 08:00 61 11/18/17 08:00 61 11/18/17 05:46 98.1 59 18 140/65 (90) 96 11/18/17 04:00 60 11/18/17 02:08 97.4 59 18 132/60 (84) 95 11/18/17 01:58 11/18/17 01:19 55 16 142/78 (99) 97 Room Air I/O 11/18/17 11/18/17 11/18/17 11/19/17 11/19/17 11/19/17 07:00 15:00 23:00 07:00 15:00 23:00 # Voids 1 Physical Exam GENERAL: NAD, AAOx3 SKIN: Warm and dry. HEAD: Atraumatic. Normocephalic. EYES: Pupils equal and round. No scleral icterus. No injection or drainage. ENT: No nasal bleeding or discharge. Mucous membranes pink and moist. NECK: Trachea midline. No JVD. CARDIOVASCULAR: Regular rate and rhythm. RESPIRATORY: No accessory muscle use. Clear to auscultation. Breath sounds equal bilaterally. GASTROINTESTINAL: Abdomen soft, non-tender, nondistended. Hepatic and splenic margins not palpable. MUSCULOSKELETAL: Extremities without clubbing, cyanosis, or edema. No obvious deformities. NEUROLOGICAL: Awake and alert. No obvious cranial nerve deficits. Motor grossly within normal limits. Five out of 5 muscle strength in the arms and legs. Normal speech. PSYCHIATRIC: Appropriate mood and affect; insight and judgment normal. Laboratory Laboratory Tests Test 11/18/17 03:27 11/18/17 11:10 11/18/17 20:58 White Blood Count 7.9 TH/MM3 Red Blood Count 4.92 MIL/MM3 Hemoglobin 13.5 GM/DL Hematocrit 40.2 % Mean Corpuscular Volume 81.8 FL Mean Corpuscular Hemoglobin 27.4 PG Mean Corpuscular Hemoglobin Concent 33.5 % Red Cell Distribution Width 16.4 % Platelet Count 165 TH/MM3 Mean Platelet Volume 10.9 FL Neutrophils (%) (Auto) 68.7 % Lymphocytes (%) (Auto) 20.4 % Monocytes (%) (Auto) 8.4 % Eosinophils (%) (Auto) 1.8 % Basophils (%) (Auto) 0.7 % Neutrophils # (Auto) 5.4 TH/MM3 Lymphocytes # (Auto) 1.6 TH/MM3 Monocytes # (Auto) 0.7 TH/MM3 Eosinophils # (Auto) 0.1 TH/MM3 Basophils # (Auto) 0.1 TH/MM3 CBC Comment DIFF FINAL Differential Comment Activated Partial Thromboplast Time 34.7 SEC 39.9 SEC 28.4 SEC Blood Urea Nitrogen 13 MG/DL Creatinine 0.70 MG/DL Random Glucose 103 MG/DL Total Protein 7.2 GM/DL Albumin 3.7 GM/DL Calcium Level 9.0 MG/DL Alkaline Phosphatase 90 U/L Aspartate Amino Transf (AST/SGOT) 19 U/L Alanine Aminotransferase (ALT/SGPT) 34 U/L Total Bilirubin 0.6 MG/DL Sodium Level 144 MEQ/L Potassium Level 3.6 MEQ/L Chloride Level 109 MEQ/L Carbon Dioxide Level 26.3 MEQ/L Anion Gap 9 MEQ/L Estimat Glomerular Filtration Rate 85 ML/MIN Assessment and Plan Problem List: (1) CAD (coronary artery disease) ICD Codes: I25.10 - Atherosclerotic heart disease of [place] coronary artery without angina pectoris Status: Chronic (2) Non-STEMI (non-ST elevated myocardial infarction) ICD Codes: I21.4 - Non-ST elevation (NSTEMI) myocardial infarction Status: Acute (3) Unstable angina ICD Codes: I20.0 - Unstable angina Status: Acute (4) Hypertensive urgency ICD Codes: I16.0 - Hypertensive urgency Status: Resolved (5) Hyperlipidemia ICD Codes: E78.5 - Hyperlipidemia, unspecified Status: Chronic Assessment and Plan 1) Elevated troponin Most likely due to hypertensive urgency 2) Cath showing 2/3 grafts patent SVG to OM stent patent filling large area retrograde, but antegrade with 90% lesion with overall small area of myocardium Plan to treat medically Con't ASA/Plavix 3) Needs blood pressure control Added Procardia 10mg q8 4) EF 60-65% 5) If stable overnight and blood pressure controlled, plan for discharge to follow up with me in the office Tuan Silva DO Nov 18, 2017 23:38
[2017-11-19] VITALS (12 sets, daily range): BP systolic 126–141; BP diastolic 60–71; PULSE 54–66; RESP 18; TEMP 98–98.2; O2SAT 95–98
--- NOTE | 2017-11-19 01:54 | MA ---
cc: Tuan Silva DO DATE: 11/18/2017 PROCEDURE: Left heart catheterization, coronary angiogram, bypass angiogram, ultrasound guided access, moderate sedation 40 minutes PREPROCEDURE DIAGNOSES: Elevated troponin, hypertensive urgency. POSTPROCEDURE DIAGNOSES Coronary artery bypass graft x 3 (2/3 grafts patent), coronary artery disease, hypertensive urgency. MEDICATIONS: Versed 0.5 mg, fentanyl 25 mcg, heparin 4800 units, nitroglycerin 200 mcg, verapamil 2.5 mg, labetalol 10 mg. CONTRAST USED: 110 mL FLUOROSCOPY: 10.5 minutes. MODERATE SEDATION: 40 minutes. ESTIMATED BLOOD LOSS: 10 mL PROCEDURAL SUMMARY: Marci Sam is a pleasant 62-year-old female who had multiple cardiac procedures over the past year. She presented to [facility] Emergency Room due to chest pain and shortness of breath. She was found to have extensive hypertensive urgency and a minimally elevated troponin. Because of this, she was recommended cardiac catheterization. Risks, benefits and alternatives were explained to her and she consented as such. She was brought to the lab and prepped in the usual sterile fashion. Left radial artery was accessed using a modified Seldinger technique with ultrasound guidance and placement of a 5/6 [place] sheath. This was easily aspirated and flushed. A JR4 was advanced over a J-wire to the left subclavian and the JR4 was used for selective angiography of the SORENSON to LAD. This was then further advanced to the aortic root and across the aortic valve for measurement of left ventricular pressure. JR4 was used for selective angiography of the right coronary artery system as well as the saphenous vein graft to the obtuse marginal. This was exchanged out for a JL4 which was used for selective angiography of the left coronary artery system. JL4 was removed over a J wire. A radial band was placed over the arteriotomy site for hemostasis. The patient left the brick and blocker aid labor cardiovascularly stable. FINDINGS: LEFT MAIN: 99% distal stenosis. It bifurcates into an LAD and circumflex. LEFT ANTERIOR DESCENDIN% ostial stenosis. Distally, there is competitive flow noted. LEFT CIRCUMFLEX: 90% ostial stenosis. There is a notable competitive flow in the mid portion. RIGHT CORONARY ARTERY: Ostial stent is patent. There is mild luminal irregularities throughout the RCA, but no significant disease. LEFT INTERNAL MAMMARY ARTERY TO LEFT ANTERIOR DESCENDING: Patent and fills the LAD antegrade as well as retrograde filling one of the diagonals. SAPHENOUS VEIN GRAFT TO OBTUSE MARGINAL: Patent. Previous stent which goes from the saphenous vein graft to the obtuse marginal is patent. Antegrade in the obtuse marginal, there is a 90% stenosis with overall small vessel distal to this which covers overall a small area of myocardium. Saphenous vein graft also supplies retrogradely up the obtuse marginal to fill back to the left main as well as a second obtuse marginal. LEFT VENTRICULAR END DIASTOLIC PRESSURE: 25. IMPRESSIONS: 1. Minimally elevated troponin most likely due to hypertensive urgency. 2. Hypertensive urgency. 3. Coronary artery disease with a history of coronary artery bypass graft x 3 (2/3 grafts patent). RECOMMENDATIONS: 1. Ms. Sam presented with hypertensive urgency and a minimally elevated troponin. 2. She does have disease distal to her saphenous vein graft to obtuse marginal, but this is overall a small vessel and covers very little myocardium. I feel that this should be treated medically, including blood pressure control at this time. 3. She will be started on Procardia 10 mg every 8 hours for better blood pressure control. 4. She will be continued on her aspirin and Plavix therapy as she does have recent stenting of her RCA as well as the saphenous vein graft to the obtuse marginal. 5. She will be watched overnight and if stable in the morning, as well as having control of her blood pressure, she will be discharged home to followup with me in the office. Thank you for allowing me to see Marci Sam. If there are any questions please do not hesitate to call. Tuan Silva DO VGP/rt , 01:22 AM , 01:53 AM
[2017-11-19] MEDS: NIFEdipine 10 MG CAP PO SCH (05:41)
[2017-11-19] MEDS: ISOSORBIDE MONONITRATE 60 MG CR TAB (IMDUR) PO SCH (05:41)
[2017-11-19 07:24] LABS: BASOPHIL # 0.1 TH/MM3 (0-0.2); BASOPHIL % 1.1 % (0.0-2.0); EOSINOPHIL # 0.1 TH/MM3 (0-0.4); EOSINOPHIL % 1.5 % (0.0-4.0); HEMATOCRIT 39.8 % (35.0-46.0); HEMOGLOBIN 13.2 GM/DL (11.6-15.3); LYMPH % 18.3 % (9.0-44.0); LYMPHOCYTE # 1.3 TH/MM3 (1.0-4.8); MEAN CELL VOLUME 82.3 FL (80.0-100.0); MEAN CORPUSCULAR HEMOGLOBIN 27.3 PG (27.0-34.0); MEAN CORPUSCULAR HGB CONC 33.2 % (32.0-36.0); MONO % 8.4 % (0.0-8.0); MONOCYTE # 0.6 TH/MM3 (0-0.9); NEUT % 70.7 % (16.0-70.0); PLATELET COUNT 168 TH/MM3 (150-450); RED BLOOD COUNT 4.84 MIL/MM3 (4.00-5.30); RED CELL DISTRIBUTION WIDTH 15.7 % (11.6-17.2); WHITE BLOOD COUNT 7.1 TH/MM3 (4.0-11.0)
[2017-11-19 07:59] LABS: BICARBONATE 26.4 MEQ/L (21.0-32.0); CALCIUM 8.9 MG/DL (8.5-10.1); CREATININE 0.6 MG/DL (0.50-1.00)
[2017-11-19] MEDS: DOCUSATE SODIUM 50 MG/SENNA 8.6 MG TAB PO SCH (09:00)
[2017-11-19] MEDS ORDERED: LOVA20TA PO (09:04)
[2017-11-19] MEDS ORDERED: FURO1TAB62 PO (09:04)
[2017-11-19] MEDS ORDERED: METO-338 PO (09:04)
[2017-11-19] MEDS ORDERED: PLAV75TA29 PO (09:04)
[2017-11-19] MEDS ORDERED: ASPI81CH25 PO (09:04)
[2017-11-19] MEDS ORDERED: RANI300T PO (09:04)
[2017-11-19] MEDS ORDERED: ISOS60TA PO (09:04)
[2017-11-19] MEDS ORDERED: NIFE10 PO (09:04)
[2017-11-19] MEDS ORDERED: LISI-515 PO (09:04)
--- NOTE | 2017-11-19 09:05 | HHI.DCPOC ---
Discharge Care Plan Goals to Promote Your Health * To prevent worsening of your condition and complications * To maintain your health at the optimal level Directions to Meet Your Goals Take your medications as prescribed Follow your dietary instruction Follow activity as directed Keep your appointments as scheduled Take your immunizations and boosters as scheduled If your symptoms worsen call your PCP, if no PCP go to Urgent Care Center or Emergency Room Smoking is Dangerous to Your Health. Avoid second hand smoke Call the 24-hour hour crisis hotline for domestic abuse at aCndace Mcdaniels MD Nov 19, 2017 09:05
[2017-11-19] MEDS: LISINOPRIL 20 MG TAB PO SCH (09:12)
[2017-11-19] MEDS: ASPIRIN 81 MG CHEW TAB CHEW SCH (09:12)
[2017-11-19] MEDS: PRAVASTATIN SOD 20 MG TAB PO SCH (09:13)
[2017-11-19] MEDS: CLOPIDOGREL 75 MG TAB PO SCH (09:13)
[2017-11-19] MEDS: FAMOTIDINE 20 MG TAB PO SCH (09:13)
[2017-11-19] MEDS: METOPROLOL TARTRATE 100 MG TAB PO SCH (09:13)
--- NOTE | 2017-11-19 10:34 | HHI.FPPN ---
Subjective Remarks Patient is seen and examined this morning. She is status-post cath which showed 2/3 patent stents, partial occlusion of 3rd graft. Patient denies chest pain, shortness of breath, nausea, vomiting, LE swelling, headaches. She is ambulating and eating without difficulty. She is eager to go home. Objective Vitals Vital Signs Date Time Temp Pulse Resp B/P (MAP) Pulse Ox O2 Delivery O2 Flow Rate FiO2 11/19/17 10:00 64 11/19/17 09:00 66 11/19/17 08:00 64 11/19/17 07:28 98.0 64 18 141/71 (94) 98 11/19/17 07:00 55 11/19/17 06:01 64 11/19/17 05:19 62 11/19/17 03:48 21 11/19/17 03:36 98.2 62 136/69 (91) 95 11/19/17 03:00 58 11/19/17 02:00 56 11/19/17 01:00 58 11/19/17 00:00 98.2 58 126/60 (82) 97 11/19/17 00:00 54 11/18/17 23:00 56 11/18/17 22:00 64 11/18/17 21:00 68 11/18/17 20:00 98.5 64 132/64 (86) 97 11/18/17 20:00 63 11/18/17 19:00 63 11/18/17 18:15 92 Room Air 11/18/17 12:05 53 11/18/17 11:38 97.9 52 18 145/75 (98) 96 I/O 11/18/17 11/18/17 11/18/17 11/19/17 11/19/17 11/19/17 07:00 15:00 23:00 07:00 15:00 23:00 Intake Total 480 ml Output Total 400 ml Balance 80 ml Intake Oral 480 ml Output Urine Total 400 ml # Voids 1 Result Diagram: 11/19/17 0540 11/19/17 0540 Imaging Last Impressions Chest X-Ray 11/17/17 1053 Signed Impressions: Service Date/Time: Friday, November 17, 2017 11:15 - CONCLUSION: No acute disease. No significant change has occurred. Alexandre Burrows MD Objective Remarks GEN: Well-developed, well-nourished patient. No acute distress. CV: Regular rate and rhythm without obvious murmurs LUNGS: Clear to auscultation bilaterally. Normal respiratory effort. No wheezes , rales, rhonchi. GI: Soft, nontender, nondistended. No palpable masses. EXT: No edema. No calf tenderness. NEURO/PSYCH: Awake, alert. Appropriate insight and judgment. Normal speech Medications and IVs Inpatient Medications Aspirin (Aspirin Chew) 81 mg DAILY CHEW Last administered on 11/19/17at 09:12; Start 11/18/17 at 18:15 Bisacodyl (Dulcolax Supp) 10 mg DAILY PRN RECTAL SEVERE CONSITIPATION; Start at 13:30 Clopidogrel Bisulfate (Plavix) 75 mg DAILY PO Last administered on 11/19/17at 09 :13; Start 11/18/17 at 18:15 Enalaprilat (Vasotec Inj) 1.25 mg Q6H PRN IV PUSH SEE LABEL COMMENTS; Start at 13:45 Famotidine (Pepcid) 20 mg BID PO Last administered on 11/19/17at 09:13; Start at 21:00 Flumazenil (Romazicon Inj) 0.2 mg Q1M PRN IV PUSH SEE LABEL COMMENTS; Start at 13:30 Heparin Sodium (Porcine) (Heparin Inj) 2,500 units UNSCH PRN IV APTT 25 TO 39 Last administered on 11/18/17at 04:57; Start 11/17/17 at 18:30; Stop 11/18/17 at 18:14; Status DC Heparin Sodium/ Dextrose 250 ml @ 10 mls/hr TITRATE PRN IV Coagulation Management Last administered on 11/18/17at 13:17; Start 11/17/17 at 14:00; Stop 11/18/17 at 18:14; Status DC Isosorbide Mononitrate (Imdur) 60 mg DAILY@0700 PO Last administered on at 05:41; Start 11/18/17 at 07:00 Lactulose (Lactulose Liq) 30 ml DAILY PRN PO SEVERE CONSITIPATION; Start at 13:30 Lisinopril (Prinivil) 40 mg DAILY PO Last administered on 11/19/17at 09:12; Start 11/18/17 at 09:00 Lorazepam (Ativan Inj) 2 mg Q15M PRN IV PUSH CIWA > 20; Start 11/17/17 at 13:30 Lorazepam (Ativan) 2 mg Q2H PRN PO CIWA 11-14; Start 11/17/17 at 13:30 Magnesium Hydroxide (Milk Of Magnesia Liq) 30 ml Q12H PRN PO Mild constipation ; Start 11/17/17 at 13:30 Metoprolol Tartrate (Lopressor) 100 mg BID PO Last administered on 11/19/17at 09 :13; Start 11/17/17 at 21:00 Miscellaneous Information 1 ONCE ONCE XX ; Start 11/18/17 at 18:15; Stop at 18:41; Status DC Naloxone HCl (Narcan Inj) 0.4 mg UNSCH PRN IV PUSH SEE LABEL COMMENTS; Start at 13:30 Nicardipine HCl 25 mg/Sodium Chloride 250 ml @ 50 mls/hr TITRATE PRN IV Blood pressure management Last administered on 11/17/17at 16:18; Start 11/17/17 at 11: 00; Stop 11/17/17 at 19:10; Status DC Nicardipine HCl 50 mg/Sodium Chloride 500 ml @ 50 mls/hr TITRATE PRN IV Blood pressure management Last administered on 11/17/17at 19:37; Start 11/17/17 at 19: 15; Stop 11/17/17 at 22:03; Status DC Nifedipine (Procardia) 10 mg Q8HR PO Last administered on 11/19/17at 05:41; Start 11/18/17 at 22:00 Ondansetron HCl (Zofran Inj) 4 mg Q6H PRN IVP NAUSEA OR VOMITING; Start at 13:30 Pravastatin Sodium (Pravachol) 60 mg DAILY PO Last administered on 11/19/17at 09 :13; Start 11/18/17 at 09:00 Senna/Docusate Sodium (Olga-Colace) 1 tab BID PO Last administered on at 09:54; Start 11/17/17 at 21:00 Sennosides (Senokot) 17.2 mg Q12H PRN PO Moderate constipation; Start 11/17/17 at 13:30 Sodium Chloride (NS Flush) 2 ml UNSCH PRN IVF FLUSH AFTER USING IV ACCESS; Start 11/17/17 at 11:00 Urinary Catheter: No Vascular Central Line Catheter: No A/P Assessment and Plan 62 yo F with PMH of CAD s/p CABG in january 2017 that further required stents x2 , HLD, HTN, GERD presenting to ED with 2 day history of CP on exertion. EKG normal in ED but elevated troponin at 0.7. Also Hypertensive to 224/94 on admission. As patient has had complications in the past related to clotting off stents, patient was started on Heparin drip in ED. Also started on Nicardipine drip for her HTN. Cardiology consulted for catheterization which was performed 11/[address] Silva. She is stable for discharge 11/19. Discharge Planning Patient discharged to home today dw Dr. Collier, and sdw Dr. Oconnell Problem List: (1) Non-STEMI (non-ST elevated myocardial infarction) ICD Codes: I21.4 - Non-ST elevation (NSTEMI) myocardial infarction Status: Acute Plan: Presented with chest pain in the setting of hypertensive urgency. Etiology unclear if related to coronary artery disease versus hypertension. However due to elevated troponin and clinical presentation, patient will be managed for NSTEMI. History significant for patient having CABG in January 2017 that required stenting x2 following the procedure due to occlusion of the stents. -CXR unremarkable. -Cardiology consulted: Appreciate recommendations * Etiology of elevated troponin is between coronary artery disease versus elevated blood pressure. * Cardiac catheterization showed 2/3 patent arteries. Cardiology recommending medical management -Troponin initially increased from 0.07 to 0.14 but then back down to 0.11 -lipid panel unremarkable -echo: EF 60-65% Medications: * Continue home Plavix and aspirin * Heparin Drip d/c post cath * Continue home statin, isosorbide, metoprolol, lisinopril (2) Hypertensive urgency ICD Codes: I16.0 - Hypertensive urgency Status: Resolved Plan: Hypertensive to 224/94 on admission. Elevated troponin may be 2/2 to hypertension -Nicardipine drip discontinued -Continue home medications (see above for more detail) -Procardia 10mg daily initiated 11/18, with improvement of BP, discharge home with this -Vasotec 1.25mg IV PRN for BP >180/100 (3) CAD (coronary artery disease) ICD Codes: I25.10 - Atherosclerotic heart disease of [place] coronary artery without angina pectoris Status: Chronic Plan: Cardiac history as above (4) GERD (gastroesophageal reflux disease) ICD Codes: K21.9 - Gastro-esophageal reflux disease without esophagitis Plan: Continue home Ranitidine (5) FEN Plan: F: PO hydration after cardiac cath E: within normal limits - will replete as needed N: NPO for now, heart healthy after cath DVT PPX: d/c on Plavix CIWA protocol for history of regular alcohol use, no evidence of withdrawal Candace Mcdaniels MD Nov 19, 2017 10:33
[2017-11-19] MEDS ORDERED: IOHEXOL 350 MG/ML 100 ML BTL (for Cath Lab) OTHER ONE (11:02)
[2017-11-19] MEDS ORDERED: IOHEXOL 350 MG/ML 50 ML BTL (for Cath Lab) OTHER ONE (11:02)
--- NOTE | 2017-11-19 11:15 | PD.CARD.PN ---
Subjective Subjective Remarks Doing well overall, no chest pain/SOB BP controlled Objective Vital Signs / I&O Vital Signs Date Time Temp Pulse Resp B/P (MAP) Pulse Ox O2 Delivery O2 Flow Rate FiO2 11/19/17 10:00 64 11/19/17 09:00 66 11/19/17 08:00 64 11/19/17 07:28 98.0 64 18 141/71 (94) 98 11/19/17 07:00 55 11/19/17 06:01 64 11/19/17 05:19 62 11/19/17 03:48 21 11/19/17 03:36 98.2 62 136/69 (91) 95 11/19/17 03:00 58 11/19/17 02:00 56 11/19/17 01:00 58 11/19/17 00:00 98.2 58 126/60 (82) 97 11/19/17 00:00 54 11/18/17 23:00 56 11/18/17 22:00 64 11/18/17 21:00 68 11/18/17 20:00 98.5 64 132/64 (86) 97 11/18/17 20:00 63 11/18/17 19:00 63 11/18/17 18:15 92 Room Air 11/18/17 12:05 53 11/18/17 11:38 97.9 52 18 145/75 (98) 96 I/O 11/18/17 11/18/17 11/18/17 11/19/17 11/19/17 11/19/17 07:00 15:00 23:00 07:00 15:00 23:00 Intake Total 480 ml 240 ml Output Total 400 ml 350 ml Balance 80 ml -110 ml Intake Oral 480 ml 240 ml Output Urine Total 400 ml 350 ml # Voids 1 # Bowel Movements 1 Physical Exam GENERAL: NAD, AAOx3 SKIN: Warm and dry. HEAD: Atraumatic. Normocephalic. EYES: Pupils equal and round. No scleral icterus. No injection or drainage. ENT: No nasal bleeding or discharge. Mucous membranes pink and moist. NECK: Trachea midline. No JVD. CARDIOVASCULAR: Regular rate and rhythm. RESPIRATORY: No accessory muscle use. Clear to auscultation. Breath sounds equal bilaterally. GASTROINTESTINAL: Abdomen soft, non-tender, nondistended. Hepatic and splenic margins not palpable. MUSCULOSKELETAL: Extremities without clubbing, cyanosis, or edema. No obvious deformities. NEUROLOGICAL: Awake and alert. No obvious cranial nerve deficits. Motor grossly within normal limits. Five out of 5 muscle strength in the arms and legs. Normal speech. PSYCHIATRIC: Appropriate mood and affect; insight and judgment normal. Laboratory Laboratory Tests Test 11/18/17 20:58 11/19/17 05:40 Activated Partial Thromboplast Time 28.4 SEC White Blood Count 7.1 TH/MM3 Red Blood Count 4.84 MIL/MM3 Hemoglobin 13.2 GM/DL Hematocrit 39.8 % Mean Corpuscular Volume 82.3 FL Mean Corpuscular Hemoglobin 27.3 PG Mean Corpuscular Hemoglobin Concent 33.2 % Red Cell Distribution Width 15.7 % Platelet Count 168 TH/MM3 Mean Platelet Volume 11.0 FL Neutrophils (%) (Auto) 70.7 % Lymphocytes (%) (Auto) 18.3 % Monocytes (%) (Auto) 8.4 % Eosinophils (%) (Auto) 1.5 % Basophils (%) (Auto) 1.1 % Neutrophils # (Auto) 5.0 TH/MM3 Lymphocytes # (Auto) 1.3 TH/MM3 Monocytes # (Auto) 0.6 TH/MM3 Eosinophils # (Auto) 0.1 TH/MM3 Basophils # (Auto) 0.1 TH/MM3 CBC Comment DIFF FINAL Differential Comment Blood Urea Nitrogen 10 MG/DL Creatinine 0.60 MG/DL Random Glucose 91 MG/DL Calcium Level 8.9 MG/DL Sodium Level 144 MEQ/L Potassium Level 3.5 MEQ/L Chloride Level 108 MEQ/L Carbon Dioxide Level 26.4 MEQ/L Anion Gap 10 MEQ/L Estimat Glomerular Filtration Rate 102 ML/MIN Assessment and Plan Problem List: (1) CAD (coronary artery disease) ICD Codes: I25.10 - Atherosclerotic heart disease of [place] coronary artery without angina pectoris Status: Chronic (2) Non-STEMI (non-ST elevated myocardial infarction) ICD Codes: I21.4 - Non-ST elevation (NSTEMI) myocardial infarction Status: Acute (3) Unstable angina ICD Codes: I20.0 - Unstable angina Status: Acute (4) Hypertensive urgency ICD Codes: I16.0 - Hypertensive urgency Status: Resolved (5) Hyperlipidemia ICD Codes: E78.5 - Hyperlipidemia, unspecified Status: Chronic Assessment and Plan 1) Elevated troponin Most likely due to hypertensive urgency 2) Cath showing 2/3 grafts patent SVG to OM stent patent filling large area retrograde, but antegrade with 90% lesion with overall small area of myocardium Plan to treat medically Con't ASA/Plavix 3) Needs blood pressure control Added Procardia 10mg q8 4) EF 60-65% 5) Discussed JADEN evaluation as she had bradycardia overnight, but also goes with accelerated HTN 6) Cardiovascularly stable for discharge, will follow up with me in the office Tuan Silva DO Nov 19, 2017 11:14
--- NOTE | 2017-11-19 11:36 | EKG ---
Date Performed: 11/17/2017 Time Performed: 22:25:54 PTAGE: 62 years EKG: SINUS BRADYCARDIA INFERIOR MYOCARDIAL INFARCTION ABNORMAL ECG PREVIOUS TRACING : 11/17/2017 15.22 Since the previous tracing, no significant change noted DOCTOR: Phil Mcdaniels Interpretating Date/Time 11/19/2017 11:31:25
--- NOTE | 2017-11-19 13:31 | HHI.DS ---
Discharge Summary Admission Date Nov 17, 2017 at 12:49 Discharge Date: Nov 19, 2017 Admitting Diagnosis non-STEMI, hypertensive crisis (1) Non-STEMI (non-ST elevated myocardial infarction) Diagnosis: Principal Plan: Presented with chest pain in the setting of hypertensive urgency. Etiology unclear if related to coronary artery disease versus hypertension. However due to elevated troponin and clinical presentation, patient will be managed for NSTEMI. History significant for patient having CABG in January 2017 that required stenting x2 following the procedure due to occlusion of the stents. -CXR unremarkable. -Cardiology consulted: Appreciate recommendations * Etiology of elevated troponin is between coronary artery disease versus elevated blood pressure. * Cardiac catheterization showed 2/3 patent arteries. Cardiology recommending medical management -Troponin initially increased from 0.07 to 0.14 but then back down to 0.11 -lipid panel unremarkable -echo: EF 60-65% Medications: * Continue home Plavix and aspirin * Heparin Drip d/c post cath * Continue home statin, isosorbide, metoprolol, lisinopril ICD Codes: I21.4 - Non-ST elevation (NSTEMI) myocardial infarction Status: Acute (2) Hypertensive urgency Plan: Hypertensive to 224/94 on admission. Elevated troponin may be 2/2 to hypertension -Nicardipine drip discontinued -Continue home medications (see above for more detail) -Procardia 10mg daily initiated 11/18, with improvement of BP, discharge home with this -Vasotec 1.25mg IV PRN for BP >180/100 ICD Codes: I16.0 - Hypertensive urgency Status: Resolved (3) CAD (coronary artery disease) Plan: Cardiac history as above ICD Codes: I25.10 - Atherosclerotic heart disease of [place] coronary artery without angina pectoris Status: Chronic (4) GERD (gastroesophageal reflux disease) Plan: Continue home Ranitidine ICD Codes: K21.9 - Gastro-esophageal reflux disease without esophagitis (5) FEN Plan: F: PO hydration after cardiac cath E: within normal limits - will replete as needed N: NPO for now, heart healthy after cath DVT PPX: d/c on Plavix CIWA protocol for history of regular alcohol use, no evidence of withdrawal [facility] - Dr. Silva Procedures Cardiac cath 11/18/2017 Brief History 62 yo F with PMH of CAD s/p CABG in 2017, HLD, HTN, GERD presenting to ED for chest pain. Patient states she has had CP on exertion for 2 days prior to admission. Initially felt like indigestion 2 days prior to admission. Day prior to admission she had discomfort in chest throughout the day then in the evening while packing her vehicle for vacation she experienced chest tightness substernal - pressure to mid back and tingling sensation to both armpits. Lasted 10-15 minutes after rest. No chest discomfort since then. No N/V, fever/ chills, diaphoresis. Denies any illness preceding the past few days. She took her morning meds prior to admission except for her Lasix which she has not taken for 1 week. Of note, per patient she had CABG in January 2017, 10 weeks later had collapse of vessels, clotted artery and required 3 stents, 10 weeks later had clot/ narrowing of one of the stents that required angioplasty. CBC/BMP: 11/19/17 0540 11/19/17 0540 Significant Findings Laboratory Tests Test 11/17/17 11:40 11/17/17 15:00 11/17/17 16:04 11/17/17 21:10 Monocytes (%) (Auto) 9.2 % (0.0-8.0) Chloride Level 110 MEQ/L (98-107) Troponin I 0.07 NG/ML (0.02-0.05) 0.14 NG/ML (0.02-0.05) 0.11 NG/ML (0.02-0.05) Mean Platelet Volume 11.1 FL (7.0-11.0) Activated Partial Thromboplast Time 46.3 SEC (24.3-30.1) Triglycerides Level 186 MG/DL (42-150) Test 11/18/17 03:27 11/18/17 11:10 11/18/17 20:58 11/19/17 05:40 Monocytes (%) (Auto) 8.4 % (0.0-8.0) 8.4 % (0.0-8.0) Activated Partial Thromboplast Time 34.7 SEC (24.3-30.1) 39.9 SEC (24.3-30.1) Chloride Level 109 MEQ/L (98-107) 108 MEQ/L (98-107) Estimat Glomerular Filtration Rate 85 ML/MIN (>89) Neutrophils (%) (Auto) 70.7 % (16.0-70.0) Imaging Last Impressions Chest X-Ray 11/17/17 1053 Signed Impressions: Service Date/Time: Friday, November 17, 2017 11:15 - CONCLUSION: No acute disease. No significant change has occurred. Alexandre Burrows MD PE at Discharge GEN: Well-developed, well-nourished patient. No acute distress. CV: Regular rate and rhythm without obvious murmurs LUNGS: Clear to auscultation bilaterally. Normal respiratory effort. No wheezes , rales, rhonchi. GI: Soft, nontender, nondistended. No palpable masses. EXT: No edema. No calf tenderness. NEURO/PSYCH: Awake, alert. Appropriate insight and judgment. Normal speech Hospital Course 62 yo F with PMH of CAD s/p CABG in January 2017 with subsequent cardiac stenting, HLD, HTN, GERD presented to ED for 2 days of exertional chest pain. EKG normal in ED but elevated troponin at 0.7. Also Hypertensive to 224/94 on admission. As patient has had complications in the past related to clotting off stents, patient was started on Heparin drip in ED. Also started on Nicardipine drip. Cardiology consulted for further management. Troponin elevated at 0.7, normal EKG and no ST changes. Takes Plavix, ASA at home (took morning doses prior to admission) Given ASA 162mg in ED CXR negative Lipid profile showing mildly elevated TGs Of note, per patient she had CABG in January 2017, 10 weeks later had collapse of vessels, clotted artery and required 3 stents, 10 weeks later had clot/ narrowing of one of the stents that required angioplasty. Elevated troponin: likely related to hypertensive urgency. Cath performed showing 2/3 grafts patent. Medical treatment recommended (see cath note for more detail). Patient to continue ASA and Plavix and f/u with Dr. Silva for further HTN management and w/u (including but not limited to renal artery stenosis and JADEN). Procardia 10mg q8hr added to patient's regimen (home meds included lisinopril, metoprolol, Lasix, isosorbide mononitrate. EF reportedly 60 -65%. Patient asymptomatic 11/19 and stable for discharge to home. Pt Condition on Discharge: Stable Discharge Disposition: Discharge Home Discharge Instructions DIET: Follow Instructions for: Heart Healthy Diet Activities you can perform: Regular-No Restrictions Other Activity Instructions: No strenuous activity until cleared by MD Follow up Referrals: PCP Follow-up - 1 Week with Tuan Silva DO New Medications: Nifedipine (Procardia) 10 Mg Cap 10 MG PO Q8HR, #90 CAP Continued Medications: Aspirin (Aspirin Low Strength) 81 Mg Chew 81 MG PO DAILY for Blood Clot Prevention, #30 EA 0 Refills (This prescription has been renewed) Clopidogrel (Plavix) 75 Mg Tab 75 MG PO DAILY for Blood Clot Prevention, #30 TAB 0 Refills (This prescription has been renewed) Furosemide (Lasix) 20 Mg Tab 20 MG PO DAILY, #30 TAB 0 Refills (This prescription has been renewed) Isosorbide Mononitrate ER (Isosorbide Mononitrate ER) 60 Mg Tab 60 MG PO DAILY@0700 for CAD, #30 TAB 0 Refills (This prescription has been renewed) Lisinopril (Lisinopril) 20 Mg Tab 40 MG PO DAILY for Hypertension, #30 TAB 0 Refills (This prescription has been renewed) Lovastatin (Lovastatin) 20 Mg Tab 60 MG PO DAILY for Cholesterol Management, #30 TAB 0 Refills (This prescription has been renewed) Metoprolol Tartrate (Lopressor) 100 Mg Tab 100 MG PO BID for CAD, #60 TAB 0 Refills (This prescription has been renewed) Nitroglycerin SL (Nitrostat SL) 0.4 Mg Subl 0.4 MG SL Q5M PRN for ANGINA, #20 TAB 0 Refills in case of chest pain take one tablet sublingual every five minutes up to three Tablets. if no improvement call PCP, or go to Emergency Room. Ranitidine (Ranitidine) 300 Mg Tab 300 MG PO HS for Heartburn Management, #30 TAB 0 Refills (This prescription has been renewed) Candace Mcdaniels MD Nov 19, 2017 13:31
== END 2017-11-19 11:03 | disposition home or self-care (01) | DRG 281 ==
LOC: NEPC 10:30 → NEDA 12:49 → NEDH 19:56 → N04A 11-18 01:50 → HCIS 11-18 16:42
PROVIDERS: ADMIT Family Medicine; ATTEND Family Medicine
PROC: B2131ZZ Fluoroscopy of Multiple Coronary Artery Bypass Grafts using Low Osmolar Contrast (ICD-10-PCS; 2017-11-18)
PROC: B2111ZZ Fluoroscopy of Multiple Coronary Arteries using Low Osmolar Contrast (ICD-10-PCS; 2017-11-18)
PROC: 4A023N7 Measurement of Cardiac Sampling and Pressure, Left Heart, Percutaneous Approach (ICD-10-PCS; principal; 2017-11-18 13:30)
DX: I21.4 Non-ST elevation (NSTEMI) myocardial infarction (principal); Z68.41 Body mass index [BMI] 40.0-44.9, adult; I25.110 Atherosclerotic heart disease of native coronary artery with unstable angina pectoris; Z95.1 Presence of aortocoronary bypass graft; Z95.5 Presence of coronary angioplasty implant and graft; I16.0 Hypertensive urgency; I10 Essential (primary) hypertension; K21.9 Gastro-esophageal reflux disease without esophagitis; E78.5 Hyperlipidemia, unspecified; Z79.02 Long term (current) use of antithrombotics/antiplatelets; Z79.82 Long term (current) use of aspirin; E66.9 Obesity, unspecified; Z82.49 Family history of ischemic heart disease and other diseases of the circulatory system
CPT/HCPCS: 71046; 80048; 80053; 80061; 83735; 84484; 85025; 85027; 85610; 85730; 93005; 93306; 93459; 96365; C1769; C1893; J1644; J2250; J3010; J7040; J7050; Q9967